=== PATIENT | female | born 1995 ===

== ENCOUNTER 2020-07-10 09:35 | Outpatient (REF) | payer OTHER, SELFPAY ==
[2020-07-10 15:19] LABS: Glucose Urine UA NEG (NEG); Leukocyte Esterase Urine TRACE (NEG); Nitrite Urine NEG (NEG); PH 5.5 (5.0-8.0); Specific Gravity - Urine >= 1.030 (1.005-1.025); UACC Culture Trigger YES; Urine Blood 3+ (NEG); Urine Ketones NEG (NEG); Urine Protein TRACE MG/DL (NEG-TRACE)
[2020-07-10 15:24] LABS: Appearance Urine CLOUDY; Color Urine YELLOW
[2020-07-10 15:52] LABS: Bacteria Urine 2+ /LPF; RBC Urine TNTC /HPF (0); Squamous Epithelial Cell Urine 3+ /LPF
== END 2020-07-10 09:36 | disposition home or self-care (01) ==
LOC: HO.LAB 09:35
PROVIDERS: Visit Provider Advanced Practice Midwife
DX: R32 Unspecified urinary incontinence (principal); N89.8 Other specified noninflammatory disorders of vagina; E66.01 Morbid (severe) obesity due to excess calories; Z68.45 Body mass index [BMI] 70 or greater, adult
CPT/HCPCS: 81001; 81003; 87086; 87147; 99202

== ENCOUNTER 2020-12-13 12:35 | Emergency (ER) | payer OTHER, SELFPAY ==
[2020-12-13 12:44] VITALS: BP 118/59; PULSE 107; O2SAT 99
[2020-12-13 13:47] VITALS: BP 154/79; PULSE 97; RESP 18; TEMP 37.2; O2SAT 99; BMI 80.1
--- NOTE | 2020-12-13 14:36 | ECG_ITS ---
Test Reason : NEAR SYNCOPE Blood Pressure : / mmHG Vent. Rate : 090 BPM Atrial Rate : 090 BPM P-R Int : 168 ms QRS Dur : 076 ms QT Int : 380 ms P-R-T Axes : 046 032 034 degrees QTc Int : 464 ms Normal sinus rhythm Possible Left atrial enlargement Borderline ECG No previous ECGs available Referred By: Billy Medrano Electronically Signed By:JANETH PARKINSON MD
--- NOTE | 2020-12-13 14:38 | ED.GENADULT ---
HPI - General Adult General Chief complaint: General Medical Stated complaint: [facility] 1 DAY SINCE 2ND COVID VACC Time Seen by Provider: 12/13/20 12:45 Source: patient Mode of arrival: EMS Limitations: no limitations History of Present Illness HPI narrative: 25-year-old female who presents emergency department for evaluation of headache, chest pain and a near syncopal episode. Patient states that she got her 2nd COVID 19 Moderna vaccination yesterday. She states that shortly after the vaccination she developed a headache. She states the headache is a constant, throbbing sensation located throughout her entire head which is 9/10 at its worst. Patient states that she gets frequent headaches but this headache different than her usual headache. She took Advil yesterday with no relief. She states she woke up this morning at 11:30 a.m. and still had a headache. She then took a shower. While she was in the shower she felt lightheaded and dizzy as if she is going to pass out. She also developed nausea but no vomiting. She became very weak. She did not feel well and called an ambulance was transported to the emergency department for evaluation. She states that since being in the emergency department she has developed chest pain. She describes the pain is a constant pressure-like pain on the center of her chest. The pain is moderate in intensity. She denied fever, chills, cough, shortness of breath, dyspnea on exertion. Related Data Home Medications Medication Instructions Recorded Confirmed albuterol sulfate 90 mcg/actuation 2 puff INHALATION Q6H PRN 07/10/20 aerosol inhaler lisinopril 10 mg tablet 10 mg PO DAILY 07/10/20 Previous Rx's Medication Instructions Recorded fluconazole 150 mg tablet 150 mg PO ONCE PRN 1 Days #1 tab 07/10/20 (Diflucan) amoxicillin 500 mg capsule 500 mg PO Q8H 5 Days #15 cap 07/11/20 diphenhydramine HCl 25 mg capsule 50 mg PO Q6H PRN #30 cap 12/13/20 (Benadryl) metoclopramide HCl 10 mg tablet 10 mg PO Q6H PRN #14 tab 12/13/20 (Reglan) Allergies Allergy/AdvReac Type Severity Reaction Status Date / Time No Known Allergies Allergy Verified 07/10/20 09:53 [No Known Allergies*] [facility] Past Medical History [facility] Narrative: Social history: Patient denies tobacco, alcohol and drug use. Medical History Asthma HTN (hypertension) Morbid obesity with BMI of 70 and over, adult Family History Family History Maternal Aunt Cancer Maternal Grandmother Cancer Mother HTN (hypertension) Asthma Social History Social History Alcohol intake: former Advance Directives: No Patient : No Gender identity: Female Physical Exam Vital Signs: Vital Signs: Last Vital Signs Temp 98.9 F 12/13/20 13:47 Pulse 97 12/13/20 13:47 Resp 18 12/13/20 13:47 BP 154/79 H 12/13/20 13:47 Pulse Ox 99 12/13/20 13:47 Body Mass Index 80.1 Const: Other: Very pleasant and cooperative female patient, does not appear to be in distress, answers all questions appropriately. HENMT: Head: Yes normal to inspection, Yes normocephalic and Yes atraumatic Ears: external ears normal General nose exam: Normal external nose present Face and sinus: Yes normal facial exam Mouth: Normal oral and palatal mucosa present Throat: Yes posterior oropharynx normal Eyes: General: appearance normal, both eyes and all related structures Pupils: Equal, round and reactive pupils present Neck: Neck: Yes normal visual inspection, Yes no lymphadenopathy, Yes trachea midline and Yes supple Chest: Chest palpation & inspection: normal inspection of the chest and tenderness sternum (Moderate) and costochondral junction (Moderate) Resp: Effort & Inspection: normal respiratory effort and able to speak in complete sentences Auscultation: clear to auscultation bilaterally Cardio: Rate: regular rate Rhythm: regular rhythm Heart sounds: S1 normal heart sound present, S2 normal heart sound present and no murmurs GI: Inspection: Yes normal to inspection Palpation (GI): Soft to palpation, nontender and no guarding Auscultation: normal bowel sounds : General: Yes no CVA tenderness Back/Spine/Pelvis: Back: no CVA tenderness Skin: General skin exam: no rashes or lesions noted Neuro: Cranial nerves: Yes CN's II-XII intact bilaterally and Yes Equal, round and reactive pupils present Cognition (Neuro): normal cognition Motor exam (neuro): 5/5 motor strength present throughout Extrem: General: Yes normal to inspection Psych: Appearance: grossly normal Speech and movement: Normal speech and movement present Affect: normal affect Attitude: cooperative Thought process: Normal thought process present Thought content: Normal thought content present Course Course Course Narrative: 25-year-old female who presents emergency department for evaluation of near syncopal episode that occurred while she was taking a shower. Patient received her 2nd Moderna COVID-19 vaccination yesterday and has been having headache since then. Patient's vital signs revealed an elevated blood pressure of 154/79 otherwise unremarkable. Physical examination did reveal tenderness with palpation of her chest otherwise was unremarkable and her neurologic exam was nonfocal. Given her near syncopal episode, I did order a CBC, CMP and troponin. EKG will also be checked. Patient's headache will be treated with Reglan 10 mg orally, Benadryl 50 mg orally, ibuprofen 600 mg orally and Tylenol 975 mg orally. 1853: The patient's pain improved slightly with the above treatment and she did receive oxycodone 5 mg orally with complete resolution of her symptoms. The patient's CBC revealed mild anemia with an H&H of 10.8 and 35.3. The patient has a low platelet count of 90,000 which is new. Patient's comprehensive metabolic panel was unremarkable. Troponin was below detectable limits. Twelve EKG was unremarkable. The patient's headache is most likely an adverse reaction to her COVID-19 vaccination. The patient's near syncopal episode while she was in the showers most likely caused by vasovagal event. I did discuss this with the patient. The patient is feeling better after the above treatment. The patient will be started on following migraine regimen: Reglan 10 mg, Benadryl 50 mg, Excedrin migraine 2 tablets every 6 hours as needed. The patient will need a repeat CBC in 1 week by her PCP and if she still has thrombocytopenia and then she should be referred to hematology for further evaluation. The patient was discharged home. Medical Decision Making Lab Data Result diagrams: 12/13/20 17:34 12/13/20 17:35 Labs: Lab Results 12/13/20 12/13/20 12/13/20 Range/Units 17:34 17:35 17:35 WBC 5.9 (4.8-10.8) X10*3/uL RBC 4.52 (4.20-5.50) X10*6/uL Hgb 10.8 L (12.0-16.0) g/dl Hct 35.3 L (37-47) % MCV 78.1 L (80-98) fL MCH 23.9 L (27.0-33.0) pg MCHC 30.6 L (31.0-35.0) g/dl RDW 14.1 (11.0-16.0) % Plt Count 90 L (160-400) X10*3/uL MPV 11.7 (9.4-12.3) fL Immature Gran % (Auto) 0.7 H (0.0-0.4) % Neut % (Auto) 79.8 H (45-73) % Lymph % (Auto) 13.4 L (20-40) % [place] % (Auto) 5.1 (2-11) % Eos % (Auto) 0.5 (0-4) % Baso % (Auto) 0.5 (0-2) % Lymph # (Auto) 0.8 L (1.2-4.9) X10*3/uL [place] # (Auto) 0.3 (0.1-1.2) X10*3/uL Eos # (Auto) 0.0 (0.0-0.4) X10*3/uL Baso # (Auto) 0.0 (0.0-0.2) X10*3/uL Abs Immat Gran (auto) 0.04 H (0.00-0.03) X10*3/uL Absolute Neuts (auto) 4.7 (2.0-8.3) X10*3/uL Absolute Nucleated RBC 0.000 (0.0-0.012) X10*3/uL Nucleated RBC % (auto) 0.0 (0.0-0.2) /100WBC Smear Tech's Comments VERIFIED Sodium 139 (135-145) mmol/L Potassium 4.4 (3.3-5.1) mmol/L Chloride 106 (96-108) mmol/L Carbon Dioxide 23 (22-29) mmol/L Anion Gap 14 (12-20) BUN 11 (9-16) mg/dL Creatinine 0.71 (0.5-1.4) mg/dL Estim Creat Clear Calc 228.7 Estimated GFR > 60 Random Glucose 105 (60-115) mg/dL Calcium 8.7 (8.4-10.2) mg/dL Total Bilirubin 1.8 H (0.0-1.0) mg/dL AST 33 H (5-31) U/L ALT 32 H (0-31) U/L Alkaline Phosphatase 84 (39-117) U/L Troponin I High Sens < 3.5 (<3.5-17.0) ng/L Total Protein 7.2 (6.5-8.0) g/dL Albumin 4.1 (3.5-5.0) g/dL ECG Data Interpretation: 1653: Normal sinus rhythm rate of 90, normal IN interval, QRS duration and QTC interval, inverted T-wave in V1, no ST segment elevation, no ST segment depression, no PACs, no PVCs Discharge Plan Discharge Clinical Impression: Near syncope, Thrombocytopenia Headache Qualifiers: Headache type: other headache syndrome Qualified Code(s): G44.89 - Other headache syndrome Chest pain Qualifiers: Chest pain type: unspecified Qualified Code(s): R07.9 - Chest pain, unspecified Patient Disposition: Home, Self-Care Instructions: Chest Pain (ED), Near Syncope (ED), Thrombocytopenia (ED) Additional Instructions: Your laboratory evaluation revealed mild anemia. Your platelet count is low. Your platelet count [place] [address]. A normal platelet count is between 150,000 to 450,000. A low platelet count is called thrombocytopenia. I do not think this is related to the COVID vaccination or to the symptoms that you had today. You will need a repeat CBC (complete blood count) in 1 week by your doctor. If your platelet count is still low then your doctor will need to send you to a hematology (blood doctor.) To further look into the low count. I want you to take the following 3 medications together every 6 hours as needed for headache, nausea or vomiting. Reglan (metoclopramide) in 10 mg, 1 pill Benadryl 25 mg, 2 pills Excedrin migraine, 2 pills. After you take these medications, lie down in a dark quiet room and try to fall asleep. These medications will make you sleepy, do not drive or work after taking these medications. Call your doctor on Tuesday morning to arrange a follow-up within 1 week to have a repeat CBC to check your platelet count as discussed above. Please return to the emergency department if your symptoms get worse or if you develop any symptoms that are concerning to you. Prescriptions: New metoclopramide HCl [Reglan] 10 mg tablet 10 mg PO Q6H PRN (Reason: Headache, nausea, vomiting) Qty: 14 RF: 0 diphenhydramine HCl [Benadryl] 25 mg capsule 50 mg PO Q6H PRN (Reason: Take with Reglan (metoclopramide)) Qty: 30 RF: 0 No Action amoxicillin 500 mg capsule 500 mg PO Q8H 5 Days Qty: 15 RF: 0 lisinopril 10 mg tablet 10 mg PO DAILY RF: 0 albuterol sulfate 90 mcg/actuation HFA aerosol inhaler 2 puff inhalation Q6H PRNRF: 0 fluconazole [Diflucan] 150 mg tablet 150 mg PO ONCE PRN (Reason: personal) 1 Days Qty: 1 RF: 1
[2020-12-13] MEDS: diphenhydrAMINE HCL 25 MG TABLET 50 MG PO (14:46)
[2020-12-13] MEDS: Acetaminophen 325 MG TABLET 975 MG PO (14:46)
[2020-12-13] MEDS: Ibuprofen 600 MG TABLET PO (14:47)
[2020-12-13] MEDS: Metoclopramide HCl 10 MG TABLET PO (14:47)
[2020-12-13 17:52] LABS: Basophils Percent Auto 0.5 % (0-2); Eosinophils Percent Auto 0.5 % (0-4); Hematocrit 35.3 % (37-47); Hemoglobin 10.8 g/dl (12.0-16.0); Imm Gran Abs Auto 0.04 X10*3/uL (0.00-0.03); Imm Gran Pct Auto 0.7 % (0.0-0.4); Lymphocytes Absolute Auto 0.8 X10*3/uL (1.2-4.9); Lymphocytes Percent Auto 13.4 % (20-40); MANUAL DIFF FLAG SCAN; Mean Corpuscular HGB Conc 30.6 g/dl (31.0-35.0); Mean Corpuscular Hemoglobin 23.9 pg (27.0-33.0); Mean Corpuscular Volume 78.1 fL (80-98); Mean Platelet Volume 11.7 fL (9.4-12.3); Monocytes Absolute Auto 0.3 X10*3/uL (0.1-1.2); Monocytes Percent Auto 5.1 % (2-11); Neutrophils Absolute Auto 4.7 X10*3/uL (2.0-8.3); Neutrophils Percent Auto 79.8 % (45-73); PLT CLUMP 1; Red Blood Count 4.52 X10*6/uL (4.20-5.50); Red Cell Distribution Width 14.1 % (11.0-16.0); SCAN SMEAR FLAG 1
[2020-12-13] MEDS: oxyCODONE HCl Immed Release 5 MG TABLET PO (17:55)
[2020-12-13 18:06] LABS: Alanine Aminotransferase 32 U/L (0-31); Albumin Level 4.1 g/dL (3.5-5.0); Alkaline Phosphatase 84 U/L (39-117); Anion Gap 14 (12-20); Aspartate Amino Transferase 33 U/L (5-31); Bilirubin Total 1.8 mg/dL (0.0-1.0); Blood Urea Nitrogen 11 mg/dL (9-16); Calcium 8.7 mg/dL (8.4-10.2); Carbon Dioxide 23 mmol/L (22-29); Chloride 106 mmol/L (96-108); Creatinine Clr Calc Pharmacy 228.7; Estimated Glomerular Filt Rate > 60; Glucose Random 105 mg/dL (60-115); Potassium 4.4 mmol/L (3.3-5.1); Sodium 139 mmol/L (135-145); Total Protein 7.2 g/dL (6.5-8.0)
[2020-12-13 18:08] LABS: Troponin-I High Sensitivity < 3.5 ng/L (<3.5-17.0)
[2020-12-13 18:16] LABS: Platelet Count 90 X10*3/uL (160-400); White Blood Count 5.9 X10*3/uL (4.8-10.8)
[2020-12-13 18:17] LABS: PLT ABN DIST 1
[2020-12-13 18:18] LABS: SLIDE REVIEW VERIFIED
[2020-12-13 19:14] VITALS: BP 142/64; PULSE 86; RESP 16; O2SAT 98
== END 2020-12-13 19:16 | disposition home or self-care (01) ==
PROVIDERS: Emergency Provider Emergency Medicine Emergency Medical Services
DX: R55 Syncope and collapse (principal); D69.49 Other primary thrombocytopenia; G44.89 Other headache syndrome; R07.9 Chest pain, unspecified; Z20.822 Contact with and (suspected) exposure to COVID-19; Z79.899 Other long term (current) drug therapy
CPT/HCPCS: 36415; 80053; 84484; 85025; 93005; 99284; Q0163

== ENCOUNTER 2021-07-27 09:17 | Outpatient (REF) | payer OTHER, SELFPAY ==
[2021-07-27 10:05] LABS: COVID-19 Test Positive (Negative)
== END 2021-07-27 09:18 | disposition home or self-care (01) ==
LOC: HO.LAB 09:17
PROVIDERS: Visit Provider Internal Medicine
DX: Z20.822 Contact with and (suspected) exposure to COVID-19 (principal)
CPT/HCPCS: 87635; C9803

== ENCOUNTER 2021-08-06 10:48 | Outpatient (REF) | payer OTHER, SELFPAY ==
[2021-08-06 11:40] LABS: COVID-19 Test Negative (Negative); IDNOW Serial# 9DB6401D
== END 2021-08-06 10:49 | disposition home or self-care (01) ==
LOC: HO.LAB 10:48
PROVIDERS: Visit Provider Internal Medicine
DX: Z20.822 Contact with and (suspected) exposure to COVID-19 (principal)
CPT/HCPCS: 87635; C9803

== ENCOUNTER 2021-11-24 03:48 | Emergency (ER) | payer OTHER, SELFPAY ==
--- NOTE | 2021-11-24 | ECG_ITS ---
Test Reason : chest pain Blood Pressure : / mmHG Vent. Rate : 086 BPM Atrial Rate : 086 BPM P-R Int : 184 ms QRS Dur : 072 ms QT Int : 386 ms P-R-T Axes : 039 019 033 degrees QTc Int : 461 ms Normal sinus rhythm Normal ECG When compared with ECG of 13-DEC-2020 16:53, No significant change was found Referred By: Generic ED Physician Electronically Signed By:TINA COREY
[2021-11-24 04:06] VITALS: BP 145/79; PULSE 73; RESP 16; TEMP 36.5; O2SAT 98; BMI 79.8
[2021-11-24 04:37] LABS: Basophils Absolute Auto 0.1 X10*3/uL (0.0-0.2); Basophils Percent Auto 0.8 % (0-2); Eosinophils Absolute Auto 0.2 X10*3/uL (0.0-0.4); Hematocrit 40.5 % (37.0-47.0); Hemoglobin 12.6 g/dl (12.0-16.0); Imm Gran Abs Auto 0.09 X10*3/uL (0.00-0.03); Imm Gran Pct Auto 1.2 % (0.0-0.4); Lymphocytes Absolute Auto 2.1 X10*3/uL (1.2-4.9); Lymphocytes Percent Auto 27.9 % (20-40); MANUAL DIFF FLAG NO; Mean Corpuscular HGB Conc 31.1 g/dl (31.0-35.0); Mean Corpuscular Hemoglobin 24.8 pg (27.0-33.0); Mean Corpuscular Volume 79.7 fL (80.0-98.0); Mean Platelet Volume 11.1 fL (9.4-12.3); Monocytes Absolute Auto 0.6 X10*3/uL (0.1-1.2); Monocytes Percent Auto 8.5 % (2-11); Neutrophils Absolute Auto 4.4 x10*3/uL (2.0-8.3); Neutrophils Percent Auto 59.6 % (45-73); Platelet Count 229 X10*3/uL (160-400); Red Blood Count 5.08 X10*6/uL (4.20-5.50); Red Cell Distribution Width 14.6 % (11.0-16.0); White Blood Count 7.4 X10*3/uL (4.8-10.8)
[2021-11-24 04:57] LABS: Alanine Aminotransferase 45 U/L (0-31); Albumin Level 4.3 g/dL (3.5-5.0); Alkaline Phosphatase 84 U/L (39-117); Anion Gap 17 (12-20); Aspartate Amino Transferase 37 U/L (5-31); Bilirubin Total 0.7 mg/dL (0.0-1.0); Blood Urea Nitrogen 27 mg/dL (9-16); Calcium 9.3 mg/dL (8.4-10.2); Carbon Dioxide 23 mmol/L (22-29); Chloride 106 mmol/L (96-108); Creatinine Clr Calc Pharmacy 168.9; Estimated Glomerular Filt Rate > 60; Glucose Random 108 mg/dL (60-115); Potassium 4.9 mmol/L (3.3-5.1); Sodium 141 mmol/L (135-145); Total Protein 7.7 g/dL (6.5-8.0); Troponin-I High Sensitivity < 3.5 ng/L (<3.5-17.0)
--- NOTE | 2021-11-24 05:08 | ED_ITS ---
HPI - Chest Pain General Chief Complaint: Chest Pain Stated Complaint: chest pain Time Seen by Provider: 11/24/21 05:06 Source: patient Limitations: no limitations History of Present Illness HPI narrative: this is a 26-year-old female with a history of morbid obesity, hypertension who complains of feeling of numbness in both of her hands followed by some left- sided chest discomfort and left-sided headache. Patient reports she does have a history of migraines. Her headache is about a 7/10. It is not throbbing. She denies any visual changes. She denies any nausea or sweats. She denies any history of cardiac disease her Related Data Home Medications Medication Instructions Recorded Confirmed albuterol sulfate 90 mcg/actuation 2 puff inhalation Q6H PRN 07/10/20 aerosol inhaler lisinopril 10 mg tablet 10 mg PO DAILY 07/10/20 Previous Rx's Medication Instructions Recorded fluconazole 150 mg tablet 150 mg PO ONCE PRN personal 1 day 07/10/20 (Diflucan) #1 tab amoxicillin 500 mg capsule 500 mg PO Q8H 5 days #15 caps 07/11/20 diphenhydramine HCl 25 mg capsule 50 mg PO Q6H PRN Take with Reglan 12/13/20 (Benadryl) (metoclopramide) #30 caps metoclopramide HCl 10 mg tablet 10 mg PO Q6H PRN Headache, nausea, 12/13/20 (Reglan) vomiting #14 tabs Allergies Allergy/AdvReac Type Severity Reaction Status Date / Time No Known Allergies Allergy Verified 07/10/20 09:53 [No Known Allergies*] Review of Systems Review of Systems: Yes all other systems are reviewed and are negative Constitutional: Constitutional: Reports as per HPI, Denies fever(s) and Reports headache(s) Eyes: Eyes: Reports as per HPI and Reports no additional eye complaints ENT: Reports system reviewed and no additional complaints, except as documented, Reports as per HPI, Reports headache(s), Denies nasal congestion, Denies nasal discharge and Denies sore throat Cardiovascular: Cardiovascular: Reports as per HPI, Reports chest pain and Denies dyspnea Respiratory: Respiratory: Reports as per HPI, Denies cough and Denies dyspnea Gastrointestinal: Gastrointestinal: Reports as per HPI, Denies abdominal pain, Denies diarrhea, Denies nausea and Denies vomiting Genitourinary: Genitourinary: Reports as per HPI, Denies hematuria, Denies urinary frequency and Denies dysuria Musculoskeletal: Musculoskeletal: Reports no additional musculoskeletal complaints and Denies numbness Integumentary/Breasts: Skin/Breast: Reports as per HPI and Denies rash Neurologic: Reports as per HPI, Reports headache(s), Denies focal weakness and Denies numbness Psychiatric: Psychiatric: Reports no additional psychiatric complaints and Reports as per HPI Endocrine: Endocrine: Reports no additional endocrine complaints and Reports as per HPI Hematologic/Lymphatic: Hematologic/Lymphatic: Reports no additional hematologic/lymphatic complaints, Reports as per HPI and Reports other (No peripheral edema) [facility] Past Medical History Medical History Asthma HTN (hypertension) Morbid obesity with BMI of 70 and over, adult Family History Family History Maternal Aunt Cancer Maternal Grandmother Cancer Mother HTN (hypertension) Asthma Social History Social History Alcohol intake: former Advance Directives: No Advance Directives Information Provided: Yes Gender identity: Female Physical Exam Vital Signs: Vital Signs: Last Vital Signs Temp 97.7 F 11/24/21 04:06 Pulse 73 11/24/21 04:06 Resp 16 11/24/21 04:06 BP 145/79 H 11/24/21 04:06 Pulse Ox 98 11/24/21 04:06 O2 Del Method 11/24/21 04:06 BMI result Body Mass Index 79.8 Const: Other: morbidly obese PERRLA Conj [place] Mucous membranes moist Throat clear Neck supple Lungs CTA Heart RRR no murmurs rubs or gallops Abd soft, non tender, non distended Extremities no pitting edema Neuro alert and oriented x 3, non focal MDM - Chest Pain MDM Narrative Medical decision making narrative: Patient was given Compazine 10 mg IV, Ativan 1 mg p.o.. She was able to fall sleep. Upon awakening she states she felt better with her headache relieved. Patient had left-sided chest pain, and while she is only 26, she does have morbid obesity. EKG not show any concerning changes. Troponin was negative. Lab Data Attestation: I reviewed the patient's lab results. Result diagrams: 11/24/21 04:33 11/24/21 04:33 Labs: Lab Results 11/24/21 11/24/21 11/24/21 Range/Units 04:33 04:33 04:33 WBC 7.4 (4.8-10.8) X10*3/uL RBC 5.08 (4.20-5.50) X10*6/uL Hgb 12.6 (12.0-16.0) g/dl Hct 40.5 (37.0-47.0) % MCV 79.7 L (80.0-98.0) fL MCH 24.8 L (27.0-33.0) pg MCHC 31.1 (31.0-35.0) g/dl RDW 14.6 (11.0-16.0) % Plt Count 229 (160-400) X10*3/uL MPV 11.1 (9.4-12.3) fL Immature Gran % (Auto) 1.2 H (0.0-0.4) % Neut % (Auto) 59.6 (45-73) % Lymph % (Auto) 27.9 (20-40) % [place] % (Auto) 8.5 (2-11) % Eos % (Auto) 2.0 (0-4) % Baso % (Auto) 0.8 (0-2) % Lymph # (Auto) 2.1 (1.2-4.9) X10*3/uL [place] # (Auto) 0.6 (0.1-1.2) X10*3/uL Eos # (Auto) 0.2 (0.0-0.4) X10*3/uL Baso # (Auto) 0.1 (0.0-0.2) X10*3/uL Abs Immat Gran (auto) 0.09 H (0.00-0.03) X10*3/uL Absolute Neuts (auto) 4.4 (2.0-8.3) x10*3/uL Absolute Nucleated RBC 0.000 (0.0-0.012) X10*3/uL Nucleated RBC % (auto) 0.0 (0.0-0.2) /100WBC Sodium 141 (135-145) mmol/L Potassium 4.9 (3.3-5.1) mmol/L Chloride 106 (96-108) mmol/L Carbon Dioxide 23 (22-29) mmol/L Anion Gap 17 (12-20) BUN 27 H (9-16) mg/dL Creatinine 0.95 (0.5-1.4) mg/dL Estim Creat Clear Calc 168.9 Estimated GFR > 60 Random Glucose 108 (60-115) mg/dL Calcium 9.3 D (8.4-10.2) mg/dL Total Bilirubin 0.7 (0.0-1.0) mg/dL AST 37 H (5-31) U/L ALT 45 H (0-31) U/L Alkaline Phosphatase 84 (39-117) U/L Troponin I High Sens < 3.5 (<3.5-17.0) ng/L Total Protein 7.7 (6.5-8.0) g/dL Albumin 4.3 (3.5-5.0) g/dL ECG Data ECG #1: Attestation: I personally reviewed and interpreted this ECG as follows: ECG interpretation date: 11/24/21 ECG interpretation time: 05:12 Interpretation: sinus rhythm with a rate of 86. No ST elevation or depression. Normal QRS axis. No ectopy. Discharge Plan Discharge Clinical Impression: Atypical chest pain, Migraine Patient Disposition: Home, Self-Care Instructions: Migraine Headache (ED), Noncardiac Chest Pain (ED) Additional Instructions: Use ibuprofen for any recurrent pain. Follow-up with your primary care physician. Consider pursuing a gastric bypass type procedure for weight loss. Prescriptions: No Action amoxicillin 500 mg capsule 500 mg PO Q8H 5 Days Qty: 15 0RF Rx Instructions: complete all medication metoclopramide HCl [Reglan] 10 mg tablet 10 mg PO Q6H PRN (Reason: Headache, nausea, vomiting) Qty: 14 0RF diphenhydramine HCl [Benadryl] 25 mg capsule 50 mg PO Q6H PRN (Reason: Take with Reglan (metoclopramide)) Qty: 30 0RF lisinopril 10 mg tablet 10 mg PO DAILY albuterol sulfate 90 mcg/actuation HFA aerosol inhaler 2 puff inhalation Q6H PRN fluconazole [Diflucan] 150 mg tablet 150 mg PO ONCE PRN (Reason: personal) 1 Days Qty: 1 1RF Stand Alone Forms: Work/School Release
[2021-11-24] MEDS: LORazepam 1 MG TABLET PO (05:26)
[2021-11-24] MEDS: Prochlorperazine Edisylate 10 MG/2 ML VIAL IVPUSH (05:26)
[2021-11-24 06:08] VITALS: BP 129/65; PULSE 71; RESP 18; O2SAT 97
== END 2021-11-24 06:10 | disposition home or self-care (01) ==
LOC: HO.ED 05:18
PROVIDERS: Emergency Provider Emergency Medicine
DX: G43.909 Migraine, unspecified, not intractable, without status migrainosus (principal); R07.89 Other chest pain; R20.0 Anesthesia of skin; Z79.899 Other long term (current) drug therapy
CPT/HCPCS: 36415; 80053; 84484; 85025; 93005; 96374; 99284

== ENCOUNTER 2022-05-29 19:03 | Emergency (ER) | payer OTHER, SELFPAY ==
--- NOTE | ~2022-05-29 | XR_ITS ---
EXAMINATION: XR CHEST CLINICAL INFORMATION: Chest pain COMPARISON: None available. TECHNIQUE: Frontal view of the chest was obtained. FINDINGS: No significant abnormality is noted involving the heart, lungs, mediastinum, bony thorax or soft tissues. XR/XR chest 1V IMPRESSION: Unremarkable examination.
--- NOTE | ~2022-05-29 | CT_ITS ---
EXAMINATION: CT HEAD WITHOUT CONTRAST CLINICAL INFORMATION: Hypertension, headache COMPARISON: None available. TECHNIQUE: Contiguous axial imaging was performed from the skull base to vertex without intravenous administration of contrast. This CT examination was performed using dose optimization techniques as appropriate, variously including the following: *Automated exposure control *Adjustment of mA and/or kV according to patient size (this includes techniques or standardized protocols for targeted exams where dose is matched to indication/reason for exam; i.e. extremities or head) *Use of iterative reconstruction technique DLP: 729 mGy-cm FINDINGS: No intra-axial or extra-axial hemorrhage. No acute territorial infarct. Ventricles and sulci appear normal. Preservation of moore-white matter differentiation. No mass, mass effect, or midline shift. No fracture. The mastoid air cells and visualized paranasal sinuses are clear. CT/CT head/brain wo IV con IMPRESSION: No acute intracranial pathology.
--- NOTE | 2022-05-29 19:06 | ED_ITS ---
HPI - General Adult General Chief complaint: Dizziness <TARUN Ashford - Last Filed: 05/29/22 19:11> Stated complaint: high blood pressure <TARUN Ashford - Last Filed: 05/29/22 19:11> Time Seen by Provider: 05/29/22 22:33 <TARUN Ashford - Last Filed: 05/29/22 19:11> Source: patient <Nancy Knott MD - Last Filed: 05/29/22 23:16> Mode of arrival: ambulatory <Nancy Knott MD - Last Filed: 05/29/22 23:16> Limitations: no limitations <Nancy Knott MD - Last Filed: 05/29/22 23:16> History of Present Illness HPI narrative: Patient comes to emergency room complaining of high blood pressure, sore throat, chest pressure. Patient states she has been having symptoms for 2 days. Patient is known to have hypertension, takes lisinopril and nifedipine. Patient takes her medications as prescribed. Yesterday patient went to see her primary care physician, blood pressure was elevated. Patient states that she was scheduled for an echocardiogram which will be done sometime in June. Patient states that this time she has no chest pain. No shortness of breath. A complaining of headache and sore throat. Patient denies fever chills, nausea vomiting or diarrhea. <Nancy Knott MD - Last Filed: 05/29/22 23:16> Related Data Home medications: Home Medications Medication Instructions Recorded Confirmed albuterol sulfate 90 mcg/actuation 2 puff inhalation Q6H PRN 07/10/20 aerosol inhaler lisinopril 10 mg tablet 10 mg PO DAILY 07/10/20 Previous Rx's Medication Instructions Recorded fluconazole 150 mg tablet 150 mg PO ONCE PRN personal 1 day 07/10/20 (Diflucan) #1 tab amoxicillin 500 mg capsule 500 mg PO Q8H 5 days #15 caps 07/11/20 diphenhydramine HCl 25 mg capsule 50 mg PO Q6H PRN Take with Reglan 12/13/20 (Benadryl) (metoclopramide) #30 caps metoclopramide HCl 10 mg tablet 10 mg PO Q6H PRN Headache, nausea, 12/13/20 (Reglan) vomiting #14 tabs ketorolac 10 mg tablet 10 mg PO .B.i.d. PRN pain #10 tabs 05/29/22 metoclopramide HCl 10 mg tablet 10 mg PO .B.i.d. PRN nausea and 05/29/22 (Reglan) vomiting #10 tabs <TARUN Ashford - Last Filed: 05/29/22 19:11> Allergies/adverse reactions: Allergies Allergy/AdvReac Type Severity Reaction Status Date / Time No Known Allergies Allergy Verified 07/10/20 09:53 [No Known Allergies*] <TARUN Ashford - Last Filed: 05/29/22 19:11> Review of Systems Review of Systems: Constitutional : No Weight loss, No Fever, No Chills, No Night Sweats, No Fatigue, No Malaise ENT/Mouth : No Hearing loss, No Ear Pain, No Nasal Congestion, No Sinus Pain, No Hoarseness, complaining of sore throat, No Rhinorrhea, No Swallowing Difficulty Eyes: No Eye Pain, No Swelling, No Redness, No Foreign Body, No Discharge, No Vision Changes Cardiovascular : No Chest Pain, complaining of chest pressure, No SOB, No Dyspnea on Exertion, No Orthopnea, No Edema, No Palpitations Respiratory : No Cough, No Sputum, No Wheezing, No Smoke Exposure, No Dyspnea Gastrointestinal : No Nausea, No Vomiting, No Diarrhea, No Constipation, No abdominal Pain, No Hematochezia, No Melena Genitourinary : no irregular bleeding, No Dysuria, No Urinary Frequency, No Hematuria, No Urinary Incontinence, No Urgency, No Flank Pain, No Urinary Flow Changes, No Hesitancy Musculoskeletal : No joint pain, No Myalgias, No Joint Swelling Skin : No Skin Lesions, No rash Neuro : No Weakness, No Numbness, No Paresthesias, No Loss of Consciousness, No Dizziness, complaining of Headache Psych : No Anxiety/Panic, No Depression, No SI/HI/AH/VH, No Social Issues, Heme/Lymph: No Bruising, No Bleeding,No Lymphadenopathy Endocrine : No Polyuria, No Polydipsia, No Temperature Intolerance <Nancy Knott MD - Last Filed: 05/29/22 23:16> [facility] Past Medical History Medical History: Medical History Asthma HTN (hypertension) Morbid obesity with BMI of 70 and over, adult <TARUN Ashford - Last Filed: 05/29/22 19:11> Family History Family History: Family History Maternal Aunt Cancer Maternal Grandmother Cancer Mother HTN (hypertension) Asthma <TARUN Ashford - Last Filed: 05/29/22 19:11> Social History Social History: Social History Alcohol intake: former Advance Directives: No Advance Directives Information Provided: No Gender identity: Female <TARUN Ashford - Last Filed: 05/29/22 19:11> Physical Exam ED Vital Signs: Vital Signs - 24 hr 05/29/22 19:08 05/29/22 22:46 Temperature 98 F Pulse Rate 104 H 85 Respiratory Rate 20 16 Blood Pressure 177/110 H 140/81 H Pulse Oximetry 99 99 Oxygen Delivery Method Room Air Room Air BMI result Body Mass Index 82.3 <TARUN Ashford - Last Filed: 05/29/22 19:11> Vital Signs - 24 hr 05/29/22 19:08 05/29/22 22:46 Temperature 98 F Pulse Rate 104 H 85 Respiratory Rate 20 16 Blood Pressure 177/110 H 140/81 H Pulse Oximetry 99 99 Oxygen Delivery Method Room Air Room Air BMI result Body Mass Index 82.3 <Nancy Knott MD - Last Filed: 05/29/22 23:16> Const Other: -patient's initial blood pressure was 177/110, crit and the patient was seen by me, blood pressure was 140/81, no medications were given to the patient. -patient complaining of sore throat, oropharynx slightly erythematous, no patches, COVID test negative. Patient given p.o. Decadron and dexamethasone for symptomatic relief -patient complaining of headache, head CT negative. Patient was given IM keto rolac, p.o. Reglan <Nancy Knott MD - Last Filed: 05/29/22 23:16> Course Course Course Narrative: RME--26yo F w/PMHx HTN, c/o DOAN x 3 days, with CP that yesterday, lightheadedness/dizziness and elevated BPs at home 157/100. Admits to taking her BP meds today. BP 177/110 in triage EKG, Labs, Head CT ordered <TARUN Ashford - Last Filed: 05/29/22 19:11> Medical Decision Making Differential Diagnosis Differential Diagnoses: The differential diagnosis associated with the presentation includes (Vital syndrome, uncontrolled hypertension, hypertensive emergency) <Nancy Knott MD - Last Filed: 05/29/22 23:16> Lab Data MDM Lab Attestation statement: I reviewed the patient's lab results. <Nancy Knott MD - Last Filed: 05/29/22 23:16> Result Diagrams: 05/29/22 20:01 05/29/22 20:01 <TARUN Ashford - Last Filed: 05/29/22 19:11> Labs: Lab Results 05/29/22 05/29/22 05/29/22 Range/Units 20:01 20:01 20:01 WBC 7.4 (4.8-10.8) X10*3/uL RBC 4.83 (4.20-5.50) X10*6/uL Hgb 12.2 (12.0-16.0) g/dl Hct 39.3 (37.0-47.0) % MCV 81.4 (80.0-98.0) fL MCH 25.3 L (27.0-33.0) pg MCHC 31.0 (31.0-35.0) g/dl RDW 14.1 (11.0-16.0) % Plt Count 230 (160-400) X10*3/uL MPV 10.9 (9.4-12.3) fL Immature Gran % (Auto) 1.2 H (0.0-0.4) % Neut % (Auto) 62.9 (45-73) % Lymph % (Auto) 23.7 (20-40) % [place] % (Auto) 9.1 (2-11) % Eos % (Auto) 2.4 (0-4) % Baso % (Auto) 0.7 (0-2) % Lymph # (Auto) 1.8 (1.2-4.9) X10*3/uL [place] # (Auto) 0.7 (0.1-1.2) X10*3/uL Eos # (Auto) 0.2 (0.0-0.4) X10*3/uL Baso # (Auto) 0.1 (0.0-0.2) X10*3/uL Abs Immat Gran (auto) 0.09 H (0.00-0.03) X10*3/uL Absolute Neuts (auto) 4.7 (2.0-8.3) x10*3/uL Absolute Nucleated RBC 0.000 (0.0-0.012) X10*3/uL Nucleated RBC % (auto) 0.0 (0.0-0.2) /100WBC PT (10.0-13.1) SEC INR (0.9-1.1) Sodium 142 (135-145) mmol/L Potassium 4.3 (3.3-5.1) mmol/L Chloride 105 (96-108) mmol/L Carbon Dioxide 27 (22-29) mmol/L Anion Gap 14 (12-20) BUN 12 (9-16) mg/dL Creatinine 0.68 (0.5-1.4) mg/dL Estim Creat Clear Calc 241.4 Estimated GFR > 60 Random Glucose 87 (60-115) mg/dL Calcium 9.3 (8.4-10.2) mg/dL Total Bilirubin 1.1 H (0.0-1.0) mg/dL Direct Bilirubin 0.3 (0.0-0.5) mg/dL AST 21 (5-31) U/L ALT 32 H (0-31) U/L Alkaline Phosphatase 87 (39-117) U/L Troponin I High Sens < 3.5 (<3.5-17.0) ng/L Total Protein 7.2 (6.5-8.0) g/dL Albumin 4.3 (3.5-5.0) g/dL COVID-19 (REECE) (Negative) COVID-19 Clin Com 05/29/22 05/29/22 Range/Units 20:01 20:01 WBC (4.8-10.8) X10*3/uL RBC (4.20-5.50) X10*6/uL Hgb (12.0-16.0) g/dl Hct (37.0-47.0) % MCV (80.0-98.0) fL MCH (27.0-33.0) pg MCHC (31.0-35.0) g/dl RDW (11.0-16.0) % Plt Count (160-400) X10*3/uL MPV (9.4-12.3) fL Immature Gran % (Auto) (0.0-0.4) % Neut % (Auto) (45-73) % Lymph % (Auto) (20-40) % [place] % (Auto) (2-11) % Eos % (Auto) (0-4) % Baso % (Auto) (0-2) % Lymph # (Auto) (1.2-4.9) X10*3/uL [place] # (Auto) (0.1-1.2) X10*3/uL Eos # (Auto) (0.0-0.4) X10*3/uL Baso # (Auto) (0.0-0.2) X10*3/uL Abs Immat Gran (auto) (0.00-0.03) X10*3/uL Absolute Neuts (auto) (2.0-8.3) x10*3/uL Absolute Nucleated RBC (0.0-0.012) X10*3/uL Nucleated RBC % (auto) (0.0-0.2) /100WBC PT 12.1 (10.0-13.1) SEC INR 1.1 (0.9-1.1) Sodium (135-145) mmol/L Potassium (3.3-5.1) mmol/L Chloride (96-108) mmol/L Carbon Dioxide (22-29) mmol/L Anion Gap (12-20) BUN (9-16) mg/dL Creatinine (0.5-1.4) mg/dL Estim Creat Clear Calc Estimated GFR Random Glucose (60-115) mg/dL Calcium (8.4-10.2) mg/dL Total Bilirubin (0.0-1.0) mg/dL Direct Bilirubin (0.0-0.5) mg/dL AST (5-31) U/L ALT (0-31) U/L Alkaline Phosphatase (39-117) U/L Troponin I High Sens (<3.5-17.0) ng/L Total Protein (6.5-8.0) g/dL Albumin (3.5-5.0) g/dL COVID-19 (REECE) Negative (Negative) COVID-19 Clin Com See Note <TARUN Ashford - Last Filed: 05/29/22 19:11> Lab Results 05/29/22 05/29/22 05/29/22 Range/Units 20:01 20:01 20:01 WBC 7.4 (4.8-10.8) X10*3/uL RBC 4.83 (4.20-5.50) X10*6/uL Hgb 12.2 (12.0-16.0) g/dl Hct 39.3 (37.0-47.0) % MCV 81.4 (80.0-98.0) fL MCH 25.3 L (27.0-33.0) pg MCHC 31.0 (31.0-35.0) g/dl RDW 14.1 (11.0-16.0) % Plt Count 230 (160-400) X10*3/uL MPV 10.9 (9.4-12.3) fL Immature Gran % (Auto) 1.2 H (0.0-0.4) % Neut % (Auto) 62.9 (45-73) % Lymph % (Auto) 23.7 (20-40) % [place] % (Auto) 9.1 (2-11) % Eos % (Auto) 2.4 (0-4) % Baso % (Auto) 0.7 (0-2) % Lymph # (Auto) 1.8 (1.2-4.9) X10*3/uL [place] # (Auto) 0.7 (0.1-1.2) X10*3/uL Eos # (Auto) 0.2 (0.0-0.4) X10*3/uL Baso # (Auto) 0.1 (0.0-0.2) X10*3/uL Abs Immat Gran (auto) 0.09 H (0.00-0.03) X10*3/uL Absolute Neuts (auto) 4.7 (2.0-8.3) x10*3/uL Absolute Nucleated RBC 0.000 (0.0-0.012) X10*3/uL Nucleated RBC % (auto) 0.0 (0.0-0.2) /100WBC PT (10.0-13.1) SEC INR (0.9-1.1) Sodium 142 (135-145) mmol/L Potassium 4.3 (3.3-5.1) mmol/L Chloride 105 (96-108) mmol/L Carbon Dioxide 27 (22-29) mmol/L Anion Gap 14 (12-20) BUN 12 (9-16) mg/dL Creatinine 0.68 (0.5-1.4) mg/dL Estim Creat Clear Calc 241.4 Estimated GFR > 60 Random Glucose 87 (60-115) mg/dL Calcium 9.3 (8.4-10.2) mg/dL Total Bilirubin 1.1 H (0.0-1.0) mg/dL Direct Bilirubin 0.3 (0.0-0.5) mg/dL AST 21 (5-31) U/L ALT 32 H (0-31) U/L Alkaline Phosphatase 87 (39-117) U/L Troponin I High Sens < 3.5 (<3.5-17.0) ng/L Total Protein 7.2 (6.5-8.0) g/dL Albumin 4.3 (3.5-5.0) g/dL COVID-19 (REECE) (Negative) COVID-19 Clin Com 05/29/22 05/29/22 Range/Units 20:01 20:01 WBC (4.8-10.8) X10*3/uL RBC (4.20-5.50) X10*6/uL Hgb (12.0-16.0) g/dl Hct (37.0-47.0) % MCV (80.0-98.0) fL MCH (27.0-33.0) pg MCHC (31.0-35.0) g/dl RDW (11.0-16.0) % Plt Count (160-400) X10*3/uL MPV (9.4-12.3) fL Immature Gran % (Auto) (0.0-0.4) % Neut % (Auto) (45-73) % Lymph % (Auto) (20-40) % [place] % (Auto) (2-11) % Eos % (Auto) (0-4) % Baso % (Auto) (0-2) % Lymph # (Auto) (1.2-4.9) X10*3/uL [place] # (Auto) (0.1-1.2) X10*3/uL Eos # (Auto) (0.0-0.4) X10*3/uL Baso # (Auto) (0.0-0.2) X10*3/uL Abs Immat Gran (auto) (0.00-0.03) X10*3/uL Absolute Neuts (auto) (2.0-8.3) x10*3/uL Absolute Nucleated RBC (0.0-0.012) X10*3/uL Nucleated RBC % (auto) (0.0-0.2) /100WBC PT 12.1 (10.0-13.1) SEC INR 1.1 (0.9-1.1) Sodium (135-145) mmol/L Potassium (3.3-5.1) mmol/L Chloride (96-108) mmol/L Carbon Dioxide (22-29) mmol/L Anion Gap (12-20) BUN (9-16) mg/dL Creatinine (0.5-1.4) mg/dL Estim Creat Clear Calc Estimated GFR Random Glucose (60-115) mg/dL Calcium (8.4-10.2) mg/dL Total Bilirubin (0.0-1.0) mg/dL Direct Bilirubin (0.0-0.5) mg/dL AST (5-31) U/L ALT (0-31) U/L Alkaline Phosphatase (39-117) U/L Troponin I High Sens (<3.5-17.0) ng/L Total Protein (6.5-8.0) g/dL Albumin (3.5-5.0) g/dL COVID-19 (REECE) Negative (Negative) COVID-19 Clin Com See Note <Nancy Knott MD - Last Filed: 05/29/22 23:16> Independent Interpretation I performed an independent interpretation of an: EKG (EKG my interpretation, normal sinus rhythm, heart rate 93, no ST segment depression or elevation, no T-wave inversion, QTC 452) and CT Scan (My interpretation of head CT: No intracranial bleed) <Nancy Knott MD - Last Filed: 05/29/22 23:16> Radiology Impression Discussion of test interpretation with radiology: I have reviewed the radiologist's reading. <Nancy Knott MD - Last Filed: 05/29/22 23:16> Radiologist Impression: FINDINGS: No intra-axial or extra-axial hemorrhage. No acute territorial infarct. Ventricles and sulci appear normal. Preservation of moore-white matter differentiation. No mass, mass effect, or midline shift. No fracture. The mastoid air cells and visualized paranasal sinuses are clear. ? CT/CT head/brain wo IV con IMPRESSION: No acute intracranial pathology. ? <Nancy Knott MD - Last Filed: 05/29/22 23:16> Discharge Plan Discharge Clinical Impression: Hypertension, uncontrolled, Headache, Acute viral pharyngitis <TARUN Ashford - Last Filed: 05/29/22 19:11> Patient Disposition: Home, Self-Care <TARUN Ashford - Last Filed: 05/29/22 19:11> Instructions: Pharyngitis (ED), Hypertension (ED) <TARUN Ashford - Last Filed: 05/29/22 19:11> Additional Instructions: Please follow-up with your primary care physician tomorrow. If you have any worsening or new symptoms, please return to the emergency room or call 911 <TRAUN Ashford - Last Filed: 05/29/22 19:11> Prescriptions: New ketorolac 10 mg tablet 10 mg PO .B.i.d. PRN (Reason: pain) Qty: 10 0RF Rx Instructions: Do not take this medication with NSAIDs, only Tylenol if needed metoclopramide HCl [Reglan] 10 mg tablet 10 mg PO .B.i.d. PRN (Reason: nausea and vomiting) Qty: 10 0RF Rx Instructions: Take together with ketorolac p.r.n. severe headache No Action amoxicillin 500 mg capsule 500 mg PO Q8H 5 Days Qty: 15 0RF Rx Instructions: complete all medication metoclopramide HCl [Reglan] 10 mg tablet 10 mg PO Q6H PRN (Reason: Headache, nausea, vomiting) Qty: 14 0RF diphenhydramine HCl [Benadryl] 25 mg capsule 50 mg PO Q6H PRN (Reason: Take with Reglan (metoclopramide)) Qty: 30 0RF lisinopril 10 mg tablet 10 mg PO DAILY albuterol sulfate 90 mcg/actuation HFA aerosol inhaler 2 puff inhalation Q6H PRN fluconazole [Diflucan] 150 mg tablet 150 mg PO ONCE PRN (Reason: personal) 1 Days Qty: 1 1RF <TARUN Ashford - Last Filed: 05/29/22 19:11>
[2022-05-29 19:08] VITALS: BP 177/110; PULSE 104; RESP 20; TEMP 36.6; O2SAT 99; BMI 82.3
--- NOTE | 2022-05-29 19:09 | ECG_ITS ---
Test Reason : HIGH BLOOD PRESSURE Blood Pressure : / mmHG Vent. Rate : 093 BPM Atrial Rate : 093 BPM P-R Int : 182 ms QRS Dur : 078 ms QT Int : 364 ms P-R-T Axes : 051 039 027 degrees QTc Int : 452 ms Normal sinus rhythm Normal ECG When compared with ECG of 24-NOV-2021 03:57, No significant change was found Referred By: Agustina Loya Electronically Signed By:RADHA KENT MD
[2022-05-29 20:14] LABS: MANUAL DIFF FLAG NO
[2022-05-29 20:17] LABS: Basophils Absolute Auto 0.1 X10*3/uL (0.0-0.2); Basophils Percent Auto 0.7 % (0-2); Eosinophils Absolute Auto 0.2 X10*3/uL (0.0-0.4); Eosinophils Percent Auto 2.4 % (0-4); Hematocrit 39.3 % (37.0-47.0); Hemoglobin 12.2 g/dl (12.0-16.0); Imm Gran Abs Auto 0.09 X10*3/uL (0.00-0.03); Imm Gran Pct Auto 1.2 % (0.0-0.4); Lymphocytes Absolute Auto 1.8 X10*3/uL (1.2-4.9); Lymphocytes Percent Auto 23.7 % (20-40); Mean Corpuscular Hemoglobin 25.3 pg (27.0-33.0); Mean Corpuscular Volume 81.4 fL (80.0-98.0); Mean Platelet Volume 10.9 fL (9.4-12.3); Monocytes Absolute Auto 0.7 X10*3/uL (0.1-1.2); Monocytes Percent Auto 9.1 % (2-11); Neutrophils Absolute Auto 4.7 x10*3/uL (2.0-8.3); Neutrophils Percent Auto 62.9 % (45-73); Platelet Count 230 X10*3/uL (160-400); Red Blood Count 4.83 X10*6/uL (4.20-5.50); Red Cell Distribution Width 14.1 % (11.0-16.0); White Blood Count 7.4 X10*3/uL (4.8-10.8)
--- OUTSIDE RECORDS SUMMARY | 2022-05-29 20:21 | XMS_ITS | Continuity of Care Document ---
Author Name Unknown Organization [facility] Address [address] [place] [id number]- Care Team Providers Care Silverware Assembler Name Role Phone Freddie ABBOTT, Kevin Yusuf Primary Care Physician Encounter [facility] Date(s): 08/01/19 - 08/08/19 [facility] [address] [place] [id number] [facility] Attending Physician: Arturo Marino MD Allergies, Adverse Reactions, Alerts Substance Reaction Severity Status NKA Active Immunizations Given and Recorded Vaccine Date Status Refusal Reason influenza virus vaccine, inactivated 01/01/19 Give n influenza virus vaccine, inactivated 1 12/27/16 Gi felecia influenza virus vaccine, inactivated 2 04/17/15 Gi felecia influenza virus vaccine, inactivated 12/27/11 Give n influenza virus vaccine, inactivated 04/02/11 Give n influenza virus vaccine, inactivated 10/27/09 Give n pneumococcal 23-valent vaccine 06/01/17 Given Meningococcal Conjugate Vaccine 09/22/15 Given Meningococcal Conjugate Vaccine 08/07/08 Given Human Papillomavirus Vaccine 04/02/11 Given Human Papillomavirus Vaccine 10/27/09 Given Human Papillomavirus Vaccine 08/07/08 Given influ virus vac, H1N1, inactive(oldterm) 01/10/09 Given Varicella Virus Vaccine 08/07/08 Given Tet/Diphth/Acel, Pertussis (oldterm) 08/07/08 Give n 1Result Comment: [12/27/2016] [facility] [id number] 2Admin Note: VIS from 10/11/14 given to parent Medications albuterol CFC free 90 mcg/inh inhalation aerosol 2 puffs, Inhalation, Every 4 hours, PRN for wheezing, # 18 Gm, 2 Refills, Maintenance, 07/03/14 8:26:34, Aerosol, 2 puffs Inhalation Every 4 hours,PRN:for wheezing Start Date: 07/03/14 Status: Ordered cetirizine 10 mg oral tablet 1 tablet = 10 mg, By Mouth, Daily, # 30 tablet, 3 Refills, Maintenance, 07/10/19 10:02:00 EDT, Tablet, [facility], 163.4, cm, 05/16/19 10:53:00 EDT, Height, 166.9, kg, 11/21/17 2:28:00 EDT,Dry Weight Start Date: 07/10/19 Status: Ordered diclofenac 1% topical gel 1 application, Topically, 4 times a day, PRN for pain, not to exceed 16 grams/day/single joint of lower extremities. label fijian, # 100 Gm, 4 Refills, Maintenance, 04/18/19 15:51:00 EST, Gel, [facility], 163.4, cm, 04/18/19 15:38:00 EST, H... Start Date: 04/18/19 Status: Ordered famotidine 20 mg oral tablet 20 mg, 1, tablet, By Mouth, 2 times a day, for pain, nausea. avoid eating and drinking for 10 minutes after each dose, # 20 tablet, Refills 0, Tot. Refills 0, Maintenance, 02/19/19 19:12:13 EST, Route to Pharmacy Electronically, [facility],... Start Date: 02/19/19 Stop Date: 03/01/19 Status: Ordered fexofenadine 60 mg oral tablet 1 tablet = 60 mg, By Mouth, 2 times a day, stop cetirizine please, # 60 tablet, 2 Refills, Maintenance, 08/01/19 9:01:00 EDT, [facility], 163.4, cm, 05/16/19 10:53:00 EDT, Height, 166.9, kg, 11/21/17 2:28:00 EDT, Dry Weight Start Date: 08/01/19 Status: Ordered Flonase 50 mcg/inh nasal spray 1 sprays, Nares, Both, 2 times a day, # 16 Gm, 3 Refills, Maintenance, 07/10/19 10:02:00 EDT, [place], [facility], 1 sprays Nares, Both 2 times a day, 163.4, cm, 05/16/19 10:53:00 EDT, Height, 166.9, kg, 11/21/17 2:28:00 EDT, Dry Weight Start Date: 07/10/19 Status: Ordered hydrocortisone 2.5% topical lotion 1 application, Topically, 2 times a day, # 59 mL, 0 Refills, Maintenance, 05/17/19 17:11:00 EDT, [id number], 1 application Topically 2 times a day, 163.4, cm, 05/16/19 10:53:00 EDT, Height, 166.9, kg, 11/21/17 2:28:00 EDT, Dry Weight Start Date: 05/17/19 Status: Ordered lisinopril 20 mg oral tablet 20 mg, 1, tablet, By Mouth, Daily, # 30 tablet, Refills 6, Tot. Refills 6, Maintenance, 01/18/19 10:21:15 EST, Route to Pharmacy Electronically, [id number], [id number] Start Date: 01/18/19 Stop Date: 08/16/19 Status: Ordered Naphcon-A 0.025%-0.3% ophthalmic solution 1 drops, Eyes, Both, 4 times a day, # 15 mL, 1 Refills, Maintenance, 07/10/19 10:02:00 EDT, Solution, [facility], 1 drops Eyes, Both 4 times a day, 163.4, cm, 05/16/19 10:53:00 EDT, Height,166.9, kg, 11/21/17 2:28:00 EDT, Dry Weight Start Date: 07/10/19 Status: Ordered ProAir HFA 90 mcg/inh inhalation aerosol with adapter 2, puffs, Inhalation, Every 4 hours, PRN, # 8.5 Gm, Refills 6, Tot. Refills 6, Maintenance, 02/21/19 16:23:00 EST, Aerosol, Route to Pharmacy Electronically, [id number], [facility], 163.4, cm, 02/19/19 19:02:00 EST, Height, 166.9, kg,... Start Date: 02/21/19 Status: Ordered Right ankle brace Right ankle brace, See Instructions, # 1 each, Refills 0, Tot. Refills 0, Maintenance, Right ankle brace. Please provide the previous brace that patient had. Rt ankle pain (M25.571), 01/04/19 16:16:38 EDT, Compound Start Date: 01/04/19 Status: Ordered topiramate 25 mg oral capsule 1 capsule = 25 mg, By Mouth, 2 times a day, # 60 capsule, 3 Refills, Maintenance, 01/02/18 11:09:11EDT Start Date: 01/02/18 Status: Ordered triamcinolone 0.025% topical cream 1 applicator, Topically, 3 times a day, PRN Rash, # 30 Gm, 0 Refills, Maintenance, 09/21/17 8:22:37EDT, 1 applicator Topically 3 times a day,PRN:Rash Start Date: 09/21/17 Status: Ordered Tylenol 8 Hour 650 mg oral tablet, extended release 1 tablet = 650 mg, By Mouth, Every 8 hours, # 100 tablet, 1 Refills, Maintenance, 02/19/19 19:13:45EST, ER Tablet, [facility], 163.4, cm, 02/19/19 19:02:31 EST, Height, 166.9, kg, 11/21/182:28:34 EDT, Dry Weight Start Date: 02/19/19 Status: Ordered Problem List Condition Effective Dates Status Health Status Inform ant Asthma(Confirmed) Active 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
--- OUTSIDE RECORDS SUMMARY | 2022-05-29 20:21 | XMS_ITS | Continuity of Care Document ---
Author Name Unknown Organization [facility] Address [address] [place] [address] [address] [place] [address]- Care Team Providers Care Assistant To The Director Name Role Phone Freddie ABBOTT, Kevin Yusuf Primary Care Physician [phone] Encounter [facility] Date(s): 04/27/19 - 05/07/19 [facility] [address] [place] [address]- [facility] Attending Physician: Admjaydon, Jonny8 Admitting Physician: AdmtrNasima Referring Physician: Admtr, Ar8 Allergies, Adverse Reactions, Alerts Substance Reaction Severity [...] (oldterm) 08/07/08 Give n 1Result Comment: [12/27/2016] [facility] [id number] 2Admin Note: VIS from 10/11/14 given to parent Medications albuterol CFC free 90 mcg/inh inhalation aerosol 2 puffs, Inhalation, Every 4 hours, PRN for wheezing, # 18 Gm, 2 Refills, Maintenance, 07/03/14 8:26:34, Aerosol, 2 puffs Inhalation Every 4 hours,PRN:for wheezing Start Date: 07/03/14 Status: Ordered diclofenac 1% topical gel 1 application, Topically, 4 times a day, PRN for pain, not to exceed 16 grams/day/single joint of lower extremities. label setswana, # 100 Gm, 4 Refills, Maintenance, 04/18/19 15:51:00 EST, Gel, [facility], 163.4, cm, 04/18/19 15:38:00 EST, H... Start Date: 04/18/19 Status: Ordered famotidine 20 mg oral tablet 20 mg, 1, tablet, By Mouth, 2 times a day, for pain, nausea. avoid eating and drinking for 10 minutes after each dose, # 20 tablet, Refills 0, Tot. Refills 0, Maintenance, 02/19/19 19:12:13 EST, Route to Pharmacy Electronically, [facility],... Start Date: 02/19/19 Stop Date: 03/01/19 Status: Ordered Flonase 50 mcg/inh nasal spray 1 sprays, Nares, Both, 2 times a day, # 16 Gm, 1 Refills, Maintenance, 07/19/18 10:29:32 EDT, [facility], 1 sprays Nares, Both 2 times a day Start Date: 07/19/18 Status: Ordered lisinopril 20 mg oral tablet 20 mg, 1, tablet, By Mouth, Daily, # 30 tablet, Refills 6, Tot. Refills 6, Maintenance, 01/18/19 10:21:15 EST, Route to Pharmacy Electronically, [id number], [facility]/pharmacy #[id number] Start Date: 01/18/19 Stop Date: 08/16/19 Status: Ordered ProAir HFA 90 mcg/inh inhalation aerosol with adapter 2, puffs, Inhalation, Every 4 hours, PRN, # 8.5 Gm, Refills 6, Tot. 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
--- OUTSIDE RECORDS SUMMARY | 2022-05-29 20:21 | XMS_ITS | Continuity of Care Document ---
Author Name Unknown Organization [facility] Address [address] [place] [address]- Care Team Providers Care Casino Slot Supervisor Name Role Phone Freddie ABBOTT, Kevin Yusuf Primary Care Physician [phone] Encounter [facility] Date(s): 01/27/22 - 02/26/[address] [address]- Allergies, Adverse Reactions, Alerts Substance Reaction Severity Status ferrous sulfate Active Immunizations Given and Recorded Vaccine Date Status Refusal Reason tetanus/diphtheria/pertussis, acel(Tdap) 10/14/21 Given SARS-CoV-2 (COVID-19) mRNA-1273 vaccine 12/12/20 R ecorded SARS-CoV-2 (COVID-19) mRNA-1273 vaccine 11/14/20 R ecorded influenza virus vaccine, inactivated 01/01/19 Give n [...] (oldterm) 08/07/08 Give n 1Result Comment: [12/27/2016] [facility] [id number] 2Admin Note: VIS from 10/11/14 given to parent Medications albuterol 0.083% inhalation solution 3 mL = 2.5 mg, Inhalation, Every 6 hours, PRN for wheezing, # 100 each, 1 Refills, Maintenance, 08/05/21 15:44:00 EDT, Solution, [facility], 163.4, cm, 08/05/21 14:34:00 EDT, Height Start Date: 08/05/21 Status: Ordered BuPROPion (Eqv-Wellbutrin SR) 150 mg/12 hours oral tablet, extended release TAKE 1 TABLET BY MOUTH TWICE A DAY Start Date: 12/30/21 Status: Ordered cetirizine 10 mg oral tablet 1 tablet, By Mouth, Daily, # 30 tablet, 5 Refills, [facility], 163.4, cm, 08/05/21 14:34:00 EDT, Height Start Date: 08/25/21 Status: Ordered clindamycin 1% topical gel 1 application, Topically, 2 times a day, # 30 Gm, 0 Refills, Maintenance, 01/27/22 9:20:00 EST, Gel, [facility], Partial fill upon patient request if the prescription is for a schedule II opioid drug. Refills- contact PCP, 1 application Topi... Start Date: 01/27/22 Status: Ordered diclofenac 1% topical gel 1 application, Topically, 4 times a day, PRN Pain , Moderate, apply to wrists as needed, # 100 Gm, 0 Refills, Maintenance, 07/15/21 15:06:00 [facility] if the prescription is for a schedule II opi... Start Date: 07/15/21 Status: Ordered EpiPen 2-Mir 0.3 mg injectable kit = 0.3 mg, Intramuscular, Once, may repeat if necessary, # 1 each, 0 Refills, Soft Stop, 09/25/21 14:43:00 EDT, [facility], Partial fill upon patient request if the prescription is for a schedule II opioid drug., 163.4, cm, 09/24/21 15:28:00... Start Date: 09/25/21 Status: Ordered famotidine 20 mg oral tablet 20 mg, 1, tablet, By Mouth, 2 times a day, for nausea, heartburn., # 60 tablet, Refills 0, Tot. Refills 0, Maintenance, 10/13/20 16:36:00 EDT, Route to Pharmacy Electronically, [facility], Partial fill upon patient request if the prescriptio... Start Date: 10/13/20 Status: Ordered Flovent HFA 110 mcg/inh inhalation aerosol 2 puffs, Inhalation, 2 times a day, AND THROAT OUT AFTER USE., # 12 Gm, 5 Refills, [facility], 163.4, cm, 10/14/21 8:28:00 EDT, Height Start Date: 10/26/21 Status: Ordered fluticasone 50 mcg/inh nasal spray See Instructions, USE 1 SPRAY IN EACH NOSTRIL TWICE A DAY, # 16 Gm, 5 Refills, [facility], 30, USE 1 SPRAY IN EACH NOSTRIL TWICE A DAY, 163.4, cm, 10/14/21 8:28:00 EDT, Height Start Date: 10/26/21 Status: Ordered hydroCHLOROthiazide 12.5 mg oral capsule 1 capsule, By Mouth, Daily, # 30 capsule, 2 Refills, Maintenance, 12/10/21 12:09:00 EDT, [facility], 163.4, cm, 12/02/21 16:27:00 EDT, Height Start Date: 12/10/21 Status: Ordered left hand wrist splint left hand wrist splint, See Instructions, # 1 each, Refills 0, Tot. Refills 0, Maintenance, ICD G56.00 carpal tunnel syndrome duration - lifetime, 01/27/22 11:36:00 EST, Supply Start Date: 01/27/22 Status: Ordered lisinopril 20 mg oral tablet 1, tablet, By Mouth, Daily, # 90 tablet, Refills 1, Route to Pharmacy Electronically, [facility], 163.4, cm, 09/24/21 15:28:00 EDT, Height Start Date: 09/24/21 Status: Ordered medroxyPROGESTERone 10 mg oral tablet 10 mg, 1, tablet, By Mouth, Daily, # 10 tablet, Refills 0, Tot. Refills 0, Maintenance, 04/17/20 11:20:00 EST, Route to Pharmacy Electronically, [facility], Partial fill upon patient request if the prescription is for a schedule II opioid drMariana. Start Date: 04/17/20 Status: Ordered metFORMIN 500 mg oral tablet 1 tablet = 500 mg, By Mouth, Daily, with meals, # 90 tablet, 0 Refills, Maintenance, 01/27/22 9:19:00 EST, Tablet, [facility], Partial fill upon patient request if the prescription is for aschedule II opioid drug. Refills-contact PCP, 163.4... Start Date: 01/27/22 Status: Ordered NIFEdipine 30 mg oral tablet, extended release 30 mg, 1, tablet, By Mouth, Daily, # 30 tablet, Refills 2, Tot. Refills 2, Maintenance, 12/07/21 15:13:00 EDT, Route to Pharmacy Electronically, [facility], Duplicate Rx. Original sent 12/01/21. Re-sending per pharmacy request, 163.4, cm, .. Start Date: 12/07/21 Stop Date: 03/07/22 Status: Ordered ProAir HFA 90 mcg/inh inhalation aerosol with adapter 2, puffs, Inhalation, Every 4 hours, PRN, # 8.5 Gm, Refills 5, Route to Pharmacy Electronically, NCPDP_[id number], [facility], 163.4, cm, 07/15/21 13:31:00 EDT, Height Start Date: 07/16/21 Status: Ordered sertraline 100 mg oral tablet TAKE 1&1/2 TABLET BY MOUTH ONCE A DAY Start Date: 12/30/21 Status: Ordered Slow Fe (as elemental iron) 45 mg oral tablet, extended release 1 tablet = 45 mg, By Mouth, Daily, # 30 tablet, 5 Refills, Maintenance, 12/18/20 10:42:00 EDT, ER Tablet, [facility], Partial fill upon patient request if the prescription is for a scheduleII opioid drug., 163.4, cm, 12/18/20 10:36:00 EDT,... Start Date: 12/18/20 Status: Ordered Spacer for use with Albuterol inhaler Spacer for use with Albuterol inhaler, See Instructions, # 1 each, Refills 1, Tot. Refills 1, Maintenance, use q6 hours as needed with Albuterol inhaler for SOB/wheezing. Dx: Asthma, J45.909, 12/26/19 17:46:00 EDT, Supply, 163.4, cm, 11/06/19 13:10:00... 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 Glaucoma suspected 2017 Confirmed Active Hypertension Confirmed Active Irregular menses Confirmed Active Keratoconus Confirmed Active Morbid Obesity BMI of 67 Confirmed Active Obstructive sleep apnea Confirmed Active Severe obesity Confirmed Active Social History Social History Type Response Smoking Status Never smoker; Tobacc o user in household: No entered on: 04/15/15 Sex Patient Care team information Care Team Personnel Name: Freddie ABBOTT, Kevin Yusuf Position: S Primary Care Physician Member Role: PCP Address: Address: [address] [place] [address]- Care Team Related Persons Name: KARI AGUERO Address: [place] [address]
--- OUTSIDE RECORDS SUMMARY | 2022-05-29 20:21 | XMS_ITS | Continuity of Care Document ---
Author Name Unknown Organization [facility] Address [address] [place] [address]- Care Team Providers Care Software Licensing Specialist Name Role Phone Freddie ABBOTT, Kevin Yusuf Primary Care Physician Encounter [facility] Date(s): 05/16/19 - 09/13/[address] [address]- [facility] Attending Physician: Maximilian ABBOTT, Anjelica Salgado Admitting Physician: Anjelica Yao MD Allergies, Adverse Reactions, Alerts Substance Reaction [...] (oldterm) 08/07/08 Give n 1Result Comment: [12/27/2016] [facility] [id number] 2Admin Note: VIS from 10/11/14 given to [...] 3 Refills, Maintenance, 07/10/19 10:02:00 EDT, Tablet, [facility], 163.4, cm, 05/16/19 10:53:00 EDT, Height, 166.9, kg, 11/21/17 2:28:00 EDT,Dry Weight Start Date: 07/10/19 Status: Ordered diclofenac 1% topical gel 1 application, Topically, 4 times a day, PRN for pain, not to exceed 16 grams/day/single joint of lower extremities. label luxembourgish, # 100 Gm, 4 Refills, Maintenance, 04/18/19 15:51:00 EST, Gel, [facility], 163.4, cm, 04/18/19 15:38:00 EST, H... Start Date: 04/18/19 Status: Ordered famotidine 20 mg oral tablet 20 mg, 1, tablet, By Mouth, 2 times a day, for pain, nausea. avoid eating and drinking for 10 minutes after each dose, # 20 tablet, Refills 0, Tot. Refills 0, Maintenance, 02/19/19 19:12:13 EST, Route to Pharmacy Electronically, [facility],... Start Date: 02/19/19 Stop Date: 03/01/19 Status: Ordered fexofenadine 60 mg oral tablet 1 tablet = 60 mg, By Mouth, 2 times a day, stop cetirizine please, # 60 tablet, 2 Refills, Maintenance, 08/01/19 9:01:00 EDT, [facility], 163.4, cm, 05/16/19 10:53:00 EDT, Height, 166.9, kg, 11/21/17 2:28:00 EDT, Dry Weight Start Date: 08/01/19 Status: Ordered Flonase 50 mcg/inh nasal spray 1 sprays, Nares, Both, 2 times a day, # 16 Gm, 3 Refills, Maintenance, 07/10/19 10:02:00 EDT, [place], [facility], 1 sprays Nares, Both 2 times a day, 163.4, cm, 05/16/19 10:53:00 EDT, Height, 166.9, kg, 11/21/17 2:28:00 EDT, Dry Weight Start Date: 07/10/19 Status: Ordered hydrocortisone 2.5% topical lotion 1 application, Topically, 2 times a day, # 59 mL, 0 Refills, Maintenance, 05/17/19 17:11:00 EDT, Lotion, [facility]/pharmacy #[id number], 1 application Topically 2 times a day, 163.4, cm, 05/16/19 10:53:00 EDT, Height, 166.9, kg, 11/21/17 2:28:00 EDT, Dry Weight Start Date: 05/17/19 Status: Ordered lisinopril 20 mg oral tablet 20 mg, 1, tablet, By Mouth, Daily, # 30 tablet, Refills 1, Tot. Refills 1, Maintenance, 09/06/19 8:09:00 EDT, Route to Pharmacy Electronically, [facility], 163.4, cm, 08/13/19 14:08:00 EDT,Height, 166.9, kg, 11/21/17 2:28:00 EDT, Dry Weight Start Date: 09/06/19 Stop Date: 11/05/19 Status: Ordered Naphcon-A 0.025%-0.3% ophthalmic solution 1 drops, Eyes, Both, 4 times a day, # 15 mL, 1 Refills, Maintenance, 07/10/19 10:02:00 EDT, Solution, [facility], 1 drops Eyes, Both 4 times a day, 163.4, cm, 05/16/19 10:53:00 EDT, Height,166.9, kg, 11/21/17 2:28:00 EDT, Dry Weight Start Date: 07/10/19 Status: Ordered ProAir HFA 90 mcg/inh inhalation aerosol with adapter 2, puffs, Inhalation, Every 4 hours, PRN, # 8.5 Gm, Refills 6, Tot. 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
--- OUTSIDE RECORDS SUMMARY | 2022-05-29 20:21 | XMS_ITS | Continuity of Care Document ---
Author Name Unknown Organization [facility] Address [address] [place] [address]- Care Team Providers Care Vice President Of Advertising Name Role Phone Freddie ABBOTT, Kevin Yusuf Primary Care Physician [phone] Encounter [facility] Date(s): 01/19/21 - 02/22/[address] [address]- Attending Physician: Tyrone IMMS, Missy Campbell Admitting Physician: Tyrone MIMS, Missy Campbell Referring Physician: Tyrone MIMS, Missy Campbell Allergies, Adverse Reactions, Alerts Substance Reaction Severity [...] (oldterm) 08/07/08 Give n 1Result Comment: [12/27/2016] [facility] [id number] 2Admin Note: VIS from 10/11/14 given to parent Medications albuterol 0.083% inhalation solution 3 mL = 2.5 mg, Inhalation, Every 6 hours, PRN for wheezing, # 60 each, 0 Refills, Maintenance, 11/22/19 11:06:00 EDT, Solution, [facility], 163.4, cm, 11/06/19 13:10:00 EDT, Height Start Date: 11/22/19 Status: Ordered capsaicin 0.025% topical cream 1 application, Topically, 3 times a day, avoid contact with face and eyes to affected area, # 45 Gm, 10 Refills, Maintenance, 11/06/19 13:39:00 EDT, Cream, [facility], 1 application Topically 3 times a day,Instr:avoid contact with face and... Start Date: 11/06/19 Status: Ordered cetirizine 10 mg oral tablet 1 tablet = 10 mg, By Mouth, Daily, # 30 tablet, 5 Refills, Maintenance, 07/24/20 11:12:00 EDT, Tablet, [facility], Label in Welsh., 163.4, cm, 11/06/19 13:10:00 EDT, Height Start Date: 07/24/20 Status: Ordered diclofenac 1% topical gel 1 application, Topically, 4 times a day, PRN for pain, not to exceed 16 grams/day/single joint of lower extremities. label italian, # 100 Gm, 4 Refills, Maintenance, 04/18/19 15:51:00 EST, Gel, [facility], 163.4, cm, 04/18/19 15:38:00 EST, H... Start Date: 04/18/19 Status: Ordered diclofenac 1% topical gel 1 application, Topically, 4 times a day, # 100 Gm, 0 Refills, Maintenance, 12/18/20 10:39:00 EDT, Gel, [facility], Partial fill upon patient request if the prescription is for a schedule IIopioid drug., 163.4, cm, 12/18/20 10:36:00 EDT, Height Start Date: 12/18/20 Status: Ordered famotidine 20 mg oral tablet 20 mg, 1, tablet, By Mouth, 2 times a day, for nausea, heartburn., # 60 tablet, Refills 0, Tot. Refills 0, Maintenance, 10/13/20 16:36:00 EDT, Route to Pharmacy Electronically, [facility], Partial fill upon patient request if the prescriptio... Start Date: 10/13/20 Status: Ordered Flovent HFA 110 mcg/inh inhalation aerosol 2 puffs, Inhalation, 2 times a day, use twice a day to prevent asthma symptoms. rinse mouth and throat after use, # 1 each, 5 Refills, Maintenance, 12/12/20 16:28:00 EDT, [facility], Partial fill upon patient request if the prescription is... Start Date: 12/12/20 Status: Ordered fluticasone 50 mcg/inh nasal spray See Instructions, USE 1 SPRAY IN EACH NOSTRIL TWICE A DAY, # 16 Gm, 5 Refills, [facility], 30, USE 1 SPRAY IN EACH NOSTRIL TWICE A DAY, 163.4, cm, 10/13/20 15:44:00 EDT, Height Start Date: 12/12/20 Status: Ordered hydroCHLOROthiazide 12.5 mg oral capsule 1 capsule = 12.5 mg, By Mouth, Daily, # 30 capsule, 5 Refills, Maintenance, 12/18/20 10:41:00 EDT, Capsule, [facility], Partial fill upon patient request if the prescription is for a schedule II opioid drug., 163.4, cm, 12/18/20 10:36:00 EDT... Start Date: 12/18/20 Status: Ordered hydrocortisone 2.5% topical lotion 1 application, Topically, 2 times a day, # 59 mL, 0 Refills, Maintenance, 05/17/19 17:11:00 EDT, Lotion, [facility]/pharmacy #[id number], 1 application Topically 2 times a day, 163.4, cm, 05/16/19 10:53:00 EDT, Height, 166.9, kg, 11/21/17 2:28:00 EDT, Dry Weight Start Date: 05/17/19 Status: Ordered lisinopril 20 mg oral tablet 20 mg, 1, tablet, By Mouth, Daily, # 90 tablet, Refills 1, Tot. Refills 1, Maintenance, 11/16/20 18:01:00 EDT, Route to Pharmacy Electronically, [facility], 163.4, cm, 09/03/20 10:55:00 EDT, Height Start Date: 11/16/20 Stop Date: 05/15/21 Status: Ordered medroxyPROGESTERone 10 mg oral tablet 10 mg, 1, tablet, By Mouth, Daily, # 10 tablet, Refills 0, Tot. Refills 0, Maintenance, 04/17/20 11:20:00 EST, Route to Pharmacy Electronically, [facility], Partial fill upon patient request if the prescription is for a schedule II opioid dr... Start Date: 04/17/20 Status: Ordered Nebulizer/Compressor See Instructions, # 1 each, Maintenance, nebulizer with tubing and mouthpiece DX asthma, ICD J45.901, 11/22/19 11:05:00 EDT, Supply Start Date: 11/22/19 Status: Ordered ProAir HFA 90 mcg/inh inhalation aerosol with adapter 2, puffs, Inhalation, Every 4 hours, PRN, # 8.5 Gm, Refills 5, Tot. Refills 5, Maintenance, 07/24/20 11:13:00 EDT, Aerosol, Route to Pharmacy Electronically, NCPDP_[id number], [facility], 163.4, cm, 11/06/19 13:10:00 EDT, Height Start Date: 07/24/20 Status: Ordered Slow Fe (as elemental iron) 45 mg oral tablet, extended release 1 tablet = 45 mg, By Mouth, Daily, # 30 tablet, 5 Refills, Maintenance, 12/18/20 10:42:00 EDT, ER Tablet, [facility], Partial fill upon patient request if [...] 11/06/19 13:10:00... 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
--- OUTSIDE RECORDS SUMMARY | 2022-05-29 20:21 | XMS_ITS | Continuity of Care Document ---
Author Name Unknown Organization [facility] Address [address] [place] [address]- Care Team Providers Care Carton Maker Name Role Phone Freddie ABBOTT, Kevin Yusuf Primary Care Physician Encounter [facility] Date(s): 08/14/19 - 09/13/19 [facility] [address] [address]- [facility] Attending Physician: Nasima Coffman Admitting Physician: Nasima Coffman Referring Physician: AdmtrNasima Allergies, Adverse Reactions, Alerts Substance Reaction Severity [...] (oldterm) 08/07/08 Give n 1Result Comment: [12/27/2016] [facility] [id number] 2Admin Note: VIS from 10/11/14 given to [...] 3 Refills, Maintenance, 07/10/19 10:02:00 EDT, Tablet, [facility], 163.4, cm, 05/16/19 10:53:00 EDT, Height, 166.9, kg, 11/21/17 2:28:00 EDT,Dry Weight Start Date: 07/10/19 Status: Ordered diclofenac 1% topical gel 1 application, Topically, 4 times a day, PRN for pain, not to exceed 16 grams/day/single joint of lower extremities. label swiss, # 100 Gm, 4 Refills, Maintenance, 04/18/19 15:51:00 EST, Gel, [facility], 163.4, cm, 04/18/19 15:38:00 EST, H... Start Date: 04/18/19 Status: Ordered famotidine 20 mg oral tablet 20 mg, 1, tablet, By Mouth, 2 times a day, for pain, nausea. avoid eating and drinking for 10 minutes after each dose, # 20 tablet, Refills 0, Tot. Refills 0, Maintenance, 02/19/19 19:12:13 EST, Route to Pharmacy Electronically, [facility],... Start Date: 02/19/19 Stop Date: 03/01/19 Status: Ordered fexofenadine 60 mg oral tablet 1 tablet = 60 mg, By Mouth, 2 times a day, stop cetirizine please, # 60 tablet, 2 Refills, Maintenance, 08/01/19 9:01:00 EDT, [facility], 163.4, cm, 05/16/19 10:53:00 EDT, Height, 166.9, kg, 11/21/17 2:28:00 EDT, Dry Weight Start Date: 08/01/19 Status: Ordered Flonase 50 mcg/inh nasal spray 1 sprays, Nares, Both, 2 times a day, # 16 Gm, 3 Refills, Maintenance, 07/10/19 10:02:00 EDT, [place], [facility], 1 sprays Nares, Both 2 times a day, 163.4, cm, 05/16/19 10:53:00 EDT, Height, 166.9, kg, 11/21/17 2:28:00 EDT, Dry Weight Start Date: 07/10/19 Status: Ordered hydrocortisone 2.5% topical lotion 1 application, Topically, 2 times a day, # 59 mL, 0 Refills, Maintenance, 05/17/19 17:11:00 EDT, Lotion, [facility]/pharmacy #[id number], 1 application Topically 2 times a day, 163.4, cm, 05/16/19 10:53:00 EDT, Height, 166.9, kg, 11/21/17 2:28:00 EDT, Dry Weight Start Date: 05/17/19 Status: Ordered lisinopril 20 mg oral tablet 20 mg, 1, tablet, By Mouth, Daily, # 30 tablet, Refills 1, Tot. Refills 1, Maintenance, 09/06/19 8:09:00 EDT, Route to Pharmacy Electronically, [facility], 163.4, cm, 08/13/19 14:08:00 EDT,Height, 166.9, kg, 11/21/17 2:28:00 EDT, Dry Weight Start Date: 09/06/19 Stop Date: 11/05/19 Status: Ordered Naphcon-A 0.025%-0.3% ophthalmic solution 1 drops, Eyes, Both, 4 times a day, # 15 mL, 1 Refills, Maintenance, 07/10/19 10:02:00 EDT, Solution, [facility], 1 drops Eyes, Both 4 times a day, 163.4, cm, 05/16/19 10:53:00 EDT, Height,166.9, kg, 11/21/17 2:28:00 EDT, Dry Weight Start Date: 07/10/19 Status: Ordered ProAir HFA 90 mcg/inh inhalation aerosol with adapter 2, puffs, Inhalation, Every 4 hours, PRN, # 8.5 Gm, Refills 6, Tot. Refills 6, Maintenance, 02/21/19 16:23:00 EST, Aerosol, Route to Pharmacy Electronically, [id number], [facility], 163.4, cm, 02/19/19 19:02:00 EST, Height, [...] 1 Refills, Maintenance, 02/19/19 19:13:45EST, ER Tablet, [facility], 163.4, cm, 02/19/19 19:02:31 EST, Height, [...]
--- OUTSIDE RECORDS SUMMARY | 2022-05-29 20:21 | XMS_ITS | Continuity of Care Document ---
Author Name Unknown Organization [facility] Address [address] [place] [address]- Care Team Providers Care Oil Pipeline Operator Name Role Phone Freddie ABBOTT, Kevin Yusuf Primary Care Physician Encounter [facility] Date(s): 06/18/21 - 07/18/[address] [address]- Allergies, Adverse Reactions, Alerts No Known Allergies Immunizations Given and Recorded Vaccine Date Status [...] 1Result Comment: [12/27/2016] [facility] [id number] 2Admin Note: VIS from 10/11/14 given to parent Medications albuterol 0.083% inhalation solution 3 mL = 2.5 mg, Inhalation, Every 6 hours, PRN for wheezing, # 60 each, 0 Refills, Maintenance, 11/22/19 11:06:00 EDT, Solution, [facility], 163.4, cm, 11/06/19 13:10:00 EDT, Height Start Date: 11/22/19 Status: Ordered capsaicin 0.025% topical cream 1 application, Topically, 3 times a day, avoid contact with face and eyes to affected area, # 45 Gm, 10 Refills, Maintenance, 11/06/19 13:39:00 EDT, Cream, [facility], 1 application Topically 3 times a day,Instr:avoid contact with face and... Start Date: 11/06/19 Status: Ordered cetirizine 10 mg oral tablet 1 tablet, By Mouth, Daily, # 30 tablet, 5 Refills, [facility], 163.4, cm, 02/25/21 13:06:00 EST, Height Start Date: 03/03/21 Status: Ordered diclofenac 1% topical gel 1 application, Topically, 4 times a day, # 100 Gm, 0 Refills, Maintenance, 12/18/20 10:39:00 EDT, Gel, [facility], Partial fill upon patient request if the prescription is for a schedule IIopioid drug., 163.4, cm, 12/18/20 10:36:00 EDT, Height Start Date: 12/18/20 Status: Ordered diclofenac 1% topical gel 1 application, Topically, 4 times a day, PRN Pain , Moderate, apply to wrists as needed, # 100 Gm, 0 Refills, Maintenance, 07/15/21 15:06:00 EDT, Gel, [facility], Partial fill upon patient request if the prescription is for a schedule II opi... Start Date: 07/15/21 Status: Ordered famotidine 20 mg oral tablet 20 mg, 1, tablet, By Mouth, 2 times a day, for nausea, heartburn., # 60 tablet, Refills 0, Tot. Refills 0, Maintenance, 10/13/20 16:36:00 EDT, Route to Pharmacy Electronically, [facility], Partial fill upon patient request if the prescriptio... Start Date: 10/13/20 Status: Ordered Flovent HFA 110 mcg/inh inhalation aerosol 2 puffs, Inhalation, 2 times a day, & THROAT AFTER USE., # 12 Gm, 5 Refills, Maintenance, 05/26/21 13:59:00 EDT, [facility], 163.4, cm, 02/25/21 13:06:00 EST, Height Start Date: 05/26/21 Status: Ordered fluticasone 50 mcg/inh nasal spray See Instructions, USE 1 SPRAY IN EACH NOSTRIL TWICE A DAY, # 16 Gm, 5 Refills, Maintenance, 05/26/21 13:59:00 EDT, [facility], 30, USE 1 SPRAY IN EACH NOSTRIL TWICE A DAY, 163.4, cm, 02/25/21 13:06:00 EST, Height Start Date: 05/26/21 Status: Ordered hydroCHLOROthiazide 12.5 mg oral capsule 1 capsule, By Mouth, Daily, # 30 capsule, 5 Refills, [facility], 163.4, cm, 02/25/21 13:06:00 EST, Height Start Date: 06/09/21 Status: Ordered hydrocortisone 2.5% topical lotion 1 application, Topically, 2 times a day, # 59 mL, 0 Refills, Maintenance, 05/17/19 17:11:00 EDT, Lotion, [facility]/pharmacy #[id number], 1 application Topically 2 times a day, 163.4, cm, 05/16/19 10:53:00 EDT, Height, 166.9, kg, 11/21/17 2:28:00 EDT, Dry Weight Start Date: 05/17/19 Status: Ordered lisinopril 20 mg oral tablet See Instructions, TAKE 1 TABLET BY MOUTH EVERY DAY, # 90 tablet, Refills 1, Instructions Replace Required Details, Route to Pharmacy Electronically, [facility], 163.4, cm, 02/25/21 13:06:00EST, Height Start Date: 03/31/21 Status: Ordered medroxyPROGESTERone 10 mg oral tablet 10 mg, 1, tablet, By Mouth, Daily, # 10 tablet, Refills 0, Tot. Refills 0, Maintenance, 04/17/20 11:20:00 EST, Route to Pharmacy Electronically, [facility], Partial fill upon patient request if the prescription is for a schedule II opioid . Start Date: 04/17/20 Status: Ordered Nebulizer/Compressor See Instructions, # 1 each, Maintenance, nebulizer with tubing and mouthpiece DX asthma, ICD J45.901, 11/22/19 11:05:00 EDT, Supply Start Date: 11/22/19 Status: Ordered ProAir HFA 90 mcg/inh inhalation aerosol with adapter 2, puffs, Inhalation, Every 4 hours, PRN, # 8.5 Gm, Refills 5, Route to Pharmacy Electronically, NCPDP_[id number], [facility], 163.4, cm, 07/15/21 13:31:00 EDT, Height Start Date: 07/16/21 Status: Ordered Slow Fe (as elemental iron) 45 mg oral tablet, extended release 1 tablet = 45 mg, By Mouth, Daily, # 30 tablet, 5 Refills, Maintenance, 12/18/20 10:42:00 EDT, ER Tablet, [facility], Partial fill upon patient request if [...] 1 Refills, Maintenance, 02/19/19 19:13:45EST, ER Tablet, [facility], 163.4, cm, 02/19/19 19:02:31 EST, Height, [...]
--- OUTSIDE RECORDS SUMMARY | 2022-05-29 20:21 | XMS_ITS | Continuity of Care Document ---
Author Name Unknown Organization [facility] Address [address] [place] [address]- Care Team Providers Care Emergency Worker Name Role Phone Freddie ABBOTT, Kevin Yusuf Primary Care Physician Encounter [facility] Date(s): 06/17/21 - 07/17/[address] [address] Allergies, Adverse Reactions, Alerts No Known Allergies [...] (oldterm) 08/07/08 Give n 1Result Comment: [12/27/2016] [facility] [id number] 2Admin Note: VIS from 10/11/14 given to parent Medications albuterol 0.083% inhalation solution 3 mL = 2.5 mg, Inhalation, Every 6 hours, PRN for wheezing, # 60 each, 0 Refills, Maintenance, 11/22/19 11:06:00 EDT, Solution, [facility], 163.4, cm, 11/06/19 13:10:00 EDT, Height Start Date: 11/22/19 Status: Ordered capsaicin 0.025% topical cream 1 application, Topically, 3 times a day, avoid contact with face and eyes to affected area, # 45 Gm, 10 Refills, Maintenance, 11/06/19 13:39:00 EDT, Cream, [facility], 1 application Topically 3 times a day,Instr:avoid contact with face and... Start Date: 11/06/19 Status: Ordered cetirizine 10 mg oral tablet 1 tablet, By Mouth, Daily, # 30 tablet, 5 Refills, [facility], 163.4, cm, 02/25/21 13:06:00 EST, Height Start Date: 03/03/21 Status: Ordered diclofenac 1% topical gel 1 application, Topically, 4 times a day, # 100 Gm, 0 Refills, Maintenance, 12/18/20 10:39:00 EDT, Gel, [facility], Partial fill upon patient request if the prescription is for a schedule IIopioid drug., 163.4, cm, 12/18/20 10:36:00 EDT, Height Start Date: 12/18/20 Status: Ordered diclofenac 1% topical gel 1 application, Topically, 4 times a day, PRN Pain , Moderate, apply to wrists as needed, # 100 Gm, 0 Refills, Maintenance, 07/15/21 15:06:00 EDT, Gel, [facility], Partial fill upon [...] Gm, 5 Refills, Maintenance, 05/26/21 13:59:00 EDT, [facility], 163.4, cm, 02/25/21 13:06:00 EST, Height Start Date: 05/26/21 Status: Ordered fluticasone 50 mcg/inh nasal spray See Instructions, USE 1 SPRAY IN EACH NOSTRIL TWICE A DAY, # 16 Gm, 5 Refills, Maintenance, 05/26/21 13:59:00 EDT, [facility], 30, USE 1 SPRAY IN EACH NOSTRIL TWICE A DAY, 163.4, cm, 02/25/21 13:06:00 EST, Height Start Date: 05/26/21 Status: Ordered hydroCHLOROthiazide 12.5 mg oral capsule 1 capsule, By Mouth, Daily, # 30 capsule, 5 Refills, [facility], 163.4, cm, 02/25/21 13:06:00 EST, Height Start Date: 06/09/21 Status: Ordered hydrocortisone 2.5% topical lotion 1 application, Topically, 2 times a day, # 59 mL, 0 Refills, Maintenance, 05/17/19 17:11:00 EDT, Lotion, [facility]/pharmacy #[id number], 1 application Topically 2 times a day, 163.4, cm, 05/16/19 10:53:00 EDT, Height, 166.9, kg, 11/21/17 2:28:00 EDT, Dry Weight Start Date: 05/17/19 Status: Ordered lisinopril 20 mg oral tablet See Instructions, TAKE 1 TABLET BY MOUTH EVERY DAY, # 90 tablet, Refills 1, Instructions Replace Required Details, Route to Pharmacy Electronically, [facility], 163.4, cm, 02/25/21 13:06:00EST, Height Start [...] Gm, Refills 5, Route to Pharmacy Electronically, NCPDP_[id number], [facility], 163.4, cm, 07/15/21 13:31:00 EDT, Height Start Date: 07/16/21 Status: Ordered Slow Fe (as elemental iron) 45 mg oral tablet, extended release 1 tablet = 45 mg, By Mouth, Daily, # 30 tablet, 5 Refills, Maintenance, 12/18/20 10:42:00 EDT, ER Tablet, [facility], Partial fill upon patient request if [...] 1 Refills, Maintenance, 02/19/19 19:13:45EST, ER Tablet, [facility], 163.4, cm, 02/19/19 19:02:31 EST, Height, [...]
--- OUTSIDE RECORDS SUMMARY | 2022-05-29 20:21 | XMS_ITS | Continuity of Care Document ---
Author Name Unknown Organization [facility] Address [address] [place] [address]- Care Team Providers Care Incubator Machine Operator Name Role Phone Freddie ABBOTT, Kevin Yusuf Primary Care Physician Encounter [facility] [id number] Date(s): 08/07/20 - 09/06/[address] [address]- Attending Physician: Nasima Coffman Admitting Physician: Nasima [...] (oldterm) 08/07/08 Give n 1Result Comment: [12/27/2016] [facility] [id number] 2Admin Note: VIS from 10/11/14 given to parent Medications albuterol 0.083% inhalation solution 3 mL = 2.5 mg, Inhalation, Every 6 hours, PRN for wheezing, # 60 each, 0 Refills, Maintenance, 11/22/19 11:06:00 EDT, Solution, [facility], 163.4, cm, 11/06/19 13:10:00 EDT, Height Start Date: 11/22/19 Status: Ordered Azithromycin 3 Day Dose Pack 500 mg oral tablet 1 tablet = 500 mg, By Mouth, Daily, # 3 tablet, 0 Refills, Maintenance, 11/29/19 14:02:00 EDT, Tablet, [facility], 163.4, cm, 11/06/19 13:10:00 EDT, Height Start Date: 11/29/19 Status: Ordered capsaicin 0.025% topical cream 1 application, Topically, 3 times a day, avoid contact with face and eyes to affected area, # 45 Gm, 10 Refills, Maintenance, 11/06/19 13:39:00 EDT, Cream, [facility], 1 application Topically 3 times a day,Instr:avoid contact with face and... Start Date: 11/06/19 Status: Ordered cetirizine 10 mg oral tablet 1 tablet = 10 mg, By Mouth, Daily, # 30 tablet, 5 Refills, Maintenance, 07/24/20 11:12:00 EDT, Tablet, [facility], Label in Afghan., 163.4, cm, 11/06/19 13:10:00 EDT, Height Start Date: 07/24/20 Status: Ordered diclofenac 1% topical gel 1 application, Topically, 4 times a day, PRN for pain, not to exceed 16 grams/day/single joint of lower extremities. label swedish, # 100 Gm, 4 Refills, Maintenance, 04/18/19 15:51:00 EST, Gel, [facility], 163.4, cm, 04/18/19 15:38:00 EST, H... Start Date: 04/18/19 Status: Ordered Flonase 50 mcg/inh nasal spray 1 sprays, Nares, Both, 2 times a day, # 16 Gm, 3 Refills, Maintenance, 07/24/20 11:12:00 EDT, [place], [facility], 1 sprays Nares, Both 2 times a day, 163.4, cm, 11/06/19 13:10:00 EDT, Height Start Date: 07/24/20 Status: Ordered Flovent HFA 110 mcg/inh inhalation aerosol 2 puffs, Inhalation, 2 times a day, use twice a day to prevent asthma symptoms. rinse mouth and throat after use, # 1 each, 2 Refills, Maintenance, 09/03/20 10:43:00 EDT, [facility], Partial fill upon patient request if the prescription is... Start Date: 09/03/20 Status: Ordered hydrocortisone 2.5% topical lotion 1 application, Topically, 2 times a day, # 59 mL, 0 Refills, Maintenance, 05/17/19 17:11:00 EDT, Lotion, [facility]/pharmacy #[id number], 1 application Topically 2 times a day, 163.4, cm, 05/16/19 10:53:00 EDT, Height, 166.9, kg, 11/21/17 2:28:00 EDT, Dry Weight Start Date: 05/17/19 Status: Ordered lisinopril 20 mg oral tablet 20 mg, 1, tablet, By Mouth, Daily, # 90 tablet, Refills 3, Tot. Refills 3, Maintenance, 11/22/19 18:01:00 EDT, Route to Pharmacy Electronically, [facility], 163.4, cm, 11/06/19 13:10:00 EDT, Height, Dry Weight Start Date: 11/22/19 Stop Date: 11/16/20 Status: Ordered medroxyPROGESTERone 10 mg oral tablet 10 mg, 1, tablet, By Mouth, Daily, # 10 tablet, Refills 0, Tot. Refills 0, Maintenance, 04/17/20 11:20:00 EST, Route to Pharmacy Electronically, [facility], Partial fill upon patient request if the prescription is for a schedule II opioid dr... Start Date: 04/17/20 Status: Ordered meloxicam 7.5 mg oral tablet 1 tablet = 7.5 mg, By Mouth, Daily, take with food please., # 30 tablet, 0 Refills, Maintenance, 12/12/19 9:11:00 EDT, Tablet, [facility], 163.4, cm, 11/06/19 13:10:00 EDT, Height, Dry Weight Start Date: 12/12/19 Status: Ordered Naphcon-A 0.025%-0.3% ophthalmic solution 1 drops, Eyes, Both, 4 times a day, # 15 mL, 1 Refills, Maintenance, 09/03/20 10:42:00 EDT, Solution, [facility], 1 drops Eyes, Both 4 times a day, 163.4, cm, 08/11/20 15:14:00 EDT, Height Start Date: 09/03/20 Status: Ordered Nebulizer/Compressor See Instructions, # 1 each, Maintenance, nebulizer with tubing and mouthpiece DX asthma, ICD J45.901, 11/22/19 11:05:00 EDT, Supply Start Date: 11/22/19 Status: Ordered omeprazole 20 mg oral enteric coated capsule 1 capsule = 20 mg, By Mouth, Daily, # 30 capsule, 0 Refills, Maintenance, 01/10/20 14:06:00 EST, ECCapsule, [facility], 163.4, cm, 11/06/19 13:10:00 EDT, Height Start Date: 01/10/20 Status: Ordered ProAir HFA 90 mcg/inh inhalation aerosol with adapter 2, puffs, Inhalation, Every 4 hours, PRN, # 8.5 Gm, Refills 5, Tot. 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
--- OUTSIDE RECORDS SUMMARY | 2022-05-29 20:21 | XMS_ITS | Continuity of Care Document ---
Author Name Unknown Organization [facility] Address [address] [place] [address]- Care Team Providers Care Loss Prevention Analyst Name Role Phone Freddie ABBOTT, Kevin Yusuf Primary Care Physician [facility] Date[facility]s): 03/20/19 - 03/30/19 [facility] [address] [place] [address]- [facility] Attending Physician: Nasima Coffman Admitting Physician: Nasima [...] (oldterm) 08/07/08 Give n 1Result Comment: [12/27/2016] [facility] [id number] 2Admin Note: VIS from 10/11/14 given to [...] 16 grams/day/single joint of lower extremities. label polish, # 100 Gm, 0 Refills, Maintenance, 01/01/19 16:21:56 EDT, Gel, 1 application Topically 4 times a day,PRN:for pain,Instr:... Start Date: 01/01/19 Status: Ordered famotidine 20 mg oral tablet 20 mg, 1, tablet, By Mouth, 2 times a day, for pain, nausea. avoid eating and drinking for 10 minutes after each dose, # 20 tablet, Refills 0, Tot. Refills 0, Maintenance, 02/19/19 19:12:13 EST, Route to Pharmacy Electronically, [facility],... Start Date: 02/19/19 Stop Date: 03/01/19 Status: Ordered Flonase 50 mcg/inh nasal spray 1 sprays, Nares, Both, 2 times a day, # 16 Gm, 1 Refills, Maintenance, 07/19/18 10:29:32 EDT, [place], 1 sprays Nares, Both 2 times a day Start Date: 07/19/18 Status: Ordered ibuprofen 400 mg oral tablet 400 mg, 1, tablet, By Mouth, Every 8 hours, PRN, # 50 tablet, Refills 1, Tot. Refills 1, Maintenance, as needed for pain, 01/02/18 11:06:21 EDT, Route to Pharmacy Electronically, [id number], [facility]/pharmacy #[id number] Start Date: 01/02/18 Status: Ordered lisinopril 20 mg oral tablet 20 mg, 1, tablet, By Mouth, Daily, # 30 tablet, Refills 6, Tot. Refills 6, Maintenance, 01/18/19 10:21:15 EST, Route to Pharmacy Electronically, [id number], [facility]/pharmacy #[id number] Start Date: 01/18/19 Stop Date: 08/16/19 Status: Ordered ProAir HFA 90 mcg/inh inhalation aerosol with adapter 2, puffs, Inhalation, Every 4 hours, PRN, # 8.5 Gm, Refills 6, Tot. Refills 6, Maintenance, 02/21/19 16:23:00 EST, Aerosol, Route to Pharmacy Electronically, NCPDP_[id number], [facility], 163.4, cm, 02/19/19 19:02:00 EST, Height, [...] 1 Refills, Maintenance, 02/19/19 19:13:45EST, ER Tablet, [facility], 163.4, cm, 02/19/19 19:02:31 EST, Height, 166.9, kg, :28:34 EDT, Dry Weight Start Date: 02/19/19 Status: Ordered Voltaren 1% topical gel = 2 Gm, Topically, 4 times a day, for knee pain, # 240 Gm, 0 Refills, Maintenance, 02/19/19 19:13:19 EST, [facility], 2 Gm Topically 4 times a day,Instr:for knee pain, 163.4, cm, 02/19/19 19:02:31 EST, Height, 166.9, kg, 11/21/17 2:28:34 EDT... Start Date: 02/19/19 Status: Ordered Problem List [...]
--- OUTSIDE RECORDS SUMMARY | 2022-05-29 20:21 | XMS_ITS | Continuity of Care Document ---
Author Name Unknown Organization [facility] Address [address] [place] [address]- Care Team Providers Care Dairy Farm Manager Name Role Phone Freddie ABBOTT, Kevin Yusuf Primary Care Physician [phone] [facility]counter [facility] Date[facility]): 08/[facility]/21 - 09/19/21 [facility] [address] [place] [id number] Attending Physician: Mike Bueno MD Admitting Physician: Mike Bueno MD Allergies, Adverse Reactions, Alerts No Known Allergies [...] (oldterm) 08/07/08 Give n 1Result Comment: [12/27/2016] [facility] [id number] 2Admin Note: VIS from 10/11/14 given to parent Medications albuterol 0.083% inhalation solution 3 mL = 2.5 mg, Inhalation, Every 6 hours, PRN for wheezing, # 100 each, 1 Refills, Maintenance, 06/01/22 15:44:00 EDT, Solution, [facility], 163.4, cm, 08/05/21 14:34:00 EDT, Height Start Date: 08/05/21 Status: Ordered cetirizine 10 mg oral tablet 1 tablet, By Mouth, Daily, # 30 tablet, 5 Refills, [facility], 163.4, cm, 08/05/21 14:34:00 EDT, Height Start Date: 08/25/21 Status: Ordered diclofenac 1% topical gel 1 application, Topically, 4 times a day, # 100 Gm, 0 Refills, Maintenance, 12/18/20 10:39:00 EDT, Gel, [facility], Partial fill upon patient request if the prescription is for a schedule IIopioid drug., 163.4, cm, 12/18/20 10:36:00 EDT, Height Start Date: 12/18/20 Status: Ordered diclofenac 1% topical gel 1 application, Topically, 4 times a day, PRN Pain , Moderate, apply to wrists as needed, # 100 Gm, 0 Refills, Maintenance, 07/15/21 15:06:00 EDT, Gel, [facility], Partial fill upon patient request if the prescription is for a schedule II opi... Start Date: 07/15/21 Status: Ordered famotidine 20 mg oral tablet 20 mg, 1, tablet, By Mouth, 2 times a day, for nausea, heartburn., # 60 tablet, Refills 0, Tot. Refills 0, Maintenance, 10/13/20 16:36:00 EDT, Route to Pharmacy Electronically, [facility], Partial fill upon patient request if the prescriptio... Start Date: 10/13/20 Status: Ordered Flovent HFA 110 mcg/inh inhalation aerosol 2 puffs, Inhalation, 2 times a day, & THROAT AFTER USE., # 12 Gm, 5 Refills, Maintenance, 05/26/21 13:59:00 EDT, [facility], 163.4, cm, 02/25/21 13:06:00 EST, Height Start Date: 05/26/21 Status: Ordered fluticasone 50 mcg/inh nasal spray See Instructions, USE 1 SPRAY IN EACH NOSTRIL TWICE A DAY, # 16 Gm, 5 Refills, Maintenance, 05/26/21 13:59:00 EDT, [facility], 30, USE 1 SPRAY IN EACH NOSTRIL TWICE A DAY, 163.4, cm, 02/25/21 13:06:00 EST, Height Start Date: 05/26/21 Status: Ordered hydroCHLOROthiazide 12.5 mg oral capsule 1 capsule, By Mouth, Daily, # 30 capsule, 5 Refills, [facility], 163.4, cm, 02/25/21 13:06:00 EST, Height Start Date: 06/09/21 Status: Ordered lisinopril 20 mg oral tablet See Instructions, TAKE 1 TABLET BY MOUTH EVERY DAY, # 90 tablet, Refills 1, Instructions Replace Required Details, Route to Pharmacy Electronically, [facility], 163.4, cm, 02/25/21 13:06:00EST, Height Start Date: 03/31/21 Status: Ordered medroxyPROGESTERone 10 mg oral tablet 10 mg, 1, tablet, By Mouth, Daily, # 10 tablet, Refills 0, Tot. Refills 0, Maintenance, 04/17/20 11:20:00 EST, Route to Pharmacy Electronically, [facility], Partial fill upon patient request if the prescription is for a schedule II opioid drTho.. Start Date: 04/17/20 Status: Ordered ProAir HFA 90 mcg/inh inhalation aerosol with adapter 2, puffs, Inhalation, Every 4 hours, PRN, # 8.5 Gm, Refills 5, Route to Pharmacy Electronically, NCPDP_[id number], [facility], 163.4, cm, 07/15/21 13:31:00 EDT, Height Start Date: 07/16/21 Status: Ordered Slow Fe (as elemental iron) 45 mg oral tablet, extended release 1 tablet = 45 mg, By Mouth, Daily, # 30 tablet, 5 Refills, Maintenance, 12/18/20 10:42:00 EDT, ER Tablet, [facility], Partial fill upon patient request [...] Date: 12/26/19 Status: Ordered Problem List Condition Effective Dates Status Health Status Inform ant Asthma(Confirmed) Active Duplication of ureter (Big[employer]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
--- OUTSIDE RECORDS SUMMARY | 2022-05-29 20:21 | XMS_ITS | Continuity of Care Document ---
Author Name Unknown Organization [facility] Address [address] [place] [address]- Care Team Providers Care Vice President Of Finance Name Role Phone Freddie ABBOTT, Kevin Yusuf Primary Care Physician [facility] Date(s): 12/16/21 - 01/15/[address] [address] Attending Physician: AdmNasima interiano Admitting Physician: AdmtrNasima Referring Physician: AdmtrNasima Allergies, Adverse Reactions, Alerts No Known Allergies [...] (oldterm) 08/07/08 Give n 1Result Comment: [12/27/2016] [facility] [id number] 2Admin Note: VIS from 10/11/14 given to parent Medications albuterol 0.083% inhalation solution 3 mL = 2.5 mg, Inhalation, Every 6 hours, PRN for wheezing, # 100 each, 1 Refills, Maintenance, 08/05/21 15:44:00 EDT, Solution, [facility], 163.4, cm, 08/05/21 14:34:00 EDT, Height Start Date: 08/05/21 Status: Ordered BuPROPion (Eqv-Wellbutrin SR) 150 mg/12 hours oral tablet, extended release TAKE 1 TABLET BY MOUTH TWICE A DAY Start Date: 12/30/21 Status: Ordered cetirizine 10 mg oral tablet 1 tablet, By Mouth, Daily, # 30 tablet, 5 Refills, [facility], 163.4, cm, 08/05/21 14:34:00 EDT, Height Start Date: 08/25/21 Status: Ordered diclofenac 1% topical gel 1 application, Topically, 4 times a day, PRN Pain , Moderate, apply to wrists as needed, # 100 Gm, 0 Refills, Maintenance, 07/15/21 15:06:00 EDT, Gel, [facility], Partial fill upon patient request if the prescription is for a schedule II opi... Start Date: 07/15/21 Status: Ordered EpiPen 2-Mir 0.3 mg injectable kit = 0.3 mg, Intramuscular, Once, may repeat if necessary, # 1 each, 0 Refills, Soft Stop, 09/25/21 14:43:00 EDT, [facility], Partial fill upon patient request if the prescription is for a schedule II opioid drug., 163.4, cm, 09/24/21 15:28:00... Start Date: 09/25/21 Status: Ordered famotidine 20 mg oral tablet 20 mg, 1, tablet, By Mouth, 2 times a day, for nausea, heartburn., # 60 tablet, Refills 0, Tot. Refills 0, Maintenance, 10/13/20 16:36:00 EDT, Route to Pharmacy Electronically, [facility], Partial fill upon patient request if the prescriptio... Start Date: 10/13/20 Status: Ordered Flovent HFA 110 mcg/inh inhalation aerosol 2 puffs, Inhalation, 2 times a day, AND THROAT OUT AFTER USE., # 12 Gm, 5 Refills, [facility], 163.4, cm, 10/14/21 8:28:00 EDT, Height Start Date: 10/26/21 Status: Ordered fluticasone 50 mcg/inh nasal spray See Instructions, USE 1 SPRAY IN EACH NOSTRIL TWICE A DAY, # 16 Gm, 5 Refills, [facility], 30, USE 1 SPRAY IN EACH NOSTRIL TWICE A DAY, 163.4, cm, 10/14/21 8:28:00 EDT, Height Start Date: 10/26/21 Status: Ordered hydroCHLOROthiazide 12.5 mg oral capsule 1 capsule, By Mouth, Daily, # 30 capsule, 2 Refills, Maintenance, 12/10/21 12:09:00 EDT, [facility], 163.4, cm, 12/02/21 16:27:00 EDT, Height Start Date: 12/10/21 Status: Ordered lisinopril 20 mg oral tablet 1, tablet, By Mouth, Daily, # 90 tablet, Refills 1, Route to Pharmacy Electronically, [facility], 163.4, cm, 09/24/21 15:28:00 EDT, Height Start Date: 09/24/21 Status: Ordered medroxyPROGESTERone 10 mg oral tablet 10 mg, 1, tablet, By Mouth, Daily, # 10 tablet, Refills 0, Tot. Refills 0, Maintenance, 04/17/20 11:20:00 EST, Route to Pharmacy Electronically, [facility], Partial fill upon patient request if the prescription is for a schedule II opioid drMariana. Start Date: 04/17/20 Status: Ordered NIFEdipine 30 mg oral tablet, extended release 30 mg, 1, tablet, By Mouth, Daily, # 30 tablet, Refills 2, Tot. Refills 2, Maintenance, 12/07/21 15:13:00 EDT, Route to Pharmacy Electronically, [facility], Duplicate Rx. Original sent 12/01/21. Re-sending per pharmacy request, 163.4, cm, 09/... Start Date: 12/07/21 Stop Date: 03/07/22 Status: Ordered ProAir HFA 90 mcg/inh inhalation aerosol with adapter 2, puffs, Inhalation, Every 4 hours, PRN, # 8.5 Gm, Refills 5, Route to Pharmacy Electronically, NCPDP_[id number], [facility], 163.4, cm, 07/15/21 13:31:00 EDT, Height Start Date: 07/16/21 Status: Ordered sertraline 100 mg oral tablet TAKE 1&1/2 TABLET BY MOUTH ONCE A DAY Start Date: 12/30/21 Status: Ordered Slow Fe (as elemental iron) 45 mg oral tablet, extended release 1 tablet = 45 mg, By Mouth, Daily, # 30 tablet, 5 Refills, Maintenance, 12/18/20 10:42:00 EDT, ER Tablet, [facility], Partial fill upon patient request if [...] (collecting system R) Confirmed Active Glaucoma suspected 2018 Confirmed Active Hypertension Confirmed Active Irregular menses Confirmed Active Keratoconus Confirmed Active Morbid Obesity BMI of 67 Confirmed Active Obstructive sleep apnea Confirmed Active Severe obesity Confirmed Active Social History Social History Type Response Smoking Status Never smoker; Tobacc o user in household: No entered on: 04/15/15 Sex Patient Care team information Care Team Personnel Name: Kevin Frazier MD Position: S Primary Care Physician Member Role: PCP Address: Address: [address] [place] [address] Care Team Related Persons Name: KARI AGUERO Address: [address] [place] [address]
[2022-05-29 20:22] LABS: INTERNATIONAL NORM RATIO 1.1 (0.9-1.1); Prothrombin Time 12.1 SEC (10.0-13.1)
--- OUTSIDE RECORDS SUMMARY | 2022-05-29 20:22 | XMS_ITS | Continuity of Care Document ---
Author Name Unknown Organization [facility] Address [address] [place] [address]- Care Team Providers Care Head Cd Reactor Operator Name Role Phone Blessing Qiu MD Primary Care Physician [facility] Date(s): 09/25/21 - 10/25/21 [facility] [address] [place] [id number] Allergies, Adverse Reactions, Alerts No Known Allergies Immunizations Given and Recorded Vaccine Date Status Refusal Reason tetanus/diphtheria/pertussis, acel(Tdap) 10/14/21 Given influenza virus vaccine, inactivated 01/01/19 Give n [...] (oldterm) 08/07/08 Give n 1Result Comment: [12/27/2016] [facility] [id number] 2Admin Note: VIS from 10/11/14 given to parent Medications albuterol 0.083% inhalation solution 3 mL = 2.5 mg, Inhalation, Every 6 hours, PRN for wheezing, # 100 each, 1 Refills, Maintenance, 06/01/22 15:44:00 EDT, Solution, [facility], 163.4, cm, 08/05/21 14:34:00 EDT, Height Start Date: 08/05/21 Status: Ordered cetirizine 10 mg oral tablet 1 tablet, By Mouth, Daily, # 30 tablet, 5 Refills, [facility], 163.4, cm, 08/05/21 14:34:00 EDT, Height Start Date: 08/25/21 Status: Ordered Claritin 10 mg oral tablet 10 mg, 1, tablet, By Mouth, Daily, # 30 tablet, Refills 0, Tot. Refills 0, Maintenance, 09/24/21 16:12:00 EDT, Route to Pharmacy Electronically, [facility], Partial fill upon patient request if the prescription is for a schedule II opioid dr... Start Date: 09/24/21 Status: Ordered diclofenac 1% topical gel 1 application, Topically, 4 times a day, # 100 Gm, 0 Refills, Maintenance, 12/18/20 10:39:00 EDT, Gel, [facility], Partial fill [...] Gm, 5 Refills, Maintenance, 05/26/21 13:59:00 EDT, [facility], 163.4, cm, 02/25/21 13:06:00 EST, Height Start Date: 05/26/21 Status: Ordered fluticasone 50 mcg/inh nasal spray See Instructions, USE 1 SPRAY IN EACH NOSTRIL TWICE A DAY, # 16 Gm, 5 Refills, Maintenance, 05/26/21 13:59:00 EDT, [facility], 30, USE 1 SPRAY IN EACH NOSTRIL TWICE A DAY, 163.4, cm, 02/25/21 13:06:00 EST, Height Start Date: 05/26/21 Status: Ordered hydroCHLOROthiazide 12.5 mg oral capsule 1 capsule, By Mouth, Daily, # 30 capsule, 5 Refills, [facility], 163.4, cm, 02/25/21 13:06:00 EST, Height Start [...] opioid drMariana. Start Date: 04/17/20 Status: Ordered ProAir HFA 90 mcg/inh inhalation aerosol with adapter 2, puffs, Inhalation, Every 4 hours, PRN, # 8.5 Gm, Refills 5, Route to Pharmacy Electronically, NCPDP_[id number], [facility], 163.4, cm, 07/15/21 13:31:00 EDT, Height Start Date: 07/16/21 Status: Ordered right sided cockup wrist splint right sided cockup wrist splint, See Instructions, # 1 each, Refills 0, Tot. Refills 0, Maintenance, wear at night for carpal tunnel code G56.03 duration: lifetime, 10/14/21 9:38:00 EDT, Supply Start Date: 10/14/21 Status: Ordered Slow Fe (as elemental iron) 45 mg oral tablet, extended release 1 tablet = 45 mg, By Mouth, Daily, # 30 tablet, 5 Refills, Maintenance, 12/18/20 10:42:00 EDT, ER Tablet, [facility], Partial fill upon patient request if [...]
--- OUTSIDE RECORDS SUMMARY | 2022-05-29 20:22 | XMS_ITS | Continuity of Care Document ---
Author Name Unknown Organization [facility] Address [address] [place] [address]- Care Team Providers Care Trade Show Coordinator Name Role Phone Freddie ABBOTT, Kevin Yusuf Primary Care Physician Encounter [facility] Date(s): 09/14/21 - 10/14/[address] [address]- Attending Physician: Nasima Coffman Admitting Physician: AdmNasima interiano Referring Physician: AdmtrNasima Allergies, Adverse Reactions, Alerts [...] (oldterm) 08/07/08 Give n 1Result Comment: [12/27/2016] [facility] [id number] 2Admin Note: VIS from 8/7/15 given to parent Medications albuterol 0.083% inhalation solution 3 mL = 2.5 mg, Inhalation, Every 6 hours, PRN for wheezing, # 100 each, 1 Refills, Maintenance, 08/05/21 15:44:00 EDT, Solution, [facility], 163.4, cm, 08/05/21 14:34:00 EDT, Height Start Date: 08/05/21 Status: Ordered cetirizine 10 mg oral tablet 1 tablet, By Mouth, Daily, # 30 tablet, 5 Refills, [facility], 163.4, cm, 08/05/21 14:34:00 EDT, Height Start Date: 08/25/21 Status: Ordered Claritin 10 mg oral tablet 10 mg, 1, tablet, By Mouth, Daily, # 30 tablet, Refills 0, Tot. Refills 0, Maintenance, 09/24/21 16:12:00 EDT, Route to Pharmacy Electronically, [facility], Partial fill upon patient request if the prescription is for a schedule II opioid dr... Start Date: 09/24/21 Status: Ordered diclofenac 1% topical gel 1 application, Topically, 4 times a day, # 100 Gm, 0 Refills, Maintenance, 12/18/20 10:39:00 [facility] request if the prescription is for a schedule IIopioid drug., 163.4, cm, 12/18/20 10:36:00 EDT, Height Start Date: 12/18/20 Status: Ordered diclofenac 1% topical gel 1 application, Topically, 4 times a day, PRN Pain , Moderate, apply to wrists as needed, # 100 Gm, 0 Refills, Maintenance, 07/15/21 15:06:00 EDT, Gel, [facility], Partial fill upon patient request if the prescription is for a schedule II opi... Start Date: 07/15/21 Status: Ordered EpiPen 2-Mir 0.3 mg injectable kit = 0.3 mg, Intramuscular, Once, may repeat if necessary, # 1 each, 0 Refills, Soft Stop, 09/25/21 14:43:00 EDT, [facility], Partial fill upon patient request if the prescription is for a schedule II opioid drug., 163.4, cm, 09/24/21 15:28:00... Start Date: 09/25/21 Status: Ordered famotidine 20 mg oral tablet 20 mg, 1, tablet, By Mouth, 2 times a day, for nausea, heartburn., # 60 tablet, Refills 0, Tot. Refills 0, Maintenance, 10/13/20 16:36:00 EDT, Route to Pharmacy Electronically, [facility], Partial fill upon patient request if the prescriptio... Start Date: 10/13/20 Status: Ordered Flovent HFA 110 mcg/inh inhalation aerosol 2 puffs, Inhalation, 2 times a day, & THROAT AFTER USE., # 12 Gm, 5 Refills, Maintenance, 05/26/21 13:59:00 EDT, [facility], 163.4, cm, 02/25/21 13:06:00 EST, Height Start Date: 05/26/21 Status: Ordered fluticasone 50 mcg/inh nasal spray See Instructions, USE 1 SPRAY IN EACH NOSTRIL TWICE A DAY, # 16 Gm, 5 Refills, Maintenance, 05/26/21 13:59:00 EDT, [facility], 30, USE 1 SPRAY IN EACH NOSTRIL TWICE A DAY, 163.4, cm, 02/25/21 13:06:00 EST, Height Start Date: 05/26/21 Status: Ordered hydroCHLOROthiazide 12.5 mg oral capsule 1 capsule, By Mouth, Daily, # 30 capsule, 5 Refills, [facility], 163.4, cm, 02/25/21 13:06:00 EST, Height Start Date: 06/09/21 Status: Ordered lisinopril 20 mg oral tablet 1, tablet, By Mouth, Daily, # 90 tablet, Refills 1, Route to Pharmacy Electronically, [facility], 163.4, cm, 09/24/21 15:28:00 EDT, Height Start Date: 09/24/21 Status: Ordered medroxyPROGESTERone 10 mg oral tablet 10 mg, 1, tablet, By Mouth, Daily, # 10 tablet, Refills 0, Tot. Refills 0, Maintenance, 04/17/20 11:20:00 EST, Route to Pharmacy Electronically, [facility], Partial fill upon patient request if the prescription is for a schedule II opioid drTho.. Start Date: 04/17/20 Status: Ordered ProAir HFA 90 mcg/inh inhalation aerosol with adapter 2, puffs, Inhalation, Every 4 hours, PRN, # 8.5 Gm, Refills 5, Route to Pharmacy Electronically, NCPDP_[id number], [facility], 163.4, cm, 07/15/21 13:31:00 EDT, Height [...] Refills, Maintenance, 12/18/20 10:42:00 EDT, ER Tablet, [facility], Partial fill upon patient request if [...] (colle cting system R)(Confirmed) Active Glaucoma suspected 2018(Confirmed) Active Hypertension(Confirmed) Active Irregular menses(Confirmed) Active Keratoconus(Confirmed) Active Morbid Obesity BMI of 67(Confirmed) Active Obstructive sleep apnea(Confirmed) Active Severe obesity(Confirmed) Active Social History Social History Type Response Smoking Status Never smoker; Tobacc o user in household: No entered on: 04/15/15 Sex
--- OUTSIDE RECORDS SUMMARY | 2022-05-29 20:22 | XMS_ITS | Continuity of Care Document ---
Author Name Unknown Organization [facility] Address [address] [place] [address]- Care Team Providers Care Sports Centre Manager Name Role Phone Freddie ABBOTT, Kevin Yusuf Primary Care Physician [facility] Date(s): 06/01/21 - 07/15/[address] [address]- Attending Physician: Not on Staff, Attending MD Referring Physician: Blessing Qiu MD Allergies, Adverse Reactions, Alerts No Known [...] (oldterm) 08/07/08 Give n 1Result Comment: [12/27/2016] [facility] [id number] 2Admin Note: VIS from 10/11/14 given to parent Medications albuterol 0.083% inhalation solution 3 mL = 2.5 mg, Inhalation, Every 6 hours, PRN for wheezing, # 60 each, 0 Refills, Maintenance, 11/22/19 11:06:00 EDT, Solution, [facility], 163.4, cm, 11/06/19 13:10:00 EDT, Height Start Date: 11/22/19 Status: Ordered capsaicin 0.025% topical cream 1 application, Topically, 3 times a day, avoid contact with face and eyes to affected area, # 45 Gm, 10 Refills, Maintenance, 11/06/19 13:39:00 EDT, Cream, [facility], 1 application Topically 3 times a day,Instr:avoid contact with face and... Start Date: 11/06/19 Status: Ordered cetirizine 10 mg oral tablet 1 tablet, By Mouth, Daily, # 30 tablet, 5 Refills, [facility], 163.4, cm, 02/25/21 13:06:00 EST, Height Start Date: 03/03/21 Status: Ordered diclofenac 1% topical gel 1 application, Topically, 4 times a day, # 100 Gm, 0 Refills, Maintenance, 12/18/20 10:39:00 EDT, Gel, [facility], Partial fill upon patient request if the prescription is for a schedule IIopioid drug., 163.4, cm, 12/18/20 10:36:00 EDT, Height Start Date: 12/18/20 Status: Ordered diclofenac 1% topical gel 1 application, Topically, 4 times a day, PRN Pain , Moderate, apply to wrists as needed, # 100 Gm, 0 Refills, Maintenance, 07/15/21 15:06:00 EDT, Gel, [facility], Partial fill upon patient request if the prescription is for a schedule II opi... Start Date: 07/15/21 Status: Ordered famotidine 20 mg oral tablet 20 mg, 1, tablet, By Mouth, 2 times a day, for nausea, heartburn., # 60 tablet, Refills 0, Tot. Refills 0, Maintenance, 10/13/20 16:36:00 EDT, Route to Pharmacy Electronically, [facility], Partial fill upon patient request if the prescriptio... Start Date: 10/13/20 Status: Ordered Flovent HFA 110 mcg/inh inhalation aerosol 2 puffs, Inhalation, 2 times a day, & THROAT AFTER USE., # 12 Gm, 5 Refills, Maintenance, 05/26/21 13:59:00 EDT, [facility], 163.4, cm, 02/25/21 13:06:00 EST, Height Start Date: 05/26/21 Status: Ordered fluticasone 50 mcg/inh nasal spray See Instructions, USE 1 SPRAY IN EACH NOSTRIL TWICE A DAY, # 16 Gm, 5 Refills, Maintenance, 05/26/21 13:59:00 EDT, [facility], 30, USE 1 SPRAY IN EACH NOSTRIL TWICE A DAY, 163.4, cm, 02/25/21 13:06:00 EST, Height Start Date: 05/26/21 Status: Ordered hydroCHLOROthiazide 12.5 mg oral capsule 1 capsule, By Mouth, Daily, # 30 capsule, 5 Refills, [facility], 163.4, cm, 02/25/21 13:06:00 EST, Height Start Date: 06/09/21 Status: Ordered hydrocortisone 2.5% topical lotion 1 application, Topically, 2 times a day, # 59 mL, 0 Refills, Maintenance, 05/17/19 17:11:00 EDT, Lotion, [facility]acy #[id number], 1 application Topically 2 times a day, 163.4, cm, 05/16/19 10:53:00 EDT, Height, 166.9, kg, 11/21/17 2:28:00 EDT, Dry Weight Start Date: 05/17/19 Status: Ordered lisinopril 20 mg oral tablet See Instructions, TAKE 1 TABLET BY MOUTH EVERY DAY, # 90 tablet, Refills 1, Instructions Replace Required Details, Route to Pharmacy Electronically, [facility], 163.4, cm, 02/25/21 13:06:00EST, Height Start Date: 03/31/21 Status: Ordered medroxyPROGESTERone 10 mg oral tablet 10 mg, 1, tablet, By Mouth, Daily, # 10 tablet, Refills 0, Tot. Refills 0, Maintenance, 04/17/20 11:20:00 EST, Route to Pharmacy Electronically, [facility], Partial fill upon patient request if [...] Gm, Refills 5, Route to Pharmacy Electronically, NCPDP_[id number], [facility], 163.4, cm, 02/25/21 13:06:00 EST, Height Start Date: 03/03/21 Status: Ordered Slow Fe (as elemental iron) 45 mg oral tablet, extended release 1 tablet = 45 mg, By Mouth, Daily, # 30 tablet, 5 Refills, Maintenance, 12/18/20 10:42:00 EDT, ER Tablet, [facility], Partial fill upon patient request if [...] 1 Refills, Maintenance, 02/19/19 19:13:45EST, ER Tablet, [facility], 163.4, cm, 02/19/19 19:02:31 EST, [...]
--- OUTSIDE RECORDS SUMMARY | 2022-05-29 20:22 | XMS_ITS | Continuity of Care Document ---
Author Name Unknown Organization [facility] Address [address] [place] [address]- Care Team Providers Care Network Design Architect Name Role Phone Freddie ABBOTT, Kevin Yusuf Primary Care Physician [phone] [facility] - 10/01/20 [facility] [address] [place] [address]- Allergies, Adverse Reactions, Alerts Substance Reaction Severity [...] (oldterm) 08/07/08 Give n 1Result Comment: [12/27/2016] [facility] [id number] 2Admin Note: VIS from 10/11/14 given to parent Medications albuterol 0.083% inhalation solution 3 mL = 2.5 mg, Inhalation, Every 6 hours, PRN for wheezing, # 60 each, 0 Refills, Maintenance, 11/22/19 11:06:00 EDT, Solution, [facility], 163.4, cm, 11/06/19 13:10:00 EDT, Height Start Date: 11/22/19 Status: Ordered Azithromycin 3 Day Dose Pack 500 mg oral tablet 1 tablet = 500 mg, By Mouth, Daily, # 3 tablet, 0 Refills, Maintenance, 11/29/19 14:02:00 EDT, Tablet, [facility], 163.4, cm, 11/06/19 13:10:00 EDT, Height [...] 5 Refills, Maintenance, 07/24/20 11:12:00 EDT, Tablet, [facility], Label in [place]., 163.4, cm, 11/06/19 13:10:00 EDT, Height Start Date: 07/24/20 Status: Ordered diclofenac 1% topical gel 1 application, Topically, 4 times a day, PRN for pain, not to exceed 16 grams/day/single joint of lower extremities. label ukrainian, # 100 Gm, 4 Refills, Maintenance, 04/18/19 15:51:00 EST, Gel, [facility], 163.4, cm, 04/18/19 15:38:00 EST, H... Start Date: 04/18/19 Status: Ordered Flonase 50 mcg/inh nasal spray 1 sprays, Nares, Both, 2 times a day, # 16 Gm, 3 Refills, Maintenance, 07/24/20 11:12:00 EDT, [place], [facility], 1 sprays Nares, Both 2 times a day, 163.4, cm, 11/06/19 13:10:00 EDT, Height Start Date: 07/24/20 Status: Ordered Flovent HFA 110 mcg/inh inhalation aerosol 2 puffs, Inhalation, 2 times a day, use twice a day to prevent asthma symptoms. rinse mouth and throat after use, # 1 each, 2 Refills, Maintenance, 09/03/20 10:43:00 EDT, [facility], Partial fill upon patient request if the prescription is... Start Date: 09/03/20 Status: Ordered hydrocortisone 2.5% topical lotion 1 application, Topically, 2 times a day, # 59 mL, 0 Refills, Maintenance, 05/17/19 17:11:00 EDT, Lotion, [facility]/pharmacy #[id number], 1 application Topically 2 times a day, 163.4, cm, 05/16/19 10:53:00 EDT, Height, 166.9, kg, 11/21/17 2:28:00 EDT, Dry Weight Start Date: 05/17/19 Status: Ordered lisinopril 20 mg oral tablet 20 mg, 1, tablet, By Mouth, Daily, # 90 tablet, Refills 3, Tot. Refills 3, Maintenance, 11/22/19 18:01:00 EDT, Route to Pharmacy Electronically, [facility], 163.4, cm, 11/06/19 13:10:00 EDT, Height, [...] opioid drTho.. Start Date: 04/17/20 Status: Ordered meloxicam 7.5 mg oral tablet 1 tablet = 7.5 mg, By Mouth, Daily, take with food please., # 30 tablet, 0 Refills, Maintenance, 12/12/19 9:11:00 EDT, Tablet, [facility], 163.4, cm, 11/06/19 13:10:00 EDT, Height, Dry Weight Start Date: 12/12/19 Status: Ordered Naphcon-A 0.025%-0.3% ophthalmic solution 1 drops, Eyes, Both, 4 times a day, # 15 mL, 1 Refills, Maintenance, 09/03/20 10:42:00 EDT, Solution, [facility], 1 drops Eyes, Both 4 times [...] 0 Refills, Maintenance, 01/10/20 14:06:00 EST, ECCapsule, [facility], 163.4, cm, 11/06/19 13:10:00 EDT, Height Start Date: 01/10/20 Status: Ordered ProAir HFA 90 mcg/inh inhalation aerosol with adapter 2, puffs, Inhalation, Every 4 hours, PRN, # 8.5 Gm, Refills 5, Tot. Refills 5, Maintenance, 07/24/20 11:13:00 EDT, Aerosol, Route to Pharmacy Electronically, [id number]_[id number], [facility], 163.4, cm, 11/06/19 13:10:00 EDT, Height [...] 1 Refills, Maintenance, 02/19/19 19:13:45EST, ER Tablet, [facility], 163.4, cm, 02/19/19 19:02:31 EST, Height, 166.9, kg, 09/17/182:28:34 EDT, Dry Weight Start Date: 02/19/19 Status: [...]
--- OUTSIDE RECORDS SUMMARY | 2022-05-29 20:22 | XMS_ITS | Continuity of Care Document ---
Author Name Unknown Organization [facility] Address [address] [place] [address]- Care Team Providers Care Breeder Hen Service Technician Name Role Phone Freddie ABBOTT, Kevin Yusuf Primary Care Physician [facility] - 03/27/21 [facility] [address] [place], [place] [address] Allergies, Adverse Reactions, Alerts No [...] (oldterm) 08/07/08 Give n 1Result Comment: [12/27/2016] [facility] [id number] 2Admin Note: VIS from 10/11/14 given to parent Medications albuterol 0.083% inhalation solution 3 mL = 2.5 mg, Inhalation, Every 6 hours, PRN for wheezing, # 60 each, 0 Refills, Maintenance, 11/22/19 11:06:00 EDT, Solution, [facility], 163.4, cm, 11/06/19 13:10:00 EDT, Height Start Date: 11/22/19 Status: Ordered capsaicin 0.025% topical cream 1 application, Topically, 3 times a day, avoid contact with face and eyes to affected area, # 45 Gm, 10 Refills, Maintenance, 11/06/19 13:39:00 EDT, Cream, [facility], 1 application Topically 3 times a day,Instr:avoid contact with face and... Start Date: 11/06/19 Status: Ordered cetirizine 10 mg oral tablet 1 tablet, By Mouth, Daily, # 30 tablet, 5 Refills, [facility], 163.4, cm, 02/25/21 13:06:00 EST, Height Start Date: 03/03/21 Status: Ordered diclofenac 1% topical gel 1 application, Topically, 4 times a day, PRN for pain, not to exceed 16 grams/day/single joint of lower extremities. label cymraes, # 100 Gm, 4 Refills, Maintenance, 04/18/19 15:51:00 EST, Gel, [facility], 163.4, cm, 04/18/19 15:38:00 EST, H... Start Date: 04/18/19 Status: Ordered diclofenac 1% topical gel 1 application, Topically, 4 times a day, # 100 Gm, 0 Refills, Maintenance, 12/18/20 10:39:00 EDT, Gel, [facility], Partial fill upon patient request if the prescription is for a schedule IIopioid drug., 163.4, cm, 12/18/20 10:36:00 EDT, Height Start Date: 12/18/20 Status: Ordered famotidine 20 mg oral tablet 20 mg, 1, tablet, By Mouth, 2 times a day, for nausea, heartburn., # 60 tablet, Refills 0, Tot. Refills 0, Maintenance, 10/13/20 16:36:00 EDT, Route to Pharmacy Electronically, [facility], Partial fill upon patient request if the prescriptio... Start Date: 10/13/20 Status: Ordered Flovent HFA 110 mcg/inh inhalation aerosol 2 puffs, Inhalation, 2 times a day, use twice a day to prevent asthma symptoms. rinse mouth and throat after use, # 1 each, 5 Refills, Maintenance, 12/12/20 16:28:00 EDT, [facility], Partial fill upon patient request if the prescription is... Start Date: 12/12/20 Status: Ordered fluticasone 50 mcg/inh nasal spray See Instructions, USE 1 SPRAY IN EACH NOSTRIL TWICE A DAY, # 16 Gm, 5 Refills, [facility], 30, USE 1 SPRAY IN EACH NOSTRIL TWICE A DAY, 163.4, cm, 10/13/20 15:44:00 EDT, Height Start Date: 12/12/20 Status: Ordered hydroCHLOROthiazide 12.5 mg oral capsule 1 capsule = 12.5 mg, By Mouth, Daily, # 30 capsule, 5 Refills, Maintenance, 12/18/20 10:41:00 EDT, Capsule, [facility], Partial fill upon patient request if the prescription is for a schedule II opioid drug., 163.4, cm, 12/18/20 10:36:00 EDT... Start Date: 12/18/20 Status: Ordered hydrocortisone 2.5% topical lotion 1 application, Topically, 2 times a day, # 59 mL, 0 Refills, Maintenance, 05/17/19 17:11:00 EDT, Lotion, [facility]/pharmacy #[id number], 1 application Topically 2 times a day, 163.4, cm, 05/16/19 10:53:00 EDT, Height, 166.9, kg, 11/21/17 2:28:00 EDT, Dry Weight Start Date: 05/17/19 Status: Ordered lisinopril 20 mg oral tablet 20 mg, 1, tablet, By Mouth, Daily, # 90 tablet, Refills 1, Tot. Refills 1, Maintenance, 11/16/20 18:01:00 EDT, Route to Pharmacy Electronically, [facility], 163.4, cm, 09/03/20 10:55:00 EDT, Height Start Date: 11/16/20 Stop Date: 05/15/21 Status: Ordered medroxyPROGESTERone 10 mg oral tablet 10 mg, 1, tablet, By Mouth, Daily, # 10 tablet, Refills 0, Tot. Refills 0, Maintenance, 04/17/20 11:20:00 EST, Route to Pharmacy Electronically, [facility], Partial fill upon patient request if the prescription is for a schedule II opioid draMriana. Start Date: 04/17/20 Status: Ordered Nebulizer/Compressor See Instructions, # 1 each, Maintenance, nebulizer with tubing and mouthpiece DX asthma, ICD J45.901, 11/22/19 11:05:00 EDT, Supply Start Date: 11/22/19 Status: Ordered ProAir HFA 90 mcg/inh inhalation aerosol with adapter 2, puffs, Inhalation, Every 4 hours, PRN, # 8.5 Gm, Refills 5, Route to Pharmacy Electronically, NCPDP_[id number], [facility], 163.4, cm, 02/25/21 13:06:00 EST, Height Start Date: 03/03/21 Status: Ordered Slow Fe (as elemental iron) 45 mg oral tablet, extended release 1 tablet = 45 mg, By Mouth, Daily, # 30 tablet, 5 Refills, Maintenance, 12/18/20 10:42:00 EDT, ER Tablet, [facility], Partial fill upon patient request if [...] 1 Refills, Maintenance, 02/19/19 19:13:45EST, ER Tablet, [facility], 163.4, cm, 02/19/19 19:02:31 EST, Height, [...]
--- OUTSIDE RECORDS SUMMARY | 2022-05-29 20:22 | XMS_ITS | Continuity of Care Document ---
Author Name Unknown Organization [facility] Address [address] [place] [address]- Care Team Providers Care Headlight Assembler Name Role Phone Blessing Qiu MD Primary Care Physician [facility] - 10/31/21 [facility] [address] [place] [id number] Allergies, Adverse Reactions, Alerts No Known [...] n 1Result Comment: [12/27/2016] [facility] [id number] 2Admin Note: VIS from 10/11/14 given to parent Medications albuterol 0.083% inhalation solution 3 mL = 2.5 mg, Inhalation, Every 6 hours, PRN for wheezing, # 100 each, 1 Refills, Maintenance, 06/01/22 15:44:00 EDT, Solution, [facility], 163.4, cm, 08/05/21 14:34:00 EDT, Height [...] 09/24/21 16:12:00 EDT, [facility] [place] Pharm[facility], [facility] [...] A DAY, # 16 Gm, 5 Refills, [facility], 30, USE 1 SPRAY IN EACH NOSTRIL TWICE A DAY, 163.4, cm, 10/14/21 8:28:00 EDT, Height Start Date: 10/26/21 Status: Ordered hydroCHLOROthiazide 12.5 mg oral capsule 1 capsule, By Mouth, Daily, # 30 capsule, 5 Refills, [facility], 163.4, cm, 02/25/21 13:06:00 EST, Height Start Date: 06/09/21 Status: Ordered lisinopril 20 mg oral tablet 1, tablet, By Mouth, Daily, # 90 tablet, Refills 1, Route to Pharmacy Electronically, [facility], 163.4, cm, 09/24/21 15:28:00 EDT, Height [...] opioid . Start Date: 04/17/20 Status: Ordered ProAir HFA 90 mcg/inh inhalation aerosol with adapter 2, puffs, Inhalation, Every 4 hours, PRN, # 8.5 Gm, Refills 5, Route to Pharmacy Electronically, NCPDP_[id number], [facility], 163.4, cm, 07/15/21 13:31:00 EDT, Height [...] Refills, Maintenance, 12/18/20 10:42:00 EDT, ER Tablet, [facility], Partial fill upon patient request if [...] in household: No entered on: 04/15/15 Sex Care Team Personnel Name: Blessing Qiu MD Address: [address] [place] [address]
--- OUTSIDE RECORDS SUMMARY | 2022-05-29 20:22 | XMS_ITS | Continuity of Care Document ---
Author Name Unknown Organization [facility] Address [address] [place] [address]- Care Team Providers Care Mastic Man Name Role Phone Freddie ABBOTT, Kevin Yusuf Primary Care Physician [phone] [facility] 08[facility]20 - 09/10/20 [facility] [address] [place] [address]- Attending Physician: Mike Bueno MD Admitting Physician: Mike Bueno MD Allergies, Adverse Reactions, Alerts Substance Reaction [...] (oldterm) 08/07/08 Give n 1Result Comment: [12/27/2016] [facility]NOTE 2] [id number] 2Admin Note: VIS from 10/11/14 given to parent Medications albuterol 0.083% inhalation solution 3 mL = 2.5 mg, Inhalation, Every 6 hours, PRN for wheezing, # 60 each, 0 Refills, Maintenance, 11/22/19 11:06:00 EDT, Solution, [facility], 163.4, cm, 11/06/19 13:10:00 EDT, Height Start Date: 11/22/19 Status: Ordered Azithromycin 3 Day Dose Pack 500 mg oral tablet 1 tablet = 500 mg, By Mouth, Daily, # 3 tablet, 0 Refills, Maintenance, 11/29/19 14:02:00 EDT, Tablet, [facility], 163.4, cm, 11/06/19 13:10:00 EDT, Height Start Date: 11/29/19 Status: Ordered capsaicin 0.025% topical cream 1 application, Topically, 3 times a day, avoid contact with face and eyes to affected area, # 45 Gm, 10 Refills, Maintenance, 11/06/19 13:39:00 EDT, Cream, [facility], 1 application Topically 3 times a day,Instr:avoid contact with face and... Start Date: 11/06/19 Status: Ordered cetirizine 10 mg oral tablet 1 tablet = 10 mg, By Mouth, Daily, # 30 tablet, 5 Refills, Maintenance, 07/24/20 11:12:00 EDT, Tablet, [facility], Label in Paraguayan., 163.4, cm, 11/06/19 13:10:00 EDT, Height Start Date: 07/24/20 Status: Ordered diclofenac 1% topical gel 1 application, Topically, 4 times a day, PRN for pain, not to exceed 16 grams/day/single joint of lower extremities. label pashto, # 100 Gm, 4 Refills, Maintenance, 04/18/19 15:51:00 EST, Gel, [facility], 163.4, cm, 04/18/19 15:38:00 EST, H... Start Date: 04/18/19 Status: Ordered Flonase 50 mcg/inh nasal spray 1 sprays, Nares, Both, 2 times a day, # 16 Gm, 3 Refills, Maintenance, 07/24/20 11:12:00 EDT, [place], [facility], 1 sprays Nares, Both 2 times a day, 163.4, cm, 11/06/19 13:10:00 EDT, Height Start Date: 07/24/20 Status: Ordered Flovent HFA 110 mcg/inh inhalation aerosol 2 puffs, Inhalation, 2 times a day, use twice a day to prevent asthma symptoms. rinse mouth and throat after use, # 1 each, 2 Refills, Maintenance, 09/03/20 10:43:00 EDT, [facility], Partial fill upon patient request if the prescription is... Start Date: 09/03/20 Status: Ordered hydrocortisone 2.5% topical lotion 1 application, Topically, 2 times a day, # 59 mL, 0 Refills, Maintenance, 05/17/19 17:11:00 EDT, Lotion, [facility]/pharmacy #[id number], 1 application Topically 2 times a day, 163.4, cm, 05/16/19 10:53:00 EDT, Height, 166.9, kg, 11/21/17 2:28:00 EDT, Dry Weight Start Date: 05/17/19 Status: Ordered lisinopril 20 mg oral tablet 20 mg, 1, tablet, By Mouth, Daily, # 90 tablet, Refills 3, Tot. Refills 3, Maintenance, 11/22/19 18:01:00 EDT, Route to Pharmacy Electronically, [facility], 163.4, cm, 11/06/19 13:10:00 EDT, Height, Dry Weight Start Date: 11/22/19 Stop Date: 11/16/20 Status: Ordered medroxyPROGESTERone 10 mg oral tablet 10 mg, 1, tablet, By Mouth, Daily, # 10 tablet, Refills 0, Tot. Refills 0, Maintenance, 04/17/20 11:20:00 EST, Route to Pharmacy Electronically, [facility], Partial fill upon patient request if the prescription is for a schedule II opioid drMariana. Start Date: 04/17/20 Status: Ordered meloxicam 7.5 mg oral tablet 1 tablet = 7.5 mg, By Mouth, Daily, take with food please., # 30 tablet, 0 Refills, Maintenance, 12/12/19 9:11:00 EDT, Tablet, [facility], 163.4, cm, 11/06/19 13:10:00 EDT, Height, Dry Weight Start Date: 12/12/19 Status: Ordered Naphcon-A 0.025%-0.3% ophthalmic solution 1 drops, Eyes, Both, 4 times a day, # 15 mL, 1 Refills, Maintenance, 09/03/20 10:42:00 EDT, Solution, [facility], 1 drops Eyes, Both 4 times [...] 0 Refills, Maintenance, 01/10/20 14:06:00 EST, ECCapsule, [facility], 163.4, cm, 11/06/19 13:10:00 EDT, Height Start Date: 01/10/20 Status: Ordered ProAir HFA 90 mcg/inh inhalation aerosol with adapter 2, puffs, Inhalation, Every 4 hours, PRN, # 8.5 Gm, Refills 5, Tot. Refills 5, Maintenance, 07/24/20 11:13:00 EDT, Aerosol, Route to Pharmacy Electronically, NCPDP_[id number], [facility], 163.4, cm, 11/06/19 13:10:00 EDT, Height [...] 1 Refills, Maintenance, 02/19/19 19:13:45EST, ER Tablet, [facility], 163.4, cm, 02/19/19 19:02:31 EST, Height, [...]
--- OUTSIDE RECORDS SUMMARY | 2022-05-29 20:22 | XMS_ITS | Continuity of Care Document ---
Author Name Unknown Organization [facility] Address [address] [place] [address]- Care Team Providers Care Sonar Technician Name Role Phone Freddie ABBOTT, Kevin Yusuf Primary Care Physician [phone] [facility] 08[facility]19 - 10/11/[address] [address]- [facility] Attending Physician: Gerardo Lugo OD Admitting Physician: Gerardo Lugo OD Allergies, Adverse Reactions, Alerts Substance Reaction Severity [...] n 1Result Comment: [12/27/2016] [facility] [id number] 2Admin Note: VIS from 10/11/14 given to [...] 3 Refills, Maintenance, 07/10/19 10:02:00 EDT, Tablet, [facility], 163.4, cm, 05/16/19 10:53:00 EDT, Height, 166.9, kg, 11/21/17 2:28:00 EDT,Dry Weight Start Date: 07/10/19 Status: Ordered diclofenac 1% topical gel 1 application, Topically, 4 times a day, PRN for pain, not to exceed 16 grams/day/single joint of lower extremities. label swedish, # 100 Gm, 4 Refills, Maintenance, 04/18/19 15:51:00 EST, Gel, [facility], 163.4, cm, 04/18/19 15:38:00 EST, H... Start Date: 04/18/19 Status: Ordered famotidine 20 mg oral tablet 20 mg, 1, tablet, By Mouth, 2 times a day, for pain, nausea. avoid eating and drinking for 10 minutes after each dose, # 20 tablet, Refills 0, Tot. Refills 0, Maintenance, 02/19/19 19:12:13 EST, Route to Pharmacy Electronically, [facility],... Start Date: 02/19/19 Stop Date: 03/01/19 Status: Ordered fexofenadine 60 mg oral tablet 1 tablet = 60 mg, By Mouth, 2 times a day, stop cetirizine please, # 60 tablet, 2 Refills, Maintenance, 08/01/19 9:01:00 EDT, [facility], 163.4, cm, 05/16/19 10:53:00 EDT, Height, 166.9, kg, 11/21/17 2:28:00 EDT, Dry Weight Start Date: 08/01/19 Status: Ordered Flonase 50 mcg/inh nasal spray 1 sprays, Nares, Both, 2 times a day, # 16 Gm, 3 Refills, Maintenance, 07/10/19 10:02:00 EDT, [place], [facility], 1 sprays Nares, Both 2 times a day, 163.4, cm, 05/16/19 10:53:00 EDT, Height, 166.9, kg, 11/21/17 2:28:00 EDT, Dry Weight Start Date: 07/10/19 Status: Ordered hydrocortisone 2.5% topical lotion 1 application, Topically, 2 times a day, # 59 mL, 0 Refills, Maintenance, 05/17/19 17:11:00 EDT, Lotion, [facility]/pharmacy #[id number], 1 application Topically 2 times a day, 163.4, cm, 05/16/19 10:53:00 EDT, Height, 166.9, kg, 11/21/17 2:28:00 EDT, Dry Weight Start Date: 05/17/19 Status: Ordered lisinopril 20 mg oral tablet 20 mg, 1, tablet, By Mouth, Daily, # 30 tablet, Refills 11, Tot. Refills 11, Maintenance, 09/25/19 14:32:00 EDT, Route to Pharmacy Electronically, [facility], 163.4, cm, 08/13/19 14:08:00 EDT, Height, 166.9, kg, 11/21/17 2:28:00 EDT, Dry Weight Start Date: 09/25/19 Stop Date: 09/19/20 Status: Ordered Naphcon-A 0.025%-0.3% ophthalmic solution 1 drops, Eyes, Both, 4 times a day, # 15 mL, 1 Refills, Maintenance, 07/10/19 10:02:00 EDT, Solution, [facility], 1 drops Eyes, Both 4 times a day, 163.4, cm, 05/16/19 10:53:00 EDT, Height,166.9, kg, 11/21/17 2:28:00 EDT, Dry Weight Start Date: 07/10/19 Status: Ordered ProAir HFA 90 mcg/inh inhalation aerosol with adapter 2, puffs, Inhalation, Every 4 hours, PRN, # 8.5 Gm, Refills 6, Tot. Refills 6, Maintenance, 02/21/19 16:23:00 EST, Aerosol, Route to Pharmacy Electronically, NCPDP_[id number], [facility], 163.4, cm, 02/19/19 19:02:00 EST, Height, [...] 1 Refills, Maintenance, 02/19/19 19:13:45EST, ER Tablet, [facility], 163.4, cm, 02/19/19 19:02:31 EST, Height, [...]
--- OUTSIDE RECORDS SUMMARY | 2022-05-29 20:22 | XMS_ITS | Continuity of Care Document ---
Author Name Unknown Organization [facility] Address [address] [place] [id number]- Care Team Providers Care Proposal Lead Writer Name Role Phone Kevin Frazier MD Primary Care Physician [phone] [facility]): [facility]20 - 08/09/20 [facility] [address] [place] [address]- Attending Physician: Kevin Frazier MD Admitting Physician: Kevin Frazier MD Allergies, Adverse Reactions, Alerts Substance Reaction [...] (oldterm) 08/07/08 Give n 1Result Comment: [12/27/2016] [facility] [id number] 2Admin Note: VIS from 10/11/14 given to parent Medications albuterol 0.083% inhalation solution 3 mL = 2.5 mg, Inhalation, Every 6 hours, PRN for wheezing, # 60 each, 0 Refills, Maintenance, 11/22/19 11:06:00 EDT, Solution, [facility], 163.4, cm, 11/06/19 13:10:00 EDT, Height Start Date: 11/22/19 Status: Ordered Azithromycin 3 Day Dose Pack 500 mg oral tablet 1 tablet = 500 mg, By Mouth, Daily, # 3 tablet, 0 Refills, Maintenance, 11/29/19 14:02:00 EDT, Tablet, [facility], 163.4, cm, 11/06/19 13:10:00 EDT, Height Start Date: 11/29/19 Status: Ordered capsaicin 0.025% topical cream 1 application, Topically, 3 times a day, avoid contact with face and eyes to affected area, # 45 Gm, 10 Refills, Maintenance, 11/06/19 13:39:00 EDT, Cream, [facility], 1 application Topically 3 times a day,Instr:avoid contact with face and... Start Date: 11/06/19 Status: Ordered cetirizine 10 mg oral tablet 1 tablet = 10 mg, By Mouth, Daily, # 30 tablet, 5 Refills, Maintenance, 07/24/20 11:12:00 EDT, Tablet, [facility], Label in [place]., 163.4, cm, 11/06/19 13:10:00 EDT, Height Start Date: 07/24/20 Status: Ordered diclofenac 1% topical gel 1 application, Topically, 4 times a day, PRN for pain, not to exceed 16 grams/day/single joint of lower extremities. label tongan, # 100 Gm, 4 Refills, Maintenance, 04/18/19 15:51:00 EST, Gel, [facility], 163.4, cm, 04/18/19 15:38:00 EST, H... Start Date: 04/18/19 Status: Ordered Flonase 50 mcg/inh nasal spray 1 sprays, Nares, Both, 2 times a day, # 16 Gm, 3 Refills, Maintenance, 07/24/20 11:12:00 EDT, [place], [facility], 1 sprays Nares, Both 2 times a day, 163.4, cm, 11/06/19 13:10:00 EDT, Height Start Date: 07/24/20 Status: Ordered hydrocortisone 2.5% topical lotion 1 application, Topically, 2 times a day, # 59 mL, 0 Refills, Maintenance, 05/17/19 17:11:00 EDT, Lotion, [facility]/pharmacy #[id number], 1 application Topically 2 times a day, 163.4, cm, 05/16/19 10:53:00 EDT, Height, 166.9, kg, 11/21/17 2:28:00 EDT, Dry Weight Start Date: 05/17/19 Status: Ordered lisinopril 20 mg oral tablet 20 mg, 1, tablet, By Mouth, Daily, # 90 tablet, Refills 3, Tot. Refills 3, Maintenance, 11/22/19 18:01:00 EDT, Route to Pharmacy Electronically, [facility], 163.4, cm, 11/06/19 13:10:00 EDT, Height, Dry Weight Start Date: 11/22/19 Stop Date: 11/16/20 Status: Ordered medroxyPROGESTERone 10 mg oral tablet 10 mg, 1, tablet, By Mouth, Daily, # 10 tablet, Refills 0, Tot. Refills 0, Maintenance, 04/17/20 11:20:00 EST, Route to Pharmacy Electronically, [facility], Partial fill upon patient request if the prescription is for a schedule II opioid . Start Date: 04/17/20 Status: Ordered meloxicam 7.5 mg oral tablet 1 tablet = 7.5 mg, By Mouth, Daily, take with food please., # 30 tablet, 0 Refills, Maintenance, 12/12/19 9:11:00 EDT, Tablet, [facility], 163.4, cm, 11/06/19 13:10:00 EDT, Height, Dry Weight Start Date: 12/12/19 Status: Ordered Naphcon-A 0.025%-0.3% ophthalmic solution 1 drops, Eyes, Both, 4 times a day, # 15 mL, 1 Refills, Maintenance, 07/10/19 10:02:00 EDT, Solution, [facility], 1 drops Eyes, Both 4 times a day, 163.4, cm, 05/16/19 10:53:00 EDT, Height,166.9, kg, 09/17/18 2:28:00 EDT, Dry Weight Start Date: 07/10/19 Status: Ordered Nebulizer/Compressor See Instructions, # 1 each, Maintenance, nebulizer with tubing and mouthpiece DX asthma, ICD J45.901, 11/22/19 11:05:00 EDT, Supply Start Date: 11/22/19 Status: Ordered omeprazole 20 mg oral enteric coated capsule 1 capsule = 20 mg, By Mouth, Daily, # 30 capsule, 0 Refills, Maintenance, 01/10/20 14:06:00 EST, ECCapsule, [facility], 163.4, cm, 11/06/19 13:10:00 EDT, Height Start Date: 01/10/20 Status: Ordered ProAir HFA 90 mcg/inh inhalation aerosol with adapter 2, puffs, Inhalation, Every 4 hours, PRN, # 8.5 Gm, Refills 5, Tot. Refills 5, Maintenance, 07/24/20 11:13:00 EDT, Aerosol, Route to Pharmacy Electronically, [id number]_[id number], [facility], 163.4, cm, 11/06/19 13:10:00 EDT, Height [...] 1 Refills, Maintenance, 02/19/19 19:13:45EST, ER Tablet, [facility], 163.4, cm, 02/19/19 19:02:31 EST, Height, [...]
--- OUTSIDE RECORDS SUMMARY | 2022-05-29 20:22 | XMS_ITS | Continuity of Care Document ---
Author Name Unknown Organization [facility] ter Address [address] [place] [id number]- Care Team Providers Care Computer Aided Design Technician Name Role Phone Freddie ABBOTT, Kevin Yusuf Primary Care Physician [facility] 12[facility]21 - 01/24/[address] [address] Attending Physician: Carlito Cardenas MD Admitting Physician: Carlito Cardenas MD Referring Physician: Blessing Qiu MD Allergies, [...] 08/07/08 Give n 1Result Comment: [12/27/2016] [facility] [id number] 2Admin Note: VIS from 10/11/14 given to parent Medications albuterol 0.083% inhalation solution 3 mL = 2.5 mg, Inhalation, Every 6 hours, PRN for wheezing, # 100 each, 1 Refills, Maintenance, 08/05/21 15:44:00 EDT, Solution, [facility], 163.4, cm, 08/05/21 14:34:00 EDT, Height Start Date: 08/05/21 Status: Ordered BuPROPion (Eqv-Wellbutrin SR) 150 mg/12 hours oral tablet, extended release TAKE 1 TABLET BY MOUTH TWICE A DAY Start Date: 12/30/21 Status: Ordered cetirizine 10 mg oral tablet 1 tablet, By Mouth, Daily, # 30 tablet, 5 Refills, [facility], 163.4, cm, 08/05/21 14:34:00 EDT, Height Start Date: 08/25/21 Status: Ordered diclofenac 1% topical gel 1 application, Topically, 4 times a day, PRN Pain , Moderate, apply to wrists as needed, # 100 Gm, 0 Refills, Maintenance, 07/15/21 15:06:00 EDT, Gel, [facility], Partial fill upon patient request if the prescription is for a schedule II opi... Start Date: 07/15/21 Status: Ordered EpiPen 2-Mir 0.3 mg injectable kit = 0.3 mg, Intramuscular, Once, may repeat if necessary, # 1 each, 0 Refills, Soft Stop, 09/25/21 14:43:00 EDT, [facility], Partial fill upon patient request if the prescription is for a schedule II opioid drug., 163.4, cm, 09/24/21 15:28:00... Start Date: 09/25/21 Status: Ordered famotidine 20 mg oral tablet 20 mg, 1, tablet, By Mouth, 2 times a day, for nausea, heartburn., # 60 tablet, Refills 0, Tot. Refills 0, Maintenance, 10/13/20 16:36:00 EDT, Route to Pharmacy Electronically, [facility], Partial fill upon patient request if the prescriptio... Start Date: 10/13/20 Status: Ordered Flovent HFA 110 mcg/inh inhalation aerosol 2 puffs, Inhalation, 2 times a day, AND THROAT OUT AFTER USE., # 12 Gm, 5 Refills, [facility], 163.4, cm, 10/14/21 8:28:00 EDT, Height Start Date: 10/26/21 Status: Ordered fluticasone 50 mcg/inh nasal spray See Instructions, USE 1 SPRAY IN EACH NOSTRIL TWICE A DAY, # 16 Gm, 5 Refills, [facility], 30, USE 1 SPRAY IN EACH NOSTRIL TWICE A DAY, 163.4, cm, 10/14/21 8:28:00 EDT, Height Start Date: 10/26/21 Status: Ordered hydroCHLOROthiazide 12.5 mg oral capsule 1 capsule, By Mouth, Daily, # 30 capsule, 2 Refills, Maintenance, 12/10/21 12:09:00 EDT, [facility], 163.4, cm, 12/02/21 16:27:00 EDT, Height Start Date: 12/10/21 Status: Ordered lisinopril 20 mg oral tablet 1, tablet, By Mouth, Daily, # 90 tablet, Refills 1, Route to Pharmacy Electronically, [facility], 163.4, cm, 09/24/21 15:28:00 EDT, Height Start Date: 09/24/21 Status: Ordered medroxyPROGESTERone 10 mg oral tablet 10 mg, 1, tablet, By Mouth, Daily, # 10 tablet, Refills 0, Tot. Refills 0, Maintenance, 04/17/20 11:20:00 EST, Route to Pharmacy Electronically, [facility], Partial fill upon patient request if the prescription is for a schedule II opioid drTho.. Start Date: 04/17/20 Status: Ordered NIFEdipine 30 mg oral tablet, extended release 30 mg, 1, tablet, By Mouth, Daily, # 30 tablet, Refills 2, Tot. Refills 2, Maintenance, 12/07/21 15:13:00 EDT, Route to Pharmacy Electronically, [facility], Duplicate Rx. Original sent 12/01/21. Re-sending per pharmacy request, 163.4, cm, ... Start Date: 12/07/21 Stop Date: 03/07/22 Status: Ordered ProAir HFA 90 mcg/inh inhalation aerosol with adapter 2, puffs, Inhalation, Every 4 hours, PRN, # 8.5 Gm, Refills 5, Route to Pharmacy Electronically, NCPDP_[id number], [facility], 163.4, cm, 07/15/21 13:31:00 EDT, Height Start Date: 07/16/21 Status: Ordered sertraline 100 mg oral tablet TAKE 1&1/2 TABLET BY MOUTH ONCE A DAY Start Date: 12/30/21 Status: Ordered Slow Fe (as elemental iron) 45 mg oral tablet, extended release 1 tablet = 45 mg, By Mouth, Daily, # 30 tablet, 5 Refills, Maintenance, 12/18/20 10:42:00 EDT, ER Tablet, [facility], Partial fill upon patient request if [...] Care Physician Member Role: PCP Address: Address: [address] [place] [address]- Care Team Related Persons Name: KARI AGUERO Address: home [address] [place] [address]
--- OUTSIDE RECORDS SUMMARY | 2022-05-29 20:22 | XMS_ITS | Continuity of Care Document ---
Author Name Unknown Organization [facility] Address Adult Weight Managem ent [address] [place] [address]- Care Team Providers Care Manager Activities Name Role Phone Freddie ABBOTT, Kevin Yusuf Primary Care Physician [phone] [facility]): 03[facility]27[facility]19 - 04/06/19 [facility] Adult Weight Management [address] [place] [address]- [facility] Attending Physician: Nasima Coffman Admitting Physician: AdmNasima interiano Referring Physician: Admtr, Nasima Allergies, Adverse Reactions, Alerts Substance Reaction Severity [...] Give n 1Result Comment: [12/27/2016] [facility] [id number] 2Admin Note: VIS from 10/11/14 given to [...] 16 grams/day/single joint of lower extremities. label hebrew, # 100 Gm, 0 Refills, Maintenance, 01/01/19 [...] 02/19/19 19:12:13 EST, Route to Pharmacy Electronically, [facility],... Start Date: 02/19/19 Stop Date: 03/01/19 Status: Ordered Flonase 50 mcg/inh nasal spray 1 sprays, Nares, Both, 2 times a day, # 16 Gm, 1 Refills, Maintenance, 07/19/18 10:29:32 EDT, [place], 1 sprays Nares, Both 2 times a day Start Date: 07/19/18 Status: Ordered ibuprofen 400 mg oral tablet 400 mg, 1, tablet, By Mouth, Every 8 hours, PRN, # 50 tablet, Refills 1, Tot. Refills 1, Maintenance, as needed for pain, 01/02/18 11:06:21 EDT, Route to Pharmacy Electronically, [id number], [facility]/pharmacy #[id number] Start Date: 01/02/18 Status: Ordered lisinopril 20 mg oral tablet 20 mg, 1, tablet, By Mouth, Daily, # 30 tablet, Refills 6, Tot. Refills 6, Maintenance, 01/18/19 10:21:15 EST, Route to Pharmacy Electronically, [id number], [facility]/pharmacy #[id number] Start Date: 01/18/19 Stop Date: 08/16/19 Status: Ordered ProAir HFA 90 mcg/inh inhalation aerosol with adapter 2, puffs, Inhalation, Every 4 hours, PRN, # 8.5 Gm, Refills 6, Tot. Refills 6, Maintenance, 02/21/19 16:23:00 EST, Aerosol, Route to Pharmacy Electronically, NCPDP_[id number], [facility], 163.4, cm, 02/19/19 19:02:00 EST, Height, [...] 1 Refills, Maintenance, 02/19/19 19:13:45EST, ER Tablet, [facility], 163.4, cm, 02/19/19 19:02:31 EST, Height, 166.9, kg, 11/21/:28:34 EDT, Dry Weight Start Date: 02/19/19 Status: Ordered Voltaren 1% topical gel = 2 Gm, Topically, 4 times a day, for knee pain, # 240 Gm, 0 Refills, Maintenance, 02/19/19 19:13:19 EST, [facility], 2 Gm Topically 4 times a [...]
--- OUTSIDE RECORDS SUMMARY | 2022-05-29 20:22 | XMS_ITS | Continuity of Care Document ---
Author Name Unknown Organization [facility] Address [address] [place] [address]- Care Team Providers Care Citrus Fruit Colorer Name Role Phone Freddie ABBOTT, Kevin Yusuf Primary Care Physician [facility] 11/23/19 - 12/23/19 [facility] [address] [place] [address]- [facility] Allergies, Adverse Reactions, Alerts Substance Reaction Severity [...] (oldterm) 08/07/08 Give n 1Result Comment: [12/27/2016] [facility] [id number] 2Admin Note: VIS from 10/11/14 given to [...] 0 Refills, Maintenance, 11/29/19 14:02:00 EDT, Tablet, [facility], 163.4, cm, [...] face and... Start Date: 11/06/19 Status: Ordered diclofenac 1% topical gel 1 application, Topically, 4 times a day, PRN for pain, not to exceed 16 grams/day/single joint of lower extremities. label armenian, # 100 Gm, 4 Refills, Maintenance, 04/18/19 15:51:00 EST, Gel, [facility], 163.4, cm, 04/18/19 15:38:00 EST, H... Start Date: 04/18/19 Status: Ordered fexofenadine 60 mg oral tablet 1 tablet = 60 mg, By Mouth, 2 times a day, stop cetirizine please, # 60 tablet, 2 Refills, Maintenance, 08/01/19 9:01:00 EDT, [facility], 163.4, cm, 05/16/19 10:53:00 EDT, Height, 166.9, kg, 11/21/17 2:28:00 EDT, Dry Weight Start Date: 08/01/19 Status: Ordered Flonase 50 mcg/inh nasal spray 1 sprays, Nares, Both, 2 times a day, # 16 Gm, 3 Refills, Maintenance, 07/10/19 10:02:00 EDT, [place], [facility], 1 sprays Nares, Both 2 times a day, 163.4, cm, 05/16/19 10:53:00 EDT, Height, 166.9, kg, 11/21/17 2:28:00 EDT, Dry Weight Start Date: 07/10/19 Status: Ordered hydrocortisone 1% topical cream 1 application, Topically, 2 times a day, # 30 Gm, 0 Refills, Acute 01/12/20 9:24:00 EST, 12/12/19 9:24:00 EDT, Cream, [facility], 1 application Topically 2 times a day, 163.4, cm, 11/06/19 13:10:00 EDT, Height Start Date: 12/12/19 Stop Date: 01/12/20 Status: Ordered hydrocortisone 2.5% topical lotion 1 application, Topically, 2 times a day, # 59 mL, 0 Refills, Maintenance, 05/17/19 17:11:00 EDT, Lotion, [facility]/pharmacy #[id number], 1 application Topically 2 times a day, 163.4, cm, 05/16/19 10:53:00 EDT, Height, 166.9, kg, 11/21/17 2:28:00 EDT, Dry Weight Start Date: 05/17/19 Status: Ordered lisinopril 20 mg oral tablet 20 mg, 1, tablet, By Mouth, Daily, # 90 tablet, Refills 3, Tot. Refills 3, Maintenance, 11/22/19 18:01:00 EDT, Route to Pharmacy Electronically, [facility], 163.4, cm, 11/06/19 13:10:00 EDT, Height, Dry Weight Start Date: 11/22/19 Stop Date: 11/16/20 Status: Ordered meloxicam 7.5 mg oral tablet [...] 1 Refills, Maintenance, 07/10/19 10:02:00 EDT, Solution, [facility], 1 drops Eyes, Both 4 times [...] Gm, Refills 6, Tot. Refills 6, Maintenance, 11/21/19 18:22:00 EDT, Aerosol, Route to Pharmacy Electronically, NCPDP_[id number], [facility], 163.4, cm, 11/06/19 13:10:00 EDT, Height, Dry Weight Start Date: 11/21/19 Status: Ordered Tylenol 8 Hour 650 mg oral tablet, extended release 1 tablet = 650 mg, By Mouth, Every 8 hours, # 100 tablet, 1 Refills, Maintenance, 02/19/19 19:13:45EST, ER Tablet, [facility], 163.4, cm, 02/19/19 19:02:31 EST, Height, [...]
--- OUTSIDE RECORDS SUMMARY | 2022-05-29 20:22 | XMS_ITS | Continuity of Care Document ---
Author Name Unknown Organization [facility] Address [address] [place] [address]- Care Team Providers Care Access Lead Name Role Phone Kevin Frazier MD Primary Care Physician [facility]): 11[facility]14/20 - 12/14/20 [facility] [address] [place] [address]- Allergies, Adverse Reactions, Alerts Substance Reaction Severity [...] (oldterm) 08/07/08 Give n 1Result Comment: [12/27/2016] [facility] [id number] 2Admin Note: VIS from 10/11/14 given to parent Medications albuterol 0.083% inhalation solution 3 mL = 2.5 mg, Inhalation, Every 6 hours, PRN for wheezing, # 60 each, 0 Refills, Maintenance, 11/22/19 11:06:00 EDT, Solution, [facility], 163.4, cm, 11/06/19 13:10:00 EDT, Height Start Date: 11/22/19 Status: Ordered capsaicin 0.025% topical cream 1 application, Topically, 3 times a day, avoid contact with face and eyes to affected area, # 45 Gm, 10 Refills, Maintenance, 11/06/19 13:39:00 EDT, Cream, [facility], 1 application Topically 3 times a day,Instr:avoid contact with face and... Start Date: 11/06/19 Status: Ordered cetirizine 10 mg oral tablet 1 tablet = 10 mg, By Mouth, Daily, # 30 tablet, 5 Refills, Maintenance, 07/24/20 11:12:00 EDT, Tablet, [facility], Label in [place]., 163.4, cm, 11/06/19 13:10:00 EDT, Height Start Date: 07/24/20 Status: Ordered diclofenac 1% topical gel 1 application, Topically, 4 times a day, PRN for pain, not to exceed 16 grams/day/single joint of lower extremities. label citizen of [place], # 100 Gm, 4 Refills, Maintenance, 04/18/19 15:51:00 EST, Gel, [facility], 163.4, cm, 04/18/19 15:38:00 EST, H... Start Date: 04/18/19 Status: Ordered famotidine 20 mg oral tablet 20 mg, 1, tablet, By Mouth, 2 times a day, for nausea, heartburn., # 60 tablet, Refills 0, Tot. Refills 0, Maintenance, 10/13/20 16:36:00 EDT, Route to Pharmacy Electronically, [facility], Partial fill upon patient request if the prescriptio... Start Date: 10/13/20 Status: Ordered Flovent HFA 110 mcg/inh inhalation aerosol 2 puffs, Inhalation, 2 times a day, use twice a day to prevent asthma symptoms. rinse mouth and throat after use, # 1 each, 5 Refills, Maintenance, 12/12/20 16:28:00 EDT, [facility], Partial fill upon patient request if the prescription is... Start Date: 12/12/20 Status: Ordered fluticasone 50 mcg/inh nasal spray See Instructions, USE 1 SPRAY IN EACH NOSTRIL TWICE A DAY, # 16 Gm, 5 Refills, [facility], 30, USE 1 SPRAY IN EACH NOSTRIL TWICE A DAY, 163.4, cm, 10/13/20 15:44:00 EDT, Height Start Date: 12/12/20 Status: Ordered hydrocortisone 2.5% topical lotion 1 application, Topically, 2 times a day, # 59 mL, 0 Refills, Maintenance, 05/17/19 17:11:00 EDT, Lotion, [facility]/pharmacy #[id number], 1 application Topically 2 times a day, 163.4, cm, 05/16/19 10:53:00 EDT, Height, 166.9, kg, 11/21/17 2:28:00 EDT, Dry Weight Start Date: 05/17/19 Status: Ordered iron polysaccharide 150 mg oral capsule 1 capsule = 150 mg, By Mouth, Daily, # 30 capsule, 2 Refills, Maintenance, 11/17/20 9:16:00 EDT, [facility], Partial fill upon patient request if the prescription is for a schedule II opioid drug., 163.4, cm, 10/13/20 15:44:00 EDT, Height Start Date: 11/17/20 Status: Ordered lisinopril 20 mg oral tablet 20 mg, 1, tablet, By Mouth, Daily, # 90 tablet, Refills 1, Tot. Refills 1, Maintenance, 11/16/20 18:01:00 EDT, Route to Pharmacy Electronically, [facility], 163.4, cm, 09/03/20 10:55:00 EDT, Height Start Date: 11/16/20 Stop Date: 05/15/21 Status: Ordered medroxyPROGESTERone 10 mg oral tablet 10 mg, 1, tablet, By Mouth, Daily, # 10 tablet, Refills 0, Tot. Refills 0, Maintenance, 04/17/20 11:20:00 EST, Route to Pharmacy Electronically, [facility], Partial fill upon patient request if the prescription is for a schedule II opioid drMariana. Start Date: 04/17/20 Status: Ordered meloxicam 7.5 mg oral tablet 1 tablet = 7.5 mg, By Mouth, Daily, take with food please., # 30 tablet, 0 Refills, Maintenance, 12/12/19 9:11:00 EDT, Tablet, [facility], 163.4, cm, 11/06/19 13:10:00 EDT, Height, Dry Weight Start Date: 12/12/19 Status: Ordered Naphcon-A 0.025%-0.3% ophthalmic solution 1 drops, Eyes, Both, 4 times a day, # 15 mL, 1 Refills, Maintenance, 09/03/20 10:42:00 EDT, Solution, [facility], 1 drops Eyes, Both 4 times [...] 0 Refills, Maintenance, 01/10/20 14:06:00 EST, ECCapsule, [facility], 163.4, cm, 11/06/19 13:10:00 EDT, Height Start Date: 01/10/20 Status: Ordered ProAir HFA 90 mcg/inh inhalation aerosol with adapter 2, puffs, Inhalation, Every 4 hours, PRN, # 8.5 Gm, Refills 5, Tot. Refills 5, Maintenance, 07/24/20 11:13:00 EDT, Aerosol, Route to Pharmacy Electronically, NCPDP_[id number], [facility], 163.4, cm, 11/06/19 13:10:00 EDT, Height [...] 1 Refills, Maintenance, 02/19/19 19:13:45EST, ER Tablet, [facility], 163.4, cm, 02/19/19 19:02:31 EST, Height, [...]
--- OUTSIDE RECORDS SUMMARY | 2022-05-29 20:22 | XMS_ITS | Continuity of Care Document ---
Author Name Unknown Organization [facility] Address [address] [place] [address]- Care Team Providers Care Fur Coat Sewer Name Role Phone Freddie ABBOTT, Kevin Yusuf Primary Care Physician [facility] Date[facility]s): 12/22/20 - 01/21/21 [facility] [address] [place] [address]- Allergies, Adverse Reactions, Alerts Substance Reaction Severity [...] [facility] [id number] 2Admin Note: VIS from 10/11/14 given to parent Medications albuterol 0.083% inhalation solution 3 mL = 2.5 mg, Inhalation, Every 6 hours, PRN for wheezing, # 60 each, 0 Refills, Maintenance, 11/22/19 11:06:00 EDT, Solution, [facility], 163.4, cm, 11/06/19 13:10:00 EDT, Height Start Date: 11/22/19 Status: Ordered capsaicin 0.025% topical cream 1 application, Topically, 3 times a day, avoid contact with face and eyes to affected area, # 45 Gm, 10 Refills, Maintenance, 11/06/19 13:39:00 EDT, Cream, [facility], 1 application Topically 3 times a day,Instr:avoid contact with face and... Start Date: 11/06/19 Status: Ordered cetirizine 10 mg oral tablet 1 tablet = 10 mg, By Mouth, Daily, # 30 tablet, 5 Refills, Maintenance, 07/24/20 11:12:00 EDT, Tablet, [facility], Label in Bruneian., 163.4, cm, 11/06/19 13:10:00 EDT, Height Start Date: 07/24/20 Status: Ordered diclofenac 1% topical gel 1 application, Topically, 4 times a day, PRN for pain, not to exceed 16 grams/day/single joint of lower extremities. label mongolian, # 100 Gm, 4 Refills, Maintenance, 04/18/19 15:51:00 EST, Gel, [facility], 163.4, cm, 04/18/19 15:38:00 EST, H... [...] each, 5 Refills, Maintenance, 12/12/20 16:28:00 EDT, [facility], Partial fill upon patient request if the prescription is... Start Date: 12/12/20 Status: Ordered fluticasone 50 mcg/inh nasal spray See Instructions, USE 1 SPRAY IN EACH NOSTRIL TWICE A DAY, # 16 Gm, 5 Refills, [facility], 30, USE 1 SPRAY IN EACH NOSTRIL TWICE A DAY, 163.4, cm, 10/13/20 15:44:00 EDT, Height Start Date: 12/12/20 Status: Ordered hydroCHLOROthiazide 12.5 mg oral capsule 1 capsule = 12.5 mg, By Mouth, Daily, # 30 capsule, 5 Refills, Maintenance, 12/18/20 10:41:00 EDT, Capsule, [facility], Partial fill upon patient request if the prescription is for a schedule II opioid drug., 163.4, cm, 12/18/20 10:36:00 EDT... Start Date: 12/18/20 Status: Ordered hydrocortisone 2.5% topical lotion 1 application, Topically, 2 times a day, # 59 mL, 0 Refills, Maintenance, 05/17/19 17:11:00 EDT, Lotion, [facility]/pharmacy #[id number], 1 application Topically 2 times a day, 163.4, cm, 05/16/19 10:53:00 EDT, Height, 166.9, kg, 11/21/17 2:28:00 EDT, Dry Weight Start Date: 05/17/19 Status: Ordered lisinopril 20 mg oral tablet 20 mg, 1, tablet, By Mouth, Daily, # 90 tablet, Refills 1, Tot. Refills 1, Maintenance, 11/16/20 18:01:00 EDT, Route to Pharmacy Electronically, [facility], 163.4, cm, 09/03/20 10:55:00 EDT, Height Start Date: 11/16/20 Stop Date: 05/15/21 Status: Ordered medroxyPROGESTERone 10 mg oral tablet 10 mg, 1, tablet, By Mouth, Daily, # 10 tablet, Refills 0, Tot. Refills 0, Maintenance, 04/17/20 11:20:00 EST, Route to Pharmacy Electronically, [facility], Partial fill upon patient request if the prescription is for a schedule II opioid drMariana. Start Date: 04/17/20 Status: Ordered Nebulizer/Compressor See Instructions, # 1 each, Maintenance, nebulizer with tubing and mouthpiece DX asthma, ICD J45.901, 11/22/19 11:05:00 EDT, Supply Start Date: 11/22/19 Status: Ordered ProAir HFA 90 mcg/inh inhalation aerosol with adapter 2, puffs, Inhalation, Every 4 hours, PRN, # 8.5 Gm, Refills 5, Tot. Refills 5, Maintenance, 07/24/20 11:13:00 EDT, Aerosol, Route to Pharmacy Electronically, [id number]_[id number], [facility], 163.4, cm, 11/06/19 13:10:00 EDT, Height Start Date: 07/24/20 Status: Ordered Slow Fe (as elemental iron) 45 mg oral tablet, extended release 1 tablet = 45 mg, By Mouth, Daily, # 30 tablet, 5 Refills, Maintenance, 12/18/20 10:42:00 EDT, ER Tablet, [facility], Partial fill upon patient [...] 1 Refills, Maintenance, 02/19/19 19:13:45EST, ER Tablet, [facility], 163.4, cm, 02/19/19 19:02:31 EST, Height, [...]
--- OUTSIDE RECORDS SUMMARY | 2022-05-29 20:22 | XMS_ITS | Continuity of Care Document ---
Author Name Unknown Organization [facility] Address [address] [place] [address]- Care Team Providers Care Director Supply Name Role Phone Freddie ABBOTT, Kevin Yusuf Primary Care Physician [phone] [place] [facility] [place] 12/07/19 - 01/06/[address] [address]- [facility] Allergies, Adverse Reactions, Alerts Substance Reaction Severity [...] 08/07/08 Give n 1Result Comment: [12/27/2016] [facility] [id number] 2Admin Note: VIS from 10/11/14 given to parent Medications albuterol 0.083% inhalation solution 3 mL = 2.5 mg, Inhalation, Every 6 hours, PRN for wheezing, # 60 each, 0 Refills, Maintenance, 11/22/19 11:06:00 EDT, Solution, [facility], 163.4, cm, 11/06/19 13:10:00 EDT, Height Start Date: 11/22/19 Status: Ordered Azithromycin 3 Day Dose Pack 500 mg oral tablet 1 tablet = 500 mg, By Mouth, Daily, # 3 tablet, 0 Refills, Maintenance, 11/29/19 14:02:00 EDT, Tablet, [facility], 163.4, cm, 11/06/19 13:10:00 EDT, Height Start Date: 11/29/19 Status: Ordered capsaicin 0.025% topical cream 1 application, Topically, 3 times a day, avoid contact with face and eyes to affected area, # 45 Gm, 10 Refills, Maintenance, 11/06/19 13:39:00 EDT, Cream, [facility], 1 application Topically 3 times a day,Instr:avoid contact with face and... Start Date: 11/06/19 Status: Ordered diclofenac 1% topical gel 1 application, Topically, 4 times a day, PRN for pain, not to exceed 16 grams/day/single joint of lower extremities. label st helenian, # 100 Gm, 4 Refills, Maintenance, 04/18/19 15:51:00 EST, Gel, [facility], 163.4, cm, 04/18/19 15:38:00 EST, H... Start Date: 04/18/19 Status: Ordered fexofenadine 60 mg oral tablet 1 tablet = 60 mg, By Mouth, 2 times a day, stop cetirizine please, # 60 tablet, 2 Refills, Maintenance, 08/01/19 9:01:00 EDT, [facility], 163.4, cm, 05/16/19 10:53:00 EDT, Height, 166.9, kg, 11/21/17 2:28:00 EDT, Dry Weight Start Date: 08/01/19 Status: Ordered Flonase 50 mcg/inh nasal spray 1 sprays, Nares, Both, 2 times a day, # 16 Gm, 3 Refills, Maintenance, 07/10/19 10:02:00 EDT, [place], [facility], 1 sprays Nares, Both 2 times a day, 163.4, cm, 05/16/19 10:53:00 EDT, Height, 166.9, kg, 11/21/17 2:28:00 EDT, Dry Weight Start Date: 07/10/19 Status: Ordered hydrocortisone 1% topical cream 1 application, Topically, 2 times a day, # 30 Gm, 0 Refills, Acute 01/12/20 9:24:00 EST, 12/12/19 9:24:00 EDT, Cream, [facility], 1 application Topically 2 times a day, 163.4, cm, 11/06/19 13:10:00 EDT, Height Start Date: 12/12/19 Stop Date: 01/12/20 Status: Ordered hydrocortisone 2.5% topical lotion 1 application, Topically, 2 times a day, # 59 mL, 0 Refills, Maintenance, 05/17/19 17:11:00 EDT, Lotion, [facility]/pharmacy #[id number], 1 application Topically 2 times a day, 163.4, cm, 05/16/19 10:53:00 EDT, Height, 166.9, kg, 11/21/17 2:28:00 EDT, Dry Weight Start Date: 05/17/19 Status: Ordered lisinopril 20 mg oral tablet 20 mg, 1, tablet, By Mouth, Daily, # 90 tablet, Refills 3, Tot. Refills 3, Maintenance, 11/22/19 18:01:00 EDT, Route to Pharmacy Electronically, [facility], 163.4, cm, 11/06/19 13:10:00 EDT, Height, Dry Weight Start Date: 11/22/19 Stop Date: 11/16/20 Status: Ordered meloxicam 7.5 mg oral tablet 1 tablet = 7.5 mg, By Mouth, Daily, take with food please., # 30 tablet, 0 Refills, Maintenance, 12/12/19 9:11:00 EDT, Tablet, [facility], 163.4, cm, 11/06/19 13:10:00 EDT, Height, Dry Weight Start Date: 12/12/19 Status: Ordered Naphcon-A 0.025%-0.3% ophthalmic solution 1 drops, Eyes, Both, 4 times a day, # 15 mL, 1 Refills, Maintenance, 07/10/19 10:02:00 EDT, Solution, [facility], 1 drops Eyes, Both 4 times [...] 18:22:00 EDT, Aerosol, Route to Pharmacy Electronically, NCPDP_[id number], [facility], 163.4, cm, 11/06/19 13:10:00 EDT, Height, Dry Weight Start Date: 11/21/19 Status: Ordered Spacer for use with Albuterol [...] 1 Refills, Maintenance, 02/19/19 19:13:45EST, ER Tablet, [facility], 163.4, cm, 02/19/19 19:02:31 EST, Height, [...]
--- OUTSIDE RECORDS SUMMARY | 2022-05-29 20:22 | XMS_ITS | Continuity of Care Document ---
Author Name Unknown Organization [facility] Address [address] [place] [address]- Care Team Providers Care Press Room Supervisor Name Role Phone Kevin Frazier MD Primary Care Physician [phone] [facility]counter [facility] Date(s): 11/24/20 - 12/24/20 [facility] [address] [place] [address]- Allergies, Adverse Reactions, Alerts Substance Reaction Severity [...] 1Result Comment: [12/27/2016] [facility] [id number] 2Admin Note: VIS from 10/11/14 given to parent Medications albuterol 0.083% inhalation solution 3 mL = 2.5 mg, Inhalation, Every 6 hours, PRN for wheezing, # 60 each, 0 Refills, Maintenance, 11/22/19 11:06:00 EDT, Solution, [facility], 163.4, cm, 11/06/19 13:10:00 EDT, Height Start Date: 11/22/19 Status: Ordered capsaicin 0.025% topical cream 1 application, Topically, 3 times a day, avoid contact with face and eyes to affected area, # 45 Gm, 10 Refills, Maintenance, 11/06/19 13:39:00 EDT, Cream, [facility], 1 application Topically 3 times a day,Instr:avoid contact with face and... Start Date: 11/06/19 Status: Ordered cetirizine 10 mg oral tablet 1 tablet = 10 mg, By Mouth, Daily, # 30 tablet, 5 Refills, Maintenance, 07/24/20 11:12:00 EDT, Tablet, [facility], Label in Bermudian., 163.4, cm, 11/06/19 13:10:00 EDT, Height Start Date: 07/24/20 Status: Ordered diclofenac 1% topical gel 1 application, Topically, 4 times a day, PRN for pain, not to exceed 16 grams/day/single joint of lower extremities. label maltese, # 100 Gm, 4 Refills, Maintenance, 04/18/19 15:51:00 EST, Gel, [facility], 163.4, cm, 04/18/19 15:38:00 EST, H... Start Date: 04/18/19 Status: Ordered diclofenac 1% topical gel 1 application, Topically, 4 times a day, # 100 Gm, 0 Refills, Maintenance, 12/18/20 10:39:00 EDT, Gel, [facility], Partial fill upon patient request if the prescription is for a schedule IIopioid drug., 163.4, cm, 12/18/20 10:36:00 EDT, Height Start Date: 12/18/20 Status: Ordered famotidine 20 mg oral tablet 20 mg, 1, tablet, By Mouth, 2 times a day, for nausea, heartburn., # 60 tablet, Refills 0, Tot. Refills 0, Maintenance, 10/13/20 16:36:00 EDT, Route to Pharmacy Electronically, [facility], Partial fill upon patient request if the prescriptio... Start Date: 10/13/20 Status: Ordered Flovent HFA 110 mcg/inh inhalation aerosol 2 puffs, Inhalation, 2 times a day, use twice a day to prevent asthma symptoms. rinse mouth and throat after use, # 1 each, 5 Refills, Maintenance, 12/12/20 16:28:00 EDT, [facility], Partial fill upon patient request if the prescription is... Start Date: 12/12/20 Status: Ordered fluticasone 50 mcg/inh nasal spray See Instructions, USE 1 SPRAY IN EACH NOSTRIL TWICE A DAY, # 16 Gm, 5 Refills, [facility], 30, USE 1 SPRAY IN EACH NOSTRIL TWICE A DAY, 163.4, cm, 10/13/20 15:44:00 EDT, Height Start Date: 12/12/20 Status: Ordered hydroCHLOROthiazide 12.5 mg oral capsule 1 capsule = 12.5 mg, By Mouth, Daily, # 30 capsule, 5 Refills, Maintenance, 12/18/20 10:41:00 EDT, Capsule, [facility], Partial fill upon patient request if the prescription is for a schedule II opioid drug., 163.4, cm, 12/18/20 10:36:00 EDT... Start Date: 12/18/20 Status: Ordered hydrocortisone 2.5% topical lotion 1 application, Topically, 2 times a day, # 59 mL, 0 Refills, Maintenance, 05/17/19 17:11:00 EDT, Lotion, [facility]/pharmacy #[id number], 1 application Topically 2 times a day, 163.4, cm, 05/16/19 10:53:00 EDT, Height, 166.9, kg, 11/21/17 2:28:00 EDT, Dry Weight Start Date: 05/17/19 Status: Ordered lisinopril 20 mg oral tablet 20 mg, 1, tablet, By Mouth, Daily, # 90 tablet, Refills 1, Tot. Refills 1, Maintenance, 11/16/20 18:01:00 EDT, Route to Pharmacy Electronically, [facility], 163.4, cm, 09/03/20 10:55:00 EDT, Height Start Date: 11/16/20 Stop Date: 05/15/21 Status: Ordered medroxyPROGESTERone 10 mg oral tablet 10 mg, 1, tablet, By Mouth, Daily, # 10 tablet, Refills 0, Tot. Refills 0, Maintenance, 04/17/20 11:20:00 EST, Route to Pharmacy Electronically, [facility], Partial fill upon patient request [...] 11:13:00 EDT, Aerosol, Route to Pharmacy Electronically, NCPDP_[id number], [facility], 163.4, cm, 11/06/19 13:10:00 EDT, Height Start Date: 07/24/20 Status: Ordered Slow Fe (as elemental iron) 45 mg oral tablet, extended release 1 tablet = 45 mg, By Mouth, Daily, # 30 tablet, 5 Refills, Maintenance, 12/18/20 10:42:00 EDT, ER Tablet, [facility], Partial fill upon patient request [...] 1 Refills, Maintenance, 02/19/19 19:13:45EST, ER Tablet, [facility], 163.4, cm, 02/19/19 19:02:31 EST, Height, 166.9, kg, 182:28:34 EDT, Dry Weight Start Date: 02/19/19 Status: Ordered Problem List Condition Effective Dates Status Health Status Inform ant Asthma(Confirmed) Active 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
--- OUTSIDE RECORDS SUMMARY | 2022-05-29 20:22 | XMS_ITS | Continuity of Care Document ---
Author Name Unknown Organization [facility] Address [address] [place] [address]- Care Team Providers Care Activity Aid Name Role Phone Kevin Frazier MD Primary Care Physician [phone] [facility]counter [facility] Date[facility]s): 12/23/20 - 01/29/21 [facility] [address] [place] [address]- Attending Physician: Kevin Frazier MD Admitting Physician: eKvin Frazier MD Allergies, Adverse Reactions, Alerts Substance [...] (oldterm) 08/07/08 Give n 1Result Comment: [12/27/2016] [facility] [id number] 2Admin Note: VIS from 10/11/14 given to parent Medications albuterol 0.083% inhalation solution 3 mL = 2.5 mg, Inhalation, Every 6 hours, PRN for wheezing, # 60 each, 0 Refills, Maintenance, 11/22/19 11:06:00 EDT, Solution, [facility], 163.4, cm, 11/06/19 13:10:00 EDT, Height Start Date: 11/22/19 Status: Ordered capsaicin 0.025% topical cream 1 application, Topically, 3 times a day, avoid contact with face and eyes to affected area, # 45 Gm, 10 Refills, Maintenance, 11/06/19 13:39:00 EDT, Cream, [facility], 1 application Topically 3 times a day,Instr:avoid contact with face and... Start Date: 11/06/19 Status: Ordered cetirizine 10 mg oral tablet 1 tablet = 10 mg, By Mouth, Daily, # 30 tablet, 5 Refills, Maintenance, 07/24/20 11:12:00 EDT, Tablet, [facility], Label in Greek., 163.4, cm, 11/06/19 13:10:00 EDT, Height Start Date: 07/24/20 Status: Ordered diclofenac 1% topical gel 1 application, Topically, 4 times a day, PRN for pain, not to exceed 16 grams/day/single joint of lower extremities. label danish, # 100 Gm, 4 Refills, Maintenance, 04/18/19 15:51:00 EST, Gel, [facility], 163.4, cm, 04/18/19 15:38:00 EST, H... Start Date: 04/18/19 Status: Ordered diclofenac 1% topical gel 1 application, Topically, 4 times a day, # 100 Gm, 0 Refills, Maintenance, 12/18/20 10:39:00 EDT, Gel, [facility], Partial fill upon patient request if the prescription is for a schedule IIopioid drug., 163.4, cm, 12/18/20 10:36:00 EDT, Height Start Date: 12/18/20 Status: Ordered famotidine 20 mg oral tablet 20 mg, 1, tablet, By Mouth, 2 times a day, for nausea, heartburn., # 60 tablet, Refills 0, Tot. Refills 0, Maintenance, 10/13/20 16:36:00 EDT, Route to Pharmacy Electronically, [facility], Partial fill upon patient request if the prescriptio... Start Date: 10/13/20 Status: Ordered Flovent HFA 110 mcg/inh inhalation aerosol 2 puffs, Inhalation, 2 times a day, use twice a day to prevent asthma symptoms. rinse mouth and throat after use, # 1 each, 5 Refills, Maintenance, 12/12/20 16:28:00 EDT, [facility], Partial fill upon patient request if the prescription is... Start Date: 12/12/20 Status: Ordered fluticasone 50 mcg/inh nasal spray See Instructions, USE 1 SPRAY IN EACH NOSTRIL TWICE A DAY, # 16 Gm, 5 Refills, [facility], 30, USE 1 SPRAY IN EACH NOSTRIL TWICE A DAY, 163.4, cm, 10/13/20 15:44:00 EDT, Height Start Date: 12/12/20 Status: Ordered hydroCHLOROthiazide 12.5 mg oral capsule 1 capsule = 12.5 mg, By Mouth, Daily, # 30 capsule, 5 Refills, Maintenance, 12/18/20 10:41:00 EDT, Capsule, [facility], Partial fill upon patient request if the prescription is for a schedule II opioid drug., 163.4, cm, 12/18/20 10:36:00 EDT... Start Date: 12/18/20 Status: Ordered hydrocortisone 2.5% topical lotion 1 application, Topically, 2 times a day, # 59 mL, 0 Refills, Maintenance, 05/17/19 17:11:00 EDT, Lotion, [facility]/pharmacy #[id number], 1 application Topically 2 times a day, 163.4, cm, 05/16/19 10:53:00 EDT, Height, 166.9, kg, 11/21/17 2:28:00 EDT, Dry Weight Start Date: 05/17/19 Status: Ordered lisinopril 20 mg oral tablet 20 mg, 1, tablet, By Mouth, Daily, # 90 tablet, Refills 1, Tot. Refills 1, Maintenance, 11/16/20 18:01:00 EDT, Route to Pharmacy Electronically, [facility], 163.4, cm, 09/03/20 10:55:00 EDT, Height Start Date: 11/16/20 Stop Date: 05/15/21 Status: Ordered medroxyPROGESTERone 10 mg oral tablet 10 mg, 1, tablet, By Mouth, Daily, # 10 tablet, Refills 0, Tot. Refills 0, Maintenance, 04/17/20 11:20:00 EST, Route to Pharmacy Electronically, [facility], Partial fill upon patient request if the prescription is for a schedule II opioid drTho.. Start Date: 04/17/20 Status: Ordered Nebulizer/Compressor See Instructions, # 1 each, Maintenance, nebulizer with tubing and mouthpiece DX asthma, ICD J45.901, 11/22/19 11:05:00 EDT, Supply Start Date: 11/22/19 Status: Ordered ProAir HFA 90 mcg/inh inhalation aerosol with adapter 2, puffs, Inhalation, Every 4 hours, PRN, # 8.5 Gm, Refills 5, Tot. Refills 5, Maintenance, 07/24/20 11:13:00 EDT, Aerosol, Route to Pharmacy Electronically, NCPDP_[id number], [facility], 163.4, cm, 11/06/19 13:10:00 EDT, Height Start Date: 07/24/20 Status: Ordered Slow Fe (as elemental iron) 45 mg oral tablet, extended release 1 tablet = 45 mg, By Mouth, Daily, # 30 tablet, 5 Refills, Maintenance, 12/18/20 10:42:00 EDT, ER Tablet, [facility], Partial fill upon patient request if [...] 1 Refills, Maintenance, 02/19/19 19:13:45EST, ER Tablet, [facility], 163.4, cm, 02/19/19 19:02:31 EST, Height, 166.9, kg, 182:28:34 EDT, Dry Weight Start Date: 02/19/19 Status: Ordered Problem List Condition Effective Dates Status Health Status Inform ant Asthma(Confirmed) Active 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
--- OUTSIDE RECORDS SUMMARY | 2022-05-29 20:22 | XMS_ITS | Continuity of Care Document ---
Author Name Unknown Organization [facility] Address [address] [place] [id number]- Care Team Providers Care Pnp Name Role Phone Freddie ABBOTT, Kevin Yusuf Primary Care Physician Encounter [facility] Date(s): 03/25/20 - 04/24/20 [facility] [address] [id number] Attending Physician: Nasima Coffman Admitting Physician: AdmNasima [...] 08/07/08 Give n 1Result Comment: [12/27/2016] [facility] [id number] 2Admin Note: VIS from 10/11/14 given to [...] 16 grams/day/single joint of lower extremities. label guamanian, # 100 Gm, 4 Refills, Maintenance, 04/18/19 15:51:00 EST, Gel, [facility], 163.4, cm, 04/18/19 15:38:00 EST, H... Start Date: 04/18/19 Status: Ordered fexofenadine 60 mg oral tablet 1 tablet = 60 mg, By Mouth, 2 times a day, stop cetirizine please, # 60 tablet, 2 Refills, Maintenance, 08/01/19 9:01:00 EDT, [facility], 163.4, cm, 05/16/19 10:53:00 EDT, Height, 166.9, kg, 11/21/17 2:28:00 EDT, Dry Weight Start Date: 08/01/19 Status: Ordered Flonase 50 mcg/inh nasal spray 1 sprays, Nares, Both, 2 times a day, # 16 Gm, 3 Refills, Maintenance, 07/10/19 10:02:00 EDT, [place], [facility], 1 sprays Nares, Both 2 times a day, 163.4, cm, 05/16/19 10:53:00 EDT, Height, 166.9, kg, 11/21/17 2:28:00 EDT, Dry Weight Start Date: 07/10/19 Status: Ordered hydrocortisone 2.5% topical lotion 1 application, Topically, 2 times a day, # 59 mL, 0 Refills, Maintenance, 05/17/19 17:11:00 EDT, Lotion, [facility]/pharmacy #[id number], 1 application Topically 2 times a day, 163.4, cm, 05/16/19 10:53:00 EDT, Height, 166.9, kg, 11/21/17 2:28:00 EDT, Dry Weight Start Date: 05/17/19 Status: Ordered lisinopril 20 mg oral tablet 20 mg, 1, tablet, By Mouth, Daily, # 90 tablet, Refills 3, Tot. Refills 3, Maintenance, 11/22/19 18:01:00 EDT, Route to Pharmacy Electronically, [facility], 163.4, cm, 11/06/19 13:10:00 EDT, Height, [...] 0 Refills, Maintenance, 12/12/19 9:11:00 EDT, Tablet, [facility], 163.4, cm, 11/06/19 13:10:00 EDT, Height, Dry Weight Start Date: 12/12/19 Status: Ordered Naphcon-A 0.025%-0.3% ophthalmic solution 1 drops, Eyes, Both, 4 times a day, # 15 mL, 1 Refills, Maintenance, 07/10/19 10:02:00 EDT, Solution, [facility], 1 drops Eyes, Both 4 times [...] 0 Refills, Maintenance, 01/10/20 14:06:00 EST, ECCapsule, [facility], 163.4, cm, 11/06/19 13:10:00 EDT, Height Start Date: 01/10/20 Status: Ordered ProAir HFA 90 mcg/inh inhalation aerosol with adapter 2, puffs, Inhalation, Every 4 hours, PRN, # 8.5 Gm, Refills 6, Tot. Refills 6, Maintenance, 11/21/19 18:22:00 EDT, Aerosol, Route to Pharmacy Electronically, NCPDP_[id number], [facility], 163.4, cm, 11/06/19 13:10:00 EDT, Height, [...] 1 Refills, Maintenance, 02/19/19 19:13:45EST, ER Tablet, [facility], 163.4, cm, 02/19/19 19:02:31 EST, Height, [...]
--- OUTSIDE RECORDS SUMMARY | 2022-05-29 20:22 | XMS_ITS | Continuity of Care Document ---
Author Name Unknown Organization [facility] Address [address] [place] [phone]- Care Team Providers Care School Manager Name Role Phone Kevin Frazier MD Primary [facility] Phys[facility]): [facility] - 05/17/20 [facility] [address] [place] [phone]- Attending Physician: Nasima Coffman Admitting Physician: Nasima [...] [facility] [id number] 2Admin Note: VIS from 10/11/14 given to parent Medications albuterol 0.083% inhalation solution 3 mL = 2.5 mg, Inhalation, Every 6 hours, PRN for wheezing, # 60 each, 0 Refills, Maintenance, 11/22/19 11:06:00 EDT, Solution, [facility], 163.4, cm, 11/06/19 13:10:00 EDT, Height Start Date: 11/22/19 Status: Ordered Azithromycin 3 Day Dose Pack 500 mg oral tablet 1 tablet = 500 mg, By Mouth, Daily, # 3 tablet, 0 Refills, Maintenance, 11/29/19 14:02:00 EDT, Tablet, [facility], 163.4, cm, 11/06/19 13:10:00 EDT, Height Start Date: 11/29/19 Status: Ordered capsaicin 0.025% topical cream 1 application, Topically, 3 times a day, avoid contact with face and eyes to affected area, # 45 Gm, 10 Refills, Maintenance, 11/06/19 13:39:00 EDT, Cream, [facility], 1 application Topically 3 times a day,Instr:avoid contact with face and... Start Date: 11/06/19 Status: Ordered diclofenac 1% topical gel 1 application, Topically, 4 times a day, PRN for pain, not to exceed 16 grams/day/single joint of lower extremities. label bengali, # 100 Gm, 4 Refills, Maintenance, 04/18/19 15:51:00 EST, Gel, [facility], 163.4, cm, 04/18/19 15:38:00 EST, H... Start Date: 04/18/19 Status: Ordered fexofenadine 60 mg oral tablet 1 tablet = 60 mg, By Mouth, 2 times a day, stop cetirizine please, # 60 tablet, 2 Refills, Maintenance, 08/01/19 9:01:00 EDT, [facility], 163.4, cm, 05/16/19 10:53:00 EDT, Height, 166.9, kg, 11/21/17 2:28:00 EDT, Dry Weight Start Date: 08/01/19 Status: Ordered Flonase 50 mcg/inh nasal spray 1 sprays, Nares, Both, 2 times a day, # 16 Gm, 3 Refills, Maintenance, 07/10/19 10:02:00 EDT, [place], [facility], 1 sprays Nares, Both 2 times a day, 163.4, cm, 05/16/19 10:53:00 EDT, Height, 166.9, kg, 11/21/17 2:28:00 EDT, Dry Weight Start Date: 07/10/19 Status: Ordered hydrocortisone 2.5% topical lotion 1 application, Topically, 2 times a day, # 59 mL, 0 Refills, Maintenance, 05/17/19 17:11:00 EDT, Lotion, [facility]/pharmacy #[id number], 1 application Topically 2 times a day, 163.4, cm, 05/16/19 10:53:00 EDT, Height, 166.9, kg, 11/21/17 2:28:00 EDT, Dry Weight Start Date: 05/17/19 Status: Ordered lisinopril 20 mg oral tablet 20 mg, 1, tablet, By Mouth, Daily, # 90 tablet, Refills 3, Tot. Refills 3, Maintenance, 11/22/19 18:01:00 EDT, Route to Pharmacy Electronically, [facility], 163.4, cm, 11/06/19 13:10:00 EDT, Height, Dry Weight Start Date: 11/22/19 Stop Date: 11/16/20 Status: Ordered medroxyPROGESTERone 10 mg oral tablet 10 mg, 1, tablet, By Mouth, Daily, # 10 tablet, Refills 0, Tot. Refills 0, Maintenance, 04/17/20 11:20:00 EST, Route to Pharmacy Electronically, [facility], Partial fill upon patient request if the prescription is for a schedule II opioid . Start Date: 04/17/20 Status: Ordered meloxicam 7.5 mg oral tablet 1 tablet = 7.5 mg, By Mouth, Daily, take with food please., # 30 tablet, 0 Refills, Maintenance, 12/12/19 9:11:00 EDT, Tablet, [facility], 163.4, cm, 11/06/19 13:10:00 EDT, Height, Dry Weight Start Date: 12/12/19 Status: Ordered Naphcon-A 0.025%-0.3% ophthalmic solution 1 drops, Eyes, Both, 4 times a day, # 15 mL, 1 Refills, Maintenance, 07/10/19 10:02:00 EDT, Solution, [facility], 1 drops Eyes, Both 4 times [...] 0 Refills, Maintenance, 01/10/20 14:06:00 EST, ECCapsule, [facility], 163.4, cm, 11/06/19 13:10:00 EDT, Height Start Date: 01/10/20 Status: Ordered ProAir HFA 90 mcg/inh inhalation aerosol with adapter 2, puffs, Inhalation, Every 4 hours, PRN, # 8.5 Gm, Refills 6, Tot. Refills 6, Maintenance, 11/21/19 18:22:00 EDT, Aerosol, Route to Pharmacy Electronically, [id number]_[id number], [facility], 163.4, cm, 11/06/19 13:10:00 EDT, Height, [...] 1 Refills, Maintenance, 02/19/19 19:13:45EST, ER Tablet, [facility], 163.4, cm, 02/19/19 19:02:31 EST, Height, [...]
--- OUTSIDE RECORDS SUMMARY | 2022-05-29 20:22 | XMS_ITS | Continuity of Care Document ---
Author Name Unknown Organization [facility] Address [address] [place] [phone]- Care Team Providers Care Structures Mechanic Name Role Phone Freddie ABBOTT, Kevin Yusuf Primary Care Physician [facility]): 04[facility]/22 - 05/08/[address] [phone]- Attending Physician: Buck Hancock Admitting Physician: Buck Hancock Referring Physician: Buck Hancock Allergies, Adverse Reactions, Alerts Substance Reaction Severity [...] (oldterm) 08/07/08 Give n 1Result Comment: [12/27/2016] [facility] [id number] 2Admin Note: VIS from 10/11/14 given to parent Medications albuterol 0.083% inhalation solution 3 mL = 2.5 mg, Inhalation, Every 6 hours, PRN for wheezing, # 100 each, 1 Refills, Maintenance, 08/05/21 15:44:00 EDT, Solution, [facility], 163.4, cm, 08/05/21 14:34:00 EDT, Height Start Date: 08/05/21 Status: Ordered BuPROPion (Eqv-Wellbutrin SR) 150 mg/12 hours oral tablet, extended release TAKE 1 TABLET BY MOUTH TWICE A DAY Start Date: 12/30/21 Status: Ordered cetirizine 10 mg oral tablet 1 tablet, By Mouth, Daily, # 30 tablet, 4 Refills, Maintenance, 03/19/22 10:24:00 EST, [facility], 163.4, cm, 01/27/22 8:47:00 EST, Height Start Date: 03/19/22 Status: Ordered clindamycin 1% topical gel 1 application, Topically, 2 times a day, # 30 Gm, 0 Refills, Maintenance, 01/27/22 9:20:00 EST, Gel, [facility], Partial fill upon [...] AFTER USE., # 12 Gm, 5 Refills, [facility], 163.4, cm, 10/14/21 8:28:00 EDT, Height Start Date: 10/26/21 Status: Ordered fluticasone 50 mcg/inh nasal spray See Instructions, USE 1 SPRAY IN EACH NOSTRIL TWICE A DAY, # 16 Gm, 5 Refills, [facility], 30, USE 1 SPRAY IN EACH NOSTRIL TWICE A DAY, 163.4, cm, 10/14/21 8:28:00 EDT, Height Start Date: 10/26/21 Status: Ordered hydroCHLOROthiazide 12.5 mg oral capsule 1 capsule, By Mouth, Daily, # 30 capsule, 5 Refills, Maintenance, 04/12/22 16:38:00 EST, [facility], 163.4, cm, 03/24/22 14:05:00 EST, Height Start Date: 04/12/22 Status: Ordered left hand wrist splint left hand wrist splint, See Instructions, # 1 each, Refills 0, Tot. Refills 0, Maintenance, ICD G56.00 carpal tunnel syndrome duration - lifetime, 01/27/22 11:36:00 EST, Supply Start Date: 01/27/22 Status: Ordered lisinopril 20 mg oral tablet 1, tablet, By Mouth, Daily, # 90 tablet, Refills 0, Maintenance, 03/30/22 11:59:00 EST, Route to Pharmacy Electronically, [facility], 163.4, cm, 03/24/22 14:05:00 EST, Height Start Date: 03/30/22 Status: Ordered medroxyPROGESTERone 10 mg oral tablet 10 mg, 1, tablet, By Mouth, Daily, # 10 tablet, Refills 0, Tot. Refills 0, Maintenance, 04/17/20 11:20:00 EST, Route to Pharmacy Electronically, [facility], Partial fill upon patient request if the prescription is for a schedule II opioid drMariana. Start Date: 04/17/20 Status: Ordered metFORMIN 500 mg oral tablet See Instructions, TAKE 1 TABLET BY MOUTH EVERY DAY WITH A MEAL, # 30 tablet, 12 Refills, Maintenance, 04/30/22 13:26:00 EST, [facility], 163.4, cm, 03/24/22 14:05:00 EST, Height Start Date: 04/30/22 Status: Ordered NIFEdipine 30 mg oral tablet, extended release 30 mg, 1, tablet, By Mouth, Daily, # 30 tablet, Refills 2, Tot. Refills 2, Maintenance, 12/07/21 15:13:00 EDT, Route to Pharmacy Electronically, [facility], Duplicate Rx. Original sent 12/01/21. Re-sending per pharmacy request, 163.4, cm, ... Start Date: 12/07/21 Stop Date: 03/07/22 Status: Ordered omeprazole 40 mg oral enteric coated capsule 1 capsule = 40 mg, By Mouth, Daily, before meal, # 30 capsule, 1 Refills, Maintenance, 03/24/22 17:31:00 EST, EC Capsule, [facility], Partial fill upon patient request if the prescription is for a schedule II opioid drug., 163.4, cm, ... Start Date: 03/24/22 Status: Ordered ProAir HFA 90 mcg/inh inhalation aerosol with adapter 2, puffs, Inhalation, Every 4 hours, PRN, # 8.5 Gm, Refills 5, Route to Pharmacy Electronically, NCPDP_[id number], [facility], 163.4, cm, 07/15/21 13:31:00 EDT, Height Start Date: 07/16/21 Status: Ordered sertraline 100 mg oral tablet TAKE 1&1/2 TABLET BY MOUTH ONCE A DAY Start Date: 12/30/21 Status: Ordered Slow Fe (as elemental iron) 45 mg oral tablet, extended release 1 tablet = 45 mg, By Mouth, Daily, # 30 tablet, 5 Refills, Maintenance, 12/18/20 10:42:00 EDT, ER Tablet, [facility], Partial fill upon patient request if [...] Care Physician Member Role: PCP Address: Address: [address] [place] [address]- Care Team Related Persons Name: KARI AGUERO Address: home [address] [place] [address]
--- OUTSIDE RECORDS SUMMARY | 2022-05-29 20:22 | XMS_ITS | Continuity of Care Document ---
Author Name Unknown Organization [facility] ter Address [address] [place] [phone]- Care Team Providers Care Cvt Tech Name Role Phone Freddie ABBOTT, Kevin Yusuf Primary [facility] Physician [facility]20 - 01/07/[address] [address]- Attending Physician: Buck Hancock Admitting Physician: Buck [...] (oldterm) 08/07/08 Give n 1Result Comment: [12/27/2016] [facility] [id number] 2Admin Note: VIS from 10/11/14 given to parent Medications albuterol 0.083% inhalation solution 3 mL = 2.5 mg, Inhalation, Every 6 hours, PRN for wheezing, # 60 each, 0 Refills, Maintenance, 11/22/19 11:06:00 EDT, Solution, [facility], 163.4, cm, 11/06/19 13:10:00 EDT, Height Start Date: 11/22/19 Status: Ordered capsaicin 0.025% topical cream 1 application, Topically, 3 times a day, avoid contact with face and eyes to affected area, # 45 Gm, 10 Refills, Maintenance, 11/06/19 13:39:00 EDT, Cream, [facility], 1 application Topically 3 times a day,Instr:avoid contact with face and... Start Date: 11/06/19 Status: Ordered cetirizine 10 mg oral tablet 1 tablet = 10 mg, By Mouth, Daily, # 30 tablet, 5 Refills, Maintenance, 07/24/20 11:12:00 EDT, Tablet, [facility], Label in Indonesian., 163.4, cm, 11/06/19 13:10:00 EDT, Height Start Date: 07/24/20 Status: Ordered diclofenac 1% topical gel 1 application, Topically, 4 times a day, PRN for pain, not to exceed 16 grams/day/single joint of lower extremities. label tajik, # 100 Gm, 4 Refills, Maintenance, 04/18/19 15:51:00 EST, Gel, [facility], 163.4, cm, 04/18/19 15:38:00 EST, H... Start Date: 04/18/19 Status: Ordered diclofenac 1% topical gel 1 application, Topically, 4 times a day, # 100 Gm, 0 Refills, Maintenance, 12/18/20 10:39:00 EDT, Gel, [facility], Partial [...] 10/13/20 16:36:00 EDT, Route to Pharmacy Electronically, [facility], Partial fill upon patient request if the prescriptio... Start Date: 10/13/20 Status: Ordered Flovent HFA 110 mcg/inh inhalation aerosol 2 puffs, Inhalation, 2 times a day, use twice a day to prevent asthma symptoms. rinse mouth and throat after use, # 1 each, 5 Refills, Maintenance, 12/12/20 16:28:00 EDT, [facility], Partial fill upon patient request if the prescription is... Start Date: 12/12/20 Status: Ordered fluticasone 50 mcg/inh nasal spray See Instructions, USE 1 SPRAY IN EACH NOSTRIL TWICE A DAY, # 16 Gm, 5 Refills, [facility], 30, USE 1 SPRAY IN EACH NOSTRIL TWICE A DAY, 163.4, cm, 10/13/20 15:44:00 EDT, Height Start Date: 12/12/20 Status: Ordered hydroCHLOROthiazide 12.5 mg oral capsule 1 capsule = 12.5 mg, By Mouth, Daily, # 30 capsule, 5 Refills, Maintenance, 12/18/20 10:41:00 EDT, Capsule, [facility], Partial fill upon patient request if [...] 11/16/20 18:01:00 EDT, Route to Pharmacy Electronically, [facility], 163.4, cm, 09/03/20 10:55:00 EDT, Height Start Date: 11/16/20 Stop Date: 05/15/21 Status: Ordered medroxyPROGESTERone 10 mg oral tablet 10 mg, 1, tablet, By Mouth, Daily, # 10 tablet, Refills 0, Tot. Refills 0, Maintenance, 04/17/20 11:20:00 EST, Route to Pharmacy Electronically, [facility], Partial fill upon patient request if [...] 11:13:00 EDT, Aerosol, Route to Pharmacy Electronically, NCPDP_[id number], [facility], 163.4, cm, 11/06/19 13:10:00 EDT, Height Start Date: 07/24/20 Status: Ordered Slow Fe (as elemental iron) 45 mg oral tablet, extended release 1 tablet = 45 mg, By Mouth, Daily, # 30 tablet, 5 Refills, Maintenance, 12/18/20 10:42:00 EDT, ER Tablet, [facility], Partial fill upon patient request if [...] 1 Refills, Maintenance, 02/19/19 19:13:45EST, ER Tablet, [facility], 163.4, cm, 02/19/19 19:02:31 EST, Height, [...]
--- OUTSIDE RECORDS SUMMARY | 2022-05-29 20:22 | XMS_ITS | Continuity of Care Document ---
Author Name Unknown Organization [facility] Address [address] [place] [address]- Care Team Providers Care Outside Parts Salesman Name Role Phone Kevin Frazier MD Primary Care Physician [facility] 11[facility]19 - 12/15/19 [facility] [address] [place] [phone]- [facility] Attending Physician: Mike Bueno MD Admitting Physician: [...] [12/27/2016] [facility] [id number] 2Admin Note: VIS from 10/11/14 given to parent Medications albuterol 0.083% inhalation solution 3 mL = 2.5 mg, Inhalation, Every 6 hours, PRN for wheezing, # 60 each, 0 Refills, Maintenance, 11/22/19 11:06:00 EDT, Solution, [facility], 163.4, cm, 11/06/19 13:10:00 EDT, Height Start Date: 11/22/19 Status: Ordered Azithromycin 3 Day Dose Pack 500 mg oral tablet 1 tablet = 500 mg, By Mouth, Daily, # 3 tablet, 0 Refills, Maintenance, 11/29/19 14:02:00 EDT, Tablet, [facility], 163.4, cm, 11/06/19 13:10:00 EDT, Height Start Date: 11/29/19 Status: Ordered capsaicin 0.025% topical cream 1 application, Topically, 3 times a day, avoid contact with face and eyes to affected area, # 45 Gm, 10 Refills, Maintenance, 11/06/19 13:39:00 EDT, Cream, [facility], 1 application Topically 3 times a day,Instr:avoid contact with face and... Start Date: 11/06/19 Status: Ordered diclofenac 1% topical gel 1 application, Topically, 4 times a day, PRN for pain, not to exceed 16 grams/day/single joint of lower extremities. label maori, # 100 Gm, 4 Refills, Maintenance, 04/18/19 15:51:00 EST, Gel, [facility], 163.4, cm, 04/18/19 15:38:00 EST, H... Start Date: 04/18/19 Status: Ordered fexofenadine 60 mg oral tablet 1 tablet = 60 mg, By Mouth, 2 times a day, stop cetirizine please, # 60 tablet, 2 Refills, Maintenance, 08/01/19 9:01:00 EDT, [facility], 163.4, cm, 05/16/19 10:53:00 EDT, Height, 166.9, kg, 11/21/17 2:28:00 EDT, Dry Weight Start Date: 08/01/19 Status: Ordered Flonase 50 mcg/inh nasal spray 1 sprays, Nares, Both, 2 times a day, # 16 Gm, 3 Refills, Maintenance, 07/10/19 10:02:00 EDT, [place], [facility], 1 sprays Nares, Both 2 times a day, 163.4, cm, 05/16/19 10:53:00 EDT, Height, 166.9, kg, 11/21/17 2:28:00 EDT, Dry Weight Start Date: 07/10/19 Status: Ordered hydrocortisone 1% topical cream 1 application, Topically, 2 times a day, # 30 Gm, 0 Refills, Acute 01/12/20 9:24:00 EST, 12/12/19 9:24:00 EDT, Cream, [facility], 1 application Topically 2 times a day, 163.4, cm, 11/06/19 13:10:00 EDT, Height Start Date: 12/12/19 Stop Date: 01/12/20 Status: Ordered hydrocortisone 2.5% topical lotion 1 application, Topically, 2 times a day, # 59 mL, 0 Refills, Maintenance, 05/17/19 17:11:00 EDT, Lotion, [facility]/pharmacy #[id number], 1 application Topically 2 times a day, 163.4, cm, 05/16/19 10:53:00 EDT, Height, 166.9, kg, 11/21/17 2:28:00 EDT, Dry Weight Start Date: 05/17/19 Status: Ordered lisinopril 20 mg oral tablet 20 mg, 1, tablet, By Mouth, Daily, # 90 tablet, Refills 3, Tot. Refills 3, Maintenance, 11/22/19 18:01:00 EDT, Route to Pharmacy Electronically, [facility], 163.4, cm, 11/06/19 13:10:00 EDT, Height, Dry Weight Start Date: 11/22/19 Stop Date: 11/16/20 Status: Ordered meloxicam 7.5 mg oral tablet 1 tablet = 7.5 mg, By Mouth, Daily, take with food please., # 30 tablet, 0 Refills, Maintenance, 12/12/19 9:11:00 EDT, Tablet, [facility], 163.4, cm, 11/06/19 13:10:00 EDT, Height, Dry Weight Start Date: 12/12/19 Status: Ordered Naphcon-A 0.025%-0.3% ophthalmic solution 1 drops, Eyes, Both, 4 times a day, # 15 mL, 1 Refills, Maintenance, 07/10/19 10:02:00 EDT, Solution, [facility], 1 drops Eyes, Both 4 times [...] 18:22:00 EDT, Aerosol, Route to Pharmacy Electronically, NCPDP_[id number], [facility], 163.4, cm, 11/06/19 13:10:00 EDT, Height, Dry Weight Start Date: 11/21/19 Status: Ordered Tylenol 8 Hour 650 mg oral tablet, extended release 1 tablet = 650 mg, By Mouth, Every 8 hours, # 100 tablet, 1 Refills, Maintenance, 02/19/19 19:13:45EST, ER Tablet, [facility], 163.4, cm, 02/19/19 19:02:31 EST, Height, [...]
--- OUTSIDE RECORDS SUMMARY | 2022-05-29 20:22 | XMS_ITS | Continuity of Care Document ---
Author Name Unknown Organization [facility] Address [address] [place] [address]- Care Team Providers Care Freight Forwarder Name Role Phone Freddie ABBOTT, Kevin Yusuf Primary Care Physician [facility]): [facility] - 01/31/22 [facility] [address] [place] [address]- Attending Physician: Not on Staff, Attending MD Allergies, Adverse Reactions, Alerts Substance Reaction [...] 1Result Comment: [12/27/2016] [facility] [id number] 2Admin Note: VIS from 10/11/14 given to parent Medications albuterol 0.083% inhalation solution 3 mL = 2.5 mg, Inhalation, Every 6 hours, PRN for wheezing, # 100 each, 1 Refills, Maintenance, 08/05/21 15:44:00 EDT, Solution, [facility], 163.4, cm, 08/05/21 14:34:00 EDT, Height Start Date: 08/05/21 Status: Ordered BuPROPion (Eqv-Wellbutrin SR) 150 mg/12 hours oral tablet, extended release TAKE 1 TABLET BY MOUTH TWICE A DAY Start Date: 12/30/21 Status: Ordered cetirizine 10 mg oral tablet 1 tablet, By Mouth, Daily, # 30 tablet, 5 Refills, [facility], 163.4, cm, 08/05/21 14:34:00 EDT, Height Start Date: 08/25/21 Status: Ordered clindamycin 1% topical gel 1 application, Topically, 2 times a day, # 30 Gm, 0 Refills, Maintenance, 01/27/22 9:20:00 EST, Gel, [facility], Partial fill upon patient request if the prescription is for a schedule II opioid drug. Refills- contact PCP, 1 application Topi... Start Date: 01/27/22 Status: Ordered diclofenac 1% topical gel 1 application, Topically, 4 times a day, PRN Pain , Moderate, apply to wrists as needed, # 100 Gm, 0 Refills, Maintenance, 07/15/21 15:06:00 [facility] if the prescription is for a schedule II opi... Start Date: 07/15/21 Status: Ordered EpiPen 2-Mir 0.3 mg injectable kit = 0.3 mg, Intramuscular, Once, may repeat if necessary, # 1 each, 0 Refills, Soft Stop, 09/25/21 14:43:00 EDT, [facility], Partial fill upon patient request if the prescription is for a schedule II opioid drug., 163.4, cm, 09/24/21 15:28:00... Start Date: 09/25/21 Status: Ordered famotidine 20 mg oral tablet 20 mg, 1, tablet, By Mouth, 2 times a day, for nausea, heartburn., # 60 tablet, Refills 0, Tot. Refills 0, Maintenance, 10/13/20 16:36:00 EDT, Route to Pharmacy Electronically, [facility], Partial fill upon patient request if the prescriptio... Start Date: 10/13/20 Status: Ordered Flovent HFA 110 mcg/inh inhalation aerosol 2 puffs, Inhalation, 2 times a day, AND THROAT OUT AFTER USE., # 12 Gm, 5 Refills, [facility], 163.4, cm, 10/14/21 8:28:00 EDT, Height Start Date: 10/26/21 Status: Ordered fluticasone 50 mcg/inh nasal spray See Instructions, USE 1 SPRAY IN EACH NOSTRIL TWICE A DAY, # 16 Gm, 5 Refills, [facility], 30, USE 1 SPRAY IN EACH NOSTRIL TWICE A DAY, 163.4, cm, 10/14/21 8:28:00 EDT, Height Start Date: 10/26/21 Status: Ordered hydroCHLOROthiazide 12.5 mg oral capsule 1 capsule, By Mouth, Daily, # 30 capsule, 2 Refills, Maintenance, 12/10/21 12:09:00 EDT, [facility], 163.4, cm, 12/02/21 16:27:00 EDT, Height [...] tablet, Refills 1, Route to Pharmacy Electronically, [facility], 163.4, cm, 09/24/21 15:28:00 EDT, Height Start Date: 09/24/21 Status: Ordered medroxyPROGESTERone 10 mg oral tablet 10 mg, 1, tablet, By Mouth, Daily, # 10 tablet, Refills 0, Tot. Refills 0, Maintenance, 04/17/20 11:20:00 EST, Route to Pharmacy Electronically, [facility], Partial fill upon patient request if the prescription is for a schedule II opioid dr... Start Date: 04/17/20 Status: Ordered metFORMIN 500 mg oral tablet 1 tablet = 500 mg, By Mouth, Daily, with meals, # 90 tablet, 0 Refills, Maintenance, 01/27/22 9:19:00 EST, Tablet, [facility], Partial fill upon patient request if the prescription is for aschedule II opioid drug. Refills-contact PCP, 163.4... Start Date: 01/27/22 Status: Ordered NIFEdipine 30 mg oral tablet, extended release 30 mg, 1, tablet, By Mouth, Daily, # 30 tablet, Refills 2, Tot. Refills 2, Maintenance, 12/07/21 15:13:00 EDT, Route to Pharmacy Electronically, [facility], Duplicate Rx. Original sent 12/01/21. Re-sending per pharmacy request, 163.4, cm, ... Start Date: 12/07/21 Stop Date: 03/07/22 Status: Ordered ProAir HFA 90 mcg/inh inhalation aerosol with adapter 2, puffs, Inhalation, Every 4 hours, PRN, # 8.5 Gm, Refills 5, Route to Pharmacy Electronically, NCPDP_[id number], [facility], 163.4, cm, 07/15/21 13:31:00 EDT, Height Start Date: 07/16/21 Status: Ordered sertraline 100 mg oral tablet TAKE 1&1/2 TABLET BY MOUTH ONCE A DAY Start Date: 12/30/21 Status: Ordered Slow Fe (as elemental iron) 45 mg oral tablet, extended release 1 tablet = 45 mg, By Mouth, Daily, # 30 tablet, 5 Refills, Maintenance, 12/18/20 10:42:00 EDT, ER Tablet, [facility], Partial fill upon patient request [...] Care Physician Member Role: PCP Address: Address: [address] [place] [address]- Care Team Related Persons Name: KARI AGUERO Address: home [address] [place] [address]
--- OUTSIDE RECORDS SUMMARY | 2022-05-29 20:22 | XMS_ITS | Continuity of Care Document ---
Author Name Unknown Organization [facility] Address [address] [place] [address]- Care Team Providers Care Medical Officer Name Role Phone Kevin Frazier MD Primary Care Physician [phone] [facility] - 09/09/21 [facility] [address] [place] [phone]- Attending Physician: Sylvie Abraham MD Admitting Physician: Sylvie Abraham MD Allergies, Adverse Reactions, Alerts No Known [...] 08/07/08 Give n 1Result Comment: [12/27/2016] [facility] [id number] 2Admin Note: VIS from 10/11/14 given to parent Medications albuterol 0.083% inhalation solution 3 mL = 2.5 mg, Inhalation, Every 6 hours, PRN for wheezing, # 100 each, 1 Refills, Maintenance, 08/05/21 15:44:00 EDT, Solution, [facility], 163.4, cm, 08/05/21 14:34:00 EDT, Height Start Date: 08/05/21 Status: Ordered cetirizine 10 mg oral tablet 1 tablet, By Mouth, Daily, # 30 tablet, 5 Refills, [facility], 163.4, cm, 08/05/21 14:34:00 EDT, Height Start Date: 08/25/21 Status: Ordered diclofenac 1% topical gel 1 application, Topically, 4 times a day, # 100 Gm, 0 Refills, Maintenance, 12/18/20 10:39:00 EDT, Gel, [facility], Partial fill upon patient request if the prescription is for a schedule IIopioid drug., 163.4, cm, 12/18/20 10:36:00 EDT, Height Start Date: 12/18/20 Status: Ordered diclofenac 1% topical gel 1 application, Topically, 4 times a day, PRN Pain , Moderate, apply to wrists as needed, # 100 Gm, 0 Refills, Maintenance, 07/15/21 15:06:00 [facility] if the prescription is for a schedule II opi... Start Date: 07/15/21 Status: Ordered famotidine 20 mg oral tablet 20 mg, 1, tablet, By Mouth, 2 times a day, for nausea, heartburn., # 60 tablet, Refills 0, Tot. Refills 0, Maintenance, 10/13/20 16:36:00 EDT, Route to Pharmacy Electronically, [facility], Partial fill upon patient request if the prescriptio... Start Date: 10/13/20 Status: Ordered Flovent HFA 110 mcg/inh inhalation aerosol 2 puffs, Inhalation, 2 times a day, & THROAT AFTER USE., # 12 Gm, 5 Refills, Maintenance, 05/26/21 13:59:00 EDT, [facility], 163.4, cm, 02/25/21 13:06:00 EST, Height Start Date: 05/26/21 Status: Ordered fluticasone 50 mcg/inh nasal spray See Instructions, USE 1 SPRAY IN EACH NOSTRIL TWICE A DAY, # 16 Gm, 5 Refills, Maintenance, 05/26/21 13:59:00 EDT, [facility], 30, USE 1 SPRAY IN EACH NOSTRIL TWICE A DAY, 163.4, cm, 02/25/21 13:06:00 EST, Height Start Date: 05/26/21 Status: Ordered hydroCHLOROthiazide 12.5 mg oral capsule 1 capsule, By Mouth, Daily, # 30 capsule, 5 Refills, [facility], 163.4, cm, 02/25/21 13:06:00 EST, Height Start Date: 06/09/21 Status: Ordered lisinopril 20 mg oral tablet See Instructions, TAKE 1 TABLET BY MOUTH EVERY DAY, # 90 tablet, Refills 1, Instructions Replace Required Details, Route to Pharmacy Electronically, [facility], 163.4, cm, 02/25/21 13:06:00EST, Height Start Date: 03/31/21 Status: Ordered medroxyPROGESTERone 10 mg oral tablet 10 mg, 1, tablet, By Mouth, Daily, # 10 tablet, Refills 0, Tot. Refills 0, Maintenance, 04/17/20 11:20:00 EST, Route to Pharmacy Electronically, [facility], Partial fill upon patient request if the prescription is for a schedule II opioid dr... 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
--- OUTSIDE RECORDS SUMMARY | 2022-05-29 20:22 | XMS_ITS | Continuity of Care Document ---
Author Name Unknown Organization [facility] Address [address] [place] [address]- Care Team Providers Care Slate Roofer Name Role Phone Kevin Frazier MD Primary Care Physician [facility] 07[facility] - 09/03/21 [facility] [address] [place] [address]- Attending Physician: Not on Staff, Attending MD Allergies, Adverse Reactions, Alerts No Known [...] (oldterm) 08/07/08 Give n 1Result Comment: [12/27/2016] [facility] [id number] 2Admin Note: VIS from 10/11/14 given to parent Medications albuterol 0.083% inhalation solution 3 mL = 2.5 mg, Inhalation, Every 6 hours, PRN for wheezing, # 100 each, 1 Refills, Maintenance, 08/05/21 15:44:00 EDT, Solution, [facility], 163.4, cm, 08/05/21 14:34:00 EDT, Height Start Date: 08/05/21 Status: Ordered cetirizine 10 mg oral tablet 1 tablet, By Mouth, Daily, # 30 tablet, 5 Refills, [facility], 163.4, cm, 08/05/21 14:34:00 EDT, Height [...] 0 Refills, Maintenance, 07/15/21 15:06:00 EDT, Gel, [facility], Partial fill upon patient request if [...] Gm, 5 Refills, Maintenance, 05/26/21 13:59:00 EDT, [facility], 163.4, cm, 02/25/21 13:06:00 EST, Height Start Date: 05/26/21 Status: Ordered fluticasone 50 mcg/inh nasal spray See Instructions, USE 1 SPRAY IN EACH NOSTRIL TWICE A DAY, # 16 Gm, 5 Refills, Maintenance, 05/26/21 13:59:00 EDT, [facility], 30, USE 1 SPRAY IN EACH NOSTRIL TWICE A DAY, 163.4, cm, 02/25/21 13:06:00 EST, Height Start Date: 05/26/21 Status: Ordered hydroCHLOROthiazide 12.5 mg oral capsule 1 capsule, By Mouth, Daily, # 30 capsule, 5 Refills, [facility], 163.4, cm, 02/25/21 13:06:00 EST, Height Start Date: 06/09/21 Status: Ordered lisinopril 20 mg oral tablet See Instructions, TAKE 1 TABLET BY MOUTH EVERY DAY, # 90 tablet, Refills 1, Instructions Replace Required Details, Route to Pharmacy Electronically, [facility], 163.4, cm, 02/25/21 13:06:00EST, Height Start [...] Gm, Refills 5, Route to Pharmacy Electronically, NCPDP_[id number], [facility], 163.4, cm, 07/15/21 13:31:00 EDT, Height Start Date: 07/16/21 Status: Ordered Slow Fe (as elemental iron) 45 mg oral tablet, extended release 1 tablet = 45 mg, By Mouth, Daily, # 30 tablet, 5 Refills, Maintenance, 12/18/20 10:42:00 EDT, ER Tablet, [facility], Partial fill upon [...]
--- OUTSIDE RECORDS SUMMARY | 2022-05-29 20:22 | XMS_ITS | Continuity of Care Document ---
Author Name Unknown Organization [facility] Address [address] [place] [address]- Care Team Providers Care Life Management Teacher Name Role Phone Freddie ABBOTT, Kevin Yusuf Primary Care Physician [phone] [facility] 06[facility] - 07/29/21 [facility] [address], [place] [address] Allergies, Adverse Reactions, Alerts No [...] Comment: [12/27/2016] [facility] [id number] 2Admin Note: VIS from 10/11/14 given to parent Medications albuterol 0.083% inhalation solution 3 mL = 2.5 mg, Inhalation, Every 6 hours, PRN for wheezing, # 60 each, 0 Refills, Maintenance, 11/22/19 11:06:00 EDT, Solution, [facility], 163.4, cm, 11/06/19 13:10:00 EDT, Height Start Date: 11/22/19 Status: Ordered capsaicin 0.025% topical cream 1 application, Topically, 3 times a day, avoid contact with face and eyes to affected area, # 45 Gm, 10 Refills, Maintenance, 11/06/19 13:39:00 EDT, Cream, [facility], 1 application Topically 3 times a day,Instr:avoid contact with face and... Start Date: 11/06/19 Status: Ordered cetirizine 10 mg oral tablet 1 tablet, By Mouth, Daily, # 30 tablet, 5 Refills, [facility], 163.4, cm, 02/25/21 13:06:00 EST, Height [...] 0 Refills, Maintenance, 07/15/21 15:06:00 EDT, Gel, [facility], Partial fill [...] Gm, 5 Refills, Maintenance, 05/26/21 13:59:00 EDT, [facility], 163.4, cm, 02/25/21 13:06:00 EST, Height Start Date: 05/26/21 Status: Ordered fluticasone 50 mcg/inh nasal spray See Instructions, USE 1 SPRAY IN EACH NOSTRIL TWICE A DAY, # 16 Gm, 5 Refills, Maintenance, 05/26/21 13:59:00 EDT, [facility], 30, USE 1 SPRAY IN EACH NOSTRIL TWICE A DAY, 163.4, cm, 02/25/21 13:06:00 EST, Height Start Date: 05/26/21 Status: Ordered hydroCHLOROthiazide 12.5 mg oral capsule 1 capsule, By Mouth, Daily, # 30 capsule, 5 Refills, [facility], 163.4, cm, 02/25/21 13:06:00 EST, Height Start Date: 06/09/21 Status: Ordered hydrocortisone 2.5% topical lotion 1 application, Topically, 2 times a day, # 59 mL, 0 Refills, Maintenance, 05/17/19 17:11:00 EDT, Lotion, [facility]/pharmacy #[id number], 1 application Topically 2 times a day, 163.4, cm, 05/16/19 10:53:00 EDT, Height, 166.9, kg, 11/21/17 2:28:00 EDT, Dry Weight Start Date: 05/17/19 Status: Ordered lisinopril 20 mg oral tablet See Instructions, TAKE 1 TABLET BY MOUTH EVERY DAY, # 90 tablet, Refills 1, Instructions Replace Required Details, Route to Pharmacy Electronically, [facility], 163.4, cm, 02/25/21 13:06:00EST, Height Start Date: 03/31/21 Status: Ordered medroxyPROGESTERone 10 mg oral tablet 10 mg, 1, tablet, By Mouth, Daily, # 10 tablet, Refills 0, Tot. Refills 0, Maintenance, 04/17/20 11:20:00 EST, Route to Pharmacy Electronically, [facility], Partial fill upon patient request if [...] Gm, Refills 5, Route to Pharmacy Electronically, NCPDP_[id number], [facility], 163.4, cm, 07/15/21 13:31:00 EDT, Height Start Date: 07/16/21 Status: Ordered Slow Fe (as elemental iron) 45 mg oral tablet, extended release 1 tablet = 45 mg, By Mouth, Daily, # 30 tablet, 5 Refills, Maintenance, 12/18/20 10:42:00 EDT, ER Tablet, [facility], Partial fill upon patient request if [...] 1 Refills, Maintenance, 02/19/19 19:13:45EST, ER Tablet, [facility], 163.4, cm, 02/19/19 19:02:31 EST, Height, [...]
--- OUTSIDE RECORDS SUMMARY | 2022-05-29 20:22 | XMS_ITS | Continuity of Care Document ---
Author Name Unknown Organization [facility] Address [address] [place] [address]- Care Team Providers Care In Home Caregiver Name Role Phone Lazarus ABBOTT, Blessing Primary Care Physician [facility] - 04/30/21 [facility] [address] [place] [id number] Allergies, Adverse Reactions, Alerts No Known Allergies [...] (oldterm) 08/07/08 Give n 1Result Comment: [12/27/2016] [facility] [id number] 2Admin Note: VIS from 10/11/14 given to parent Medications albuterol 0.083% inhalation solution 3 mL = 2.5 mg, Inhalation, Every 6 hours, PRN for wheezing, # 60 each, 0 Refills, Maintenance, 11/22/19 11:06:00 EDT, Solution, [facility], 163.4, cm, 11/06/19 13:10:00 EDT, Height [...] Mouth, Daily, # 30 tablet, 5 Refills, [facility], 163.4, cm, 02/25/21 13:06:00 EST, Height Start Date: 03/03/21 Status: Ordered diclofenac 1% topical gel 1 application, Topically, 4 times a day, PRN for pain, not to exceed 16 grams/day/single joint of lower extremities. label [place] citizen, # 100 Gm, 4 Refills, Maintenance, 04/18/19 15:51:00 EST, Gel, [facility], 163.4, cm, 04/18/19 15:38:00 EST, H... Start Date: 04/18/19 Status: Ordered diclofenac 1% topical gel 1 application, Topically, 4 times a day, # 100 Gm, 0 Refills, Maintenance, 12/18/20 10:39:00 EDT, Gel, [facility], Partial fill upon patient request if the prescription is for a schedule IIopioid drug., 163.4, cm, 12/18/20 10:36:00 EDT, Height Start Date: 12/18/20 Status: Ordered famotidine 20 mg oral tablet 20 mg, 1, tablet, By Mouth, 2 times a day, for nausea, heartburn., # 60 tablet, Refills 0, Tot. Refills 0, Maintenance, 10/13/20 16:36:00 EDT, Route to Pharmacy Electronically, [facility], Partial fill upon patient request if the prescriptio... Start Date: 10/13/20 Status: Ordered Flovent HFA 110 mcg/inh inhalation aerosol 2 puffs, Inhalation, 2 times a day, use twice a day to prevent asthma symptoms. rinse mouth and throat after use, # 1 each, 5 Refills, Maintenance, 12/12/20 16:28:00 EDT, [facility], Partial fill upon patient request if the prescription is... Start Date: 12/12/20 Status: Ordered fluticasone 50 mcg/inh nasal spray See Instructions, USE 1 SPRAY IN EACH NOSTRIL TWICE A DAY, # 16 Gm, 5 Refills, [facility], 30, USE 1 SPRAY IN EACH NOSTRIL TWICE A DAY, 163.4, cm, 10/13/20 15:44:00 EDT, Height Start Date: 12/12/20 Status: Ordered hydroCHLOROthiazide 12.5 mg oral capsule 1 capsule = 12.5 mg, By Mouth, Daily, # 30 capsule, 5 Refills, Maintenance, 12/18/20 10:41:00 EDT, Capsule, [facility], Partial fill upon patient request if the prescription is for a schedule II opioid drug., 163.4, cm, 12/18/20 10:36:00 EDT... Start Date: 12/18/20 Status: Ordered hydrocortisone 2.5% topical lotion 1 application, Topically, 2 times a day, # 59 mL, 0 Refills, Maintenance, 05/17/19 17:11:00 EDT, Lotion, [facility]/pharmacy #[id number], 1 application Topically 2 times a day, 163.4, cm, 05/16/19 10:53:00 EDT, Height, 166.9, kg, 11/21/17 2:28:00 EDT, Dry Weight Start Date: 05/17/19 Status: Ordered lisinopril 20 mg oral tablet See Instructions, TAKE 1 TABLET BY MOUTH EVERY DAY, # 90 tablet, Refills 1, Instructions Replace Required Details, Route to Pharmacy Electronically, [facility], 163.4, cm, 02/25/21 13:06:00EST, Height Start [...] Gm, Refills 5, Route to Pharmacy Electronically, NCPDP_[id number], [facility], 163.4, cm, 02/25/21 13:06:00 EST, Height Start Date: 03/03/21 Status: Ordered Slow Fe (as elemental iron) 45 mg oral tablet, extended release 1 tablet = 45 mg, By Mouth, Daily, # 30 tablet, 5 Refills, Maintenance, 12/18/20 10:42:00 EDT, ER Tablet, [facility], Partial fill upon patient [...] 1 Refills, Maintenance, 02/19/19 19:13:45EST, ER Tablet, [facility], 163.4, cm, 02/19/19 19:02:31 EST, Height, [...]
--- OUTSIDE RECORDS SUMMARY | 2022-05-29 20:22 | XMS_ITS | Continuity of Care Document ---
Author Name Unknown Organization [facility] Address [address] [place] [phone]- Care Team Providers Care Marketing Outreach Coordinator Name Role Phone Kevin Frazier MD Primary Care Physician [facility] 11[facility]20 - 12/17/20 [facility] [address] [place] [id number]- Attending Physician: Rudy Maxwell MD Admitting Physician: Rudy Maxwell MD Referring Physician: Kevin Frazier MD Allergies, Adverse Reactions, [...] (oldterm) 08/07/08 Give n 1Result Comment: [12/27/2016] [facility] [id number] 2Admin Note: VIS from 10/11/14 given to parent Medications albuterol 0.083% inhalation solution 3 mL = 2.5 mg, Inhalation, Every 6 hours, PRN for wheezing, # 60 each, 0 Refills, Maintenance, 11/22/19 11:06:00 EDT, Solution, [facility], 163.4, cm, 11/06/19 13:10:00 [...] Tablet, [facility], Label in Welsh., 163.4, cm, 11/06/19 13:10:00 EDT, Height Start Date: 07/24/20 Status: Ordered diclofenac 1% topical gel 1 application, Topically, 4 times a day, PRN for pain, not to exceed 16 grams/day/single joint of lower extremities. label chinese, # 100 Gm, 4 Refills, Maintenance, 04/18/19 15:51:00 EST, Gel, [facility], 163.4, cm, 04/18/19 15:38:00 [...] A DAY, # 16 Gm, 5 Refills, [facility], 30, USE 1 SPRAY IN EACH NOSTRIL TWICE A DAY, 163.4, cm, 10/13/20 15:44:00 EDT, Height Start Date: 12/12/20 Status: Ordered hydrocortisone 2.5% topical lotion 1 application, Topically, 2 times a day, # 59 mL, 0 Refills, Maintenance, 05/17/19 17:11:00 EDT, Lotion, [facility]/pharmacy #[id number], 1 application Topically 2 times a day, 163.4, cm, 05/16/19 10:53:00 EDT, Height, 166.9, kg, 11/21/17 2:28:00 EDT, Dry Weight Start Date: 05/17/19 Status: Ordered iron polysaccharide 150 mg oral capsule 1 capsule = 150 mg, By Mouth, Daily, # 30 capsule, 2 Refills, Maintenance, 11/17/20 9:16:00 EDT, [facility], Partial fill upon patient request if the prescription is for a schedule II opioid drug., 163.4, cm, 10/13/20 15:44:00 EDT, Height Start Date: 11/17/20 Status: Ordered lisinopril 20 mg oral tablet 20 mg, 1, tablet, By Mouth, Daily, # 90 tablet, Refills 1, Tot. Refills 1, Maintenance, 11/16/20 18:01:00 EDT, Route to Pharmacy Electronically, [facility], 163.4, cm, 09/03/20 10:55:00 EDT, Height Start Date: 11/16/20 Stop Date: 05/15/21 Status: Ordered medroxyPROGESTERone 10 mg oral tablet 10 mg, 1, tablet, By Mouth, Daily, # 10 tablet, Refills 0, Tot. Refills 0, Maintenance, 04/17/20 11:20:00 EST, Route to Pharmacy Electronically, [facility], Partial fill upon patient request if the prescription is for a schedule II opioid drCharmaine Start Date: 04/17/20 Status: Ordered meloxicam 7.5 mg oral tablet 1 tablet = 7.5 mg, By Mouth, Daily, take with food please., # 30 tablet, 0 Refills, Maintenance, 12/12/19 9:11:00 EDT, Tablet, [facility], 163.4, cm, 11/06/19 13:10:00 EDT, Height, Dry Weight Start Date: 12/12/19 Status: Ordered Naphcon-A 0.025%-0.3% ophthalmic solution 1 drops, Eyes, Both, 4 times a day, # 15 mL, 1 Refills, Maintenance, 09/03/20 10:42:00 EDT, Solution, [facility], 1 drops Eyes, Both 4 times a [...] 0 Refills, Maintenance, 01/10/20 14:06:00 EST, ECCapsule, [facility], 163.4, cm, 11/06/19 13:10:00 EDT, Height Start Date: 01/10/20 Status: Ordered ProAir HFA 90 mcg/inh inhalation aerosol with adapter 2, puffs, Inhalation, Every 4 hours, PRN, # 8.5 Gm, Refills 5, Tot. Refills 5, Maintenance, 07/24/20 11:13:00 EDT, Aerosol, Route to Pharmacy Electronically, NCPDP_[id number], [facility], 163.4, cm, 11/06/19 13:10:00 EDT, Height [...] 1 Refills, Maintenance, 02/19/19 19:13:45EST, ER Tablet, [facility], 163.4, cm, 02/19/19 19:02:31 EST, Height, [...]
--- OUTSIDE RECORDS SUMMARY | 2022-05-29 20:23 | XMS_ITS | Continuity of Care Document ---
Author Name Unknown Organization [facility] Address [address] [place] [address]- Care Team Providers Care Macaroni Press Operator Name Role Phone Freddie ABBOTT, Kevin Yusuf Primary Care Physician [facility] - 03/27/21 [facility] [address] [place], [place] [address] Allergies, Adverse Reactions, Alerts No Known [...] (oldterm) 08/07/08 Give n 1Result Comment: [12/27/2016] [facility] [id number] 2Admin Note: VIS from 10/11/14 given to parent Medications albuterol 0.083% inhalation solution 3 mL = 2.5 mg, Inhalation, Every 6 hours, PRN for wheezing, # 60 each, 0 Refills, Maintenance, 11/22/19 11:06:00 EDT, Solution, [facility], 163.4, cm, 11/06/19 13:10:00 EDT, Height Start Date: 11/22/19 Status: Ordered capsaicin 0.025% topical cream 1 application, Topically, 3 times a day, avoid contact with face and eyes to affected area, # 45 Gm, 10 Refills, Maintenance, 11/06/19 13:39:00 EDT, Cream, [facility], 1 application Topically 3 times a day,Instr:avoid contact with face and... Start Date: 11/06/19 Status: Ordered cetirizine 10 mg oral tablet 1 tablet, By Mouth, Daily, # 30 tablet, 5 Refills, [facility], 163.4, cm, 02/25/21 13:06:00 EST, Height Start Date: 03/03/21 Status: Ordered diclofenac 1% topical gel 1 application, Topically, 4 times a day, PRN for pain, not to exceed 16 grams/day/single joint of lower extremities. label tunisian, # 100 Gm, 4 Refills, Maintenance, 04/18/19 15:51:00 EST, Gel, [facility], 163.4, cm, 04/18/19 15:38:00 EST, H... [...] A DAY, # 16 Gm, 5 Refills, [facility], 30, USE 1 SPRAY IN EACH [...] 0 Refills, Maintenance, 05/17/19 17:11:00 EDT, Lotion, [facility]/pharmacy #[id number], 1 application Topically 2 times a day, 163.4, cm, 05/16/19 10:53:00 EDT, Height, 166.9, kg, 11/21/17 2:28:00 EDT, Dry Weight Start Date: 05/17/19 Status: Ordered lisinopril 20 mg oral tablet 20 mg, 1, tablet, By Mouth, Daily, # 90 tablet, Refills 1, Tot. Refills 1, Maintenance, 11/16/20 18:01:00 EDT, Route to Pharmacy Electronically, [facility], 163.4, cm, 09/03/20 10:55:00 EDT, Height Start Date: 11/16/20 Stop Date: 05/15/21 Status: Ordered medroxyPROGESTERone 10 mg oral tablet 10 mg, 1, tablet, By Mouth, Daily, # 10 tablet, Refills 0, Tot. Refills 0, Maintenance, 04/17/20 11:20:00 EST, Route to Pharmacy Electronically, [facility], Partial fill upon patient request if [...] Gm, Refills 5, Route to Pharmacy Electronically, NCPDP_[id number], [facility], 163.4, cm, 02/25/21 13:06:00 EST, Height [...] 1 Refills, Maintenance, 02/19/19 19:13:45EST, ER Tablet, [facility], 163.4, cm, 02/19/19 19:02:31 EST, Height, [...]
--- OUTSIDE RECORDS SUMMARY | 2022-05-29 20:23 | XMS_ITS | Continuity of Care Document ---
Author Name Unknown Organization [facility] Address [address] [place] [address]- Care Team Providers Care Supervisor Rework Name Role Phone Freddie ABBOTT, Kevin Yusuf Primary Care Physician [phone] [facility]counter [facility] Date[facility]): 11/05/19 - 12/05/19 [facility] [address] [place] [address]- [facility] Allergies, Adverse Reactions, Alerts Substance [...] 08/07/08 Give n 1Result Comment: [12/27/2016] [facility] [id number] 2Admin Note: VIS from 10/11/14 given to parent Medications albuterol 0.083% inhalation solution 3 mL = 2.5 mg, Inhalation, Every 6 hours, PRN for wheezing, # 60 each, 0 Refills, Maintenance, 11/22/19 11:06:00 EDT, Solution, [facility], 163.4, cm, 11/06/19 13:10:00 EDT, Height Start Date: 11/22/19 Status: Ordered Azithromycin 3 Day Dose Pack 500 mg oral tablet 1 tablet = 500 mg, By Mouth, Daily, # 3 tablet, 0 Refills, Maintenance, 11/29/19 14:02:00 EDT, Tablet, [facility], 163.4, cm, 11/06/19 13:10:00 EDT, Height Start Date: 11/29/19 Status: Ordered capsaicin 0.025% topical cream 1 application, Topically, 3 times a day, avoid contact with face and eyes to affected area, # 45 Gm, 10 Refills, Maintenance, 11/06/19 13:39:00 EDT, Cream, [facility], 1 application Topically 3 times a day,Instr:avoid contact with face and... Start Date: 11/06/19 Status: Ordered cetirizine 10 mg oral tablet 1 tablet = 10 mg, By Mouth, Daily, # 30 tablet, 3 Refills, Maintenance, 07/10/19 10:02:00 EDT, Tablet, [facility], 163.4, cm, 05/16/19 10:53:00 EDT, Height, 166.9, kg, 11/21/17 2:28:00 EDT,Dry Weight Start Date: 07/10/19 Status: Ordered diclofenac 1% topical gel 1 application, Topically, 4 times a day, PRN for pain, not to exceed 16 grams/day/single joint of lower extremities. label japanese, # 100 Gm, 4 Refills, Maintenance, 04/18/19 15:51:00 EST, Gel, [facility], 163.4, cm, 04/18/19 15:38:00 EST, H... Start Date: 04/18/19 Status: Ordered fexofenadine 60 mg oral tablet 1 tablet = 60 mg, By Mouth, 2 times a day, stop cetirizine please, # 60 tablet, 2 Refills, Maintenance, 08/01/19 9:01:00 EDT, [facility], 163.4, cm, 05/16/19 10:53:00 EDT, Height, 166.9, kg, 11/21/17 2:28:00 EDT, Dry Weight Start Date: 08/01/19 Status: Ordered Flonase 50 mcg/inh nasal spray 1 sprays, Nares, Both, 2 times a day, # 16 Gm, 3 Refills, Maintenance, 07/10/19 10:02:00 EDT, [place], [facility], 1 sprays Nares, Both 2 times a day, 163.4, cm, 05/16/19 10:53:00 EDT, Height, 166.9, kg, 11/21/17 2:28:00 EDT, Dry Weight Start Date: 07/10/19 Status: Ordered hydrocortisone 2.5% topical lotion 1 application, Topically, 2 times a day, # 59 mL, 0 Refills, Maintenance, 05/17/19 17:11:00 EDT, Lotion, [facility]/pharmacy #[id number], 1 application Topically 2 times a day, 163.4, cm, 05/16/19 10:53:00 EDT, Height, 166.9, kg, 11/21/17 2:28:00 EDT, Dry Weight Start Date: 05/17/19 Status: Ordered lisinopril 20 mg oral tablet 20 mg, 1, tablet, By Mouth, Daily, # 90 tablet, Refills 3, Tot. Refills 3, Maintenance, 11/22/19 18:01:00 EDT, Route to Pharmacy Electronically, [facility], 163.4, cm, 11/06/19 13:10:00 EDT, Height, Dry Weight Start Date: 11/22/19 Stop Date: 11/16/20 Status: Ordered meloxicam 7.5 mg oral tablet 1 tablet = 7.5 mg, By Mouth, Daily, take with food please., # 30 tablet, 0 Refills, Maintenance, 11/21/19 15:01:00 EDT, Tablet, [facility], 163.4, cm, 11/06/19 13:10:00 EDT, Height, Dry Weight Start Date: 11/21/19 Status: Ordered Naphcon-A 0.025%-0.3% ophthalmic solution 1 drops, Eyes, Both, 4 times a day, # 15 mL, 1 Refills, Maintenance, 07/10/19 10:02:00 EDT, Solution, [facility], 1 drops Eyes, Both 4 times [...] 18:22:00 EDT, Aerosol, Route to Pharmacy Electronically, [id number], [facility], 163.4, cm, 11/06/19 13:10:00 EDT, Height, Dry Weight Start Date: 11/21/19 Status: Ordered Tessalon Perles 100 mg oral capsule 1 capsule = 100 mg, By Mouth, 3 times a day, PRN Cough, for 7 days, do not crush or chew, # 21 capsule, 0 Refills, Acute 12/06/19 14:03:00 EDT, 11/29/19 14:03:00 EDT, Capsule, [facility], 163.4, cm, 11/06/19 13:10:00 EDT, Height Start Date: 11/29/19 Stop Date: 12/06/19 Status: Ordered Tylenol 8 Hour 650 mg oral tablet, extended release 1 tablet = 650 mg, By Mouth, Every 8 hours, # 100 tablet, 1 Refills, Maintenance, 02/19/19 19:13:45EST, ER Tablet, [facility], 163.4, cm, 02/19/19 19:02:31 EST, Height, [...]
--- OUTSIDE RECORDS SUMMARY | 2022-05-29 20:23 | XMS_ITS | Continuity of Care Document ---
Author Name Unknown Organization [facility] Address [address] [place] [address]- Care Team Providers Care Acid Tender Name Role Phone Freddie ABBOTT, Kevin Yusuf Primary Care Physician [facility] Date[facility]s): 09/30/20 - 10/30/[address] [id number]- Allergies, Adverse Reactions, Alerts Substance Reaction Severity [...] (oldterm) 08/07/08 Give n 1Result Comment: [12/27/2016] [facility] [id number] 2Admin Note: VIS from 10/11/14 given to parent Medications albuterol 0.083% inhalation solution 3 mL = 2.5 mg, Inhalation, Every 6 hours, PRN for wheezing, # 60 each, 0 Refills, Maintenance, 11/22/19 11:06:00 EDT, Solution, [facility], 163.4, cm, 11/06/19 13:10:00 EDT, Height Start Date: 11/22/19 Status: Ordered capsaicin 0.025% topical cream 1 application, Topically, 3 times a day, avoid contact with face and eyes to affected area, # 45 Gm, 10 Refills, Maintenance, 11/06/19 13:39:00 EDT, Cream, [facility], 1 application Topically 3 times a day,Instr:avoid contact with face and... Start Date: 11/06/19 Status: Ordered cetirizine 10 mg oral tablet 1 tablet = 10 mg, By Mouth, Daily, # 30 tablet, 5 Refills, Maintenance, 07/24/20 11:12:00 EDT, Tablet, [facility], Label in Nepali., 163.4, cm, 11/06/19 13:10:00 EDT, Height Start Date: 07/24/20 Status: Ordered diclofenac 1% topical gel 1 application, Topically, 4 times a day, PRN for pain, not to exceed 16 grams/day/single joint of lower extremities. label namibian, # 100 Gm, 4 Refills, Maintenance, 04/18/19 15:51:00 EST, Gel, [facility], 163.4, cm, 04/18/19 15:38:00 EST, H... Start Date: 04/18/19 Status: Ordered famotidine 20 mg oral tablet 20 mg, 1, tablet, By Mouth, 2 times a day, for nausea, heartburn., # 60 tablet, Refills 0, Tot. Refills 0, Maintenance, 10/13/20 16:36:00 EDT, Route to Pharmacy Electronically, [facility], Partial fill upon patient request if the prescriptio... Start Date: 10/13/20 Status: Ordered Flonase 50 mcg/inh nasal spray 1 sprays, Nares, Both, 2 times a day, # 16 Gm, 3 Refills, Maintenance, 07/24/20 11:12:00 EDT, [place], [facility], 1 sprays Nares, Both 2 times a day, 163.4, cm, 11/06/19 13:10:00 EDT, Height Start Date: 07/24/20 Status: Ordered Flovent HFA 110 mcg/inh inhalation aerosol 2 puffs, Inhalation, 2 times a day, use twice a day to prevent asthma symptoms. rinse mouth and throat after use, # 1 each, 2 Refills, Maintenance, 09/03/20 10:43:00 EDT, [facility], Partial fill upon patient request if [...] 20 mg, 1, tablet, By Mouth, Daily, for 90 days, # 90 tablet, Refills 3, Tot. Refills 3, Hard Stop 11/16/20 18:01:00 EDT, 11/22/19 18:01:00 EDT, Route to Pharmacy Electronically, [facility],163.4, cm, 11/06/19 13:10:00 EDT, Height, Dry Weight Start Date: 11/22/19 Stop Date: 11/16/20 Status: Ordered lisinopril 20 mg oral tablet 20 mg, 1, tablet, By Mouth, Daily, # 90 tablet, Refills 1, Tot. Refills 1, Maintenance, 11/16/20 18:01:00 EDT, Route to Pharmacy Electronically, [facility], 163.4, cm, 09/03/20 10:55:00 EDT, Height Start Date: 11/16/20 Stop Date: 05/15/21 Status: Ordered medroxyPROGESTERone 10 mg oral tablet 10 mg, 1, tablet, By Mouth, Daily, # 10 tablet, Refills 0, Tot. Refills 0, Maintenance, 04/17/20 11:20:00 EST, Route to Pharmacy Electronically, [facility], Partial fill upon patient request if the prescription is for a schedule II opioid drTho.. Start Date: 04/17/20 Status: Ordered meloxicam 7.5 mg oral tablet 1 tablet = 7.5 mg, By Mouth, Daily, take with food please., # 30 tablet, 0 Refills, Maintenance, 12/12/19 9:11:00 EDT, Tablet, [facility], 163.4, cm, 11/06/19 13:10:00 EDT, Height, Dry Weight Start Date: 12/12/19 Status: Ordered Naphcon-A 0.025%-0.3% ophthalmic solution 1 drops, Eyes, Both, 4 times a day, # 15 mL, 1 Refills, Maintenance, 09/03/20 10:42:00 EDT, Solution, [facility], 1 drops Eyes, Both 4 times [...] 0 Refills, Maintenance, 01/10/20 14:06:00 EST, ECCapsule, [facility], 163.4, cm, 11/06/19 13:10:00 EDT, Height Start Date: 01/10/20 Status: Ordered ProAir HFA 90 mcg/inh inhalation aerosol with adapter 2, puffs, Inhalation, Every 4 hours, PRN, # 8.5 Gm, Refills 5, Tot. Refills 5, Maintenance, 07/24/20 11:13:00 EDT, Aerosol, Route to Pharmacy Electronically, NCPDP_[id number], [facility], 163.4, cm, 11/06/19 13:10:00 EDT, Height [...] 1 Refills, Maintenance, 02/19/19 19:13:45EST, ER Tablet, [facility], 163.4, cm, 02/19/19 19:02:31 EST, Height, [...]
--- OUTSIDE RECORDS SUMMARY | 2022-05-29 20:23 | XMS_ITS | Continuity of Care Document ---
Author Name Unknown Organization [facility] Address [address] [place] [address]- Care Team Providers Care Dean Of Admissions Name Role Phone Kevin Frazier MD Primary Care Physician [phone] [facility] 12/16/20 - 03/18/21 [facility] [address] [place], [place] [address] Attending Physician: Kevin Frazier MD Admitting Physician: Kevin Frazier MD Referring Physician: Kevin Frazier MD Allergies, [...] (oldterm) 08/07/08 Give n 1Result Comment: [12/27/2016] [facility] [id number] 2Admin Note: VIS from 10/11/14 given to parent Medications albuterol 0.083% inhalation solution 3 mL = 2.5 mg, Inhalation, Every 6 hours, PRN for wheezing, # 60 each, 0 Refills, Maintenance, 11/22/19 11:06:00 EDT, Solution, [facility], 163.4, cm, 11/06/19 13:10:00 EDT, Height Start Date: 11/22/19 Status: Ordered capsaicin 0.025% topical cream 1 application, Topically, 3 times a day, avoid contact with face and eyes to affected area, # 45 Gm, 10 Refills, Maintenance, 11/06/19 13:39:00 EDT, Cream, [facility], 1 application Topically 3 times a day,Instr:avoid contact with face and... Start Date: 11/06/19 Status: Ordered cetirizine 10 mg oral tablet 1 tablet, By Mouth, Daily, # 30 tablet, 5 Refills, [facility], 163.4, cm, 02/25/21 13:06:00 EST, Height Start Date: 03/03/21 Status: Ordered diclofenac 1% topical gel 1 application, Topically, 4 times a day, PRN for pain, not to exceed 16 grams/day/single joint of lower extremities. label syriac, # 100 Gm, 4 Refills, Maintenance, 04/18/19 15:51:00 EST, Gel, [facility], 163.4, cm, 04/18/19 15:38:00 EST, H... Start Date: 04/18/19 Status: Ordered diclofenac 1% topical gel 1 application, Topically, 4 times a day, # 100 Gm, 0 Refills, Maintenance, 12/18/20 10:39:00 EDT, Gel, [facility], Partial fill upon patient request if the prescription is for a schedule IIopioid drug., 163.4, cm, 12/18/20 10:36:00 EDT, Height Start Date: 12/18/20 Status: Ordered famotidine 20 mg oral tablet 20 mg, 1, tablet, By Mouth, 2 times a day, for nausea, heartburn., # 60 tablet, Refills 0, Tot. Refills 0, Maintenance, 10/13/20 16:36:00 EDT, Route to Pharmacy Electronically, [facility], Partial fill upon patient request if the prescriptio... Start Date: 10/13/20 Status: Ordered Flovent HFA 110 mcg/inh inhalation aerosol 2 puffs, Inhalation, 2 times a day, use twice a day to prevent asthma symptoms. rinse mouth and throat after use, # 1 each, 5 Refills, Maintenance, 12/12/20 16:28:00 EDT, [facility], Partial fill upon patient request if the prescription is... Start Date: 12/12/20 Status: Ordered fluticasone 50 mcg/inh nasal spray See Instructions, USE 1 SPRAY IN EACH NOSTRIL TWICE A DAY, # 16 Gm, 5 Refills, [facility], 30, USE 1 SPRAY IN EACH NOSTRIL TWICE A DAY, 163.4, cm, 10/13/20 15:44:00 EDT, Height Start Date: 12/12/20 Status: Ordered hydroCHLOROthiazide 12.5 mg oral capsule 1 capsule = 12.5 mg, By Mouth, Daily, # 30 capsule, 5 Refills, Maintenance, 12/18/20 10:41:00 EDT, Capsule, [facility], Partial fill upon patient request if the prescription is for a schedule II opioid drug., 163.4, cm, 12/18/20 10:36:00 EDT... Start Date: 12/18/20 Status: Ordered hydrocortisone 2.5% topical lotion 1 application, Topically, 2 times a day, # 59 mL, 0 Refills, Maintenance, 05/17/19 17:11:00 EDT, Lotion, [facility]/pharmacy #[id number], 1 application Topically 2 times a day, 163.4, cm, 05/16/19 10:53:00 EDT, Height, 166.9, kg, 11/21/17 2:28:00 EDT, Dry Weight Start Date: 05/17/19 Status: Ordered lisinopril 20 mg oral tablet 20 mg, 1, tablet, By Mouth, Daily, # 90 tablet, Refills 1, Tot. Refills 1, Maintenance, 11/16/20 18:01:00 EDT, Route to Pharmacy Electronically, [facility], 163.4, cm, 09/03/20 10:55:00 EDT, Height Start Date: 11/16/20 Stop Date: 05/15/21 Status: Ordered medroxyPROGESTERone 10 mg oral tablet 10 mg, 1, tablet, By Mouth, Daily, # 10 tablet, Refills 0, Tot. Refills 0, Maintenance, 04/17/20 11:20:00 EST, Route to Pharmacy Electronically, [facility], Partial fill upon patient request [...] Gm, Refills 5, Route to Pharmacy Electronically, NCPDP_[id number], [facility], 163.4, cm, 02/25/21 13:06:00 EST, Height Start Date: 03/03/21 Status: Ordered Slow Fe (as elemental iron) 45 mg oral tablet, extended release 1 tablet = 45 mg, By Mouth, Daily, # 30 tablet, 5 Refills, Maintenance, 12/18/20 10:42:00 EDT, ER Tablet, [facility], Partial fill upon patient request [...] 1 Refills, Maintenance, 02/19/19 19:13:45EST, ER Tablet, [facility], 163.4, cm, 02/19/19 19:02:31 EST, Height, [...]
--- OUTSIDE RECORDS SUMMARY | 2022-05-29 20:23 | XMS_ITS | Continuity of Care Document ---
Author Name Unknown Organization [facility] Address [address] [place] [address]- Care Team Providers Care Exceptional Student Education Aide Name Role Phone Freddie ABBOTT, Kevin Yusuf Primary Care Physician [phone] [facility] 06/08/21 - 07/08/21 [facility] [address] [place], [place] [address] Allergies, Adverse Reactions, Alerts [...] (oldterm) 08/07/08 Give n 1Result Comment: [12/27/2016] [facility] [id number] 2Admin Note: VIS from 10/11/14 given to parent Medications albuterol 0.083% inhalation solution 3 mL = 2.5 mg, Inhalation, Every 6 hours, PRN for wheezing, # 60 each, 0 Refills, Maintenance, 11/22/19 11:06:00 EDT, Solution, [facility], 163.4, cm, 11/06/19 13:10:00 EDT, Height Start Date: 11/22/19 Status: Ordered capsaicin 0.025% topical cream 1 application, Topically, 3 times a day, avoid contact with face and eyes to affected area, # 45 Gm, 10 Refills, Maintenance, 11/06/19 13:39:00 EDT, Cream, [facility], 1 application Topically 3 times a day,Instr:avoid contact with face and... Start Date: 11/06/19 Status: Ordered cetirizine 10 mg oral tablet 1 tablet, By Mouth, Daily, # 30 tablet, 5 Refills, [facility], 163.4, cm, 02/25/21 13:06:00 EST, Height Start Date: 03/03/21 Status: Ordered diclofenac 1% topical gel 1 application, Topically, 4 times a day, PRN for pain, not to exceed 16 grams/day/single joint of lower extremities. label lebanese, # 100 Gm, 4 Refills, Maintenance, 04/18/19 [...] Gm, 5 Refills, Maintenance, 05/26/21 13:59:00 EDT, [facility], 163.4, cm, 02/25/21 13:06:00 EST, Height Start Date: 05/26/21 Status: Ordered fluticasone 50 mcg/inh nasal spray See Instructions, USE 1 SPRAY IN EACH NOSTRIL TWICE A DAY, # 16 Gm, 5 Refills, Maintenance, 05/26/21 13:59:00 EDT, [facility], 30, USE 1 SPRAY IN EACH NOSTRIL TWICE A DAY, 163.4, cm, 02/25/21 13:06:00 EST, Height Start Date: 05/26/21 Status: Ordered hydroCHLOROthiazide 12.5 mg oral capsule 1 capsule, By Mouth, Daily, # 30 capsule, 5 Refills, [facility], 163.4, cm, 02/25/21 13:06:00 EST, Height [...] Replace Required Details, Route to Pharmacy Electronically, [facility], 163.4, cm, 02/25/21 13:06:00EST, Height Start Date: 03/31/21 Status: Ordered medroxyPROGESTERone 10 mg oral tablet 10 mg, 1, tablet, By Mouth, Daily, # 10 tablet, Refills 0, Tot. Refills 0, Maintenance, 04/17/20 11:20:00 EST, Route to Pharmacy Electronically, [facility], Partial fill upon patient request if [...] Gm, Refills 5, Route to Pharmacy Electronically, NCPDP_[id number], [facility], 163.4, cm, 02/25/21 13:06:00 EST, Height Start Date: 03/03/21 Status: Ordered Slow Fe (as elemental iron) 45 mg oral tablet, extended release 1 tablet = 45 mg, By Mouth, Daily, # 30 tablet, 5 Refills, Maintenance, 12/18/20 10:42:00 EDT, ER Tablet, [facility], Partial fill upon patient request if [...] 1 Refills, Maintenance, 02/19/19 19:13:45EST, ER Tablet, [facility], 163.4, cm, 02/19/19 19:02:31 EST, Height, [...]
--- OUTSIDE RECORDS SUMMARY | 2022-05-29 20:23 | XMS_ITS | Continuity of Care Document ---
Author Name Unknown Organization [facility] Address [address] [place] [address]- Care Team Providers Care Hand Wrapper Operator Name Role Phone Freddie ABBOTT, Kevin Yusuf Primary Care Physician [facility]): 08/29/20 - 09/28/20 [facility] [address] [place] [id number]- Allergies, Adverse Reactions, Alerts Substance Reaction Severity [...] Comment: [12/27/2016] [facility] [id number] 2Admin Note: VIS from 10/11/14 given to parent Medications albuterol 0.083% inhalation solution 3 mL = 2.5 mg, Inhalation, Every 6 hours, PRN for wheezing, # 60 each, 0 Refills, Maintenance, 11/22/19 11:06:00 EDT, Solution, [facility], 163.4, cm, 11/06/19 13:10:00 EDT, Height Start Date: 11/22/19 Status: Ordered Azithromycin 3 Day Dose Pack 500 mg oral tablet 1 tablet = 500 mg, By Mouth, Daily, # 3 tablet, 0 Refills, Maintenance, 11/29/19 14:02:00 EDT, Tablet, [facility], 163.4, cm, 11/06/19 13:10:00 EDT, Height Start Date: 11/29/19 Status: Ordered capsaicin 0.025% topical cream 1 application, Topically, 3 times a day, avoid contact with face and eyes to affected area, # 45 Gm, 10 Refills, Maintenance, 11/06/19 13:39:00 EDT, Cream, [facility], 1 application Topically 3 times a day,Instr:avoid contact with face and... Start Date: 11/06/19 Status: Ordered cetirizine 10 mg oral tablet 1 tablet = 10 mg, By Mouth, Daily, # 30 tablet, 5 Refills, Maintenance, 07/24/20 11:12:00 EDT, Tablet, [facility], Label in Greek., 163.4, cm, 11/06/19 13:10:00 EDT, Height Start Date: 07/24/20 Status: Ordered diclofenac 1% topical gel 1 application, Topically, 4 times a day, PRN for pain, not to exceed 16 grams/day/single joint of lower extremities. label czech, # 100 Gm, 4 Refills, Maintenance, 04/18/19 15:51:00 EST, Gel, [facility], 163.4, cm, 04/18/19 15:38:00 EST, H... Start Date: 04/18/19 Status: Ordered Flonase 50 mcg/inh nasal spray 1 sprays, Nares, Both, 2 times a day, # 16 Gm, 3 Refills, Maintenance, 07/24/20 11:12:00 EDT, [place], [facility], 1 sprays Nares, Both 2 times a day, 163.4, cm, 11/06/19 13:10:00 EDT, Height Start Date: 07/24/20 Status: Ordered Flovent HFA 110 mcg/inh inhalation aerosol 2 puffs, Inhalation, 2 times a day, use twice a day to prevent asthma symptoms. rinse mouth and throat after use, # 1 each, 2 Refills, Maintenance, 09/03/20 10:43:00 EDT, [facility], Partial fill upon patient request if the prescription is... Start Date: 09/03/20 Status: Ordered hydrocortisone 2.5% topical lotion 1 application, Topically, 2 times a day, # 59 mL, 0 Refills, Maintenance, 05/17/19 17:11:00 EDT, Lotion, [facility]/pharmacy #[id number], 1 application Topically 2 times a day, 163.4, cm, 05/16/19 10:53:00 EDT, Height, 166.9, kg, 11/21/17 2:28:00 EDT, Dry Weight Start Date: 05/17/19 Status: Ordered lisinopril 20 mg oral tablet 20 mg, 1, tablet, By Mouth, Daily, # 90 tablet, Refills 3, Tot. Refills 3, Maintenance, 11/22/19 18:01:00 EDT, Route to Pharmacy Electronically, [facility], 163.4, cm, 11/06/19 13:10:00 EDT, Height, [...] 0 Refills, Maintenance, 12/12/19 9:11:00 EDT, Tablet, [facility], 163.4, cm, 11/06/19 13:10:00 EDT, Height, Dry Weight Start Date: 12/12/19 Status: Ordered Naphcon-A 0.025%-0.3% ophthalmic solution 1 drops, Eyes, Both, 4 times a day, # 15 mL, 1 Refills, Maintenance, 09/03/20 10:42:00 EDT, Solution, [facility], 1 drops Eyes, Both 4 times [...] 0 Refills, Maintenance, 01/10/20 14:06:00 EST, ECCapsule, [facility], 163.4, cm, 11/06/19 13:10:00 EDT, Height Start Date: 01/10/20 Status: Ordered ProAir HFA 90 mcg/inh inhalation aerosol with adapter 2, puffs, Inhalation, Every 4 hours, PRN, # 8.5 Gm, Refills 5, Tot. Refills 5, Maintenance, 07/24/20 11:13:00 EDT, Aerosol, Route to Pharmacy Electronically, NCPDP_[id number], [facility], 163.4, cm, 11/06/19 13:10:00 EDT, [...] 1 Refills, Maintenance, 02/19/19 19:13:45EST, ER Tablet, [facility], 163.4, cm, 02/19/19 19:02:31 EST, [...]
--- OUTSIDE RECORDS SUMMARY | 2022-05-29 20:23 | XMS_ITS | Continuity of Care Document ---
Author Name Unknown Organization [facility] Address [address] [place] [address]- Care Team Providers Care Weed Eradicator Name Role Phone Kevin Frazier MD Primary Care Physician [facility]): 02/21/19 - 04/19/19 [facility] [address] [place] [address]- [facility] Attending Physician: Kevin Frazier MD Admitting Physician: [...] (oldterm) 08/07/08 Give n 1Result Comment: [12/27/2016] [facility] [id number] 2Admin Note: VIS from 10/11/14 given to [...] 16 grams/day/single joint of lower extremities. label venezuelan, # 100 Gm, 4 Refills, Maintenance, 04/18/19 15:51:00 EST, Gel, [facility], 163.4, cm, 04/18/19 15:38:00 EST, H... Start Date: 04/18/19 Status: Ordered famotidine 20 mg oral tablet 20 mg, 1, tablet, By Mouth, 2 times a day, for pain, nausea. avoid eating and drinking for 10 minutes after each dose, # 20 tablet, Refills 0, Tot. Refills 0, Maintenance, 02/19/19 19:12:13 EST, Route to Pharmacy Electronically, [facility],... Start Date: 02/19/19 Stop Date: 03/01/19 Status: Ordered Flonase 50 mcg/inh nasal spray 1 sprays, Nares, Both, 2 times a day, # 16 Gm, 1 Refills, Maintenance, 07/19/18 10:29:32 EDT, [place], 1 sprays Nares, Both 2 times a day Start Date: 07/19/18 Status: Ordered lisinopril 20 mg oral tablet 20 mg, 1, tablet, By Mouth, Daily, # 30 tablet, Refills 6, Tot. Refills 6, Maintenance, 01/18/19 10:21:15 EST, Route to Pharmacy Electronically, [id number], [facility]/pharmacy #[id number] Start Date: 01/18/19 Stop Date: 08/16/19 Status: Ordered ProAir HFA 90 mcg/inh inhalation aerosol with adapter 2, puffs, Inhalation, Every 4 hours, PRN, # 8.5 Gm, Refills 6, Tot. Refills 6, Maintenance, 02/21/19 16:23:00 EST, Aerosol, Route to Pharmacy Electronically, NCPDP_[id number], [facility], 163.4, cm, 02/19/19 19:02:00 EST, Height, [...] 1 Refills, Maintenance, 02/19/19 19:13:45EST, ER Tablet, [facility], 163.4, cm, 02/19/19 19:02:31 EST, Height, [...]
--- OUTSIDE RECORDS SUMMARY | 2022-05-29 20:23 | XMS_ITS | Continuity of Care Document ---
Author Name Unknown Organization [facility] Address [address] [place] [address]- Care Team Providers Care Agency Owner Name Role Phone Freddie ABBOTT, Kevin Yusuf Primary Care Physician [facility] 08[facility]/21 - 09/04/21 [facility] [address], [place] [address] Allergies, Adverse Reactions, Alerts No Known Allergies [...] (oldterm) 08/07/08 Give n 1Result Comment: [12/27/2016] [facility] [id number] 2Admin Note: VIS from 10/11/14 given to parent Medications albuterol 0.083% inhalation solution 3 mL = 2.5 mg, Inhalation, Every 6 hours, PRN for wheezing, # 100 each, 1 Refills, Maintenance, 08/05/21 15:44:00 EDT, Solution, [facility], 163.4, cm, 08/05/21 14:34:00 EDT, Height Start Date: 08/05/21 Status: Ordered cetirizine 10 mg oral tablet 1 tablet, By Mouth, Daily, # 30 tablet, 5 Refills, [facility], 163.4, cm, 08/05/21 14:34:00 EDT, Height [...] 0 Refills, Maintenance, 07/15/21 15:06:00 EDT, Gel, [facility], Partial [...] Gm, 5 Refills, Maintenance, 05/26/21 13:59:00 EDT, [facility], 163.4, cm, 02/25/21 13:06:00 EST, Height Start Date: 05/26/21 Status: Ordered fluticasone 50 mcg/inh nasal spray See Instructions, USE 1 SPRAY IN EACH NOSTRIL TWICE A DAY, # 16 Gm, 5 Refills, Maintenance, 05/26/21 13:59:00 EDT, [facility], 30, USE 1 SPRAY IN EACH NOSTRIL TWICE A DAY, 163.4, cm, 02/25/21 13:06:00 EST, Height Start Date: 05/26/21 Status: Ordered hydroCHLOROthiazide 12.5 mg oral capsule 1 capsule, By Mouth, Daily, # 30 capsule, 5 Refills, [facility], 163.4, cm, 02/25/21 13:06:00 EST, Height Start Date: 06/09/21 Status: Ordered lisinopril 20 mg oral tablet See Instructions, TAKE 1 TABLET BY MOUTH EVERY DAY, # 90 tablet, Refills 1, Instructions Replace Required Details, Route to Pharmacy Electronically, [facility], 163.4, cm, 02/25/21 13:06:00EST, Height Start Date: 03/31/21 Status: Ordered medroxyPROGESTERone 10 mg oral tablet 10 mg, 1, tablet, By Mouth, Daily, # 10 tablet, Refills 0, Tot. Refills 0, Maintenance, 04/17/20 11:20:00 EST, Route to Pharmacy Electronically, [facility], Partial fill upon patient request if the prescription is for a schedule II opioid dr... 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
--- OUTSIDE RECORDS SUMMARY | 2022-05-29 20:23 | XMS_ITS | Continuity of Care Document ---
Author Name Unknown Organization [facility] Address [address] [place] [phone]- Care Team Providers Care Navy Airspace Officer Name Role Phone Kevin Frazier MD Primary Care Physician [facility]): 12/[facility]/21 - 01/28/22 [facility] [address] [place] [phone]- Attending Physician: Kevin Frazier MD Admitting Physician: [...] 1Result Comment: [12/27/2016] [facility] [id number] 2Admin Note: VIS from 10/11/14 given to parent Medications albuterol 0.083% inhalation solution 3 mL = 2.5 mg, Inhalation, Every 6 hours, PRN for wheezing, # 100 each, 1 Refills, Maintenance, 08/05/21 15:44:00 EDT, Solution, [facility], 163.4, cm, 08/05/21 14:34:00 EDT, Height Start Date: 08/05/21 Status: Ordered BuPROPion (Eqv-Wellbutrin SR) 150 mg/12 hours oral tablet, extended release TAKE 1 TABLET BY MOUTH TWICE A DAY Start Date: 12/30/21 Status: Ordered cetirizine 10 mg oral tablet 1 tablet, By Mouth, Daily, # 30 tablet, 5 Refills, [facility], 163.4, cm, 08/05/21 14:34:00 EDT, Height Start Date: 08/25/21 Status: Ordered clindamycin 1% topical gel 1 application, Topically, 2 times a day, # 30 Gm, 0 Refills, Maintenance, 01/27/22 9:20:00 EST, Gel, [facility], Partial fill upon patient request if the prescription is for a schedule II opioid drug. Refills- contact PCP, 1 application Topi... Start Date: 01/27/22 Status: Ordered diclofenac 1% topical gel 1 application, Topically, 4 times a day, PRN Pain , Moderate, apply to wrists as needed, # 100 Gm, 0 Refills, Maintenance, 07/15/21 15:06:00 EDT, Gel, [facility], Partial fill upon patient request if the prescription is for a schedule II opi... Start Date: 07/15/21 Status: Ordered EpiPen 2-Mir 0.3 mg injectable kit = 0.3 mg, Intramuscular, Once, may repeat if necessary, # 1 each, 0 Refills, Soft Stop, 09/25/21 14:43:00 EDT, [facility], Partial fill upon patient request if [...] AFTER USE., # 12 Gm, 5 Refills, [facility], 163.4, cm, 10/14/21 8:28:00 EDT, Height Start Date: 10/26/21 Status: Ordered fluticasone 50 mcg/inh nasal spray See Instructions, USE 1 SPRAY IN EACH NOSTRIL TWICE A DAY, # 16 Gm, 5 Refills, [facility], 30, USE 1 SPRAY IN EACH NOSTRIL TWICE A DAY, 163.4, cm, 10/14/21 8:28:00 EDT, Height Start Date: 10/26/21 Status: Ordered hydroCHLOROthiazide 12.5 mg oral capsule 1 capsule, By Mouth, Daily, # 30 capsule, 2 Refills, Maintenance, 12/10/21 12:09:00 EDT, [facility], 163.4, cm, 12/02/21 16:27:00 EDT, Height [...] tablet, Refills 1, Route to Pharmacy Electronically, [facility], 163.4, cm, 09/24/21 15:28:00 EDT, Height [...] 0 Refills, Maintenance, 01/27/22 9:19:00 EST, Tablet, [facility], Partial fill upon patient request if the prescription is for aschedule II opioid drug. Refills-contact PCP, 163.4... Start Date: 01/27/22 Status: Ordered NIFEdipine 30 mg oral tablet, extended release 30 mg, 1, tablet, By Mouth, Daily, # 30 tablet, Refills 2, Tot. Refills 2, Maintenance, 12/07/21 15:13:00 EDT, Route to Pharmacy Electronically, [facility], Duplicate Rx. Original sent 12/01/21. Re-sending per pharmacy request, 163.4, cm, ... Start Date: 12/07/21 Stop Date: 03/07/22 Status: Ordered ProAir HFA 90 mcg/inh inhalation aerosol with adapter 2, puffs, Inhalation, Every 4 hours, PRN, # 8.5 Gm, Refills 5, Route to Pharmacy Electronically, NCPDP_[id number], [facility], 163.4, cm, 07/15/21 13:31:00 EDT, Height [...] Care Physician Member Role: PCP Address: Address: [address] [place] [address]- Care Team Related Persons Name: KARI AGUERO Address: home [address] [place] [address]
--- OUTSIDE RECORDS SUMMARY | 2022-05-29 20:23 | XMS_ITS | Continuity of Care Document ---
Author Name Unknown Organization [facility] Address [address] [place] [address]- Care Team Providers Care Roll Tension Tester Name Role Phone Kevin Frazier MD Primary Care Physician [facility] Date[facility]s): 02/05/20 - 03/06/20 [facility] [address] [place] [phone]- Allergies, Adverse Reactions, Alerts Substance Reaction Severity [...] [facility] [id number] 2Admin Note: VIS from 10/11/14 given to parent Medications albuterol 0.083% inhalation solution 3 mL = 2.5 mg, Inhalation, Every 6 hours, PRN for wheezing, # 60 each, 0 Refills, Maintenance, 11/22/19 11:06:00 EDT, Solution, [facility], 163.4, cm, 11/06/19 13:10:00 EDT, Height Start Date: 11/22/19 Status: Ordered Azithromycin 3 Day Dose Pack 500 mg oral tablet 1 tablet = 500 mg, By Mouth, Daily, # 3 tablet, 0 Refills, Maintenance, 11/29/19 14:02:00 EDT, Tablet, [facility], 163.4, cm, 11/06/19 13:10:00 EDT, Height [...] 16 grams/day/single joint of lower extremities. label vietnamese, # 100 Gm, 4 Refills, Maintenance, 04/18/19 15:51:00 EST, Gel, [facility], 163.4, cm, 04/18/19 15:38:00 EST, H... Start Date: 04/18/19 Status: Ordered fexofenadine 60 mg oral tablet 1 tablet = 60 mg, By Mouth, 2 times a day, stop cetirizine please, # 60 tablet, 2 Refills, Maintenance, 08/01/19 9:01:00 EDT, [facility], 163.4, cm, 05/16/19 10:53:00 EDT, Height, 166.9, kg, 11/21/17 2:28:00 EDT, Dry Weight Start Date: 08/01/19 Status: Ordered Flonase 50 mcg/inh nasal spray 1 sprays, Nares, Both, 2 times a day, # 16 Gm, 3 Refills, Maintenance, 07/10/19 10:02:00 EDT, [place], [facility], 1 sprays Nares, Both 2 times a day, 163.4, cm, 05/16/19 10:53:00 EDT, Height, 166.9, kg, 11/21/17 2:28:00 EDT, Dry Weight Start Date: 07/10/19 Status: Ordered hydrocortisone 2.5% topical lotion 1 application, Topically, 2 times a day, # 59 mL, 0 Refills, Maintenance, 05/17/19 17:11:00 EDT, Lotion, [facility]/pharmacy #[id number], 1 application Topically 2 times a day, 163.4, cm, 05/16/19 10:53:00 EDT, Height, 166.9, kg, 11/21/17 2:28:00 EDT, Dry Weight Start Date: 05/17/19 Status: Ordered lisinopril 20 mg oral tablet 20 mg, 1, tablet, By Mouth, Daily, # 90 tablet, Refills 3, Tot. Refills 3, Maintenance, 11/22/19 18:01:00 EDT, Route to Pharmacy Electronically, [facility], 163.4, cm, 11/06/19 13:10:00 EDT, Height, Dry Weight Start Date: 11/22/19 Stop Date: 11/16/20 Status: Ordered meloxicam 7.5 mg oral tablet 1 tablet = 7.5 mg, By Mouth, Daily, take with food please., # 30 tablet, 0 Refills, Maintenance, 12/12/19 9:11:00 EDT, Tablet, [facility], 163.4, cm, 11/06/19 13:10:00 EDT, Height, Dry Weight Start Date: 12/12/19 Status: Ordered Naphcon-A 0.025%-0.3% ophthalmic solution 1 drops, Eyes, Both, 4 times a day, # 15 mL, 1 Refills, Maintenance, 07/10/19 10:02:00 EDT, Solution, [facility], 1 drops Eyes, Both 4 times [...] 0 Refills, Maintenance, 01/10/20 14:06:00 EST, ECCapsule, [facility], 163.4, cm, 11/06/19 13:10:00 EDT, Height Start Date: 01/10/20 Status: Ordered ProAir HFA 90 mcg/inh inhalation aerosol with adapter 2, puffs, Inhalation, Every 4 hours, PRN, # 8.5 Gm, Refills 6, Tot. Refills 6, Maintenance, 11/21/19 18:22:00 EDT, Aerosol, Route to Pharmacy Electronically, NCPDP_[id number], [facility], 163.4, cm, 11/06/19 13:10:00 EDT, Height, [...] 1 Refills, Maintenance, 02/19/19 19:13:45EST, ER Tablet, [facility], 163.4, cm, 02/19/19 19:02:31 EST, Height, [...]
--- OUTSIDE RECORDS SUMMARY | 2022-05-29 20:23 | XMS_ITS | Continuity of Care Document ---
Author Name Unknown Organization [facility] Address [address] [place] [address]- Care Team Providers Care Hospital Orderly Name Role Phone Kevin Frazier MD Primary Care Physician [phone] [facility]counter [facility] Date[facility]s): 10/14/21 - 12/16/21 [facility] [address] [place] [phone]- Attending Physician: Kevin Frazier MD Admitting Physician: Kevin Frazier MD Allergies, Adverse Reactions, Alerts No Known [...] 1Result Comment: [12/27/2016] [facility] [id number] 2Admin Note: VIS from 10/11/14 given to parent Medications albuterol 0.083% inhalation solution 3 mL = 2.5 mg, Inhalation, Every 6 hours, PRN for wheezing, # 100 each, 1 Refills, Maintenance, 08/05/21 15:44:00 EDT, Solution, [facility], 163.4, cm, 08/05/21 14:34:00 EDT, Height Start Date: 08/05/21 Status: Ordered cetirizine 10 mg oral tablet 1 tablet, By Mouth, Daily, # 30 tablet, 5 Refills, [facility], 163.4, cm, 08/05/21 14:34:00 EDT, Height Start Date: 08/25/21 Status: Ordered diclofenac 1% topical gel 1 application, Topically, 4 times a day, PRN Pain , Moderate, apply to wrists as needed, # 100 Gm, 0 Refills, Maintenance, 07/15/21 15:06:00 EDT, Gel, [facility], Partial fill upon patient request if the prescription is for a schedule II opi... Start Date: 07/15/21 Status: Ordered EpiPen 2-Mir 0.3 mg injectable kit = 0.3 mg, Intramuscular, Once, may repeat if necessary, # 1 each, 0 Refills, Soft Stop, 09/25/21 14:43:00 EDT, [facility], Partial fill upon patient request if the prescription is for a schedule II opioid drug., 163.4, cm, 09/24/21 15:28:00... Start Date: 09/25/21 Status: Ordered famotidine 20 mg oral tablet 20 mg, 1, tablet, By Mouth, 2 times a day, for nausea, heartburn., # 60 tablet, Refills 0, Tot. Refills 0, Maintenance, 10/13/20 16:36:00 EDT, Route to Pharmacy Electronically, [facility], Partial fill upon patient request if the prescriptio... Start Date: 10/13/20 Status: Ordered Flovent HFA 110 mcg/inh inhalation aerosol 2 puffs, Inhalation, 2 times a day, AND THROAT OUT AFTER USE., # 12 Gm, 5 Refills, [facility], 163.4, cm, 10/14/21 8:28:00 EDT, Height Start Date: 10/26/21 Status: Ordered fluticasone 50 mcg/inh nasal spray See Instructions, USE 1 SPRAY IN EACH NOSTRIL TWICE A DAY, # 16 Gm, 5 Refills, [facility], 30, USE 1 SPRAY IN EACH NOSTRIL TWICE A DAY, 163.4, cm, 10/14/21 8:28:00 EDT, Height Start Date: 10/26/21 Status: Ordered hydroCHLOROthiazide 12.5 mg oral capsule 1 capsule, By Mouth, Daily, # 30 capsule, 2 Refills, Maintenance, 12/10/21 12:09:00 EDT, [facility], 163.4, cm, 12/02/21 16:27:00 EDT, Height Start Date: 12/10/21 Status: Ordered lisinopril 20 mg oral tablet 1, tablet, By Mouth, Daily, # 90 tablet, Refills 1, Route to Pharmacy Electronically, [facility], 163.4, cm, 09/24/21 15:28:00 EDT, Height Start Date: 09/24/21 Status: Ordered medroxyPROGESTERone 10 mg oral tablet 10 mg, 1, tablet, By Mouth, Daily, # 10 tablet, Refills 0, Tot. Refills 0, Maintenance, 04/17/20 11:20:00 EST, Route to Pharmacy Electronically, [facility], Partial fill upon patient request if the prescription is for a schedule II opioid drMariana. Start Date: 04/17/20 Status: Ordered NIFEdipine 30 mg oral tablet, extended release 30 mg, 1, tablet, By Mouth, Daily, # 30 tablet, Refills 2, Tot. Refills 2, Maintenance, 12/07/21 15:13:00 EDT, Route to Pharmacy Electronically, [facility], Duplicate Rx. Original sent 12/01/21. Re-sending per pharmacy request, 163.4, cm, .. Start Date: 12/07/21 Stop Date: 03/07/22 Status: Ordered ProAir HFA 90 mcg/inh inhalation aerosol with adapter 2, puffs, Inhalation, Every 4 hours, PRN, # 8.5 Gm, Refills 5, Route to Pharmacy Electronically, NCPDP_[id number], [facility], 163.4, cm, 07/15/21 13:31:00 EDT, Height Start Date: 07/16/21 Status: Ordered Slow Fe (as elemental iron) 45 mg oral tablet, extended release 1 tablet = 45 mg, By Mouth, Daily, # 30 tablet, 5 Refills, Maintenance, 12/18/20 10:42:00 EDT, ER Tablet, [facility], Partial fill upon patient request if [...] on: 04/15/15 Sex Patient Care team information Personnel Name: Kevin Frazier MD Address: Address: [address] [place] [address]
--- OUTSIDE RECORDS SUMMARY | 2022-05-29 20:23 | XMS_ITS | Continuity of Care Document ---
Author Name Unknown Organization [facility] Address [address] [place] [address]- Care Team Providers Care Account Manager B2B Name Role Phone Freddie ABBOTT, Kevin Yusuf Primary Care Physician [facility]s): 12/11/19 - 01/10/20 [facility] [address] [place] [phone]- Allergies, Adverse Reactions, Alerts Substance Reaction Severity [...] (oldterm) 08/07/08 Give n 1Result Comment: [12/27/2016] [facility] [id number] 2Admin Note: VIS from 10/11/14 given to parent Medications albuterol 0.083% inhalation solution 3 mL = 2.5 mg, Inhalation, Every 6 hours, PRN for wheezing, # 60 each, 0 Refills, Maintenance, 11/22/19 11:06:00 EDT, Solution, [facility], 163.4, cm, 11/06/19 13:10:00 EDT, Height Start Date: 11/22/19 Status: Ordered Azithromycin 3 Day Dose Pack 500 mg oral tablet 1 tablet = 500 mg, By Mouth, Daily, # 3 tablet, 0 Refills, Maintenance, 11/29/19 14:02:00 EDT, Tablet, [facility], 163.4, cm, 11/06/19 13:10:00 EDT, Height Start Date: 11/29/19 Status: Ordered capsaicin 0.025% topical cream 1 application, Topically, 3 times a day, avoid contact with face and eyes to affected area, # 45 Gm, 10 Refills, Maintenance, 11/06/19 13:39:00 EDT, Cream, [facility], 1 application Topically 3 times a day,Instr:avoid contact with face and... Start Date: 11/06/19 Status: Ordered diclofenac 1% topical gel 1 application, Topically, 4 times a day, PRN for pain, not to exceed 16 grams/day/single joint of lower extremities. label sao tomean, # 100 Gm, 4 Refills, Maintenance, 04/18/19 15:51:00 EST, Gel, [facility], 163.4, cm, 04/18/19 15:38:00 EST, H... Start Date: 04/18/19 Status: Ordered fexofenadine 60 mg oral tablet 1 tablet = 60 mg, By Mouth, 2 times a day, stop cetirizine please, # 60 tablet, 2 Refills, Maintenance, 08/01/19 9:01:00 EDT, [facility], 163.4, cm, 05/16/19 10:53:00 EDT, Height, 166.9, kg, 11/21/17 2:28:00 EDT, Dry Weight Start Date: 08/01/19 Status: Ordered Flonase 50 mcg/inh nasal spray 1 sprays, Nares, Both, 2 times a day, # 16 Gm, 3 Refills, Maintenance, 07/10/19 10:02:00 EDT, [place], [facility], 1 sprays Nares, Both 2 times a day, 163.4, cm, 05/16/19 10:53:00 EDT, Height, 166.9, kg, 11/21/17 2:28:00 EDT, Dry Weight Start Date: 07/10/19 Status: Ordered hydrocortisone 1% topical cream 1 application, Topically, 2 times a day, # 30 Gm, 0 Refills, Acute 01/12/20 9:24:00 EST, 12/12/19 9:24:00 EDT, Cream, [facility], 1 application Topically 2 times a [...] 11/22/19 18:01:00 EDT, Route to Pharmacy Electronically, [facility], 163.4, cm, 11/06/19 13:10:00 EDT, Height, Dry Weight Start Date: 11/22/19 Stop Date: 11/16/20 Status: Ordered meloxicam 7.5 mg oral tablet 1 tablet = 7.5 mg, By Mouth, Daily, take with food please., # 30 tablet, 0 Refills, Maintenance, 12/12/19 9:11:00 EDT, Tablet, [facility], 163.4, cm, 11/06/19 13:10:00 EDT, Height, Dry Weight Start Date: 12/12/19 Status: Ordered Naphcon-A 0.025%-0.3% ophthalmic solution 1 drops, Eyes, Both, 4 times a day, # 15 mL, 1 Refills, Maintenance, 07/10/19 10:02:00 EDT, Solution, [facility], 1 drops Eyes, Both 4 times [...] 0 Refills, Maintenance, 01/10/20 14:06:00 EST, ECCapsule, [facility], 163.4, cm, 11/06/19 13:10:00 EDT, Height Start Date: 01/10/20 Status: Ordered ProAir HFA 90 mcg/inh inhalation aerosol with adapter 2, puffs, Inhalation, Every 4 hours, PRN, # 8.5 Gm, Refills 6, Tot. Refills 6, Maintenance, 11/21/19 18:22:00 EDT, Aerosol, Route to Pharmacy Electronically, NCPDP_[id number], [facility], 163.4, cm, 11/06/19 13:10:00 EDT, Height, [...] 1 Refills, Maintenance, 02/19/19 19:13:45EST, ER Tablet, [facility], 163.4, cm, 02/19/19 19:02:31 EST, Height, [...]
--- OUTSIDE RECORDS SUMMARY | 2022-05-29 20:23 | XMS_ITS | Continuity of Care Document ---
Author Name Unknown Organization [facility] Address [address] [place] [address]- Care Team Providers Care Mechanical Systems Designer Name Role Phone Freddie ABBOTT, Kevin Yusuf Primary Care Physician Encounter [facility] Date(s): 04/23/19 - 05/03/19 [facility] [address] [address]- [facility] Attending Physician: Nasima Coffman Admitting Physician: Nasima Coffman Referring Physician: AdmNasima interiano Allergies, Adverse Reactions, Alerts Substance Reaction Severity [...] [12/27/2016] [facility] [id number] 2Admin Note: VIS from 10/11/14 given to [...] 16 grams/day/single joint of lower extremities. label eritrean, # 100 Gm, 4 Refills, Maintenance, 04/18/19 15:51:00 EST, Gel, [facility], 163.4, cm, 04/18/19 15:38:00 EST, H... Start Date: 04/18/19 Status: Ordered doxycycline hyclate 100 mg oral capsule 1 capsule = 100 mg, By Mouth, 2 times a day, for 7 days, # 14 capsule, 0 Refills, Acute 05/07/19 19:07:00 EST, 04/30/19 19:07:00 EST, Capsule, [facility]/pharmacy #[id number], 163.4, cm, 04/30/19 19:04:00 EST, Height, 166.9, kg, 11/21/17 2:28:00 EDT, Dry Weight Start Date: 04/30/19 Stop Date: 05/07/19 Status: Ordered famotidine 20 mg oral tablet 20 mg, 1, tablet, By Mouth, 2 times a day, for pain, nausea. avoid eating and drinking for 10 minutes after each dose, # 20 tablet, Refills 0, Tot. Refills 0, Maintenance, 02/19/19 19:12:13 EST, Route to Pharmacy Electronically, [facility],... Start Date: 02/19/19 Stop Date: 03/01/19 Status: Ordered Flonase 50 mcg/inh nasal spray 1 sprays, Nares, Both, 2 times a day, # 16 Gm, 1 Refills, Maintenance, 07/19/18 10:29:32 EDT, [place], 1 sprays Nares, Both 2 times a day Start Date: 07/19/18 Status: Ordered hydrocortisone 2% topical lotion 1 application, Topically, 2 times a day, # 30 mL, 0 Refills, Acute 05/07/19 19:08:00 EST, 04/30/19 19:07:00 EST, Lotion, [facility]/pharmacy #[id number], 1 application Topically 2 times a day, 163.4, cm, 04/30/2018:04:00 EST, Height, 166.9, kg, 11/21/17 2:28:00 E... Start Date: 04/30/19 Stop Date: 05/07/19 Status: Ordered lisinopril 20 mg oral tablet 20 mg, 1, tablet, By Mouth, Daily, # 30 tablet, Refills 6, Tot. Refills 6, Maintenance, 01/18/19 10:21:15 EST, Route to Pharmacy Electronically, [id number], [facility]/pharmacy #[id number] Start Date: 01/18/19 Stop Date: 08/16/19 Status: Ordered ProAir HFA 90 mcg/inh inhalation aerosol with adapter 2, puffs, Inhalation, Every 4 hours, PRN, # 8.5 Gm, Refills 6, Tot. 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
--- OUTSIDE RECORDS SUMMARY | 2022-05-29 20:23 | XMS_ITS | Continuity of Care Document ---
Author Name Unknown Organization [facility] ter Address [address] [place] [address]- Care Team Providers Care Podiatry Doctor Name Role Phone Freddie ABBOTT, Kevin Yusuf Primary Care Physician [facility] Date[facility] 06[facility] - 07/11/[address] [address]- Attending Physician: Alfred Castaneda MD Admitting Physician: Alfred Castaneda MD Referring Physician: Alfred Castaneda MD Allergies, Adverse Reactions, Alerts No Known [...] (oldterm) 08/07/08 Give n 1Result Comment: [12/27/2016] [facility] [id number] 2Admin Note: VIS from 10/11/14 given to parent Medications albuterol 0.083% inhalation solution 3 mL = 2.5 mg, Inhalation, Every 6 hours, PRN for wheezing, # 60 each, 0 Refills, Maintenance, 11/22/19 11:06:00 EDT, Solution, [facility], 163.4, cm, 11/06/19 13:10:00 EDT, Height Start Date: 11/22/19 Status: Ordered capsaicin 0.025% topical cream 1 application, Topically, 3 times a day, avoid contact with face and eyes to affected area, # 45 Gm, 10 Refills, Maintenance, 11/06/19 13:39:00 EDT, Cream, [facility], 1 application Topically 3 times a day,Instr:avoid contact with face and... Start Date: 11/06/19 Status: Ordered cetirizine 10 mg oral tablet 1 tablet, By Mouth, Daily, # 30 tablet, 5 Refills, [facility], 163.4, cm, 02/25/21 13:06:00 EST, Height Start Date: 03/03/21 Status: Ordered diclofenac 1% topical gel 1 application, Topically, 4 times a day, PRN for pain, not to exceed 16 grams/day/single joint of lower extremities. label turkish, # 100 Gm, 4 Refills, Maintenance, 04/18/19 15:51:00 EST, Gel, [facility], 163.4, cm, 04/18/19 15:38:00 EST, H... [...] Gm, 5 Refills, Maintenance, 05/26/21 13:59:00 EDT, [facility], 163.4, cm, 02/25/21 13:06:00 EST, Height Start Date: 05/26/21 Status: Ordered fluticasone 50 mcg/inh nasal spray See Instructions, USE 1 SPRAY IN EACH NOSTRIL TWICE A DAY, # 16 Gm, 5 Refills, Maintenance, 05/26/21 13:59:00 EDT, [facility], 30, USE 1 SPRAY IN EACH [...] 0 Refills, Maintenance, 05/17/19 17:11:00 EDT, Lotion, [facility]/pharmacy #[id number], 1 application Topically 2 times a day, 163.4, cm, 05/16/19 10:53:00 EDT, Height, 166.9, kg, 11/21/17 2:28:00 EDT, Dry Weight Start Date: 05/17/19 Status: Ordered lisinopril 20 mg oral tablet See Instructions, TAKE 1 TABLET BY MOUTH EVERY DAY, # 90 tablet, Refills 1, Instructions Replace Required Details, Route to Pharmacy Electronically, [facility], 163.4, cm, 02/25/21 13:06:00EST, Height Start Date: 03/31/21 Status: Ordered medroxyPROGESTERone 10 mg oral tablet 10 mg, 1, tablet, By Mouth, Daily, # 10 tablet, Refills 0, Tot. Refills 0, Maintenance, 04/17/20 11:20:00 EST, Route to Pharmacy Electronically, [facility], Partial fill upon patient request if [...] Gm, Refills 5, Route to Pharmacy Electronically, [id number]_[id number], [facility], 163.4, cm, 02/25/21 13:06:00 EST, Height Start Date: 03/03/21 Status: Ordered Slow Fe (as elemental iron) 45 mg oral tablet, extended release 1 tablet = 45 mg, By Mouth, Daily, # 30 tablet, 5 Refills, Maintenance, 12/18/20 10:42:00 EDT, ER Tablet, [facility], Partial fill upon patient request if [...] 1 Refills, Maintenance, 02/19/19 19:13:45EST, ER Tablet, [facility], 163.4, cm, 02/19/19 19:02:31 EST, Height, [...]
--- OUTSIDE RECORDS SUMMARY | 2022-05-29 20:23 | XMS_ITS | Continuity of Care Document ---
Author Name Unknown Organization [facility] Address [address] [place] [address]- Care Team Providers Care Flat Drier Name Role Phone Blessing Qiu MD Primary Care Physician [facility] Date[facility]): 09[facility] - 10/24/21 [facility] [address] [place] [id number] Allergies, Adverse Reactions, Alerts No Known [...] 08/07/08 Give n 1Result Comment: [12/27/2016] [facility] [id number] 2Admin Note: VIS from 10/11/14 given to parent Medications albuterol 0.083% inhalation solution 3 mL = 2.5 mg, Inhalation, Every 6 hours, PRN for wheezing, # 100 each, 1 Refills, Maintenance, 06/01/22 15:44:00 EDT, Solution, [facility], 163.4, cm, 08/05/21 14:34:00 EDT, Height Start Date: 08/05/21 Status: Ordered cetirizine 10 mg oral tablet 1 tablet, By Mouth, Daily, # 30 tablet, 5 Refills, [facility], 163.4, cm, 08/05/21 14:34:00 EDT, Height Start Date: 08/25/21 Status: Ordered Claritin 10 mg oral tablet 10 mg, 1, tablet, By Mouth, Daily, # 30 tablet, Refills 0, Tot. Refills 0, Maintenance, 09/24/21 16:12:00 EDT, [facility] Pharmacy Electronically, [facility] [...] 0 Refills, Soft Stop, 09/25/21 14:43:00 EDT, [facility], Partial fill [...] Gm, 5 Refills, Maintenance, 05/26/21 13:59:00 EDT, [facility], 163.4, cm, 02/25/21 13:06:00 EST, Height Start Date: 05/26/21 Status: Ordered fluticasone 50 mcg/inh nasal spray See Instructions, USE 1 SPRAY IN EACH NOSTRIL TWICE A DAY, # 16 Gm, 5 Refills, Maintenance, 05/26/21 13:59:00 EDT, [facility], 30, USE 1 SPRAY IN EACH [...] tablet, Refills 1, Route to Pharmacy Electronically, [facility], 163.4, cm, 09/24/21 15:28:00 [...] Gm, Refills 5, Route to Pharmacy Electronically, NCPDP_[id number], [facility], 163.4, cm, 07/15/21 13:31:00 EDT, Height [...] Refills, Maintenance, 12/18/20 10:42:00 EDT, ER Tablet, [facility], Partial fill upon patient request if [...]
--- OUTSIDE RECORDS SUMMARY | 2022-05-29 20:23 | XMS_ITS | Continuity of Care Document ---
Author Name Unknown Organization [facility] Address Adult Weight Managem ent [address] [place] [address]- Care Team Providers Care Geriatric Social Work Professor Name Role Phone Freddie ABBOTT, Kevin Yusuf Primary Care Physician [phone] [facility] Date[facility]s): 03/27/19 - 04/03/19 [facility] Adult Weight Management [address] [place] [address]- [facility] Attending Physician: Glynn Gonzalez MD Referring Physician: Buck Hancock Allergies, Adverse Reactions, [...] (oldterm) 08/07/08 Give n 1Result Comment: [12/27/2016] [facility] [id number] 2Admin Note: VIS from 10/11/14 given to [...] 16 grams/day/single joint of lower extremities. label thai, # 100 Gm, 0 Refills, Maintenance, 01/01/19 [...] 02/19/19 19:12:13 EST, Route to Pharmacy Electronically, [facility],... Start Date: 02/19/19 Stop Date: 03/01/19 Status: Ordered Flonase 50 mcg/inh nasal spray 1 sprays, Nares, Both, 2 times a day, # 16 Gm, 1 Refills, Maintenance, 07/19/18 10:29:32 EDT, [place], 1 sprays Nares, Both 2 times a day Start Date: 07/19/18 Status: Ordered ibuprofen 400 mg oral tablet 400 mg, 1, tablet, By Mouth, Every 8 hours, PRN, # 50 tablet, Refills 1, Tot. Refills 1, Maintenance, as needed for pain, 01/02/18 11:06:21 EDT, Route to Pharmacy Electronically, [id number], [facility]/pharmacy #[id number] Start Date: 01/02/18 Status: Ordered lisinopril 20 mg oral tablet 20 mg, 1, tablet, By Mouth, Daily, # 30 tablet, Refills 6, Tot. Refills 6, Maintenance, 01/18/19 10:21:15 EST, Route to Pharmacy Electronically, [id number], [facility]/pharmacy #[id number] Start Date: 01/18/19 Stop Date: 08/16/19 Status: Ordered ProAir HFA 90 mcg/inh inhalation aerosol with adapter 2, puffs, Inhalation, Every 4 hours, PRN, # 8.5 Gm, Refills 6, Tot. Refills 6, Maintenance, 02/21/19 16:23:00 EST, Aerosol, Route to Pharmacy Electronically, NCPDP_[id number], [facility], 163.4, cm, 02/19/19 19:02:00 EST, Height, [...] 1 Refills, Maintenance, 02/19/19 19:13:45EST, ER Tablet, [facility], 163.4, cm, 02/19/19 19:02:31 EST, Height, 166.9, kg, 11/21/:28:34 EDT, Dry Weight Start Date: 02/19/19 Status: Ordered Voltaren 1% topical gel = 2 Gm, Topically, 4 times a day, for knee pain, # 240 Gm, 0 Refills, Maintenance, 02/19/19 19:13:19 EST, [facility], 2 Gm Topically 4 times a [...]
--- OUTSIDE RECORDS SUMMARY | 2022-05-29 20:23 | XMS_ITS | Continuity of Care Document ---
Author Name Unknown Organization [facility] Address [address] [place] [address]- Care Team Providers Care Engineer System Administrator Name Role Phone Freddie ABBOTT, Kevin Yusuf Primary Care Physician [phone] [facility] Date(s): 03/16/22 - 04/15/[address] [facility] [address] [address]- Attending Physician: Nasima Coffman Admitting Physician: AdmNasima [...] 08/07/08 Give n 1Result Comment: [12/27/2016] [facility] [id number] 2Admin Note: VIS from 10/11/14 given to parent Medications albuterol 0.083% inhalation solution 3 mL = 2.5 mg, Inhalation, Every 6 hours, PRN for wheezing, # 100 each, 1 Refills, Maintenance, 08/05/21 15:44:00 EDT, Solution, [facility], 163.4, cm, 08/05/21 14:34:00 EDT, Height Start Date: 08/05/21 Status: Ordered BuPROPion (Eqv-Wellbutrin SR) 150 mg/12 hours oral tablet, extended release TAKE 1 TABLET BY MOUTH TWICE A DAY Start Date: 12/30/21 Status: Ordered cetirizine 10 mg oral tablet 1 tablet, By Mouth, Daily, # 30 tablet, 4 Refills, Maintenance, 03/19/22 10:24:00 EST, [facility], 163.4, cm, 01/27/22 8:47:00 EST, Height Start Date: 03/19/22 Status: Ordered clindamycin 1% topical gel 1 application, Topically, 2 times a day, # 30 Gm, 0 Refills, Maintenance, 01/27/22 9:20:00 EST, Gel, [facility], Partial fill upon patient request if the prescription is for a schedule II opioid drug. Refills- contact PCP, 1 application Topi... Start Date: 01/27/22 Status: Ordered diclofenac 1% topical gel 1 application, Topically, 4 times a day, PRN Pain , Moderate, apply to wrists as needed, # 100 Gm, 0 Refills, Maintenance, 07/15/21 15:06:00 EDT, Gel, [facility], Partial fill upon patient request if the prescription is for a schedule II opi... Start Date: 07/15/21 Status: Ordered EpiPen 2-Mir 0.3 mg injectable kit = 0.3 mg, Intramuscular, Once, may repeat if necessary, # 1 each, 0 Refills, Soft Stop, 09/25/21 14:43:00 EDT, [facility], Partial fill upon patient request if the prescription is for a schedule II opioid drug., 163.4, cm, 09/24/21 15:28:00... Start Date: 09/25/21 Status: Ordered famotidine 20 mg oral tablet 20 mg, 1, tablet, By Mouth, 2 times a day, for nausea, heartburn., # 60 tablet, Refills 0, Tot. Refills 0, Maintenance, 10/13/20 16:36:00 EDT, Route to Pharmacy Electronically, [facility], Partial fill upon patient request if the prescriptio... Start Date: 10/13/20 Status: Ordered Flovent HFA 110 mcg/inh inhalation aerosol 2 puffs, Inhalation, 2 times a day, AND THROAT OUT AFTER USE., # 12 Gm, 5 Refills, [facility], 163.4, cm, 10/14/21 8:28:00 EDT, Height Start Date: 10/26/21 Status: Ordered fluticasone 50 mcg/inh nasal spray See Instructions, USE 1 SPRAY IN EACH NOSTRIL TWICE A DAY, # 16 Gm, 5 Refills, [facility], 30, USE 1 SPRAY IN EACH NOSTRIL TWICE A DAY, 163.4, cm, 10/14/21 8:28:00 EDT, Height Start Date: 10/26/21 Status: Ordered hydroCHLOROthiazide 12.5 mg oral capsule 1 capsule, By Mouth, Daily, # 30 capsule, 5 Refills, Maintenance, 04/12/22 16:38:00 EST, [facility], 163.4, cm, 03/24/22 14:05:00 EST, Height [...] 03/30/22 11:59:00 EST, Route to Pharmacy Electronically, [facility], 163.4, cm, 03/24/22 14:05:00 EST, Height Start Date: 03/30/22 Status: Ordered medroxyPROGESTERone 10 mg oral tablet 10 mg, 1, tablet, By Mouth, Daily, # 10 tablet, Refills 0, Tot. Refills 0, Maintenance, 04/17/20 11:20:00 EST, Route to Pharmacy Electronically, [facility], Partial fill upon patient request if the prescription is for a schedule II opioid dr... Start Date: 04/17/20 Status: Ordered metFORMIN 500 mg oral tablet 1 tablet = 500 mg, By Mouth, Daily, with meals, # 90 tablet, 0 Refills, Maintenance, 01/27/22 9:19:00 EST, Tablet, [facility], Partial fill upon patient request if the prescription is for aschedule II opioid drug. Refills-contact PCP, 163.4... Start Date: 01/27/22 Status: Ordered NIFEdipine 30 mg oral tablet, extended release 30 mg, 1, tablet, By Mouth, Daily, # 30 tablet, Refills 2, Tot. Refills 2, Maintenance, 12/07/21 15:13:00 EDT, Route to Pharmacy Electronically, [facility], Duplicate Rx. Original sent 12/01/21. Re-sending per pharmacy request, 163.4, cm, ... Start Date: 12/07/21 Stop Date: 03/07/22 Status: Ordered omeprazole 40 mg oral enteric coated capsule 1 capsule = 40 mg, By Mouth, Daily, before meal, # 30 capsule, 1 Refills, Maintenance, 03/24/22 17:31:00 EST, EC Capsule, [facility], Partial fill upon patient request if the prescription is for a schedule II opioid drug., 163.4, cm, 2... Start Date: 03/24/22 Status: Ordered ProAir HFA 90 mcg/inh inhalation aerosol with adapter 2, puffs, Inhalation, Every 4 hours, PRN, # 8.5 Gm, Refills 5, Route to Pharmacy Electronically, NCPDP_[id number], [facility], 163.4, cm, 07/15/21 13:31:00 EDT, Height Start Date: 07/16/21 Status: Ordered sertraline 100 mg oral tablet TAKE 1&1/2 TABLET BY MOUTH ONCE A DAY Start Date: 12/30/21 Status: Ordered Slow Fe (as elemental iron) 45 mg oral tablet, extended release 1 tablet = 45 mg, By Mouth, Daily, # 30 tablet, 5 Refills, Maintenance, 12/18/20 10:42:00 EDT, ER Tablet, [facility], Partial fill upon patient request if [...] Care Physician Member Role: PCP Address: Address: [address] [place] [address]- Care Team Related Persons Name: KARI AGUERO Address: home [address] [place] [address]
--- OUTSIDE RECORDS SUMMARY | 2022-05-29 20:23 | XMS_ITS | Continuity of Care Document ---
Author Name Unknown Organization [facility] Address [address] [place] [address]- Care Team Providers Care Human Performance Technologist Name Role Phone Freddie ABBOTT, Kevin Yusuf Primary Care Physician [facility] Date[facility]s): 10/23/21 - 01/15/[address] [address]- Attending Physician: Not on Staff, Attending MD [...] 08/07/08 Give n 1Result Comment: [12/27/2016] [facility] [id number] 2Admin Note: VIS from 10/11/14 given to parent Medications albuterol 0.083% inhalation solution 3 mL = 2.5 mg, Inhalation, Every 6 hours, PRN for wheezing, # 100 each, 1 Refills, Maintenance, 08/05/21 15:44:00 EDT, Solution, [facility], 163.4, cm, 08/05/21 14:34:00 EDT, Height Start Date: 08/05/21 Status: Ordered BuPROPion (Eqv-Wellbutrin SR) 150 mg/12 hours oral tablet, extended release TAKE 1 TABLET BY MOUTH TWICE A DAY Start Date: 12/30/21 Status: Ordered cetirizine 10 mg oral tablet 1 tablet, By Mouth, Daily, # 30 tablet, 5 Refills, [facility], 163.4, cm, 08/05/21 14:34:00 EDT, Height Start Date: 08/25/21 Status: Ordered diclofenac 1% topical gel 1 application, Topically, 4 times a day, PRN Pain , Moderate, apply to wrists as needed, # 100 Gm, 0 Refills, Maintenance, 07/15/21 15:06:00 EDT, Gel, [facility], Partial fill upon patient request if the prescription is for a schedule II opi... Start Date: 07/15/21 Status: Ordered EpiPen 2-Mir 0.3 mg injectable kit = 0.3 mg, Intramuscular, Once, may repeat if necessary, # 1 each, 0 Refills, Soft Stop, 09/25/21 14:43:00 EDT, [facility], Partial fill upon patient request if the prescription is for a schedule II opioid drug., 163.4, cm, 09/24/21 15:28:00... Start Date: 09/25/21 Status: Ordered famotidine 20 mg oral tablet 20 mg, 1, tablet, By Mouth, 2 times a day, for nausea, heartburn., # 60 tablet, Refills 0, Tot. Refills 0, Maintenance, 10/13/20 16:36:00 EDT, Route to Pharmacy Electronically, [facility], Partial fill upon patient request if the prescriptio... Start Date: 10/13/20 Status: Ordered Flovent HFA 110 mcg/inh inhalation aerosol 2 puffs, Inhalation, 2 times a day, AND THROAT OUT AFTER USE., # 12 Gm, 5 Refills, [facility], 163.4, cm, 10/14/21 8:28:00 EDT, Height Start Date: 10/26/21 Status: Ordered fluticasone 50 mcg/inh nasal spray See Instructions, USE 1 SPRAY IN EACH NOSTRIL TWICE A DAY, # 16 Gm, 5 Refills, [facility], 30, USE 1 SPRAY IN EACH NOSTRIL TWICE A DAY, 163.4, cm, 10/14/21 8:28:00 EDT, Height Start Date: 10/26/21 Status: Ordered hydroCHLOROthiazide 12.5 mg oral capsule 1 capsule, By Mouth, Daily, # 30 capsule, 2 Refills, Maintenance, 12/10/21 12:09:00 EDT, [facility], 163.4, cm, 12/02/21 16:27:00 EDT, Height Start Date: 12/10/21 Status: Ordered lisinopril 20 mg oral tablet 1, tablet, By Mouth, Daily, # 90 tablet, Refills 1, Route to Pharmacy Electronically, [facility], 163.4, cm, 09/24/21 15:28:00 EDT, Height Start Date: 09/24/21 Status: Ordered medroxyPROGESTERone 10 mg oral tablet 10 mg, 1, tablet, By Mouth, Daily, # 10 tablet, Refills 0, Tot. Refills 0, Maintenance, 04/17/20 11:20:00 EST, Route to Pharmacy Electronically, [facility], Partial fill upon patient request if the prescription is for a schedule II opioid dr... Start Date: 04/17/20 Status: Ordered NIFEdipine 30 mg oral tablet, extended release 30 mg, 1, tablet, By Mouth, Daily, # 30 tablet, Refills 2, Tot. Refills 2, Maintenance, 12/07/21 15:13:00 EDT, Route to Pharmacy Electronically, [facility], Duplicate Rx. Original sent 12/01/21. Re-sending per pharmacy request, 163.4, cm, .. Start Date: 12/07/21 Stop Date: 03/07/22 Status: Ordered ProAir HFA 90 mcg/inh inhalation aerosol with adapter 2, puffs, Inhalation, Every 4 hours, PRN, # 8.5 Gm, Refills 5, Route to Pharmacy Electronically, NCPDP_[id number], [facility], 163.4, cm, 07/15/21 13:31:00 EDT, Height Start Date: 07/16/21 Status: Ordered sertraline 100 mg oral tablet TAKE 1&1/2 TABLET BY MOUTH ONCE A DAY Start Date: 12/30/21 Status: Ordered Slow Fe (as elemental iron) 45 mg oral tablet, extended release 1 tablet = 45 mg, By Mouth, Daily, # 30 tablet, 5 Refills, Maintenance, 12/18/20 10:42:00 EDT, ER Tablet, [facility], Partial fill upon patient request if [...] Care Physician Member Role: PCP Address: Address: [address] [place] [address]- Care Team Related Persons Name: KARI AGUERO Address: home [address] [place] [address]
--- OUTSIDE RECORDS SUMMARY | 2022-05-29 20:23 | XMS_ITS | Continuity of Care Document ---
Author Name Unknown Organization [facility] Address [address] [place] [address]- Care Team Providers Care Turnaround Engineer Name Role Phone Kevin Frazier MD Primary Care Physician Encounter [facility] Date(s): 05/28/19 - 06/04/19 [facility] [address] [place] [address]- [facility] Attending Physician: Kevin Frazier MD Admitting [...] (oldterm) 08/07/08 Give n 1Result Comment: [12/27/2016] [facility] [id number] 2Admin Note: VIS from 10/11/14 given to [...] 16 grams/day/single joint of lower extremities. label upper sorbian, # 100 Gm, 4 Refills, Maintenance, 04/18/19 15:51:00 EST, Gel, [facility], 163.4, cm, 04/18/19 15:38:00 EST, H... Start Date: 04/18/19 Status: Ordered famotidine 20 mg oral tablet 20 mg, 1, tablet, By Mouth, 2 times a day, for pain, nausea. avoid eating and drinking for 10 minutes after each dose, # 20 tablet, Refills 0, Tot. Refills 0, Maintenance, 02/19/19 19:12:13 EST, Route to Pharmacy Electronically, [facility],... Start Date: 02/19/19 Stop Date: 03/01/19 Status: Ordered Flonase 50 mcg/inh nasal spray 1 sprays, Nares, Both, 2 times a day, # 16 Gm, 1 Refills, Maintenance, 05/28/19 14:04:00 EDT, [id number] 1 sprays Nares, Both 2 times a day, 163.4, cm, 05/16/19 10:53:00 EDT, Height, 166.9, kg, 11/21/17 2:28:00 EDT, Dry Weight Start Date: 05/28/19 Status: Ordered hydrocortisone 2.5% topical lotion 1 [...] 01/18/19 10:21:15 EST, Route to Pharmacy Electronically, [id number], [facility]/pharmacy #[id number] Start Date: 01/18/19 Stop Date: 08/16/19 Status: Ordered ProAir HFA 90 mcg/inh inhalation aerosol with adapter 2, puffs, Inhalation, Every 4 hours, PRN, # 8.5 Gm, Refills 6, Tot. Refills 6, Maintenance, 02/21/19 16:23:00 EST, Aerosol, Route to Pharmacy Electronically, NCPDP_[id number], [facility], 163.4, cm, 02/19/19 19:02:00 EST, Height, [...] 1 Refills, Maintenance, 02/19/19 19:13:45EST, ER Tablet, [facility], 163.4, cm, 02/19/19 19:02:31 EST, Height, [...]
--- OUTSIDE RECORDS SUMMARY | 2022-05-29 20:23 | XMS_ITS | Continuity of Care Document ---
Author Name Unknown Organization [facility] Address [address] [place] [id number]- Care Team Providers Care Vp Purchasing Name Role Phone Freddie ABBOTT, Kevin Yusuf Primary Care Physician [facility] Date[facility]): 01[facility] - 02/11/[address] [id number]- Attending Physician: Nasima Coffman Admitting Physician: Nasima [...] 1Result Comment: [12/27/2016] [facility] [id number] 2Admin Note: VIS from 10/11/14 given to parent Medications albuterol 0.083% inhalation solution 3 mL = 2.5 mg, Inhalation, Every 6 hours, PRN for wheezing, # 100 each, 1 Refills, Maintenance, 08/05/21 15:44:00 EDT, Solution, [facility], 163.4, cm, 08/05/21 14:34:00 EDT, Height Start Date: 08/05/21 Status: Ordered BuPROPion (Eqv-Wellbutrin SR) 150 mg/12 hours oral tablet, extended release TAKE 1 TABLET BY MOUTH TWICE A DAY Start Date: 12/30/21 Status: Ordered cetirizine 10 mg oral tablet 1 tablet, By Mouth, Daily, # 30 tablet, 5 Refills, [facility], 163.4, cm, 08/05/21 14:34:00 EDT, Height Start Date: 08/25/21 Status: Ordered clindamycin 1% topical gel 1 application, Topically, 2 times a day, # 30 Gm, 0 Refills, Maintenance, 01/27/22 9:20:00 EST, Gel, [facility], Partial fill upon patient request if the prescription is for a schedule II opioid drug. Refills- contact PCP, 1 application Topi... Start Date: 01/27/22 Status: Ordered diclofenac 1% topical gel 1 application, Topically, 4 times a day, PRN Pain , Moderate, apply to wrists as needed, # 100 Gm, 0 Refills, Maintenance, 07/15/21 15:06:00 EDT, Gel, [facility], Partial fill upon patient request if the prescription is for a schedule II opi... Start Date: 07/15/21 Status: Ordered EpiPen 2-Mir 0.3 mg injectable kit = 0.3 mg, Intramuscular, Once, may repeat if necessary, # 1 each, 0 Refills, Soft Stop, 09/25/21 14:43:00 EDT, [facility], Partial fill upon patient request if the prescription is for a schedule II opioid drug., 163.4, cm, 09/24/21 15:28:00... Start Date: 09/25/21 Status: Ordered famotidine 20 mg oral tablet 20 mg, 1, tablet, By Mouth, 2 times a day, for nausea, heartburn., # 60 tablet, Refills 0, Tot. Refills 0, Maintenance, 10/13/20 16:36:00 EDT, Route to Pharmacy Electronically, [facility], Partial fill upon patient request if the prescriptio... Start Date: 10/13/20 Status: Ordered Flovent HFA 110 mcg/inh inhalation aerosol 2 puffs, Inhalation, 2 times a day, AND THROAT OUT AFTER USE., # 12 Gm, 5 Refills, [facility], 163.4, cm, 10/14/21 8:28:00 EDT, Height Start Date: 10/26/21 Status: Ordered fluticasone 50 mcg/inh nasal spray See Instructions, USE 1 SPRAY IN EACH NOSTRIL TWICE A DAY, # 16 Gm, 5 Refills, [facility], 30, USE 1 SPRAY IN EACH NOSTRIL TWICE A DAY, 163.4, cm, 10/14/21 8:28:00 EDT, Height Start Date: 10/26/21 Status: Ordered hydroCHLOROthiazide 12.5 mg oral capsule 1 capsule, By Mouth, Daily, # 30 capsule, 2 Refills, Maintenance, 12/10/21 12:09:00 EDT, [facility], 163.4, cm, 12/02/21 16:27:00 EDT, Height [...] tablet, Refills 1, Route to Pharmacy Electronically, [facility], 163.4, cm, 09/24/21 15:28:00 EDT, Height Start Date: 09/24/21 Status: Ordered medroxyPROGESTERone 10 mg oral tablet 10 mg, 1, tablet, By Mouth, Daily, # 10 tablet, Refills 0, Tot. Refills 0, Maintenance, 04/17/20 11:20:00 EST, Route to Pharmacy Electronically, [facility], Partial fill upon patient request if the prescription is for a schedule II opioid drMariana. Start Date: 04/17/20 Status: Ordered metFORMIN 500 mg oral tablet 1 tablet = 500 mg, By Mouth, Daily, with meals, # 90 tablet, 0 Refills, Maintenance, 01/27/22 9:19:00 EST, Tablet, [facility], Partial fill upon patient request if the prescription is for aschedule II opioid drug. Refills-contact PCP, 163.4... Start Date: 01/27/22 Status: Ordered NIFEdipine 30 mg oral tablet, extended release 30 mg, 1, tablet, By Mouth, Daily, # 30 tablet, Refills 2, Tot. Refills 2, Maintenance, 12/07/21 15:13:00 EDT, Route to Pharmacy Electronically, [facility], Duplicate Rx. Original sent 12/01/21. Re-sending per pharmacy request, 163.4, cm, ... Start Date: 12/07/21 Stop Date: 03/07/22 Status: Ordered ProAir HFA 90 mcg/inh inhalation aerosol with adapter 2, puffs, Inhalation, Every 4 hours, PRN, # 8.5 Gm, Refills 5, Route to Pharmacy Electronically, [id number]_[id number], [facility], 163.4, cm, 07/15/21 13:31:00 EDT, Height Start Date: 07/16/21 Status: Ordered sertraline 100 mg oral tablet TAKE 1&1/2 TABLET BY MOUTH ONCE A DAY Start Date: 12/30/21 Status: Ordered Slow Fe (as elemental iron) 45 mg oral tablet, extended release 1 tablet = 45 mg, By Mouth, Daily, # 30 tablet, 5 Refills, Maintenance, 12/18/20 10:42:00 EDT, ER Tablet, [facility], Partial fill upon patient request if [...] Personnel Name: Freddie ABBOTT, Kevin Yusuf Position: [facility] Primary Care Physician Member Role: PCP Address: Address: [address] [place] [address]- Care Team Related Persons Name: KARI AGUERO Address: [address] [place] [address]
--- OUTSIDE RECORDS SUMMARY | 2022-05-29 20:23 | XMS_ITS | Continuity of Care Document ---
Author Name Unknown Organization [facility] Address [address] [place] [phone]- Care Team Providers Care Drawer In Dobby Loom Name Role Phone Kevin Frazier MD Primary Care Physician [facility] 12[facility] - 01/15/21 [facility] [address] [place] [phone]- Attending Physician: Kevin Frazier MD Admitting Physician: [...] Comment: [12/27/2016] [facility] [id number] 2Admin Note: VIS from 10/11/14 given to parent Medications albuterol 0.083% inhalation solution 3 mL = 2.5 mg, Inhalation, Every 6 hours, PRN for wheezing, # 60 each, 0 Refills, Maintenance, 11/22/19 11:06:00 EDT, Solution, [facility], 163.4, cm, 11/06/19 13:10:00 EDT, Height Start Date: 11/22/19 Status: Ordered capsaicin 0.025% topical cream 1 application, Topically, 3 times a day, avoid contact with face and eyes to affected area, # 45 Gm, 10 Refills, Maintenance, 11/06/19 13:39:00 EDT, Cream, [facility], 1 application Topically 3 times a day,Instr:avoid contact with face and... Start Date: 11/06/19 Status: Ordered cetirizine 10 mg oral tablet 1 tablet = 10 mg, By Mouth, Daily, # 30 tablet, 5 Refills, Maintenance, 07/24/20 11:12:00 EDT, Tablet, [facility], Label in Sudanese., 163.4, cm, 11/06/19 13:10:00 EDT, Height Start Date: 07/24/20 Status: Ordered diclofenac 1% topical gel 1 application, Topically, 4 times a day, PRN for pain, not to exceed 16 grams/day/single joint of lower extremities. label armenian, # 100 Gm, 4 Refills, Maintenance, 04/18/19 15:51:00 EST, Gel, [facility], 163.4, cm, 04/18/19 15:38:00 EST, H... Start Date: 04/18/19 Status: Ordered diclofenac 1% topical gel 1 application, Topically, 4 times a day, # 100 Gm, 0 Refills, Maintenance, 12/18/20 10:39:00 EDT, Gel, [facility], Partial fill upon patient request if the prescription is for a schedule IIopioid drug., 163.4, cm, 12/18/20 10:36:00 EDT, Height Start Date: 12/18/20 Status: Ordered famotidine 20 mg oral tablet 20 mg, 1, tablet, By Mouth, 2 times a day, for nausea, heartburn., # 60 tablet, Refills 0, Tot. Refills 0, Maintenance, 10/13/20 16:36:00 EDT, Route to Pharmacy Electronically, [facility], Partial fill upon patient request if the prescriptio... Start Date: 10/13/20 Status: Ordered Flovent HFA 110 mcg/inh inhalation aerosol 2 puffs, Inhalation, 2 times a day, use twice a day to prevent asthma symptoms. rinse mouth and throat after use, # 1 each, 5 Refills, Maintenance, 12/12/20 16:28:00 EDT, [facility], Partial fill upon patient request if the prescription is... Start Date: 12/12/20 Status: Ordered fluticasone 50 mcg/inh nasal spray See Instructions, USE 1 SPRAY IN EACH NOSTRIL TWICE A DAY, # 16 Gm, 5 Refills, [facility], 30, USE 1 SPRAY IN EACH NOSTRIL TWICE A DAY, 163.4, cm, 10/13/20 15:44:00 EDT, Height Start Date: 12/12/20 Status: Ordered hydroCHLOROthiazide 12.5 mg oral capsule 1 capsule = 12.5 mg, By Mouth, Daily, # 30 capsule, 5 Refills, Maintenance, 12/18/20 10:41:00 EDT, Capsule, [facility], Partial fill upon [...] 11/16/20 18:01:00 EDT, Route to Pharmacy Electronically, [facility], 163.4, cm, 09/03/20 10:55:00 EDT, Height Start Date: 11/16/20 Stop Date: 05/15/21 Status: Ordered medroxyPROGESTERone 10 mg oral tablet 10 mg, 1, tablet, By Mouth, Daily, # 10 tablet, Refills 0, Tot. Refills 0, Maintenance, 04/17/20 11:20:00 EST, Route to Pharmacy Electronically, [facility], Partial fill upon patient request if [...] 11:13:00 EDT, Aerosol, Route to Pharmacy Electronically, NCPDP_[id number], [facility], 163.4, cm, 11/06/19 13:10:00 EDT, Height Start Date: 07/24/20 Status: Ordered Slow Fe (as elemental iron) 45 mg oral tablet, extended release 1 tablet = 45 mg, By Mouth, Daily, # 30 tablet, 5 Refills, Maintenance, 12/18/20 10:42:00 EDT, ER Tablet, [facility], Partial fill upon patient request if [...] 1 Refills, Maintenance, 02/19/19 19:13:45EST, ER Tablet, [facility], 163.4, cm, 02/19/19 19:02:31 EST, Height, [...]
--- OUTSIDE RECORDS SUMMARY | 2022-05-29 20:23 | XMS_ITS | Continuity of Care Document ---
Author Name Unknown Organization [facility] Address [address] [place] [phone]- Care Team Providers Care Flavorings Compounder Name Role Phone Kevin Frazier MD Primary Care Physician [facility]): [facility]12[facility]20 - 01/01/21 [facility] [address] [place] [phone]- Attending Physician: Not on Staff, Attending MD Referring Physician: Kevin Frazier MD Allergies, [...] 08/07/08 Give n 1Result Comment: [12/27/2016] [facility] [id number] 2Admin Note: VIS from 10/11/14 given to parent Medications albuterol 0.083% inhalation solution 3 mL = 2.5 mg, Inhalation, Every 6 hours, PRN for wheezing, # 60 each, 0 Refills, Maintenance, 11/22/19 11:06:00 EDT, Solution, [facility], 163.4, cm, 11/06/19 13:10:00 EDT, Height Start Date: 11/22/19 Status: Ordered capsaicin 0.025% topical cream 1 application, Topically, 3 times a day, avoid contact with face and eyes to affected area, # 45 Gm, 10 Refills, Maintenance, 11/06/19 13:39:00 EDT, Cream, [facility], 1 application Topically 3 times a day,Instr:avoid contact with face and... Start Date: 11/06/19 Status: Ordered cetirizine 10 mg oral tablet 1 tablet = 10 mg, By Mouth, Daily, # 30 tablet, 5 Refills, Maintenance, 07/24/20 11:12:00 EDT, Tablet, [facility], Label in [place] Of [place]., 163.4, cm, 11/06/19 13:10:00 EDT, Height Start Date: 07/24/20 Status: Ordered diclofenac 1% topical gel 1 application, Topically, 4 times a day, PRN for pain, not to exceed 16 grams/day/single joint of lower extremities. label armenian, # 100 Gm, 4 Refills, Maintenance, 04/18/19 15:51:00 EST, Gel, [facility], 163.4, cm, 04/18/19 15:38:00 EST, H... Start Date: 04/18/19 Status: Ordered diclofenac 1% topical gel 1 application, Topically, 4 times a day, # 100 Gm, 0 Refills, Maintenance, 12/18/20 10:39:00 EDT, Gel, [facility], Partial fill upon patient request if the prescription is for a schedule IIopioid drug., 163.4, cm, 12/18/20 10:36:00 EDT, Height Start Date: 12/18/20 Status: Ordered famotidine 20 mg oral tablet 20 mg, 1, tablet, By Mouth, 2 times a day, for nausea, heartburn., # 60 tablet, Refills 0, Tot. Refills 0, Maintenance, 10/13/20 16:36:00 EDT, Route to Pharmacy Electronically, [facility], Partial fill upon patient request if [...] A DAY, # 16 Gm, 5 Refills, [facility], 30, USE 1 SPRAY IN EACH NOSTRIL TWICE A DAY, 163.4, cm, 10/13/20 15:44:00 EDT, Height Start Date: 12/12/20 Status: Ordered hydroCHLOROthiazide 12.5 mg oral capsule 1 capsule = 12.5 mg, By Mouth, Daily, # 30 capsule, 5 Refills, Maintenance, 12/18/20 10:41:00 EDT, Capsule, [facility], Partial fill upon patient request if the prescription is for a schedule II opioid drug., 163.4, cm, 12/18/20 10:36:00 EDT... Start Date: 12/18/20 Status: Ordered hydrocortisone 2.5% topical lotion 1 application, Topically, 2 times a day, # 59 mL, 0 Refills, Maintenance, 05/17/19 17:11:00 EDT, Lotion, [facility]/pharmacy #[id number], 1 application Topically 2 times a day, 163.4, cm, 05/16/19 10:53:00 EDT, Height, 166.9, kg, 11/21/17 2:28:00 EDT, Dry Weight Start Date: 05/17/19 Status: Ordered lisinopril 20 mg oral tablet 20 mg, 1, tablet, By Mouth, Daily, # 90 tablet, Refills 1, Tot. Refills 1, Maintenance, 11/16/20 18:01:00 EDT, Route to Pharmacy Electronically, [facility], 163.4, cm, 09/03/20 10:55:00 EDT, Height [...] 11:13:00 EDT, Aerosol, Route to Pharmacy Electronically, NCPDP_[id number], [facility], 163.4, cm, 11/06/19 13:10:00 EDT, Height Start Date: 07/24/20 Status: Ordered Slow Fe (as elemental iron) 45 mg oral tablet, extended release 1 tablet = 45 mg, By Mouth, Daily, # 30 tablet, 5 Refills, Maintenance, 12/18/20 10:42:00 EDT, ER Tablet, [facility], Partial fill upon patient request if [...] 1 Refills, Maintenance, 02/19/19 19:13:45EST, ER Tablet, [facility], 163.4, cm, 02/19/19 19:02:31 EST, Height, [...]
--- OUTSIDE RECORDS SUMMARY | 2022-05-29 20:23 | XMS_ITS | Continuity of Care Document ---
Author Name Unknown Organization [facility] Address Adult Weight Managem ent [address] [place] [address]- Care Team Providers Care C Java Developer Name Role Phone Freddie ABBOTT, Kevin Yusuf Primary Care Physician [phone] [facility]): 01[facility]19 - 02/22/19 [facility] Adult Weight Management [address] [place] [address]- [facility] Attending Physician: Glynn Gonzalez MD Referring Physician: Tiffanie ABBOTT, Trent Allergies, Adverse Reactions, Alerts Substance Reaction Severity [...] Give n 1Result Comment: [12/27/2016] [facility] [id number] 2Admin Note: VIS from 10/11/14 given to [...] lower extremities. label ukrainian, # 100 Gm, 0 Refills, Maintenance, 01/01/19 [...] 02/19/19 19:12:13 EST, Route to Pharmacy Electronically, [facility],... Start Date: 02/19/19 Stop Date: 03/01/19 Status: Ordered Flonase 50 mcg/inh nasal spray 1 sprays, Nares, Both, 2 times a day, # 16 Gm, 1 Refills, Maintenance, 07/19/18 10:29:32 EDT, [place], 1 sprays Nares, Both 2 times a day Start Date: 07/19/18 Status: Ordered ibuprofen 400 mg oral tablet 400 mg, 1, tablet, By Mouth, Every 8 hours, PRN, # 50 tablet, Refills 1, Tot. Refills 1, Maintenance, as needed for pain, 01/02/18 11:06:21 EDT, Route to Pharmacy Electronically, [id number], [facility]/pharmacy #[id number] Start Date: 01/02/18 Status: Ordered lisinopril 20 mg oral tablet 20 mg, 1, tablet, By Mouth, Daily, # 30 tablet, Refills 6, Tot. Refills 6, Maintenance, 01/18/19 10:21:15 EST, Route to Pharmacy Electronically, [id number], [facility]/pharmacy #[id number] Start Date: 01/18/19 Stop Date: 08/16/19 Status: Ordered ProAir HFA 90 mcg/inh inhalation aerosol with adapter 2, puffs, Inhalation, Every 4 hours, PRN, # 8.5 Gm, Refills 6, Tot. Refills 6, Maintenance, 02/21/19 16:23:00 EST, Aerosol, Route to Pharmacy Electronically, NCPDP_[id number], [facility], 163.4, cm, 02/19/19 19:02:00 EST, Height, 166.9, kg,... Start Date: 02/21/19 Status: Ordered Right ankle brace Right ankle brace, See Instructions, # 1 each, Refills 0, Tot. Refills 0, Maintenance, Right ankle brace. Please provide the previous brace that patient had. Rt ankle pain (M25.571), 01/04/19 16:16:38 EDT, Compound Start Date: 01/04/19 Status: Ordered sertraline 50 mg oral tablet 1 tablet = 50 mg, By Mouth, Daily, # 30 tablet, 2 Refills, Maintenance, 07/19/18 10:49:13 EDT, Tablet Start Date: 07/19/18 Status: Ordered topiramate 25 mg oral capsule [...] 1 Refills, Maintenance, 02/19/19 19:13:45EST, ER Tablet, [facility], 163.4, cm, 02/19/19 19:02:31 EST, Height, 166.9, kg, :28:34 EDT, Dry Weight Start Date: 02/19/19 Status: Ordered Voltaren 1% topical gel = 2 Gm, Topically, 4 times a day, for knee pain, # 240 Gm, 0 Refills, Maintenance, 02/19/19 19:13:19 EST, [facility], 2 Gm Topically 4 times a day,Instr:for knee pain, 163.4, cm, 02/19/19 19:02:31 EST, Height, 166.9, kg, 11/21/17 2:28:34 EDT... 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
--- OUTSIDE RECORDS SUMMARY | 2022-05-29 20:23 | XMS_ITS | Continuity of Care Document ---
Author Name Unknown Organization [facility] Address [address] [place] [address]- Care Team Providers Care Trial Judge Name Role Phone Freddie ABBOTT, Kevin Yusuf Primary Care Physician [facility]): 09[facility]11[facility]19 - 10/18/[address] [address]- [facility] Attending Physician: Gerardo Lugo OD Admitting Physician: Gerardo Lugo OD Allergies, Adverse Reactions, Alerts Substance Reaction Severity Status NKA Active Immunizations Given and Recorded Vaccine Date Status Refusal Reason influenza virus vaccine, inactivated 01/01/19 Give n influenza virus vaccine, inactivated 1 12/27/16 Gi felecia influenza virus vaccine, inactivated 2 04/17/15 Gi felceia influenza virus vaccine, inactivated 12/27/11 Give n [...] [facility] [id number] 2Admin Note: VIS from 10/11/14 given to [...] 3 Refills, Maintenance, 07/10/19 10:02:00 EDT, Tablet, [facility], 163.4, cm, 05/16/19 10:53:00 EDT, Height, 166.9, kg, 11/21/17 2:28:00 EDT,Dry Weight Start Date: 07/10/19 Status: Ordered diclofenac 1% topical gel 1 application, Topically, 4 times a day, PRN for pain, not to exceed 16 grams/day/single joint of lower extremities. label cook islander, # 100 Gm, 4 Refills, Maintenance, 04/18/19 15:51:00 EST, Gel, [facility], 163.4, cm, 04/18/19 15:38:00 EST, H... Start Date: 04/18/19 Status: Ordered famotidine 20 mg oral tablet 20 mg, 1, tablet, By Mouth, 2 times a day, for pain, nausea. avoid eating and drinking for 10 minutes after each dose, # 20 tablet, Refills 0, Tot. Refills 0, Maintenance, 02/19/19 19:12:13 EST, Route to Pharmacy Electronically, [facility],... Start Date: 02/19/19 Stop Date: 03/01/19 Status: Ordered fexofenadine 60 mg oral tablet 1 tablet = 60 mg, By Mouth, 2 times a day, stop cetirizine please, # 60 tablet, 2 Refills, Maintenance, 08/01/19 9:01:00 EDT, [facility], 163.4, cm, 05/16/19 10:53:00 EDT, Height, 166.9, kg, 11/21/17 2:28:00 EDT, Dry Weight Start Date: 08/01/19 Status: Ordered Flonase 50 mcg/inh nasal spray 1 sprays, Nares, Both, 2 times a day, # 16 Gm, 3 Refills, Maintenance, 07/10/19 10:02:00 EDT, [place], [facility], 1 sprays Nares, Both 2 times a day, 163.4, cm, 05/16/19 10:53:00 EDT, Height, 166.9, kg, 11/21/17 2:28:00 EDT, Dry Weight Start Date: 07/10/19 Status: Ordered hydrocortisone 2.5% topical lotion 1 application, Topically, 2 times a day, # 59 mL, 0 Refills, Maintenance, 05/17/19 17:11:00 EDT, Lotion, [facility]/pharmacy #[id number], 1 application Topically 2 times a day, 163.4, cm, 05/16/19 10:53:00 EDT, Height, 166.9, kg, 11/21/17 2:28:00 EDT, Dry Weight Start Date: 05/17/19 Status: Ordered lisinopril 20 mg oral tablet 20 mg, 1, tablet, By Mouth, Daily, # 30 tablet, Refills 11, Tot. Refills 11, Maintenance, 09/25/19 14:32:00 EDT, Route to Pharmacy Electronically, [facility], 163.4, cm, 08/13/19 14:08:00 EDT, Height, 166.9, kg, 11/21/17 2:28:00 EDT, Dry Weight Start Date: 09/25/19 Stop Date: 09/19/20 Status: Ordered Naphcon-A 0.025%-0.3% ophthalmic solution 1 drops, Eyes, Both, 4 times a day, # 15 mL, 1 Refills, Maintenance, 07/10/19 10:02:00 EDT, Solution, [facility], 1 drops Eyes, Both 4 times a day, 163.4, cm, 05/16/19 10:53:00 EDT, Height,166.9, kg, 11/21/17 2:28:00 EDT, Dry Weight Start Date: 07/10/19 Status: Ordered ProAir HFA 90 mcg/inh inhalation aerosol with adapter 2, puffs, Inhalation, Every 4 hours, PRN, # 8.5 Gm, Refills 6, Tot. Refills 6, Maintenance, 02/21/19 16:23:00 EST, Aerosol, Route to Pharmacy Electronically, NCPDP_[id number], [facility], 163.4, cm, 02/19/19 19:02:00 EST, Height, [...] 1 Refills, Maintenance, 02/19/19 19:13:45EST, ER Tablet, [facility], 163.4, cm, 02/19/19 19:02:31 EST, Height, [...]
--- OUTSIDE RECORDS SUMMARY | 2022-05-29 20:23 | XMS_ITS | Continuity of Care Document ---
Author Name Unknown Organization [facility] Address [address] [place] [id number]- Care Team Providers Care Agricultural Education Instructor Name Role Phone Kevin Frazier MD Primary Care Physician Encounter [facility] Date(s): 11/25/20 - 01/07/21 [facility] [address] [place] [id number]- Attending Physician: Kevin Frazier MD Admitting Physician: [...] (oldterm) 08/07/08 Give n 1Result Comment: [12/27/2016] [facility] [id number] 2Admin Note: VIS from 10/11/14 given to parent Medications albuterol 0.083% inhalation solution 3 mL = 2.5 mg, Inhalation, Every 6 hours, PRN for wheezing, # 60 each, 0 Refills, Maintenance, 11/22/19 11:06:00 EDT, Solution, [facility], 163.4, cm, 11/06/19 13:10:00 EDT, Height Start Date: 11/22/19 Status: Ordered capsaicin 0.025% topical cream 1 application, Topically, 3 times a day, avoid contact with face and eyes to affected area, # 45 Gm, 10 Refills, Maintenance, 11/06/19 13:39:00 EDT, Cream, [facility], 1 application Topically 3 times a day,Instr:avoid contact with face and... Start Date: 11/06/19 Status: Ordered cetirizine 10 mg oral tablet 1 tablet = 10 mg, By Mouth, Daily, # 30 tablet, 5 Refills, Maintenance, 07/24/20 11:12:00 EDT, Tablet, [facility], Label in Bulgarian., 163.4, cm, 11/06/19 13:10:00 EDT, Height Start Date: 07/24/20 Status: Ordered diclofenac 1% topical gel 1 application, Topically, 4 times a day, PRN for pain, not to exceed 16 grams/day/single joint of lower extremities. label persian, # 100 Gm, 4 Refills, Maintenance, 04/18/19 15:51:00 EST, Gel, [facility], 163.4, cm, 04/18/19 15:38:00 EST, H... Start Date: 04/18/19 Status: Ordered diclofenac 1% topical gel 1 application, Topically, 4 times a day, # 100 Gm, 0 Refills, Maintenance, 12/18/20 10:39:00 EDT, Gel, [facility], Partial fill upon patient request if the prescription is for a schedule IIopioid drug., 163.4, cm, 12/18/20 10:36:00 EDT, Height Start Date: 12/18/20 Status: Ordered famotidine 20 mg oral tablet 20 mg, 1, tablet, By Mouth, 2 times a day, for nausea, heartburn., # 60 tablet, Refills 0, Tot. Refills 0, Maintenance, 10/13/20 16:36:00 EDT, Route to Pharmacy Electronically, [facility], Partial fill upon patient request if the prescriptio... Start Date: 10/13/20 Status: Ordered Flovent HFA 110 mcg/inh inhalation aerosol 2 puffs, Inhalation, 2 times a day, use twice a day to prevent asthma symptoms. rinse mouth and throat after use, # 1 each, 5 Refills, Maintenance, 12/12/20 16:28:00 EDT, [facility], Partial fill upon patient request if the prescription is... Start Date: 12/12/20 Status: Ordered fluticasone 50 mcg/inh nasal spray See Instructions, USE 1 SPRAY IN EACH NOSTRIL TWICE A DAY, # 16 Gm, 5 Refills, [facility], 30, USE 1 SPRAY IN EACH NOSTRIL TWICE A DAY, 163.4, cm, 10/13/20 15:44:00 EDT, Height Start Date: 12/12/20 Status: Ordered hydroCHLOROthiazide 12.5 mg oral capsule 1 capsule = 12.5 mg, By Mouth, Daily, # 30 capsule, 5 Refills, Maintenance, 12/18/20 10:41:00 EDT, Capsule, [facility], Partial fill upon patient request if the prescription is for a schedule II opioid drug., 163.4, cm, 12/18/20 10:36:00 EDT... Start Date: 12/18/20 Status: Ordered hydrocortisone 2.5% topical lotion 1 application, Topically, 2 times a day, # 59 mL, 0 Refills, Maintenance, 05/17/19 17:11:00 EDT, Lotion, [facility]/pharmacy #[id number], 1 application Topically 2 times a day, 163.4, cm, 05/16/19 10:53:00 EDT, Height, 166.9, kg, 11/21/17 2:28:00 EDT, Dry Weight Start Date: 05/17/19 Status: Ordered lisinopril 20 mg oral tablet 20 mg, 1, tablet, By Mouth, Daily, # 90 tablet, Refills 1, Tot. Refills 1, Maintenance, 11/16/20 18:01:00 EDT, Route to Pharmacy Electronically, [facility], 163.4, cm, 09/03/20 10:55:00 EDT, Height Start Date: 11/16/20 Stop Date: 05/15/21 Status: Ordered medroxyPROGESTERone 10 mg oral tablet 10 mg, 1, tablet, By Mouth, Daily, # 10 tablet, Refills 0, Tot. Refills 0, Maintenance, 04/17/20 11:20:00 EST, Route to Pharmacy Electronically, [facility], Partial fill upon patient request [...] 11:13:00 EDT, Aerosol, Route to Pharmacy Electronically, [id number]_[id number], [facility], 163.4, cm, 11/06/19 13:10:00 EDT, Height Start Date: 07/24/20 Status: Ordered Slow Fe (as elemental iron) 45 mg oral tablet, extended release 1 tablet = 45 mg, By Mouth, Daily, # 30 tablet, 5 Refills, Maintenance, 12/18/20 10:42:00 EDT, ER Tablet, [facility], Partial fill upon patient request if [...] 1 Refills, Maintenance, 02/19/19 19:13:45EST, ER Tablet, [facility], 163.4, cm, 02/19/19 19:02:31 EST, Height, [...]
--- OUTSIDE RECORDS SUMMARY | 2022-05-29 20:23 | XMS_ITS | Continuity of Care Document ---
Author Name Unknown Organization [facility] Address [address] [place] [address]- Care Team Providers Care Display Manager Name Role Phone Lazarus ABBOTT, Blessing Primary Care Physician [facility] Date(s): 03/02/21 - 05/06/21 [facility] [address] [place] [id number] Attending Physician: Not on Staff, Attending MD [...] n 1Result Comment: [12/27/2016] [facility] [id number] 2Admin Note: VIS from 10/11/14 given to parent Medications albuterol 0.083% inhalation solution 3 mL = 2.5 mg, Inhalation, Every 6 hours, PRN for wheezing, # 60 each, 0 Refills, Maintenance, 11/22/19 11:06:00 EDT, Solution, [facility], 163.4, cm, 11/06/19 13:10:00 EDT, Height Start Date: 11/22/19 Status: Ordered capsaicin 0.025% topical cream 1 application, Topically, 3 times a day, avoid contact with face and eyes to affected area, # 45 Gm, 10 Refills, Maintenance, 11/06/19 13:39:00 EDT, Cream, [facility], 1 application Topically 3 times a day,Instr:avoid contact with face and... Start Date: 11/06/19 Status: Ordered cetirizine 10 mg oral tablet 1 tablet, By Mouth, Daily, # 30 tablet, 5 Refills, [facility], 163.4, cm, 02/25/21 13:06:00 EST, Height Start Date: 03/03/21 Status: Ordered diclofenac 1% topical gel 1 application, Topically, 4 times a day, PRN for pain, not to exceed 16 grams/day/single joint of lower extremities. label macedonian, # 100 Gm, 4 Refills, Maintenance, 04/18/19 [...] A DAY, # 16 Gm, 5 Refills, [facility], 30, USE 1 SPRAY IN EACH [...] Replace Required Details, Route to Pharmacy Electronically, [facility], 163.4, cm, 02/25/21 13:06:00EST, Height Start Date: 03/31/21 Status: Ordered medroxyPROGESTERone 10 mg oral tablet 10 mg, 1, tablet, By Mouth, Daily, # 10 tablet, Refills 0, Tot. Refills 0, Maintenance, 04/17/20 11:20:00 EST, Route to Pharmacy Electronically, [facility], Partial fill upon patient request if the prescription is for a schedule II opioid dr... Start Date: 2/11/21 Status: Ordered Nebulizer/Compressor See Instructions, # 1 each, Maintenance, nebulizer with tubing and mouthpiece DX asthma, ICD J45.901, 11/22/19 11:05:00 EDT, Supply Start Date: 11/22/19 Status: Ordered ProAir HFA 90 mcg/inh inhalation aerosol with adapter 2, puffs, Inhalation, Every 4 hours, PRN, # 8.5 Gm, Refills 5, Route to Pharmacy Electronically, NCPDP_[id number], [facility], 163.4, cm, 02/25/21 13:06:00 EST, Height [...] 1 Refills, Maintenance, 02/19/19 19:13:45EST, ER Tablet, [facility], 163.4, cm, 02/19/19 19:02:31 EST, Height, [...]
--- OUTSIDE RECORDS SUMMARY | 2022-05-29 20:23 | XMS_ITS | Continuity of Care Document ---
Author Name Unknown Organization [facility] Address [address] [place] [address]- Care Team Providers Care Interior Design Assistant Name Role Phone Freddie ABBOTT, Kevin Yusuf Primary Care Physician Encounter [facility] Date(s): 11/29/19 - 12/29/19 [facility] [address] [place] [id number]- [facility] Allergies, Adverse Reactions, Alerts Substance [...] 1Result Comment: [12/27/2016] [facility] [id number] 2Admin Note: VIS from 10/11/14 given to parent Medications albuterol 0.083% inhalation solution 3 mL = 2.5 mg, Inhalation, Every 6 hours, PRN for wheezing, # 60 each, 0 Refills, Maintenance, 11/22/19 11:06:00 EDT, Solution, [facility], 163.4, cm, 11/06/19 13:10:00 EDT, Height Start Date: 11/22/19 Status: Ordered Azithromycin 3 Day Dose Pack 500 mg oral tablet 1 tablet = 500 mg, By Mouth, Daily, # 3 tablet, 0 Refills, Maintenance, 11/29/19 14:02:00 EDT, Tablet, [facility], 163.4, cm, 11/06/19 13:10:00 EDT, Height [...] 16 grams/day/single joint of lower extremities. label georgian, # 100 Gm, 4 Refills, Maintenance, 04/18/19 15:51:00 EST, Gel, [facility], 163.4, cm, 04/18/19 15:38:00 EST, H... Start Date: 04/18/19 Status: Ordered fexofenadine 60 mg oral tablet 1 tablet = 60 mg, By Mouth, 2 times a day, stop cetirizine please, # 60 tablet, 2 Refills, Maintenance, 08/01/19 9:01:00 EDT, [facility], 163.4, cm, 05/16/19 10:53:00 EDT, Height, 166.9, kg, 11/21/17 2:28:00 EDT, Dry Weight Start Date: 08/01/19 Status: Ordered Flonase 50 mcg/inh nasal spray 1 sprays, Nares, Both, 2 times a day, # 16 Gm, 3 Refills, Maintenance, 07/10/19 10:02:00 EDT, [place], [facility], 1 sprays Nares, Both 2 times a day, 163.4, cm, 05/16/19 10:53:00 EDT, Height, 166.9, kg, 11/21/17 2:28:00 EDT, Dry Weight Start Date: 07/10/19 Status: Ordered hydrocortisone 1% topical cream 1 application, Topically, 2 times a day, # 30 Gm, 0 Refills, Acute 01/12/20 9:24:00 EST, 12/12/19 9:24:00 EDT, Cream, [facility], 1 application Topically 2 times a day, 163.4, cm, 11/06/19 13:10:00 EDT, Height Start Date: 12/12/19 Stop Date: 01/12/20 Status: Ordered hydrocortisone 2.5% topical lotion 1 application, Topically, 2 times a day, # 59 mL, 0 Refills, Maintenance, 05/17/19 17:11:00 EDT, Lotion, [facility]/pharmacy #[id number], 1 application Topically [...] 0 Refills, Maintenance, 12/12/19 9:11:00 EDT, Tablet, [facility], 163.4, cm, 11/06/19 13:10:00 EDT, Height, Dry Weight Start Date: 12/12/19 Status: Ordered Naphcon-A 0.025%-0.3% ophthalmic solution 1 drops, Eyes, Both, 4 times a day, # 15 mL, 1 Refills, Maintenance, 07/10/19 10:02:00 EDT, Solution, [facility], 1 drops Eyes, Both 4 times [...] 18:22:00 EDT, Aerosol, Route to Pharmacy Electronically, NCPDP_[id number], [facility], 163.4, cm, 11/06/19 13:10:00 EDT, Height, [...] 1 Refills, Maintenance, 02/19/19 19:13:45EST, ER Tablet, [facility], 163.4, cm, 02/19/19 19:02:31 EST, Height, [...]
--- OUTSIDE RECORDS SUMMARY | 2022-05-29 20:23 | XMS_ITS | Continuity of Care Document ---
Author Name Unknown Organization [facility] Address [address] [place] [id number]- Care Team Providers Care Photovoltaic Power Systems Engineer Name Role Phone Blessing Qiu MD Primary Care Physician Encounter [facility] Date(s): 04/13/21 - 05/13/[address] [id number] Attending Physician: Nasima Coffman Admitting Physician: AdmtrNasima Referring Physician: Admtr, Ar8 Allergies, Adverse Reactions, Alerts No Known Allergies [...] [12/27/2016] [facility] [id number] 2Admin Note: VIS from 10/11/14 given to parent Medications albuterol 0.083% inhalation solution 3 mL = 2.5 mg, Inhalation, Every 6 hours, PRN for wheezing, # 60 each, 0 Refills, Maintenance, 11/22/19 11:06:00 EDT, Solution, [facility], 163.4, cm, 11/06/19 13:10:00 EDT, Height Start Date: 11/22/19 Status: Ordered capsaicin 0.025% topical cream 1 application, Topically, 3 times a day, avoid contact with face and eyes to affected area, # 45 Gm, 10 Refills, Maintenance, 11/06/19 13:39:00 EDT, Cream, [facility], 1 application Topically 3 times a day,Instr:avoid contact with face and... Start Date: 11/06/19 Status: Ordered cetirizine 10 mg oral tablet 1 tablet, By Mouth, Daily, # 30 tablet, 5 Refills, [facility], 163.4, cm, 02/25/21 13:06:00 EST, Height Start Date: 03/03/21 Status: Ordered diclofenac 1% topical gel 1 application, Topically, 4 times a day, PRN for pain, not to exceed 16 grams/day/single joint of lower extremities. label setswana, # 100 Gm, 4 Refills, Maintenance, 04/18/19 15:51:00 EST, Gel, [facility], 163.4, cm, 04/18/19 15:38:00 EST, H... Start Date: 04/18/19 Status: Ordered diclofenac 1% topical gel 1 application, Topically, 4 times a day, # 100 Gm, 0 Refills, Maintenance, 12/18/20 10:39:00 EDT, Gel, [facility], Partial fill upon patient request if the prescription is for a schedule IIopioid drug., 163.4, cm, 12/18/20 10:36:00 EDT, Height Start Date: 12/18/20 Status: Ordered famotidine 20 mg oral tablet 20 mg, 1, tablet, By Mouth, 2 times a day, for nausea, heartburn., # 60 tablet, Refills 0, Tot. Refills 0, Maintenance, 10/13/20 16:36:00 EDT, Route to Pharmacy Electronically, [facility], Partial fill upon patient request if the prescriptio... Start Date: 10/13/20 Status: Ordered Flovent HFA 110 mcg/inh inhalation aerosol 2 puffs, Inhalation, 2 times a day, use twice a day to prevent asthma symptoms. rinse mouth and throat after use, # 1 each, 5 Refills, Maintenance, 12/12/20 16:28:00 EDT, [facility], Partial fill upon patient request if the prescription is... Start Date: 12/12/20 Status: Ordered fluticasone 50 mcg/inh nasal spray See Instructions, USE 1 SPRAY IN EACH NOSTRIL TWICE A DAY, # 16 Gm, 5 Refills, [facility], 30, USE 1 SPRAY IN EACH NOSTRIL TWICE A DAY, 163.4, cm, 10/13/20 15:44:00 EDT, Height Start Date: 12/12/20 Status: Ordered hydroCHLOROthiazide 12.5 mg oral capsule 1 capsule = 12.5 mg, By Mouth, Daily, # 30 capsule, 5 Refills, Maintenance, 12/18/20 10:41:00 EDT, Capsule, [facility], Partial fill upon patient request if the prescription is for a schedule II opioid drug., 163.4, cm, 12/18/20 10:36:00 EDT... Start Date: 12/18/20 Status: Ordered hydrocortisone 2.5% topical lotion 1 application, Topically, 2 times a day, # 59 mL, 0 Refills, Maintenance, 05/17/19 17:11:00 EDT, Lotion, [facility]/pharmacy #[id number], 1 application Topically 2 times a day, 163.4, cm, 05/16/19 10:53:00 EDT, Height, 166.9, kg, 11/21/17 2:28:00 EDT, Dry Weight Start Date: 05/17/19 Status: Ordered lisinopril 20 mg oral tablet See Instructions, TAKE 1 TABLET BY MOUTH EVERY DAY, # 90 tablet, Refills 1, Instructions Replace Required Details, Route to Pharmacy Electronically, [facility], 163.4, cm, 02/25/21 13:06:00EST, Height Start Date: 03/31/21 Status: Ordered medroxyPROGESTERone 10 mg oral tablet 10 mg, 1, tablet, By Mouth, Daily, # 10 tablet, Refills 0, Tot. Refills 0, Maintenance, 04/17/20 11:20:00 EST, Route to Pharmacy Electronically, [facility], Partial fill upon patient request if [...] Gm, Refills 5, Route to Pharmacy Electronically, NCPDP_[id number], [facility], 163.4, cm, 02/25/21 13:06:00 EST, Height Start Date: 03/03/21 Status: Ordered Slow Fe (as elemental iron) 45 mg oral tablet, extended release 1 tablet = 45 mg, By Mouth, Daily, # 30 tablet, 5 Refills, Maintenance, 12/18/20 10:42:00 EDT, ER Tablet, [facility], Partial fill upon patient request if [...] 1 Refills, Maintenance, 02/19/19 19:13:45EST, ER Tablet, [facility], 163.4, cm, 02/19/19 19:02:31 EST, Height, [...]
--- OUTSIDE RECORDS SUMMARY | 2022-05-29 20:24 | XMS_ITS | Continuity of Care Document ---
Author Name Unknown Organization [facility] Address [address] [place] [address]- Care Team Providers Care Hotbed Operator Name Role Phone Blessing Qiu MD Primary Care Physician [facility] Date[facility]s): 09/25/21 - 10/25/21 [facility] [address] [place] [id number] Allergies, Adverse Reactions, Alerts No Known Allergies [...] 08/07/08 Give n 1Result Comment: [12/27/2016] [facility] [id number] 2Admin Note: VIS from 10/11/14 given to parent Medications albuterol 0.083% inhalation solution 3 mL = 2.5 mg, Inhalation, Every 6 hours, PRN for wheezing, # 100 each, 1 Refills, Maintenance, 06/01/22 15:44:00 EDT, Solution, [facility], 163.4, cm, 08/05/21 14:34:00 EDT, Height [...] 09/24/21 16:12:00 EDT, Route to Pharmacy Electronically, [facility], Partial fill upon patient request if the prescription is for a schedule II opioid dr... Start Date: 09/24/21 Status: Ordered diclofenac 1% topical gel 1 application, Topically, 4 times a day, # 100 Gm, 0 Refills, Maintenance, 12/18/20 10:39:00 EDT, Gel, [facility], Partial fill upon patient request if the prescription is for a schedule IIopioid drug., 163.4, cm, 12/18/20 10:36:00 EDT, Height Start Date: 12/18/20 Status: Ordered diclofenac 1% topical gel 1 application, Topically, 4 times a day, PRN Pain , Moderate, apply to wrists as needed, # 100 Gm, 0 Refills, Maintenance, 07/15/21 15:06:00 EDT, Gel, [facility], Partial fill upon [...] Gm, 5 Refills, Maintenance, 05/26/21 13:59:00 EDT, [facility], 163.4, cm, 02/25/21 13:06:00 EST, Height Start Date: 05/26/21 Status: Ordered fluticasone 50 mcg/inh nasal spray See Instructions, USE 1 SPRAY IN EACH NOSTRIL TWICE A DAY, # 16 Gm, 5 Refills, Maintenance, 05/26/21 13:59:00 EDT, [facility], 30, USE 1 SPRAY IN EACH NOSTRIL TWICE A DAY, 163.4, cm, 02/25/21 13:06:00 EST, Height Start Date: 05/26/21 Status: Ordered hydroCHLOROthiazide 12.5 mg oral capsule 1 capsule, By Mouth, Daily, # 30 capsule, 5 Refills, [facility], 163.4, cm, 02/25/21 13:06:00 EST, Height Start Date: 06/09/21 Status: Ordered lisinopril 20 mg oral tablet 1, tablet, By Mouth, Daily, # 90 tablet, Refills 1, Route to Pharmacy Electronically, [facility], 163.4, cm, 09/24/21 15:28:00 EDT, Height Start Date: 09/24/21 Status: Ordered medroxyPROGESTERone 10 mg oral tablet 10 mg, 1, tablet, By Mouth, Daily, # 10 tablet, Refills 0, Tot. Refills 0, Maintenance, 04/17/20 11:20:00 EST, Route to Pharmacy Electronically, [facility], Partial fill upon patient request if the prescription is for a schedule II opioid drMariana. Start Date: 04/17/20 Status: Ordered ProAir HFA 90 mcg/inh inhalation aerosol with adapter 2, puffs, Inhalation, Every 4 hours, PRN, # 8.5 Gm, Refills 5, Route to Pharmacy Electronically, NCPDP_[id number], [facility], 163.4, cm, 07/15/21 13:31:00 EDT, Height [...] Refills, Maintenance, 12/18/20 10:42:00 EDT, ER Tablet, [facility], Partial fill upon patient request if [...]
--- OUTSIDE RECORDS SUMMARY | 2022-05-29 20:24 | XMS_ITS | Continuity of Care Document ---
Author Name Unknown Organization [facility] Address [address] [place] [address]- Care Team Providers Care Professor Of Practice Name Role Phone Freddie ABBOTT, Kevin Yusuf Primary Care Physician [facility] Date[facility]): 11/[facility]/20 - 12/20/20 [facility] [address] [place] [id number] Allergies, Adverse Reactions, Alerts Substance Reaction Severity [...] [12/27/2016] [facility] [id number] 2Admin Note: VIS from 10/11/14 given to parent Medications albuterol 0.083% inhalation solution 3 mL = 2.5 mg, Inhalation, Every 6 hours, PRN for wheezing, # 60 each, 0 Refills, Maintenance, 11/22/19 11:06:00 EDT, Solution, [facility], 163.4, cm, 11/06/19 13:10:00 EDT, Height Start Date: 11/22/19 Status: Ordered capsaicin 0.025% topical cream 1 application, Topically, 3 times a day, avoid contact with face and eyes to affected area, # 45 Gm, 10 Refills, Maintenance, 11/06/19 13:39:00 EDT, Cream, [facility], 1 application Topically 3 times a day,Instr:avoid contact with face and... Start Date: 11/06/19 Status: Ordered cetirizine 10 mg oral tablet 1 tablet = 10 mg, By Mouth, Daily, # 30 tablet, 5 Refills, Maintenance, 07/24/20 11:12:00 EDT, Tablet, [facility], Label in [place] [facility]., 163.4, cm, 11/06/19 13:10:00 EDT, Height Start Date: 07/24/20 Status: Ordered diclofenac 1% topical gel 1 application, Topically, 4 times a day, PRN for pain, not to exceed 16 grams/day/single joint of lower extremities. label montserratian, # 100 Gm, 4 Refills, Maintenance, 04/18/19 15:51:00 EST, Gel, [facility], 163.4, cm, 04/18/19 15:38:00 EST, H... Start Date: 04/18/19 Status: Ordered diclofenac 1% topical gel 1 application, Topically, 4 times a day, # 100 Gm, 0 Refills, Maintenance, 12/18/20 10:39:00 EDT, Gel, [facility], Partial fill upon patient request if the prescription is for a schedule IIopioid drug., 163.4, cm, 12/18/20 10:36:00 EDT, Height Start Date: 12/18/20 Status: Ordered famotidine 20 mg oral tablet 20 mg, 1, tablet, By Mouth, 2 times a day, for nausea, heartburn., # 60 tablet, Refills 0, Tot. Refills 0, Maintenance, 10/13/20 16:36:00 EDT, Route to Pharmacy Electronically, [facility], Partial fill upon patient request if the prescriptio... Start Date: 10/13/20 Status: Ordered Flovent HFA 110 mcg/inh inhalation aerosol 2 puffs, Inhalation, 2 times a day, use twice a day to prevent asthma symptoms. rinse mouth and throat after use, # 1 each, 5 Refills, Maintenance, 12/12/20 16:28:00 EDT, [facility], Partial fill upon patient request if the prescription is... Start Date: 12/12/20 Status: Ordered fluticasone 50 mcg/inh nasal spray See Instructions, USE 1 SPRAY IN EACH NOSTRIL TWICE A DAY, # 16 Gm, 5 Refills, [facility], 30, USE 1 SPRAY IN EACH NOSTRIL TWICE A DAY, 163.4, cm, 10/13/20 15:44:00 EDT, Height Start Date: 12/12/20 Status: Ordered hydroCHLOROthiazide 12.5 mg oral capsule 1 capsule = 12.5 mg, By Mouth, Daily, # 30 capsule, 5 Refills, Maintenance, 12/18/20 10:41:00 EDT, Capsule, [facility], Partial fill upon patient request [...] 11/16/20 18:01:00 EDT, Route to Pharmacy Electronically, [facility], 163.4, cm, 09/03/20 10:55:00 EDT, Height Start Date: 11/16/20 Stop Date: 05/15/21 Status: Ordered medroxyPROGESTERone 10 mg oral tablet 10 mg, 1, tablet, By Mouth, Daily, # 10 tablet, Refills 0, Tot. Refills 0, Maintenance, 04/17/20 11:20:00 EST, Route to Pharmacy Electronically, [facility], Partial fill upon patient request [...] 11:13:00 EDT, Aerosol, Route to Pharmacy Electronically, NCPDP_[id number], [facility], 163.4, cm, 11/06/19 13:10:00 EDT, Height Start Date: 07/24/20 Status: Ordered Slow Fe (as elemental iron) 45 mg oral tablet, extended release 1 tablet = 45 mg, By Mouth, Daily, # 30 tablet, 5 Refills, Maintenance, 12/18/20 10:42:00 EDT, ER Tablet, [facility], Partial fill upon patient request [...] 1 Refills, Maintenance, 02/19/19 19:13:45EST, ER Tablet, [facility], 163.4, cm, 02/19/19 19:02:31 EST, Height, [...]
--- OUTSIDE RECORDS SUMMARY | 2022-05-29 20:24 | XMS_ITS | Continuity of Care Document ---
Author Name Unknown Organization [facility] Address [address] [place] [address]- Care Team Providers Care Housing Case Manager Name Role Phone Freddie ABBOTT, Kevin Yusuf Primary Care Physician [facility] - 10/05/19 [facility] [address] [place] [address]- [facility] Allergies, Adverse Reactions, Alerts Substance [...] 08/07/08 Give n 1Result Comment: [12/27/2016] [facility] [id number] 2Admin Note: VIS from 10/11/14 given to [...] 3 Refills, Maintenance, 07/10/19 10:02:00 EDT, Tablet, [facility], 163.4, cm, 05/16/19 10:53:00 EDT, Height, 166.9, kg, 11/21/17 2:28:00 EDT,Dry Weight Start Date: 07/10/19 Status: Ordered diclofenac 1% topical gel 1 application, Topically, 4 times a day, PRN for pain, not to exceed 16 grams/day/single joint of lower extremities. label citizen of [place], # 100 Gm, 4 Refills, Maintenance, 04/18/19 15:51:00 EST, Gel, [facility], 163.4, cm, 04/18/19 15:38:00 EST, H... Start Date: 04/18/19 Status: Ordered famotidine 20 mg oral tablet 20 mg, 1, tablet, By Mouth, 2 times a day, for pain, nausea. avoid eating and drinking for 10 minutes after each dose, # 20 tablet, Refills 0, Tot. Refills 0, Maintenance, 02/19/19 19:12:13 EST, Route to Pharmacy Electronically, [facility],... Start Date: 02/19/19 Stop Date: 03/01/19 Status: Ordered fexofenadine 60 mg oral tablet 1 tablet = 60 mg, By Mouth, 2 times a day, stop cetirizine please, # 60 tablet, 2 Refills, Maintenance, 08/01/19 9:01:00 EDT, [facility], 163.4, cm, 05/16/19 10:53:00 EDT, Height, 166.9, kg, 11/21/17 2:28:00 EDT, Dry Weight Start Date: 08/01/19 Status: Ordered Flonase 50 mcg/inh nasal spray 1 sprays, Nares, Both, 2 times a day, # 16 Gm, 3 Refills, Maintenance, 07/10/19 10:02:00 EDT, [place], [facility], 1 sprays Nares, Both 2 times a day, 163.4, cm, 05/16/19 10:53:00 EDT, Height, 166.9, kg, 11/21/17 2:28:00 EDT, Dry Weight Start Date: 07/10/19 Status: Ordered hydrocortisone 2.5% topical lotion 1 application, Topically, 2 times a day, # 59 mL, 0 Refills, Maintenance, 05/17/19 17:11:00 EDT, Lotion, [facility]/pharmacy #[id number], 1 application Topically 2 times a day, 163.4, cm, 05/16/19 10:53:00 EDT, Height, 166.9, kg, 11/21/17 2:28:00 EDT, Dry Weight Start Date: 05/17/19 Status: Ordered lisinopril 20 mg oral tablet 20 mg, 1, tablet, By Mouth, Daily, # 30 tablet, Refills 11, Tot. Refills 11, Maintenance, 09/25/19 14:32:00 EDT, Route to Pharmacy Electronically, [facility], 163.4, cm, 08/13/19 14:08:00 EDT, Height, 166.9, kg, 11/21/17 2:28:00 EDT, Dry Weight Start Date: 09/25/19 Stop Date: 09/19/20 Status: Ordered Naphcon-A 0.025%-0.3% ophthalmic solution 1 drops, Eyes, Both, 4 times a day, # 15 mL, 1 Refills, Maintenance, 07/10/19 10:02:00 EDT, Solution, [facility], 1 drops Eyes, Both 4 times a day, 163.4, cm, 05/16/19 10:53:00 EDT, Height,166.9, kg, 11/21/17 2:28:00 EDT, Dry Weight Start Date: 07/10/19 Status: Ordered ProAir HFA 90 mcg/inh inhalation aerosol with adapter 2, puffs, Inhalation, Every 4 hours, PRN, # 8.5 Gm, Refills 6, Tot. Refills 6, Maintenance, 02/21/19 16:23:00 EST, Aerosol, Route to Pharmacy Electronically, [id number]_[id number], [facility], 163.4, cm, 02/19/19 19:02:00 EST, Height, [...] Refills, Maintenance, 02/19/19 19:13:45EST, ER Tablet, [facility], 163.4, cm, 02/19/19 19:02:31 EST, Height, [...]
--- OUTSIDE RECORDS SUMMARY | 2022-05-29 20:24 | XMS_ITS | Continuity of Care Document ---
Author Name Unknown Organization [facility] Address [address] [place] [address]- Care Team Providers Care Spinner Hand Name Role Phone Kevin Frazier MD Primary Care Physician [phone] [facility] - 04/09/21 [facility] [address] [place] [id number] Allergies, Adverse Reactions, Alerts [...] 08/07/08 Give n 1Result Comment: [12/27/2016] [facility] [id number] 2Admin Note: VIS from 10/11/14 given to parent Medications albuterol 0.083% inhalation solution 3 mL = 2.5 mg, Inhalation, Every 6 hours, PRN for wheezing, # 60 each, 0 Refills, Maintenance, 11/22/19 11:06:00 EDT, Solution, [facility], 163.4, cm, 11/06/19 13:10:00 EDT, Height [...] Mouth, Daily, # 30 tablet, 5 Refills, [facility], 163.4, cm, 02/25/21 13:06:00 EST, Height Start Date: 03/03/21 Status: Ordered diclofenac 1% topical gel 1 application, Topically, 4 times a day, PRN for pain, not to exceed 16 grams/day/single joint of lower extremities. label syrian, # 100 Gm, 4 Refills, Maintenance, 04/18/19 [...] A DAY, # 16 Gm, 5 Refills, [facility], 30, USE 1 SPRAY IN EACH NOSTRIL TWICE A DAY, 163.4, cm, 10/13/20 15:44:00 EDT, Height Start Date: 12/12/20 Status: Ordered hydroCHLOROthiazide 12.5 mg oral capsule 1 capsule = 12.5 mg, By Mouth, Daily, # 30 capsule, 5 Refills, Maintenance, 12/18/20 10:41:00 EDT, Capsule, [facility], Partial fill upon [...] Replace Required Details, Route to Pharmacy Electronically, [facility], 163.4, cm, 02/25/21 13:06:00EST, Height Start [...] Gm, Refills 5, Route to Pharmacy Electronically, NCPDP_[id number], [facility], 163.4, cm, 02/25/21 13:06:00 EST, Height Start Date: 03/03/21 Status: Ordered Slow Fe (as elemental iron) 45 mg oral tablet, extended release 1 tablet = 45 mg, By Mouth, Daily, # 30 tablet, 5 Refills, Maintenance, 12/18/20 10:42:00 EDT, ER Tablet, [facility], Partial fill upon [...] 1 Refills, Maintenance, 02/19/19 19:13:45EST, ER Tablet, [facility], 163.4, cm, 02/19/19 19:02:31 EST, Height, [...]
--- OUTSIDE RECORDS SUMMARY | 2022-05-29 20:24 | XMS_ITS | Continuity of Care Document ---
Author Name Unknown Organization [facility] Address [address] [place] [address]- Care Team Providers Care Behavioral Medical Director Name Role Phone Freddie ABBOTT, Kevin Yusuf Primary Care Physician [facility] 07[facility]20 - 08/23/20 [facility] [address], [place] [address] Allergies, Adverse Reactions, Alerts Substance Reaction Severity [...] (oldterm) 08/07/08 Give n 1Result Comment: [12/27/2016] [facility] [id number] 2Admin Note: VIS from 10/11/14 given to parent Medications albuterol 0.083% inhalation solution 3 mL = 2.5 mg, Inhalation, Every 6 hours, PRN for wheezing, # 60 each, 0 Refills, Maintenance, 11/22/19 11:06:00 EDT, Solution, [facility], 163.4, cm, 11/06/19 13:10:00 EDT, Height Start Date: 11/22/19 Status: Ordered Azithromycin 3 Day Dose Pack 500 mg oral tablet 1 tablet = 500 mg, By Mouth, Daily, # 3 tablet, 0 Refills, Maintenance, 11/29/19 14:02:00 EDT, Tablet, [facility], 163.4, cm, 11/06/19 13:10:00 EDT, Height [...] 5 Refills, Maintenance, 07/24/20 11:12:00 EDT, Tablet, [facility], Label in [place]ian., 163.4, cm, 11/06/19 13:10:00 EDT, Height Start [...] Gm, 3 Refills, Maintenance, 07/24/20 11:12:00 EDT, [place], [facility], 1 sprays Nares, Both 2 times a day, 163.4, cm, 11/06/19 13:10:00 EDT, Height Start Date: 07/24/20 Status: Ordered hydrocortisone 2.5% topical lotion 1 application, Topically, 2 times a day, # 59 mL, 0 Refills, Maintenance, 05/17/19 17:11:00 EDT, Lotion, [facility]/pharmacy #[id number], 1 application Topically 2 times a day, 163.4, cm, 05/16/19 10:53:00 EDT, Height, 166.9, kg, 11/21/17 2:28:00 EDT, Dry Weight Start Date: 05/17/19 Status: Ordered lisinopril 20 mg oral tablet 20 mg, 1, tablet, By Mouth, Daily, # 90 tablet, Refills 3, Tot. Refills 3, Maintenance, 11/22/19 18:01:00 EDT, Route to Pharmacy Electronically, [facility], 163.4, cm, 11/06/19 13:10:00 EDT, Height, [...] 0 Refills, Maintenance, 12/12/19 9:11:00 EDT, Tablet, [facility], 163.4, cm, 11/06/19 13:10:00 EDT, Height, Dry Weight Start Date: 12/12/19 Status: Ordered Naphcon-A 0.025%-0.3% ophthalmic solution 1 drops, Eyes, Both, 4 times a day, # 15 mL, 1 Refills, Maintenance, 07/10/19 10:02:00 EDT, Solution, [facility], 1 drops Eyes, Both 4 times [...] 0 Refills, Maintenance, 01/10/20 14:06:00 EST, ECCapsule, [facility], 163.4, cm, 11/06/19 13:10:00 EDT, Height Start Date: 01/10/20 Status: Ordered ProAir HFA 90 mcg/inh inhalation aerosol with adapter 2, puffs, Inhalation, Every 4 hours, PRN, # 8.5 Gm, Refills 5, Tot. Refills 5, Maintenance, 07/24/20 11:13:00 EDT, Aerosol, Route to Pharmacy Electronically, NCPDP_[id number], [facility], 163.4, cm, 11/06/19 13:10:00 EDT, Height [...] 1 Refills, Maintenance, 02/19/19 19:13:45EST, ER Tablet, [facility], 163.4, cm, 02/19/19 19:02:31 EST, Height, [...]
--- OUTSIDE RECORDS SUMMARY | 2022-05-29 20:24 | XMS_ITS | Continuity of Care Document ---
Author Name Unknown Organization [facility] Address [address] [place] [address]- Care Team Providers Care S Iron Worker Name Role Phone Freddie ABBOTT, Kevin Yusuf Primary Care Physician [facility] 11[facility]20 - 12/17/20 [facility] [address] [place], [place] [address] Allergies, Adverse Reactions, Alerts Substance [...] (oldterm) 08/07/08 Give n 1Result Comment: [12/27/2016] [facility] [id number] 2Admin Note: VIS from 10/11/14 given to parent Medications albuterol 0.083% inhalation solution 3 mL = 2.5 mg, Inhalation, Every 6 hours, PRN for wheezing, # 60 each, 0 Refills, Maintenance, 11/22/19 11:06:00 EDT, Solution, [facility], 163.4, cm, 11/06/19 13:10:00 EDT, Height [...] EDT, Tablet, [facility], Label in [place]ian., 163.4, cm, 11/06/19 13:10:00 EDT, Height Start Date: 07/24/20 Status: Ordered diclofenac 1% topical gel 1 application, Topically, 4 times a day, PRN for pain, not to exceed 16 grams/day/single joint of lower extremities. label haitian, # 100 Gm, 4 Refills, Maintenance, 04/18/19 15:51:00 EST, Gel, [facility], 163.4, cm, 04/18/19 15:38:00 EST, [...] each, 5 Refills, Maintenance, 12/12/20 16:28:00 EDT, [facility], Partial fill upon patient request if the prescription is... Start Date: 12/12/20 Status: Ordered fluticasone 50 mcg/inh nasal spray See Instructions, USE 1 SPRAY IN EACH NOSTRIL TWICE A DAY, # 16 Gm, 5 Refills, [facility], 30, USE 1 SPRAY IN EACH NOSTRIL TWICE A DAY, 163.4, cm, 10/13/20 15:44:00 EDT, Height Start Date: 12/12/20 Status: Ordered hydrocortisone 2.5% topical lotion 1 application, Topically, 2 times a day, # 59 mL, 0 Refills, Maintenance, 05/17/19 17:11:00 EDT, Lotion, [facility]/pharmacy #[id number], 1 application Topically 2 times a day, 163.4, cm, 05/16/19 10:53:00 EDT, Height, 166.9, kg, 11/21/17 2:28:00 EDT, Dry Weight Start Date: 05/17/19 Status: Ordered iron polysaccharide 150 mg oral capsule 1 capsule = 150 mg, By Mouth, Daily, # 30 capsule, 2 Refills, Maintenance, 11/17/20 9:16:00 EDT, [facility], Partial fill upon patient request if the prescription is for a schedule II opioid drug., 163.4, cm, 10/13/20 15:44:00 EDT, Height Start Date: 11/17/20 Status: Ordered lisinopril 20 mg oral tablet 20 mg, 1, tablet, By Mouth, Daily, # 90 tablet, Refills 1, Tot. Refills 1, Maintenance, 11/16/20 18:01:00 EDT, Route to Pharmacy Electronically, [facility], 163.4, cm, 09/03/20 10:55:00 EDT, Height [...] 0 Refills, Maintenance, 12/12/19 9:11:00 EDT, Tablet, [facility], 163.4, cm, 11/06/19 13:10:00 EDT, Height, Dry Weight Start Date: 12/12/19 Status: Ordered Naphcon-A 0.025%-0.3% ophthalmic solution 1 drops, Eyes, Both, 4 times a day, # 15 mL, 1 Refills, Maintenance, 09/03/20 10:42:00 EDT, Solution, [facility], 1 drops Eyes, Both 4 times [...] 0 Refills, Maintenance, 01/10/20 14:06:00 EST, ECCapsule, [facility], 163.4, cm, 11/06/19 13:10:00 EDT, Height Start Date: 01/10/20 Status: Ordered ProAir HFA 90 mcg/inh inhalation aerosol with adapter 2, puffs, Inhalation, Every 4 hours, PRN, # 8.5 Gm, Refills 5, Tot. 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
--- OUTSIDE RECORDS SUMMARY | 2022-05-29 20:24 | XMS_ITS | Continuity of Care Document ---
Author Name Unknown Organization [facility] Address [address] [place] [address]- Care Team Providers Care Regional Facilities Manager Name Role Phone Freddie ABBOTT, Kevin Yusuf Primary Care Physician [facility] 05[facility]19 - 06/07/19 [facility] [address] [place] [address]- [facility] Attending Physician: Nasima Coffman Admitting Physician: Nasima [...] 1Result Comment: [12/27/2016] [facility] [id number] 2Admin Note: VIS from 10/11/14 given to [...] 16 grams/day/single joint of lower extremities. label wallisian, # 100 Gm, 4 Refills, Maintenance, 04/18/19 15:51:00 EST, Gel, [facility], 163.4, cm, 04/18/19 15:38:00 EST, H... Start Date: 04/18/19 Status: Ordered famotidine 20 mg oral tablet 20 mg, 1, tablet, By Mouth, 2 times a day, for pain, nausea. avoid eating and drinking for 10 minutes after each dose, # 20 tablet, Refills 0, Tot. Refills 0, Maintenance, 02/19/19 19:12:13 EST, Route to Pharmacy Electronically, [facility],... Start Date: 02/19/19 Stop Date: 03/01/19 Status: Ordered Flonase 50 mcg/inh nasal spray 1 sprays, Nares, Both, 2 times a day, # 16 Gm, 1 Refills, Maintenance, 05/28/19 14:04:00 EDT, [id number] 1 sprays Nares, Both 2 times [...] 01/18/19 10:21:15 EST, Route to Pharmacy Electronically, [id number], [facility]/pharmacy #[id number] Start Date: 01/18/19 Stop Date: 08/16/19 Status: Ordered ProAir HFA 90 mcg/inh inhalation aerosol with adapter 2, puffs, Inhalation, Every 4 hours, PRN, # 8.5 Gm, Refills 6, Tot. Refills 6, Maintenance, 02/21/19 16:23:00 EST, Aerosol, Route to Pharmacy Electronically, NCPDP_[id number], [facility], 163.4, cm, 02/19/19 19:02:00 EST, Height, [...] 1 Refills, Maintenance, 02/19/19 19:13:45EST, ER Tablet, [facility], 163.4, cm, 02/19/19 19:02:31 EST, Height, [...]
--- OUTSIDE RECORDS SUMMARY | 2022-05-29 20:24 | XMS_ITS | Continuity of Care Document ---
Author Name Unknown Organization [facility] Address [address] [place] [address]- Care Team Providers Care Board Design Engineer Name Role Phone Kevin Frazier MD Primary Care Physician [phone] [facility] 12[facility]20 - 03/04/21 [facility] [address] [place] [id number] Attending Physician: eKvin Frazier MD Admitting Physician: Kevin Frazier MD [...] 08/07/08 Give n 1Result Comment: [12/27/2016] [facility] [id number] 2Admin Note: VIS from 10/11/14 given to parent Medications albuterol 0.083% inhalation solution 3 mL = 2.5 mg, Inhalation, Every 6 hours, PRN for wheezing, # 60 each, 0 Refills, Maintenance, 11/22/19 11:06:00 EDT, Solution, [facility], 163.4, cm, 11/06/19 13:10:00 EDT, Height Start Date: 11/22/19 Status: Ordered capsaicin 0.025% topical cream 1 application, Topically, 3 times a day, avoid contact with face and eyes to affected area, # 45 Gm, 10 Refills, Maintenance, 11/06/19 13:39:00 EDT, Cream, [facility], 1 application Topically 3 times a day,Instr:avoid contact with face and... Start Date: 11/06/19 Status: Ordered cetirizine 10 mg oral tablet 1 tablet, By Mouth, Daily, # 30 tablet, 5 Refills, [facility], 163.4, cm, 02/25/21 13:06:00 EST, Height Start Date: 03/03/21 Status: Ordered diclofenac 1% topical gel 1 application, Topically, 4 times a day, PRN for pain, not to exceed 16 grams/day/single joint of lower extremities. label nigerien, # 100 Gm, 4 Refills, Maintenance, 04/18/19 15:51:00 EST, Gel, [facility], 163.4, cm, 04/18/19 15:38:00 EST, H... Start Date: 04/18/19 Status: Ordered diclofenac 1% topical gel 1 application, Topically, 4 times a day, # 100 Gm, 0 Refills, Maintenance, 12/18/20 10:39:00 EDT, Gel, [facility], Partial fill upon [...] each, 5 Refills, Maintenance, 12/12/20 16:28:00 EDT, [facility], Partial fill upon patient request if the prescription is... Start Date: 12/12/20 Status: Ordered fluticasone 50 mcg/inh nasal spray See Instructions, USE 1 SPRAY IN EACH NOSTRIL TWICE A DAY, # 16 Gm, 5 Refills, [facility], 30, USE 1 SPRAY IN EACH NOSTRIL TWICE A DAY, 163.4, cm, 10/13/20 15:44:00 EDT, Height Start Date: 12/12/20 Status: Ordered hydroCHLOROthiazide 12.5 mg oral capsule 1 capsule = 12.5 mg, By Mouth, Daily, # 30 capsule, 5 Refills, Maintenance, 12/18/20 10:41:00 EDT, Capsule, [facility], Partial fill upon patient request if [...] 11/16/20 18:01:00 EDT, Route to Pharmacy Electronically, [facility], 163.4, cm, 09/03/20 10:55:00 EDT, Height [...] Gm, Refills 5, Route to Pharmacy Electronically, NCPDP_[id number], [facility], 163.4, cm, 02/25/21 13:06:00 EST, Height Start Date: 03/03/21 Status: Ordered Slow Fe (as elemental iron) 45 mg oral tablet, extended release 1 tablet = 45 mg, By Mouth, Daily, # 30 tablet, 5 Refills, Maintenance, 12/18/20 10:42:00 EDT, ER Tablet, [facility], Partial fill upon patient request [...] 1 Refills, Maintenance, 02/19/19 19:13:45EST, ER Tablet, [facility], 163.4, cm, 02/19/19 19:02:31 EST, Height, [...]
--- OUTSIDE RECORDS SUMMARY | 2022-05-29 20:24 | XMS_ITS | Continuity of Care Document ---
Author Name Unknown Organization [facility] Address [address] [place] [phone]- Care Team Providers Care Funeral Home General Manager Name Role Phone Freddie ABBOTT, Kevin Yusuf Primary Care Physician Encounter [facility] Date(s): 06/15/21 - 07/15/[address] [address] Attending Physician: Nasima Coffman Admitting Physician: AdmNasima [...] 08/07/08 Give n 1Result Comment: [12/27/2016] [facility] [id number] 2Admin Note: VIS from 10/11/14 given to parent Medications albuterol 0.083% inhalation solution 3 mL = 2.5 mg, Inhalation, Every 6 hours, PRN for wheezing, # 60 each, 0 Refills, Maintenance, 11/22/19 11:06:00 EDT, Solution, [facility], 163.4, cm, 11/06/19 13:10:00 EDT, Height Start Date: 11/22/19 Status: Ordered capsaicin 0.025% topical cream 1 application, Topically, 3 times a day, avoid contact with face and eyes to affected area, # 45 Gm, 10 Refills, Maintenance, 11/06/19 13:39:00 EDT, Cream, [facility], 1 application Topically 3 times a day,Instr:avoid contact with face and... Start Date: 11/06/19 Status: Ordered cetirizine 10 mg oral tablet 1 tablet, By Mouth, Daily, # 30 tablet, 5 Refills, [facility], 163.4, cm, 02/25/21 13:06:00 EST, Height [...] 0 Refills, Maintenance, 07/15/21 15:06:00 EDT, Gel, [facility], Partial fill upon patient request if [...] Gm, 5 Refills, Maintenance, 05/26/21 13:59:00 EDT, [facility], 163.4, cm, 02/25/21 13:06:00 EST, Height Start Date: 05/26/21 Status: Ordered fluticasone 50 mcg/inh nasal spray See Instructions, USE 1 SPRAY IN EACH NOSTRIL TWICE A DAY, # 16 Gm, 5 Refills, Maintenance, 05/26/21 13:59:00 EDT, [facility], 30, USE 1 SPRAY IN EACH NOSTRIL TWICE A DAY, 163.4, cm, 02/25/21 13:06:00 EST, Height Start Date: 05/26/21 Status: Ordered hydroCHLOROthiazide 12.5 mg oral capsule 1 capsule, By Mouth, Daily, # 30 capsule, 5 Refills, [facility], 163.4, cm, 02/25/21 13:06:00 EST, Height Start Date: 06/09/21 Status: Ordered hydrocortisone 2.5% topical lotion 1 application, Topically, 2 times a day, # 59 mL, 0 Refills, Maintenance, 05/17/19 17:11:00 EDT, Lotion, [facility]/pharmacy #[id number], 1 application Topically 2 times a day, 163.4, cm, 05/16/19 10:53:00 EDT, Height, 166.9, kg, 11/21/17 2:28:00 EDT, Dry Weight Start Date: 05/17/19 Status: Ordered lisinopril 20 mg oral tablet See Instructions, TAKE 1 TABLET BY MOUTH EVERY DAY, # 90 tablet, Refills 1, Instructions Replace Required Details, Route to Pharmacy Electronically, [facility], 163.4, cm, 02/25/21 13:06:00EST, Height Start [...] Gm, Refills 5, Route to Pharmacy Electronically, NCPDP_[id number], [facility], 163.4, cm, 02/25/21 13:06:00 EST, Height Start Date: 03/03/21 Status: Ordered Slow Fe (as elemental iron) 45 mg oral tablet, extended release 1 tablet = 45 mg, By Mouth, Daily, # 30 tablet, 5 Refills, Maintenance, 12/18/20 10:42:00 EDT, ER Tablet, [facility], Partial fill upon patient request if [...] 1 Refills, Maintenance, 02/19/19 19:13:45EST, ER Tablet, [facility], 163.4, cm, 02/19/19 19:02:31 EST, Height, [...]
--- OUTSIDE RECORDS SUMMARY | 2022-05-29 20:24 | XMS_ITS | Continuity of Care Document ---
Author Name Unknown Organization [facility] ter Address [address] [place] [id number]- Care Team Providers Care Csr Technician Name Role Phone Kevin Frazier MD Primary Care Physician [facility] Date[facility]s): 01/04/22 - 02/21/[address] [address]- Attending Physician: Carlito Cardenas MD Admitting Physician: Carlito Cardenas MD Referring Physician: Kevin Frazier MD Allergies, [...] n 1Result Comment: [12/27/2016] [facility] [id number] 2Admin Note: VIS from 10/11/14 given to parent Medications albuterol 0.083% inhalation solution 3 mL = 2.5 mg, Inhalation, Every 6 hours, PRN for wheezing, # 100 each, 1 Refills, Maintenance, 08/05/21 15:44:00 EDT, Solution, [facility], 163.4, cm, 08/05/21 14:34:00 EDT, Height Start Date: 08/05/21 Status: Ordered BuPROPion (Eqv-Wellbutrin SR) 150 mg/12 hours oral tablet, extended release TAKE 1 TABLET BY MOUTH TWICE A DAY Start Date: 12/30/21 Status: Ordered cetirizine 10 mg oral tablet 1 tablet, By Mouth, Daily, # 30 tablet, 5 Refills, [facility], 163.4, cm, 08/05/21 14:34:00 EDT, Height Start Date: 08/25/21 Status: Ordered clindamycin 1% topical gel 1 application, Topically, 2 times a day, # 30 Gm, 0 Refills, Maintenance, 01/27/22 9:20:00 [facility] request if the prescription is for a schedule II opioid drug. Refills- contact PCP, 1 application Topi... Start Date: 01/27/22 Status: Ordered diclofenac 1% topical gel 1 application, Topically, 4 times a day, PRN Pain , Moderate, apply to wrists as needed, # 100 Gm, 0 Refills, Maintenance, 07/15/21 15:06:00 EDT, Gel, [facility], Partial fill upon patient request if the prescription is for a schedule II opi... Start Date: 07/15/21 Status: Ordered EpiPen 2-Mir 0.3 mg injectable kit = 0.3 mg, Intramuscular, Once, may repeat if necessary, # 1 each, 0 Refills, Soft Stop, 09/25/21 14:43:00 EDT, [facility], Partial fill upon patient request if the prescription is for a schedule II opioid drug., 163.4, cm, 09/24/21 15:28:00... Start Date: 09/25/21 Status: Ordered famotidine 20 mg oral tablet 20 mg, 1, tablet, By Mouth, 2 times a day, for nausea, heartburn., # 60 tablet, Refills 0, Tot. Refills 0, Maintenance, 10/13/20 16:36:00 EDT, Route to Pharmacy Electronically, [facility], Partial fill upon patient request if the prescriptio... Start Date: 10/13/20 Status: Ordered Flovent HFA 110 mcg/inh inhalation aerosol 2 puffs, Inhalation, 2 times a day, AND THROAT OUT AFTER USE., # 12 Gm, 5 Refills, [facility], 163.4, cm, 10/14/21 8:28:00 EDT, Height Start Date: 10/26/21 Status: Ordered fluticasone 50 mcg/inh nasal spray See Instructions, USE 1 SPRAY IN EACH NOSTRIL TWICE A DAY, # 16 Gm, 5 Refills, [facility], 30, USE 1 SPRAY IN EACH NOSTRIL TWICE A DAY, 163.4, cm, 10/14/21 8:28:00 EDT, Height Start Date: 10/26/21 Status: Ordered hydroCHLOROthiazide 12.5 mg oral capsule 1 capsule, By Mouth, Daily, # 30 capsule, 2 Refills, Maintenance, 12/10/21 12:09:00 EDT, [facility], 163.4, cm, 12/02/21 16:27:00 EDT, Height [...] tablet, Refills 1, Route to Pharmacy Electronically, [facility], 163.4, cm, 09/24/21 15:28:00 EDT, Height Start Date: 09/24/21 Status: Ordered medroxyPROGESTERone 10 mg oral tablet 10 mg, 1, tablet, By Mouth, Daily, # 10 tablet, Refills 0, Tot. Refills 0, Maintenance, 02/11/21 11:20:00 EST, Route to Pharmacy Electronically, [facility], Partial fill upon patient request if the prescription is for a schedule II opioid drMariana. Start Date: 04/17/20 Status: Ordered metFORMIN 500 mg oral tablet 1 tablet = 500 mg, By Mouth, Daily, with meals, # 90 tablet, 0 Refills, Maintenance, 01/27/22 9:19:00 EST, Tablet, [facility], Partial fill upon patient request if the prescription is for aschedule II opioid drug. Refills-contact PCP, 163.4... Start Date: 01/27/22 Status: Ordered NIFEdipine 30 mg oral tablet, extended release 30 mg, 1, tablet, By Mouth, Daily, # 30 tablet, Refills 2, Tot. Refills 2, Maintenance, 12/07/21 15:13:00 EDT, Route to Pharmacy Electronically, [facility], Duplicate Rx. Original sent 12/01/21. Re-sending per pharmacy request, 163.4, cm, ... Start Date: 12/07/21 Stop Date: 03/07/22 Status: Ordered ProAir HFA 90 mcg/inh inhalation aerosol with adapter 2, puffs, Inhalation, Every 4 hours, PRN, # 8.5 Gm, Refills 5, Route to Pharmacy Electronically, [id number]_[id number], [facility], 163.4, cm, 07/15/21 13:31:00 EDT, Height Start Date: 07/16/21 Status: Ordered sertraline 100 mg oral tablet TAKE 1&1/2 TABLET BY MOUTH ONCE A DAY Start Date: 12/30/21 Status: Ordered Slow Fe (as elemental iron) 45 mg oral tablet, extended release 1 tablet = 45 mg, By Mouth, Daily, # 30 tablet, 5 Refills, Maintenance, 12/18/20 10:42:00 EDT, ER Tablet, [facility], Partial fill upon patient [...] Care Physician Member Role: PCP Address: Address: [address] [place] [address]- Care Team Related Persons Name: KARI AGUERO Address: home [address] [place] [address]
--- OUTSIDE RECORDS SUMMARY | 2022-05-29 20:24 | XMS_ITS | Continuity of Care Document ---
Author Name Unknown Organization [facility] Address [address] [place] [address]- Care Team Providers Care Joinery Setter Out Name Role Phone Freddie ABBOTT, Kevin Yusuf Primary Care Physician [facility]): 11/[facility] - 12/22/19 [facility] [address] [place] [address]- [facility] Allergies, Adverse Reactions, Alerts Substance Reaction [...] n 1Result Comment: [12/27/2016] [facility] [id number] 2Admin Note: VIS from 10/11/14 given to [...] 0 Refills, Maintenance, 11/29/19 14:02:00 EDT, Tablet, [facility], 163.4, cm, 11/06/19 13:10:00 [...] 16 grams/day/single joint of lower extremities. label kiswahili, # 100 Gm, 4 Refills, Maintenance, 04/18/19 15:51:00 EST, Gel, [facility], 163.4, cm, 04/18/19 15:38:00 EST, H... Start Date: 04/18/19 Status: Ordered fexofenadine 60 mg oral tablet 1 tablet = 60 mg, By Mouth, 2 times a day, stop cetirizine please, # 60 tablet, 2 Refills, Maintenance, 08/01/19 9:01:00 EDT, [facility], 163.4, cm, 05/16/19 10:53:00 EDT, Height, 166.9, kg, 11/21/17 2:28:00 EDT, Dry Weight Start Date: 08/01/19 Status: Ordered Flonase 50 mcg/inh nasal spray 1 sprays, Nares, Both, 2 times a day, # 16 Gm, 3 Refills, Maintenance, 07/10/19 10:02:00 EDT, [place], [facility], 1 sprays Nares, Both 2 times a day, 163.4, cm, 05/16/19 10:53:00 EDT, Height, 166.9, kg, 11/21/17 2:28:00 EDT, Dry Weight Start Date: 07/10/19 Status: Ordered hydrocortisone 1% topical cream 1 application, Topically, 2 times a day, # 30 Gm, 0 Refills, Acute 01/12/20 9:24:00 EST, 12/12/19 9:24:00 EDT, Cream, [facility], 1 application Topically 2 times a day, 163.4, cm, 11/06/19 13:10:00 EDT, Height Start Date: 12/12/19 Stop Date: 01/12/20 Status: Ordered hydrocortisone 2.5% topical lotion 1 application, Topically, 2 times a day, # 59 mL, 0 Refills, Maintenance, 05/17/19 17:11:00 EDT, Lotion, [facility]/pharmacy #[id number], 1 application Topically 2 times a day, 163.4, cm, 05/16/19 10:53:00 EDT, Height, 166.9, kg, 11/21/17 2:28:00 EDT, Dry Weight Start Date: 05/17/19 Status: Ordered lisinopril 20 mg oral tablet 20 mg, 1, tablet, By Mouth, Daily, # 90 tablet, Refills 3, Tot. Refills 3, Maintenance, 11/22/19 18:01:00 EDT, Route to Pharmacy Electronically, [facility], 163.4, cm, 11/06/19 13:10:00 EDT, Height, Dry Weight Start Date: 11/22/19 Stop Date: 11/16/20 Status: Ordered meloxicam 7.5 mg oral tablet 1 tablet = 7.5 mg, By Mouth, Daily, take with food please., # 30 tablet, 0 Refills, Maintenance, 12/12/19 9:11:00 EDT, Tablet, [facility], 163.4, cm, 11/06/19 13:10:00 EDT, Height, Dry Weight Start Date: 12/12/19 Status: Ordered Naphcon-A 0.025%-0.3% ophthalmic solution 1 drops, Eyes, Both, 4 times a day, # 15 mL, 1 Refills, Maintenance, 07/10/19 10:02:00 EDT, Solution, [facility], 1 drops Eyes, Both 4 times [...] 18:22:00 EDT, Aerosol, Route to Pharmacy Electronically, NCPDP_[id number], [facility], 163.4, cm, 11/06/19 13:10:00 EDT, Height, Dry Weight Start Date: 11/21/19 Status: Ordered Tylenol 8 Hour 650 mg oral tablet, extended release 1 tablet = 650 mg, By Mouth, Every 8 hours, # 100 tablet, 1 Refills, Maintenance, 02/19/19 19:13:45EST, ER Tablet, [facility], 163.4, cm, 02/19/19 19:02:31 EST, Height, [...]
--- OUTSIDE RECORDS SUMMARY | 2022-05-29 20:24 | XMS_ITS | Continuity of Care Document ---
Author Name Unknown Organization [facility] Address [address] [place] [address]- Care Team Providers Care Financial Management Name Role Phone Freddie ABBOTT, Kevin Yusuf Primary Care Physician [phone] [facility]counter [facility] Date[facility]s): 05/20/21 - 06/19/[address] [address]- Allergies, Adverse Reactions, Alerts No Known Allergies [...] 08/07/08 Give n 1Result Comment: [12/27/2016] [facility] [id number] 2Admin Note: VIS from 10/11/14 given to parent Medications albuterol 0.083% inhalation solution 3 mL = 2.5 mg, Inhalation, Every 6 hours, PRN for wheezing, # 60 each, 0 Refills, Maintenance, 11/22/19 11:06:00 EDT, Solution, [facility], 163.4, cm, 11/06/19 13:10:00 EDT, Height Start Date: 11/22/19 Status: Ordered capsaicin 0.025% topical cream 1 application, Topically, 3 times a day, avoid contact with face and eyes to affected area, # 45 Gm, 10 Refills, Maintenance, 11/06/19 13:39:00 EDT, Cream, [facility], 1 application Topically 3 times a day,Instr:avoid contact with face and... Start Date: 11/06/19 Status: Ordered cetirizine 10 mg oral tablet 1 tablet, By Mouth, Daily, # 30 tablet, 5 Refills, [facility], 163.4, cm, 02/25/21 13:06:00 EST, Height Start Date: 03/03/21 Status: Ordered diclofenac 1% topical gel 1 application, Topically, 4 times a day, PRN for pain, not to exceed 16 grams/day/single joint of lower extremities. label german, # 100 Gm, 4 Refills, Maintenance, 04/18/19 15:51:00 EST, Gel, [facility], 163.4, cm, 04/18/19 15:38:00 EST, H... [...] Gm, 5 Refills, Maintenance, 05/26/21 13:59:00 EDT, [facility], 163.4, cm, 02/25/21 13:06:00 EST, Height Start Date: 05/26/21 Status: Ordered fluticasone 50 mcg/inh nasal spray See Instructions, USE 1 SPRAY IN EACH NOSTRIL TWICE A DAY, # 16 Gm, 5 Refills, Maintenance, 05/26/21 13:59:00 EDT, [facility], 30, USE 1 SPRAY IN EACH NOSTRIL TWICE A DAY, 163.4, cm, 02/25/21 13:06:00 EST, Height Start Date: 05/26/21 Status: Ordered hydroCHLOROthiazide 12.5 mg oral capsule 1 capsule, By Mouth, Daily, # 30 capsule, 5 Refills, [facility], 163.4, cm, 02/25/21 13:06:00 EST, Height Start Date: 06/09/21 Status: Ordered hydrocortisone 2.5% topical lotion 1 application, Topically, 2 times a day, # 59 mL, 0 Refills, Maintenance, 05/17/19 17:11:00 EDT, Lotion, [facility]/pharmacy #[id number], 1 application Topically 2 times a day, 163.4, cm, 05/16/19 10:53:00 EDT, Height, 166.9, kg, 11/21/17 2:28:00 EDT, Dry Weight Start Date: 05/17/19 Status: Ordered lisinopril 20 mg oral tablet See Instructions, TAKE 1 TABLET BY MOUTH EVERY DAY, # 90 tablet, Refills 1, Instructions Replace Required Details, Route to Pharmacy Electronically, [facility], 163.4, cm, 02/25/21 13:06:00EST, Height Start Date: 03/31/21 Status: Ordered medroxyPROGESTERone 10 mg oral tablet 10 mg, 1, tablet, By Mouth, Daily, # 10 tablet, Refills 0, Tot. Refills 0, Maintenance, 04/17/20 11:20:00 EST, Route to Pharmacy Electronically, [facility], Partial fill upon patient request if [...] Gm, Refills 5, Route to Pharmacy Electronically, NCPDP_[id number], [facility], 163.4, cm, 02/25/21 13:06:00 EST, Height Start Date: 03/03/21 Status: Ordered Slow Fe (as elemental iron) 45 mg oral tablet, extended release 1 tablet = 45 mg, By Mouth, Daily, # 30 tablet, 5 Refills, Maintenance, 12/18/20 10:42:00 EDT, ER Tablet, [facility], Partial fill upon patient request if [...] 1 Refills, Maintenance, 02/19/19 19:13:45EST, ER Tablet, [facility], 163.4, cm, 02/19/19 19:02:31 EST, Height, [...]
--- OUTSIDE RECORDS SUMMARY | 2022-05-29 20:24 | XMS_ITS | Continuity of Care Document ---
Author Name Unknown Organization [facility] Address [address] [place] [id number]- Care Team Providers Care Home Health Administrator Name Role Phone Freddie ABBOTT, Kevin Yusuf Primary Care Physician [facility]): 09[facility]20 - 10/03/20 [facility] [address] [place] [address]- Attending Physician: Nasima Coffman Admitting Physician: Nasima [...] (oldterm) 08/07/08 Give n 1Result Comment: [12/27/2016] [facility] [id number] 2Admin Note: VIS from 10/11/14 given to parent Medications albuterol 0.083% inhalation solution 3 mL = 2.5 mg, Inhalation, Every 6 hours, PRN for wheezing, # 60 each, 0 Refills, Maintenance, 11/22/19 11:06:00 EDT, Solution, [facility], 163.4, cm, 11/06/19 13:10:00 EDT, Height Start Date: 11/22/19 Status: Ordered Azithromycin 3 Day Dose Pack 500 mg oral tablet 1 tablet = 500 mg, By Mouth, Daily, # 3 tablet, 0 Refills, Maintenance, 11/29/19 14:02:00 EDT, Tablet, [facility], 163.4, cm, 11/06/19 13:10:00 EDT, Height [...] 5 Refills, Maintenance, 07/24/20 11:12:00 EDT, Tablet, [facility], Label in Arabic., 163.4, cm, 11/06/19 13:10:00 EDT, Height Start Date: 07/24/20 Status: Ordered diclofenac 1% topical gel 1 application, Topically, 4 times a day, PRN for pain, not to exceed 16 grams/day/single joint of lower extremities. label tristanian, # 100 Gm, 4 Refills, Maintenance, 04/18/19 15:51:00 EST, Gel, [facility], 163.4, cm, 04/18/19 15:38:00 EST, H... Start Date: 04/18/19 Status: Ordered Flonase 50 mcg/inh nasal spray 1 sprays, Nares, Both, 2 times a day, # 16 Gm, 3 Refills, Maintenance, 07/24/20 11:12:00 EDT, [place], [facility], 1 sprays Nares, Both 2 times a day, 163.4, cm, 11/06/19 13:10:00 EDT, Height Start Date: 07/24/20 Status: Ordered Flovent HFA 110 mcg/inh inhalation aerosol 2 puffs, Inhalation, 2 times a day, use twice a day to prevent asthma symptoms. rinse mouth and throat after use, # 1 each, 2 Refills, Maintenance, 09/03/20 10:43:00 EDT, [facility], Partial fill upon patient request if the prescription is... Start Date: 09/03/20 Status: Ordered hydrocortisone 2.5% topical lotion 1 application, Topically, 2 times a day, # 59 mL, 0 Refills, Maintenance, 05/17/19 17:11:00 EDT, Lotion, [facility]/pharmacy #[id number], 1 application Topically 2 times a day, 163.4, cm, 05/16/19 10:53:00 EDT, Height, 166.9, kg, 11/21/17 2:28:00 EDT, Dry Weight Start Date: 05/17/19 Status: Ordered lisinopril 20 mg oral tablet 20 mg, 1, tablet, By Mouth, Daily, # 90 tablet, Refills 3, Tot. Refills 3, Maintenance, 11/22/19 18:01:00 EDT, Route to Pharmacy Electronically, [facility], 163.4, cm, 11/06/19 13:10:00 EDT, Height, [...] 0 Refills, Maintenance, 12/12/19 9:11:00 EDT, Tablet, [facility], 163.4, cm, 11/06/19 13:10:00 EDT, Height, Dry Weight Start Date: 12/12/19 Status: Ordered Naphcon-A 0.025%-0.3% ophthalmic solution 1 drops, Eyes, Both, 4 times a day, # 15 mL, 1 Refills, Maintenance, 09/03/20 10:42:00 EDT, Solution, [facility], 1 drops Eyes, Both 4 times [...] 0 Refills, Maintenance, 01/10/20 14:06:00 EST, ECCapsule, [facility], 163.4, cm, 11/06/19 13:10:00 EDT, Height Start Date: 01/10/20 Status: Ordered ProAir HFA 90 mcg/inh inhalation aerosol with adapter 2, puffs, Inhalation, Every 4 hours, PRN, # 8.5 Gm, Refills 5, Tot. Refills 5, Maintenance, 07/24/20 11:13:00 EDT, Aerosol, Route to Pharmacy Electronically, NCPDP_[id number], [facility], 163.4, cm, 11/06/19 13:10:00 EDT, Height [...] 1 Refills, Maintenance, 02/19/19 19:13:45EST, ER Tablet, [facility], 163.4, cm, 02/19/19 19:02:31 EST, Height, [...]
--- OUTSIDE RECORDS SUMMARY | 2022-05-29 20:24 | XMS_ITS | Continuity of Care Document ---
Author Name Unknown Organization [facility] Address [address] [place] [id number]- Care Team Providers Care Juke Box Servicer Name Role Phone Freddie ABBOTT, Kevin Yusuf Primary Care Physician [facility] - 06/26/[address] [address] Allergies, Adverse Reactions, Alerts No [...] n 1Result Comment: [12/27/2016] [facility] [id number] 2Admin Note: VIS from 10/11/14 given to parent Medications albuterol 0.083% inhalation solution 3 mL = 2.5 mg, Inhalation, Every 6 hours, PRN for wheezing, # 60 each, 0 Refills, Maintenance, 11/22/19 11:06:00 EDT, Solution, [facility], 163.4, cm, 11/06/19 13:10:00 EDT, Height Start Date: 11/22/19 Status: Ordered capsaicin 0.025% topical cream 1 application, Topically, 3 times a day, avoid contact with face and eyes to affected area, # 45 Gm, 10 Refills, Maintenance, 11/06/19 13:39:00 EDT, Cream, [facility], 1 application Topically 3 times a day,Instr:avoid contact with face and... Start Date: 11/06/19 Status: Ordered cetirizine 10 mg oral tablet 1 tablet, By Mouth, Daily, # 30 tablet, 5 Refills, [facility], 163.4, cm, 02/25/21 13:06:00 EST, Height Start Date: 03/03/21 Status: Ordered diclofenac 1% topical gel 1 application, Topically, 4 times a day, PRN for pain, not to exceed 16 grams/day/single joint of lower extremities. label iranian, # 100 Gm, 4 Refills, Maintenance, 04/18/19 15:51:00 EST, Gel, [facility], 163.4, cm, 04/18/19 15:38:00 EST, H... [...] Gm, 5 Refills, Maintenance, 05/26/21 13:59:00 EDT, [facility], 163.4, cm, 02/25/21 13:06:00 EST, Height Start Date: 05/26/21 Status: Ordered fluticasone 50 mcg/inh nasal spray See Instructions, USE 1 SPRAY IN EACH NOSTRIL TWICE A DAY, # 16 Gm, 5 Refills, Maintenance, 05/26/21 13:59:00 EDT, [facility], 30, USE 1 SPRAY IN EACH NOSTRIL TWICE A DAY, 163.4, cm, 02/25/21 13:06:00 EST, Height Start Date: 05/26/21 Status: Ordered hydroCHLOROthiazide 12.5 mg oral capsule 1 capsule, By Mouth, Daily, # 30 capsule, 5 Refills, [facility], 163.4, cm, 02/25/21 13:06:00 EST, Height Start Date: 06/09/21 Status: Ordered hydrocortisone 2.5% topical lotion 1 application, Topically, 2 times a day, # 59 mL, 0 Refills, Maintenance, 05/17/19 17:11:00 EDT, Lotion, [facility]/pharmacy #[id number], 1 application Topically 2 times a day, 163.4, cm, 05/16/19 10:53:00 EDT, Height, 166.9, kg, 11/21/17 2:28:00 EDT, Dry Weight Start Date: 05/17/19 Status: Ordered lisinopril 20 mg oral tablet See Instructions, TAKE 1 TABLET BY MOUTH EVERY DAY, # 90 tablet, Refills 1, Instructions Replace Required Details, Route to Pharmacy Electronically, [facility], 163.4, cm, 02/25/21 13:06:00EST, Height Start Date: 03/31/21 Status: Ordered medroxyPROGESTERone 10 mg oral tablet 10 mg, 1, tablet, By Mouth, Daily, # 10 tablet, Refills 0, Tot. Refills 0, Maintenance, 04/17/20 11:20:00 EST, Route to Pharmacy Electronically, [facility], Partial fill upon patient request if [...] Gm, Refills 5, Route to Pharmacy Electronically, NCPDP_[id number], [facility], 163.4, cm, 02/25/21 13:06:00 EST, Height Start Date: 03/03/21 Status: Ordered Slow Fe (as elemental iron) 45 mg oral tablet, extended release 1 tablet = 45 mg, By Mouth, Daily, # 30 tablet, 5 Refills, Maintenance, 12/18/20 10:42:00 EDT, ER Tablet, [facility], Partial fill upon patient request if [...] 1 Refills, Maintenance, 02/19/19 19:13:45EST, ER Tablet, [facility], 163.4, cm, 02/19/19 19:02:31 EST, Height, [...]
--- OUTSIDE RECORDS SUMMARY | 2022-05-29 20:24 | XMS_ITS | Continuity of Care Document ---
Author Name Unknown Organization [facility] ter Address [address] [place] [address]- Care Team Providers Care Cotton Expert Name Role Phone Freddie ABBOTT, Kevin Yusuf Primary Care Physician [phone] Encounter [facility] Date(s): 12/15/20 - 12/15/[address] [address]- Discharge Disposition: A-D/C Home Attending Physician: Janeth Luis MD Admitting Physician: Janeth Luis MD Referring Physician: Not on Staff, Referring MD Allergies, Adverse Reactions, Alerts Substance Reaction [...] 1Result Comment: [12/27/2016] [facility] [id number] 2Admin Note: VIS from 10/11/14 given to parent Medications albuterol 0.083% inhalation solution 3 mL = 2.5 mg, Inhalation, Every 6 hours, PRN for wheezing, # 60 each, 0 Refills, Maintenance, 11/22/19 11:06:00 EDT, Solution, [facility], 163.4, cm, 11/06/19 13:10:00 EDT, Height Start Date: 11/22/19 Status: Ordered capsaicin 0.025% topical cream 1 application, Topically, 3 times a day, avoid contact with face and eyes to affected area, # 45 Gm, 10 Refills, Maintenance, 11/06/19 13:39:00 EDT, Cream, [facility], 1 application Topically 3 times a day,Instr:avoid contact with face and... Start Date: 11/06/19 Status: Ordered cetirizine 10 mg oral tablet 1 tablet = 10 mg, By Mouth, Daily, # 30 tablet, 5 Refills, Maintenance, 07/24/20 11:12:00 EDT, Tablet, [facility], Label in Danish., 163.4, cm, 11/06/19 13:10:00 EDT, Height Start Date: 07/24/20 Status: Ordered diclofenac 1% topical gel 1 application, Topically, 4 times a day, PRN for pain, not to exceed 16 grams/day/single joint of lower extremities. label romansh, # 100 Gm, 4 Refills, Maintenance, 04/18/19 15:51:00 EST, Gel, [facility], 163.4, cm, 04/18/19 15:38:00 EST, [...] A DAY, # 16 Gm, 5 Refills, [facility], 30, USE 1 SPRAY IN EACH [...] capsule, 2 Refills, Maintenance, 11/17/20 9:16:00 EDT, [facility], Partial fill upon patient request if the prescription is for a schedule II opioid drug., 163.4, cm, 10/13/20 15:44:00 EDT, Height Start Date: 11/17/20 Status: Ordered lisinopril 20 mg oral tablet 20 mg, 1, tablet, By Mouth, Daily, # 90 tablet, Refills 1, Tot. Refills 1, Maintenance, 11/16/20 18:01:00 EDT, Route to Pharmacy Electronically, [facility], 163.4, cm, 09/03/20 10:55:00 EDT, Height Start Date: 11/16/20 Stop Date: 05/15/21 Status: Ordered medroxyPROGESTERone 10 mg oral tablet 10 mg, 1, tablet, By Mouth, Daily, # 10 tablet, Refills 0, Tot. Refills 0, Maintenance, 04/17/20 11:20:00 EST, Route to Pharmacy Electronically, [facility], Partial fill upon patient request if the prescription is for a schedule II opioid drCharmaine Start Date: 04/17/20 Status: Ordered meloxicam 7.5 mg oral tablet 1 tablet = 7.5 mg, By Mouth, Daily, take with food please., # 30 tablet, 0 Refills, Maintenance, 12/12/19 9:11:00 EDT, Tablet, [facility], 163.4, cm, 11/06/19 13:10:00 EDT, Height, Dry Weight Start Date: 12/12/19 Status: Ordered Naphcon-A 0.025%-0.3% ophthalmic solution 1 drops, Eyes, Both, 4 times a day, # 15 mL, 1 Refills, Maintenance, 09/03/20 10:42:00 EDT, Solution, [facility], 1 drops Eyes, Both 4 times [...] 0 Refills, Maintenance, 01/10/20 14:06:00 EST, ECCapsule, [facility], 163.4, cm, 11/06/19 13:10:00 EDT, Height Start Date: 01/10/20 Status: Ordered ProAir HFA 90 mcg/inh inhalation aerosol with adapter 2, puffs, Inhalation, Every 4 hours, PRN, # 8.5 Gm, Refills 5, Tot. 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 COMPARISON: Chest radiographs 11/25/2019, 05/24/2008. FINDINGS: LINES AND TUBES: None. LUNGS AND PLEURA: Clear lungs. Normal pulmonary vascularity. No pleural effusion. No pneumothorax. HEART, MEDIASTINUM AND TANNER: Heart is normal in size. Normal upper mediastinal and hilar contour. BONES AND SOFT TISSUES: No acute abnormality. IMPRESSION: No acute abnormality. I have personally reviewed the images and I agree with this report. WSN: [id number] Ordering Physician: Bhavik Marvin Dictated By: Magdi Torres MD Dictated Date/Time: 12/15/20 3:01 pm Reviewed By: Cain Chiu MD Signed By: Cain Chiu MD Signed Date/Time: 12/15/20 3:06 pm Transcribed By: CINDI Transcribed Date/Time: 12/15/20 2:49 pm Vital Signs Most recent to oldest [Reference Range]: 1 2 3 Oxygen Saturation [94-100 %] 99 % (12/15/20 5:06 PM) 100 % (12/15/20 1:05 PM) 99 % (12/15/20 12:46 PM) Pulse Rate [55-90 bpm] 84 bpm (12/15/20 5:06 PM) 92 bpm *H* (12/15/20 1:05 PM) 115 bpm *H* (12/15/20 12:46 PM) Blood Pressure [90-138/55-84 mm Hg] 135/81mm Hg (12/15/20 5:06 PM) 152/101mm Hg *H* (12/15/20 1:05 PM) Respiratory Rate [16-30 br/min] 18 br/min (12/15/20 5:06 PM) 18 br/min (12/15/20 1:05 PM) 18 br/min (12/15/20 12:46 PM) Temperature [96.8-100.4 DegF] 98.1 DegF (12/15/20 5:06 PM) 99.0 DegF (12/15/20 1:05 PM) Mode of Delivery (Oxygen) Room air (12/15/20 5:06 PM) Room air (12/15/20 1:05 PM) Blood pressure sites Arm, right (12/15/20 5:06 PM) Arm, left (12/15/20 1:05 PM) Temperature Route Oral (12/15/20 5:06 PM) Oral (12/15/20 1:05 PM) Social History Social History Type Response Smoking Status Never smoker; Tobacc o user in household: No entered on: 04/15/15 Sex
--- OUTSIDE RECORDS SUMMARY | 2022-05-29 20:24 | XMS_ITS | Continuity of Care Document ---
Author Name Unknown Organization [facility] Address [address] [place] [id number]- Care Team Providers Care Hand Cementer Name Role Phone Blessing Qiu MD Primary Care Physician [place] [facility] [place] - 05/13/[address] [address] Attending Physician: Kevin Frazier MD Admitting Physician: [...] (oldterm) 08/07/08 Give n 1Result Comment: [12/27/2016] [facility] [id number] 2Admin Note: VIS from 10/11/14 given to parent Medications albuterol 0.083% inhalation solution 3 mL = 2.5 mg, Inhalation, Every 6 hours, PRN for wheezing, # 60 each, 0 Refills, Maintenance, 11/22/19 11:06:00 EDT, Solution, [facility], 163.4, cm, 11/06/19 13:10:00 EDT, Height [...] lower extremities. label polish, # 100 Gm, 4 Refills, Maintenance, 04/18/19 15:51:00 EST, Gel, [facility], 163.4, cm, 04/18/19 15:38:00 EST, H... [...] A DAY, # 16 Gm, 5 Refills, [facility], 30, USE 1 SPRAY IN EACH [...] Replace Required Details, Route to Pharmacy Electronically, [facility], 163.4, cm, 02/25/21 13:06:00EST, Height Start [...] Gm, Refills 5, Route to Pharmacy Electronically, NCPDP_[id number], [facility], 163.4, cm, 02/25/21 13:06:00 EST, Height [...] 1 Refills, Maintenance, 02/19/19 19:13:45EST, ER Tablet, [facility], 163.4, cm, 02/19/19 19:02:31 EST, Height, 166.9, [...]
--- OUTSIDE RECORDS SUMMARY | 2022-05-29 20:24 | XMS_ITS | Continuity of Care Document ---
Author Name Unknown Organization [facility] Address [address] [place] [address]- Care Team Providers Care Human Resources Team Member Name Role Phone Freddie ABBOTT, Kevin Yusuf Primary Care Physician Encounter [facility] Date(s): 02/02/22 - 03/04/[address] [address]- Allergies, Adverse Reactions, Alerts Substance Reaction Severity [...] [facility] [id number] 2Admin Note: VIS from 10/11/14 given to parent Medications albuterol 0.083% inhalation solution 3 mL = 2.5 mg, Inhalation, Every 6 hours, PRN for wheezing, # 100 each, 1 Refills, Maintenance, 08/05/21 15:44:00 EDT, Solution, [facility], 163.4, cm, 08/05/21 14:34:00 EDT, Height Start Date: 08/05/21 Status: Ordered BuPROPion (Eqv-Wellbutrin SR) 150 mg/12 hours oral tablet, extended release TAKE 1 TABLET BY MOUTH TWICE A DAY Start Date: 12/30/21 Status: Ordered cetirizine 10 mg oral tablet 1 tablet, By Mouth, Daily, # 30 tablet, 5 Refills, [facility], 163.4, cm, 08/05/21 14:34:00 EDT, Height Start Date: 08/25/21 Status: Ordered clindamycin 1% topical gel 1 application, Topically, 2 times a day, # 30 Gm, 0 Refills, Maintenance, 01/27/22 9:20:00 EST, Gel, [facility], Partial fill upon patient request if the prescription is for a schedule II opioid drug. Refills- contact PCP, 1 application Topi... Start Date: 01/27/22 Status: Ordered diclofenac 1% topical gel 1 application, Topically, 4 times a day, PRN Pain , Moderate, apply to wrists as needed, # 100 Gm, 0 Refills, Maintenance, 07/15/21 15:06:00 [facility], [facility] upon patient request if the prescription is for a schedule II opi... Start Date: 07/15/21 Status: Ordered EpiPen 2-Mir 0.3 mg injectable kit = 0.3 mg, Intramuscular, Once, may repeat if necessary, # 1 each, 0 Refills, Soft Stop, 09/25/21 14:43:00 EDT, [facility], Partial fill upon [...] AFTER USE., # 12 Gm, 5 Refills, [facility], 163.4, cm, 10/14/21 8:28:00 EDT, Height Start Date: 10/26/21 Status: Ordered fluticasone 50 mcg/inh nasal spray See Instructions, USE 1 SPRAY IN EACH NOSTRIL TWICE A DAY, # 16 Gm, 5 Refills, [facility], 30, USE 1 SPRAY IN EACH NOSTRIL TWICE A DAY, 163.4, cm, 10/14/21 8:28:00 EDT, Height Start Date: 10/26/21 Status: Ordered hydroCHLOROthiazide 12.5 mg oral capsule 1 capsule, By Mouth, Daily, # 30 capsule, 2 Refills, Maintenance, 12/10/21 12:09:00 EDT, [facility], 163.4, cm, 12/02/21 16:27:00 EDT, Height [...] tablet, Refills 1, Route to Pharmacy Electronically, [facility], 163.4, cm, 09/24/21 15:28:00 EDT, Height [...] 0 Refills, Maintenance, 01/27/22 9:19:00 EST, Tablet, [facility], Partial fill upon patient request if the prescription is for aschedule II opioid drug. Refills-contact PCP, 163.4... Start Date: 01/27/22 Status: Ordered NIFEdipine 30 mg oral tablet, extended release 30 mg, 1, tablet, By Mouth, Daily, # 30 tablet, Refills 2, Tot. Refills 2, Maintenance, 12/07/21 15:13:00 EDT, Route to Pharmacy Electronically, [facility], Duplicate Rx. Original sent 12/01/21. Re-sending per pharmacy request, 163.4, cm, .. Start Date: 12/07/21 Stop Date: 03/07/22 Status: Ordered ProAir HFA 90 mcg/inh inhalation aerosol with adapter 2, puffs, Inhalation, Every 4 hours, PRN, # 8.5 Gm, Refills 5, Route to Pharmacy Electronically, NCPDP_[id number], [facility], 163.4, cm, 07/15/21 13:31:00 EDT, Height Start Date: 07/16/21 Status: Ordered sertraline 100 mg oral tablet TAKE 1&1/2 TABLET BY MOUTH ONCE A DAY Start Date: 12/30/21 Status: Ordered Slow Fe (as elemental iron) 45 mg oral tablet, extended release 1 tablet = 45 mg, By Mouth, Daily, # 30 tablet, 5 Refills, Maintenance, 12/18/20 10:42:00 EDT, ER Tablet, [facility], Partial fill upon patient request if [...] Physician Member Role: PCP Address: Address: [address] [place] [address]- Care Team Related Persons Name: KARI AGUERO Address: [place] [address]
--- OUTSIDE RECORDS SUMMARY | 2022-05-29 20:24 | XMS_ITS | Continuity of Care Document ---
Author Name Unknown Organization [facility] Address [address] [place] [address]- Care Team Providers Care Supervisor Properties Name Role Phone Freddie ABBOTT, Kevin Yusuf Primary Care Physician [phone] Encounter [facility] Date(s): 09/18/19 - 10/18/[address] [address]- [facility] Attending Physician: Nasima Coffman Admitting Physician: Nasima [...] (oldterm) 08/07/08 Give n 1Result Comment: [12/27/2016] [facility] [id number] 2Admin Note: VIS from 10/11/14 given to [...] 3 Refills, Maintenance, 07/10/19 10:02:00 EDT, Tablet, [facility], 163.4, cm, 05/16/19 10:53:00 EDT, Height, 166.9, kg, 11/21/17 2:28:00 EDT,Dry Weight Start Date: 07/10/19 Status: Ordered diclofenac 1% topical gel 1 application, Topically, 4 times a day, PRN for pain, not to exceed 16 grams/day/single joint of lower extremities. label palauan, # 100 Gm, 4 Refills, Maintenance, 04/18/19 15:51:00 EST, Gel, [facility], 163.4, cm, 04/18/19 15:38:00 EST, H... Start Date: 04/18/19 Status: Ordered famotidine 20 mg oral tablet 20 mg, 1, tablet, By Mouth, 2 times a day, for pain, nausea. avoid eating and drinking for 10 minutes after each dose, # 20 tablet, Refills 0, Tot. Refills 0, Maintenance, 02/19/19 19:12:13 EST, Route to Pharmacy Electronically, [facility],... Start Date: 02/19/19 Stop Date: 03/01/19 Status: Ordered fexofenadine 60 mg oral tablet 1 tablet = 60 mg, By Mouth, 2 times a day, stop cetirizine please, # 60 tablet, 2 Refills, Maintenance, 08/01/19 9:01:00 EDT, [facility], 163.4, cm, 05/16/19 10:53:00 EDT, Height, 166.9, kg, 11/21/17 2:28:00 EDT, Dry Weight Start Date: 08/01/19 Status: Ordered Flonase 50 mcg/inh nasal spray 1 sprays, Nares, Both, 2 times a day, # 16 Gm, 3 Refills, Maintenance, 07/10/19 10:02:00 EDT, [place], [facility], 1 sprays Nares, Both 2 times a day, 163.4, cm, 05/16/19 10:53:00 EDT, Height, 166.9, kg, 11/21/17 2:28:00 EDT, Dry Weight Start Date: 07/10/19 Status: Ordered hydrocortisone 2.5% topical lotion 1 application, Topically, 2 times a day, # 59 mL, 0 Refills, Maintenance, 05/17/19 17:11:00 EDT, Lotion, [facility]/pharmacy #[id number], 1 application Topically 2 times a day, 163.4, cm, 05/16/19 10:53:00 EDT, Height, 166.9, kg, 11/21/17 2:28:00 EDT, Dry Weight Start Date: 05/17/19 Status: Ordered lisinopril 20 mg oral tablet 20 mg, 1, tablet, By Mouth, Daily, # 30 tablet, Refills 11, Tot. Refills 11, Maintenance, 09/25/19 14:32:00 EDT, Route to Pharmacy Electronically, [facility], 163.4, cm, 08/13/19 14:08:00 EDT, Height, 166.9, kg, 11/21/17 2:28:00 EDT, Dry Weight Start Date: 09/25/19 Stop Date: 09/19/20 Status: Ordered Naphcon-A 0.025%-0.3% ophthalmic solution 1 drops, Eyes, Both, 4 times a day, # 15 mL, 1 Refills, Maintenance, 07/10/19 10:02:00 EDT, Solution, [facility], 1 drops Eyes, Both 4 times a day, 163.4, cm, 05/16/19 10:53:00 EDT, Height,166.9, kg, 11/21/17 2:28:00 EDT, Dry Weight Start Date: 07/10/19 Status: Ordered ProAir HFA 90 mcg/inh inhalation aerosol with adapter 2, puffs, Inhalation, Every 4 hours, PRN, # 8.5 Gm, Refills 6, Tot. Refills 6, Maintenance, 02/21/19 16:23:00 EST, Aerosol, Route to Pharmacy Electronically, [id number], [facility], 163.4, cm, 02/19/19 19:02:00 EST, Height, [...] 1 Refills, Maintenance, 02/19/19 19:13:45EST, ER Tablet, [facility], 163.4, cm, 02/19/19 19:02:31 EST, Height, [...]
--- OUTSIDE RECORDS SUMMARY | 2022-05-29 20:24 | XMS_ITS | Continuity of Care Document ---
Author Name Unknown Organization [facility] Address [address] [place] [address]- Care Team Providers Care Warehouse Foreman Name Role Phone Freddie ABBOTT, Kevin Yusuf Primary Care Physician [phone] [place] [facility] [place] Date(s): 06/26/19 - 07/26/[address] [address]- [facility] Attending Physician: Nasima Coffman Admitting [...] Give n 1Result Comment: [12/27/2016] [facility] [id number] 2Admin Note: VIS from 10/11/14 given to [...] 3 Refills, Maintenance, 07/10/19 10:02:00 EDT, Tablet, [facility], 163.4, cm, 05/16/19 10:53:00 EDT, Height, 166.9, kg, 11/21/17 2:28:00 EDT,Dry Weight Start Date: 07/10/19 Status: Ordered diclofenac 1% topical gel 1 application, Topically, 4 times a day, PRN for pain, not to exceed 16 grams/day/single joint of lower extremities. label albanian, # 100 Gm, 4 Refills, Maintenance, 04/18/19 15:51:00 EST, Gel, [facility], 163.4, cm, 04/18/19 15:38:00 EST, H... Start Date: 04/18/19 Status: Ordered famotidine 20 mg oral tablet 20 mg, 1, tablet, By Mouth, 2 times a day, for pain, nausea. avoid eating and drinking for 10 minutes after each dose, # 20 tablet, Refills 0, Tot. Refills 0, Maintenance, 02/19/19 19:12:13 EST, Route to Pharmacy Electronically, [facility],... Start Date: 02/19/19 Stop Date: 03/01/19 Status: Ordered Flonase 50 mcg/inh nasal spray 1 sprays, Nares, Both, 2 times a day, # 16 Gm, 3 Refills, Maintenance, 07/10/19 10:02:00 EDT, [place], [facility], 1 sprays Nares, Both 2 times a day, 163.4, cm, 05/16/19 10:53:00 EDT, Height, 166.9, kg, 11/21/17 2:28:00 EDT, Dry Weight Start Date: 07/10/19 Status: Ordered hydrocortisone 2.5% topical lotion 1 application, Topically, 2 times a day, # 59 mL, 0 Refills, Maintenance, 05/17/19 17:11:00 EDT, Lotion, [facility]/pharmacy #[id number], 1 application Topically 2 times a day, 163.4, cm, 05/16/19 10:53:00 EDT, Height, 166.9, kg, 11/21/17 2:28:00 EDT, Dry Weight Start Date: 05/17/19 Status: Ordered lisinopril 20 mg oral tablet 20 mg, 1, tablet, By Mouth, Daily, # 30 tablet, Refills 6, Tot. Refills 6, Maintenance, 01/18/19 10:21:15 EST, Route to Pharmacy Electronically, [id number], [id number] Start Date: 01/18/19 Stop Date: 08/16/19 Status: Ordered Naphcon-A 0.025%-0.3% ophthalmic solution 1 drops, Eyes, Both, 4 times a day, # 15 mL, 1 Refills, Maintenance, 07/10/19 10:02:00 EDT, Solution, [facility], 1 drops Eyes, Both 4 times a day, 163.4, cm, 05/16/19 10:53:00 EDT, Height,166.9, kg, 11/21/17 2:28:00 EDT, Dry Weight Start Date: 07/10/19 Status: Ordered ProAir HFA 90 mcg/inh inhalation aerosol with adapter 2, puffs, Inhalation, Every 4 hours, PRN, # 8.5 Gm, Refills 6, Tot. Refills 6, Maintenance, 02/21/19 16:23:00 EST, Aerosol, Route to Pharmacy Electronically, NCPDP_[id number], [facility], 163.4, cm, 02/19/19 19:02:00 EST, Height, [...] 1 Refills, Maintenance, 02/19/19 19:13:45EST, ER Tablet, [facility], 163.4, cm, 02/19/19 19:02:31 EST, Height, [...]
--- OUTSIDE RECORDS SUMMARY | 2022-05-29 20:24 | XMS_ITS | Continuity of Care Document ---
Author Name Unknown Organization [facility] Address [address] [place] [address]- Care Team Providers Care Blocklayer Name Role Phone Freddie ABBOTT, Kevin Yusuf Primary Care Physician [place] [facility] [place] 06/18/[place] - 08/20/[address] [address] Attending Physician: Not on Staff, Attending MD [...] Give n 1Result Comment: [12/27/2016] [facility] [id number] 2Admin Note: VIS from 10/11/14 given to parent Medications albuterol 0.083% inhalation solution 3 mL = 2.5 mg, Inhalation, Every 6 hours, PRN for wheezing, # 100 each, 1 Refills, Maintenance, 08/05/21 15:44:00 EDT, Solution, [facility], 163.4, cm, 08/05/21 14:34:00 EDT, Height Start Date: 08/05/21 Status: Ordered cetirizine 10 mg oral tablet 1 tablet, By Mouth, Daily, # 30 tablet, 5 Refills, [facility], 163.4, cm, 02/25/21 13:06:00 EST, Height [...] Gm, 0 Refills, Maintenance, 07/15/21 15:06:00 [facility] [...] Gm, 5 Refills, Maintenance, 05/26/21 13:59:00 EDT, [facility], 163.4, cm, 02/25/21 13:06:00 EST, Height Start Date: 05/26/21 Status: Ordered fluticasone 50 mcg/inh nasal spray See Instructions, USE 1 SPRAY IN EACH NOSTRIL TWICE A DAY, # 16 Gm, 5 Refills, Maintenance, 05/26/21 13:59:00 EDT, [facility], 30, USE 1 SPRAY IN EACH NOSTRIL TWICE A DAY, 163.4, cm, 02/25/21 13:06:00 EST, Height Start Date: 05/26/21 Status: Ordered hydroCHLOROthiazide 12.5 mg oral capsule 1 capsule, By Mouth, Daily, # 30 capsule, 5 Refills, [facility], 163.4, cm, 02/25/21 13:06:00 EST, Height Start Date: 06/09/21 Status: Ordered lisinopril 20 mg oral tablet See Instructions, TAKE 1 TABLET BY MOUTH EVERY DAY, # 90 tablet, Refills 1, Instructions Replace Required Details, Route to Pharmacy Electronically, [facility], 163.4, cm, 02/25/21 13:06:00EST, Height Start Date: [...] Gm, Refills 5, Route to Pharmacy Electronically, NCPDP_[id number], [facility], 163.4, cm, 07/15/21 13:31:00 EDT, Height [...]
--- OUTSIDE RECORDS SUMMARY | 2022-05-29 20:24 | XMS_ITS | Continuity of Care Document ---
Author Name Unknown Organization [facility] Address [address] [place] [address]- Care Team Providers Care Debt And Budget Counselor Name Role Phone Kevin Frazier MD Primary Care Physician [place] [facility] [place] 07/26/[address] [address]- [facility] Attending Physician: Kevin Frazier MD Admitting Physician: [...] 1Result Comment: [12/27/2016] [facility] [id number] 2Admin Note: VIS from 10/11/14 given to [...] 3 Refills, Maintenance, 07/10/19 10:02:00 EDT, Tablet, [facility], 163.4, cm, 05/16/19 10:53:00 EDT, Height, 166.9, kg, 11/21/17 2:28:00 EDT,Dry Weight Start Date: 07/10/19 Status: Ordered diclofenac 1% topical gel 1 application, Topically, 4 times a day, PRN for pain, not to exceed 16 grams/day/single joint of lower extremities. label hungarian, # 100 Gm, 4 Refills, Maintenance, 04/18/19 [...] 02/19/19 19:12:13 EST, Route to Pharmacy Electronically, [facility],... Start Date: 02/19/19 Stop Date: 03/01/19 Status: Ordered Flonase 50 mcg/inh nasal spray 1 sprays, Nares, Both, 2 times a day, # 16 Gm, 3 Refills, Maintenance, 07/10/19 10:02:00 EDT, [place], [facility], 1 sprays Nares, Both 2 times a day, 163.4, cm, 05/16/19 10:53:00 EDT, Height, 166.9, kg, 11/21/17 2:28:00 EDT, Dry Weight Start Date: 07/10/19 Status: Ordered hydrocortisone 2.5% topical lotion 1 application, Topically, 2 times a day, # 59 mL, 0 Refills, Maintenance, 05/17/19 17:11:00 EDT, Lotion, [id number], 1 application Topically 2 times a day, 163.4, cm, 05/16/19 10:53:00 EDT, Height, 166.9, kg, 11/21/17 2:28:00 EDT, Dry Weight Start Date: 05/17/19 Status: Ordered lisinopril 20 mg oral tablet 20 mg, 1, tablet, By Mouth, Daily, # 30 tablet, Refills 6, Tot. Refills 6, Maintenance, 01/18/19 10:21:15 EST, Route to Pharmacy Electronically, [id number], [facility]/pharmacy #[id number] Start Date: 01/18/19 Stop Date: 08/16/19 Status: Ordered Naphcon-A 0.025%-0.3% ophthalmic solution 1 drops, Eyes, Both, 4 times a day, # 15 mL, 1 Refills, Maintenance, 07/10/19 10:02:00 EDT, Solution, [facility], 1 drops Eyes, Both 4 times a day, 163.4, cm, 05/16/19 10:53:00 EDT, Height,166.9, kg, 11/21/17 2:28:00 EDT, Dry Weight Start Date: 07/10/19 Status: Ordered ProAir HFA 90 mcg/inh inhalation aerosol with adapter 2, puffs, Inhalation, Every 4 hours, PRN, # 8.5 Gm, Refills 6, Tot. Refills 6, Maintenance, 02/21/19 16:23:00 EST, Aerosol, Route to Pharmacy Electronically, NCPDP_[id number], [facility], 163.4, cm, 02/19/19 19:02:00 EST, Height, [...] 1 Refills, Maintenance, 02/19/19 19:13:45EST, ER Tablet, [facility], 163.4, cm, 02/19/19 19:02:31 EST, Height, [...]
--- OUTSIDE RECORDS SUMMARY | 2022-05-29 20:24 | XMS_ITS | Continuity of Care Document ---
Author Name Unknown Organization [facility] Address [address] [place] [address]- Care Team Providers Care Cooler Worker Name Role Phone Freddie ABBOTT, Kevin Yusuf Primary Care Physician [facility]): [facility] - 02/11/[address] [address]- Attending Physician: Buck Hancock Admitting Physician: Buck [...] [12/27/2016] [facility] [id number] 2Admin Note: VIS from 10/11/14 given to parent Medications albuterol 0.083% inhalation solution 3 mL = 2.5 mg, Inhalation, Every 6 hours, PRN for wheezing, # 100 each, 1 Refills, Maintenance, 08/05/21 15:44:00 EDT, Solution, [facility], 163.4, cm, 08/05/21 14:34:00 EDT, Height Start Date: 08/05/21 Status: Ordered BuPROPion (Eqv-Wellbutrin SR) 150 mg/12 hours oral tablet, extended release TAKE 1 TABLET BY MOUTH TWICE A DAY Start Date: 12/30/21 Status: Ordered cetirizine 10 mg oral tablet 1 tablet, By Mouth, Daily, # 30 tablet, 5 Refills, [facility], 163.4, cm, 08/05/21 14:34:00 EDT, Height Start Date: 08/25/21 Status: Ordered clindamycin 1% topical gel 1 application, Topically, 2 times a day, # 30 Gm, 0 Refills, Maintenance, 01/27/22 9:20:00 EST, Gel, [facility], Partial fill upon patient request if the prescription is for a schedule II opioid drug. Refills- contact PCP, 1 application Topi... Start Date: 01/27/22 Status: Ordered diclofenac 1% topical gel 1 application, Topically, 4 times a day, PRN Pain , Moderate, apply to wrists as needed, # 100 Gm, 0 Refills, Maintenance, 07/15/21 15:06:00 EDT, Gel, [facility], Partial fill upon patient request if the prescription is for a schedule II opi... Start Date: 07/15/21 Status: Ordered EpiPen 2-Mir 0.3 mg injectable kit = 0.3 mg, Intramuscular, Once, may repeat if necessary, # 1 each, 0 Refills, Soft Stop, 09/25/21 14:43:00 EDT, [facility], Partial fill upon patient request if [...] AFTER USE., # 12 Gm, 5 Refills, [facility], 163.4, cm, 10/14/21 8:28:00 EDT, Height Start Date: 10/26/21 Status: Ordered fluticasone 50 mcg/inh nasal spray See Instructions, USE 1 SPRAY IN EACH NOSTRIL TWICE A DAY, # 16 Gm, 5 Refills, [facility], 30, USE 1 SPRAY IN EACH NOSTRIL TWICE A DAY, 163.4, cm, 10/14/21 8:28:00 EDT, Height Start Date: 10/26/21 Status: Ordered hydroCHLOROthiazide 12.5 mg oral capsule 1 capsule, By Mouth, Daily, # 30 capsule, 2 Refills, Maintenance, 12/10/21 12:09:00 EDT, [facility], 163.4, cm, 12/02/21 16:27:00 EDT, Height [...] tablet, Refills 1, Route to Pharmacy Electronically, [facility], 163.4, cm, 09/24/21 15:28:00 EDT, Height Start Date: 09/24/21 Status: Ordered medroxyPROGESTERone 10 mg oral tablet 10 mg, 1, tablet, By Mouth, Daily, # 10 tablet, Refills 0, Tot. Refills 0, Maintenance, 04/17/20 11:20:00 EST, Route to Pharmacy Electronically, [facility], Partial fill upon patient request if the prescription is for a schedule II opioid drMariana. Start Date: 04/17/20 Status: Ordered metFORMIN 500 mg oral tablet 1 tablet = 500 mg, By Mouth, Daily, with meals, # 90 tablet, 0 Refills, Maintenance, 01/27/22 9:19:00 EST, Tablet, [facility], Partial fill upon patient request if the prescription is for aschedule II opioid drug. Refills-contact PCP, 163.4... Start Date: 01/27/22 Status: Ordered NIFEdipine 30 mg oral tablet, extended release 30 mg, 1, tablet, By Mouth, Daily, # 30 tablet, Refills 2, Tot. Refills 2, Maintenance, 12/07/21 15:13:00 EDT, Route to Pharmacy Electronically, [facility], Duplicate Rx. Original sent 12/01/21. Re-sending per pharmacy request, 163.4, cm, ... Start Date: 12/07/21 Stop Date: 03/07/22 Status: Ordered ProAir HFA 90 mcg/inh inhalation aerosol with adapter 2, puffs, Inhalation, Every 4 hours, PRN, # 8.5 Gm, Refills 5, Route to Pharmacy Electronically, [id number]_[id number], [facility], 163.4, cm, 07/15/21 13:31:00 EDT, Height Start Date: 07/16/21 Status: Ordered sertraline 100 mg oral tablet TAKE 1&1/2 TABLET BY MOUTH ONCE A DAY Start Date: 12/30/21 Status: Ordered Slow Fe (as elemental iron) 45 mg oral tablet, extended release 1 tablet = 45 mg, By Mouth, Daily, # 30 tablet, 5 Refills, Maintenance, 12/18/20 10:42:00 EDT, ER Tablet, [facility], Partial fill upon patient [...] Care Physician Member Role: PCP Address: Address: [address] [place] [address]- Care Team Related Persons Name: KARI AGUERO Address: home [address] [place] [address]
--- OUTSIDE RECORDS SUMMARY | 2022-05-29 20:24 | XMS_ITS | Continuity of Care Document ---
Author Name Unknown Organization [facility]3] Adult Medicine Address [address] [place] [address]- Care Team Providers Care Acid Pump Operator Name Role Phone Freddie ABBOTT, Kevin Yusuf Primary Care Physician [facility] 10[facility]20 - 11/12/20 [facility] Adult Medicine [address] [place] [address]- Allergies, Adverse Reactions, Alerts Substance Reaction Severity [...] 1Result Comment: [12/27/2016] [facility] [id number] 2Admin Note: VIS from 10/11/14 given to parent Medications albuterol 0.083% inhalation solution 3 mL = 2.5 mg, Inhalation, Every 6 hours, PRN for wheezing, # 60 each, 0 Refills, Maintenance, 11/22/19 11:06:00 EDT, Solution, [facility], 163.4, cm, 11/06/19 13:10:00 EDT, Height Start Date: 11/22/19 Status: Ordered capsaicin 0.025% topical cream 1 application, Topically, 3 times a day, avoid contact with face and eyes to affected area, # 45 Gm, 10 Refills, Maintenance, 11/06/19 13:39:00 EDT, Cream, [facility], 1 application Topically 3 times a day,Instr:avoid contact with face and... Start Date: 11/06/19 Status: Ordered cetirizine 10 mg oral tablet 1 tablet = 10 mg, By Mouth, Daily, # 30 tablet, 5 Refills, Maintenance, 07/24/20 11:12:00 EDT, Tablet, [facility], Label in [place]., 163.4, cm, 11/06/19 13:10:00 EDT, Height Start Date: 07/24/20 Status: Ordered diclofenac 1% topical gel 1 application, Topically, 4 times a day, PRN for pain, not to exceed 16 grams/day/single joint of lower extremities. label filipino, # 100 Gm, 4 Refills, Maintenance, 04/18/19 [...] Gm, 3 Refills, Maintenance, 07/24/20 11:12:00 EDT, [place], [facility], 1 sprays Nares, Both 2 times a day, 163.4, cm, 11/06/19 13:10:00 EDT, Height Start Date: 07/24/20 Status: Ordered Flovent HFA 110 mcg/inh inhalation aerosol 2 puffs, Inhalation, 2 times a day, use twice a day to prevent asthma symptoms. rinse mouth and throat after use, # 1 each, 2 Refills, Maintenance, 09/03/20 10:43:00 EDT, [facility], Partial fill upon patient request if the prescription is... Start Date: 09/03/20 Status: Ordered hydrocortisone 2.5% topical lotion 1 application, Topically, 2 times a day, # 59 mL, 0 Refills, Maintenance, 05/17/19 17:11:00 EDT, Lotion, [facility]/pharmacy #[id number], 1 application Topically [...] 11/22/19 18:01:00 EDT, Route to Pharmacy Electronically, [facility],163.4, cm, 11/06/19 13:10:00 EDT, Height, Dry Weight Start Date: 11/22/19 Stop Date: 11/16/20 Status: Ordered lisinopril 20 mg oral tablet 20 mg, 1, tablet, By Mouth, Daily, # 90 tablet, Refills 1, Tot. Refills 1, Maintenance, 11/16/20 18:01:00 EDT, Route to Pharmacy Electronically, [facility], 163.4, cm, 09/03/20 10:55:00 EDT, Height [...] 0 Refills, Maintenance, 12/12/19 9:11:00 EDT, Tablet, [facility], 163.4, cm, 11/06/19 13:10:00 EDT, Height, Dry Weight Start Date: 12/12/19 Status: Ordered Naphcon-A 0.025%-0.3% ophthalmic solution 1 drops, Eyes, Both, 4 times a day, # 15 mL, 1 Refills, Maintenance, 09/03/20 10:42:00 EDT, Solution, [facility], 1 drops Eyes, Both 4 times [...] 0 Refills, Maintenance, 01/10/20 14:06:00 EST, ECCapsule, [facility], 163.4, cm, 11/06/19 13:10:00 EDT, Height Start Date: 01/10/20 Status: Ordered ProAir HFA 90 mcg/inh inhalation aerosol with adapter 2, puffs, Inhalation, Every 4 hours, PRN, # 8.5 Gm, Refills 5, Tot. Refills 5, Maintenance, 07/24/20 11:13:00 EDT, Aerosol, Route to Pharmacy Electronically, NCPDP_[id number], [facility], 163.4, cm, 11/06/19 13:10:00 EDT, Height [...] 1 Refills, Maintenance, 02/19/19 19:13:45EST, ER Tablet, [facility], 163.4, cm, 02/19/19 19:02:31 EST, Height, [...]
--- OUTSIDE RECORDS SUMMARY | 2022-05-29 20:24 | XMS_ITS | Continuity of Care Document ---
Author Name Unknown Organization [facility] Address [address] [place] [address]- Care Team Providers Care Curriculum Development Specialist Name Role Phone Freddie ABBOTT, Kevin Yusuf Primary Care Physician [facility] - 08/21/19 [facility] [address] [address]- [facility] Attending Physician: Maximilian ABBOTT, Anjelica Salgado Admitting [...] (oldterm) 08/07/08 Give n 1Result Comment: [12/27/2016] [facility] [id number] 2Admin Note: VIS from 10/11/14 given to [...] 3 Refills, Maintenance, 07/10/19 10:02:00 EDT, Tablet, [facility], 163.4, cm, 05/16/19 10:53:00 EDT, Height, 166.9, kg, 11/21/17 2:28:00 EDT,Dry Weight Start Date: 07/10/19 Status: Ordered diclofenac 1% topical gel 1 application, Topically, 4 times a day, PRN for pain, not to exceed 16 grams/day/single joint of lower extremities. label libyan, # 100 Gm, 4 Refills, Maintenance, 04/18/19 15:51:00 EST, Gel, [facility], 163.4, cm, 04/18/19 15:38:00 EST, H... Start Date: 04/18/19 Status: Ordered famotidine 20 mg oral tablet 20 mg, 1, tablet, By Mouth, 2 times a day, for pain, nausea. avoid eating and drinking for 10 minutes after each dose, # 20 tablet, Refills 0, Tot. Refills 0, Maintenance, 02/19/19 19:12:13 EST, Route to Pharmacy Electronically, [facility],... Start Date: 02/19/19 Stop Date: 03/01/19 Status: Ordered fexofenadine 60 mg oral tablet 1 tablet = 60 mg, By Mouth, 2 times a day, stop cetirizine please, # 60 tablet, 2 Refills, Maintenance, 08/01/19 9:01:00 EDT, [facility], 163.4, cm, 05/16/19 10:53:00 EDT, Height, 166.9, kg, 11/21/17 2:28:00 EDT, Dry Weight Start Date: 08/01/19 Status: Ordered Flonase 50 mcg/inh nasal spray 1 sprays, Nares, Both, 2 times a day, # 16 Gm, 3 Refills, Maintenance, 07/10/19 10:02:00 EDT, [place], [facility], 1 sprays Nares, Both 2 times a day, 163.4, cm, 05/16/19 10:53:00 EDT, Height, 166.9, kg, 11/21/17 2:28:00 EDT, Dry Weight Start Date: 07/10/19 Status: Ordered hydrocortisone 2.5% topical lotion 1 application, Topically, 2 times a day, # 59 mL, 0 Refills, Maintenance, 05/17/19 17:11:00 EDT, [id number] 1 application Topically 2 times a day, 163.4, cm, 05/16/19 10:53:00 EDT, Height, 166.9, kg, 11/21/17 2:28:00 EDT, Dry Weight Start Date: 05/17/19 Status: Ordered lisinopril 20 mg oral tablet 20 mg, 1, tablet, By Mouth, Daily, # 30 tablet, Refills 6, Tot. Refills 6, Maintenance, 01/18/19 10:21:15 EST, Route to Pharmacy Electronically, [id number], [id number] Start Date: 01/18/19 Stop Date: 08/16/19 Status: Ordered Naphcon-A 0.025%-0.3% ophthalmic solution 1 drops, Eyes, Both, 4 times a day, # 15 mL, 1 Refills, Maintenance, 07/10/19 10:02:00 EDT, Solution, [facility], 1 drops Eyes, Both 4 times a day, 163.4, cm, 05/16/19 10:53:00 EDT, Height,166.9, kg, 11/21/17 2:28:00 EDT, Dry Weight Start Date: 07/10/19 Status: Ordered ProAir HFA 90 mcg/inh inhalation aerosol with adapter 2, puffs, Inhalation, Every 4 hours, PRN, # 8.5 Gm, Refills 6, Tot. Refills 6, Maintenance, 02/21/19 16:23:00 EST, Aerosol, Route to Pharmacy Electronically, NCPDP_[id number], [facility], 163.4, cm, 02/19/19 19:02:00 EST, Height, [...] Refills, Maintenance, 02/19/19 19:13:45EST, ER Tablet, [facility], 163.4, cm, 02/19/19 19:02:31 EST, Height, [...]
--- OUTSIDE RECORDS SUMMARY | 2022-05-29 20:24 | XMS_ITS | Continuity of Care Document ---
Author Name Unknown Organization [facility] Address [address] [place] [address] [address] [place] [address]- Care Team Providers Care Turfgrass Management Professor Name Role Phone Freddie ABBOTT, Kevin Yusuf Primary Care Physician [facility]19 - 05/27/19 [facility] [address] [place] [address]- [facility] Attending Physician: Mika Lockett Referring Physician: Not on Staff, Referring MD [...] Give n 1Result Comment: [12/27/2016] [facility] [id number] 2Admin Note: VIS from 10/11/14 given to [...] 16 grams/day/single joint of lower extremities. label cameroonian, # 100 Gm, 4 Refills, Maintenance, 04/18/19 15:51:00 EST, Gel, [facility], 163.4, cm, 04/18/19 15:38:00 EST, H... Start Date: 04/18/19 Status: Ordered famotidine 20 mg oral tablet 20 mg, 1, tablet, By Mouth, 2 times a day, for pain, nausea. avoid eating and drinking for 10 minutes after each dose, # 20 tablet, Refills 0, Tot. Refills 0, Maintenance, 02/19/19 19:12:13 EST, Route to Pharmacy Electronically, [facility],... Start Date: 02/19/19 Stop Date: 03/01/19 Status: Ordered Flonase 50 mcg/inh nasal spray 1 sprays, Nares, Both, 2 times a day, # 16 Gm, 1 Refills, Maintenance, 07/19/18 10:29:32 EDT, [place], 1 sprays Nares, Both 2 times a day Start Date: 07/19/18 Status: Ordered hydrocortisone 2.5% topical lotion 1 application, Topically, 2 times a day, # 59 mL, 0 Refills, Maintenance, 05/17/19 17:11:00 EDT, Lotion, [facility]/pharmacy #[id number], 1 application Topically 2 times a day, 163.4, cm, 05/16/19 10:53:00 EDT, Height, 166.9, kg, 11/21/17 2:28:00 EDT, Dry Weight Start Date: 05/17/19 Status: Ordered lisinopril 20 mg oral tablet 20 mg, 1, tablet, By Mouth, Daily, # 30 tablet, Refills 6, Tot. Refills 6, Maintenance, 01/18/19 10:21:15 EST, Route to Pharmacy Electronically, [id number], [facility]/pharmacy #[id number] Start Date: 01/18/19 Stop Date: 08/16/19 Status: Ordered ProAir HFA 90 mcg/inh inhalation aerosol with adapter 2, puffs, Inhalation, Every 4 hours, PRN, # 8.5 Gm, Refills 6, Tot. Refills 6, Maintenance, 02/21/19 16:23:00 EST, Aerosol, Route to Pharmacy Electronically, NCPDP_[id number], [facility], 163.4, cm, 02/19/19 19:02:00 EST, Height, [...] 1 Refills, Maintenance, 02/19/19 19:13:45EST, ER Tablet, [facility], 163.4, cm, 02/19/19 19:02:31 EST, Height, [...]
--- OUTSIDE RECORDS SUMMARY | 2022-05-29 20:24 | XMS_ITS | Continuity of Care Document ---
Author Name Unknown Organization [facility] Address [address] [place] [address]- Care Team Providers Care Hand Former Name Role Phone Freddie ABBOTT, Kevin Yusuf Primary Care Physician [facility] 12[facility]07[facility]21 - 01/06/22 [facility] [address] [place] [address]- Allergies, Adverse Reactions, Alerts No Known Allergies [...] 1Result Comment: [12/27/2016] [facility] [id number] 2Admin Note: VIS from 10/11/14 given to parent Medications albuterol 0.083% inhalation solution 3 mL = 2.5 mg, Inhalation, Every 6 hours, PRN for wheezing, # 100 each, 1 Refills, Maintenance, 08/05/21 15:44:00 EDT, Solution, [facility], 163.4, cm, 08/05/21 14:34:00 EDT, Height Start Date: 08/05/21 Status: Ordered BuPROPion (Eqv-Wellbutrin SR) 150 mg/12 hours oral tablet, extended release TAKE 1 TABLET BY MOUTH TWICE A DAY Start Date: 12/30/21 Status: Ordered cetirizine 10 mg oral tablet 1 tablet, By Mouth, Daily, # 30 tablet, 5 Refills, [facility], 163.4, cm, 08/05/21 14:34:00 EDT, Height Start Date: 08/25/21 Status: Ordered diclofenac 1% topical gel 1 application, Topically, 4 times a day, PRN Pain , Moderate, apply to wrists as needed, # 100 Gm, 0 Refills, Maintenance, 07/15/21 15:06:00 EDT, Gel, [facility], Partial fill upon patient request if the prescription is for a schedule II opi... Start Date: 07/15/21 Status: Ordered EpiPen 2-Mir 0.3 mg injectable kit = 0.3 mg, Intramuscular, Once, may repeat if necessary, # 1 each, 0 Refills, Soft Stop, 09/25/21 14:43:00 EDT, [facility], Partial fill upon patient request if [...] AFTER USE., # 12 Gm, 5 Refills, [facility], 163.4, cm, 10/14/21 8:28:00 EDT, Height Start Date: 10/26/21 Status: Ordered fluticasone 50 mcg/inh nasal spray See Instructions, USE 1 SPRAY IN EACH NOSTRIL TWICE A DAY, # 16 Gm, 5 Refills, [facility], 30, USE 1 SPRAY IN EACH NOSTRIL TWICE A DAY, 163.4, cm, 10/14/21 8:28:00 EDT, Height Start Date: 10/26/21 Status: Ordered hydroCHLOROthiazide 12.5 mg oral capsule 1 capsule, By Mouth, Daily, # 30 capsule, 2 Refills, Maintenance, 12/10/21 12:09:00 EDT, [facility], 163.4, cm, 12/02/21 16:27:00 EDT, Height Start Date: 12/10/21 Status: Ordered lisinopril 20 mg oral tablet 1, tablet, By Mouth, Daily, # 90 tablet, Refills 1, Route to Pharmacy Electronically, [facility], 163.4, cm, 09/24/21 15:28:00 EDT, Height [...] 12/07/21 15:13:00 EDT, Route to Pharmacy Electronically, [facility], Duplicate Rx. Original sent 12/01/21. Re-sending per pharmacy request, 163.4, cm, .. Start Date: 12/07/21 Stop Date: 03/07/22 Status: Ordered ProAir HFA 90 mcg/inh inhalation aerosol with adapter 2, puffs, Inhalation, Every 4 hours, PRN, # 8.5 Gm, Refills 5, Route to Pharmacy Electronically, NCPDP_[id number], [facility], 163.4, cm, 07/15/21 13:31:00 EDT, Height Start Date: 07/16/21 Status: Ordered sertraline 100 mg oral tablet TAKE 1&1/2 TABLET BY MOUTH ONCE A DAY Start Date: 12/30/21 Status: Ordered Slow Fe (as elemental iron) 45 mg oral tablet, extended release 1 tablet = 45 mg, By Mouth, Daily, # 30 tablet, 5 Refills, Maintenance, 12/18/20 10:42:00 EDT, ER Tablet, [facility], Partial fill upon patient request if [...] Personnel Name: Kevin Frazier MD Address: Address: [address] [place] [address]
--- OUTSIDE RECORDS SUMMARY | 2022-05-29 20:24 | XMS_ITS | Continuity of Care Document ---
Author Name Unknown Organization [facility] Address [address] [place] [address]- Care Team Providers Care Artist Blacksmith Name Role Phone Freddie ABBOTT, Kevin Yusuf Primary Care Physician [facility]): [facility] - 03/27/21 [facility] [address] [place], [place] [address] Encounter Diagnosis Headache(Discharge Diagnosis) - 02/25/21 Allergies, Adverse Reactions, Alerts No Known Allergies [...] 1Result Comment: [12/27/2016] [facility] [id number] 2Admin Note: VIS from 10/11/14 given to parent Medications albuterol 0.083% inhalation solution 3 mL = 2.5 mg, Inhalation, Every 6 hours, PRN for wheezing, # 60 each, 0 Refills, Maintenance, 11/22/19 11:06:00 EDT, Solution, [facility], 163.4, cm, 11/06/19 13:10:00 EDT, Height Start Date: 11/22/19 Status: Ordered capsaicin 0.025% topical cream 1 application, Topically, 3 times a day, avoid contact with face and eyes to affected area, # 45 Gm, 10 Refills, Maintenance, 11/06/19 13:39:00 EDT, Cream, [facility], 1 application Topically 3 times a day,Instr:avoid contact with face and... Start Date: 11/06/19 Status: Ordered cetirizine 10 mg oral tablet 1 tablet, By Mouth, Daily, # 30 tablet, 5 Refills, [facility], 163.4, cm, 02/25/21 13:06:00 EST, Height Start Date: 03/03/21 Status: Ordered diclofenac 1% topical gel 1 application, Topically, 4 times a day, PRN for pain, not to exceed 16 grams/day/single joint of lower extremities. label bengali, # 100 Gm, 4 Refills, Maintenance, 04/18/19 15:51:00 EST, Gel, [facility], 163.4, cm, 04/18/19 15:38:00 EST, H... [...] each, 5 Refills, Maintenance, 12/12/20 16:28:00 EDT, [facility], Partial fill upon patient request if the prescription is... Start Date: 12/12/20 Status: Ordered fluticasone 50 mcg/inh nasal spray See Instructions, USE 1 SPRAY IN EACH NOSTRIL TWICE A DAY, # 16 Gm, 5 Refills, [facility], 30, USE 1 SPRAY IN EACH NOSTRIL TWICE A DAY, 163.4, cm, 10/13/20 15:44:00 EDT, Height Start Date: 12/12/20 Status: Ordered hydroCHLOROthiazide 12.5 mg oral capsule 1 capsule = 12.5 mg, By Mouth, Daily, # 30 capsule, 5 Refills, Maintenance, 12/18/20 10:41:00 EDT, Capsule, [facility], Partial fill upon patient request if the prescription is for a schedule II opioid drug., 163.4, cm, 12/18/20 10:36:00 EDT... Start Date: 12/18/20 Status: Ordered hydrocortisone 2.5% topical lotion 1 application, Topically, 2 times a day, # 59 mL, 0 Refills, Maintenance, 05/17/19 17:11:00 EDT, Lotion, [facility]/pharmacy #[id number], 1 application Topically 2 times a day, 163.4, cm, 05/16/19 10:53:00 EDT, Height, 166.9, kg, 11/21/17 2:28:00 EDT, Dry Weight Start Date: 05/17/19 Status: Ordered lisinopril 20 mg oral tablet 20 mg, 1, tablet, By Mouth, Daily, # 90 tablet, Refills 1, Tot. 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
--- OUTSIDE RECORDS SUMMARY | 2022-05-29 20:25 | XMS_ITS | Continuity of Care Document ---
Author Name Unknown Organization [facility] Address [address] [place] [address]- Care Team Providers Care Flower Picker Name Role Phone Freddie ABBOTT, Kevin Yusuf Primary Care Physician [facility] - 12/21/19 [facility] [address] [place] [id number]- [facility] Allergies, Adverse Reactions, Alerts Substance Reaction [...] [12/27/2016] [facility] [id number] 2Admin Note: VIS from 10/11/14 given to parent Medications albuterol 0.083% inhalation solution 3 mL = 2.5 mg, Inhalation, Every 6 hours, PRN for wheezing, # 60 each, 0 Refills, Maintenance, 11/22/19 11:06:00 EDT, Solution, [facility], 163.4, cm, 11/06/19 13:10:00 EDT, Height Start Date: 11/22/19 Status: Ordered Azithromycin 3 Day Dose Pack 500 mg oral tablet 1 tablet = 500 mg, By Mouth, Daily, # 3 tablet, 0 Refills, Maintenance, 11/29/19 14:02:00 EDT, Tablet, [facility], 163.4, cm, 11/06/19 13:10:00 EDT, Height Start Date: 11/29/19 Status: Ordered capsaicin 0.025% topical cream 1 application, Topically, 3 times a day, avoid contact with face and eyes to affected area, # 45 Gm, 10 Refills, Maintenance, 11/06/19 13:39:00 EDT, Cream, [facility], 1 application Topically 3 times a day,Instr:avoid contact with face and... Start Date: 11/06/19 Status: Ordered diclofenac 1% topical gel 1 application, Topically, 4 times a day, PRN for pain, not to exceed 16 grams/day/single joint of lower extremities. label luxembourgish, # 100 Gm, 4 Refills, Maintenance, 04/18/19 15:51:00 EST, Gel, [facility], 163.4, cm, 04/18/19 15:38:00 EST, H... Start Date: 04/18/19 Status: Ordered fexofenadine 60 mg oral tablet 1 tablet = 60 mg, By Mouth, 2 times a day, stop cetirizine please, # 60 tablet, 2 Refills, Maintenance, 08/01/19 9:01:00 EDT, [facility], 163.4, cm, 05/16/19 10:53:00 EDT, Height, 166.9, kg, 11/21/17 2:28:00 EDT, Dry Weight Start Date: 08/01/19 Status: Ordered Flonase 50 mcg/inh nasal spray 1 sprays, Nares, Both, 2 times a day, # 16 Gm, 3 Refills, Maintenance, 07/10/19 10:02:00 EDT, [place], [facility], 1 sprays Nares, Both 2 times a day, 163.4, cm, 05/16/19 10:53:00 EDT, Height, 166.9, kg, 11/21/17 2:28:00 EDT, Dry Weight Start Date: 07/10/19 Status: Ordered hydrocortisone 1% topical cream 1 application, Topically, 2 times a day, # 30 Gm, 0 Refills, Acute 01/12/20 9:24:00 EST, 12/12/19 9:24:00 EDT, Cream, [facility], 1 application Topically 2 times a [...] 11/22/19 18:01:00 EDT, Route to Pharmacy Electronically, [facility], 163.4, cm, 11/06/19 13:10:00 EDT, Height, Dry Weight Start Date: 11/22/19 Stop Date: 11/16/20 Status: Ordered meloxicam 7.5 mg oral tablet 1 tablet = 7.5 mg, By Mouth, Daily, take with food please., # 30 tablet, 0 Refills, Maintenance, 12/12/19 9:11:00 EDT, Tablet, [facility], 163.4, cm, 11/06/19 13:10:00 EDT, Height, Dry Weight Start Date: 12/12/19 Status: Ordered Naphcon-A 0.025%-0.3% ophthalmic solution 1 drops, Eyes, Both, 4 times a day, # 15 mL, 1 Refills, Maintenance, 07/10/19 10:02:00 EDT, Solution, [facility], 1 drops Eyes, Both 4 times [...] 18:22:00 EDT, Aerosol, Route to Pharmacy Electronically, NCPDP_[id number], [facility], 163.4, cm, 11/06/19 13:10:00 EDT, Height, Dry Weight Start Date: 11/21/19 Status: Ordered Tylenol 8 Hour 650 mg oral tablet, extended release 1 tablet = 650 mg, By Mouth, Every 8 hours, # 100 tablet, 1 Refills, Maintenance, 02/19/19 19:13:45EST, ER Tablet, [facility], 163.4, cm, 02/19/19 19:02:31 EST, Height, [...]
--- OUTSIDE RECORDS SUMMARY | 2022-05-29 20:25 | XMS_ITS | Continuity of Care Document ---
Author Name Unknown Organization [facility] Address [address] [place] [address]- Care Team Providers Care Steel Box Toe Inserter Name Role Phone Freddie ABBOTT, Kevin Yusuf Primary Care Physician [facility]20 - 12/21/20 [facility] [address], [place] [address] Allergies, Adverse Reactions, Alerts Substance Reaction [...] (oldterm) 08/07/08 Give n 1Result Comment: [12/27/2016] [facility] [id number] 2Admin Note: VIS from 10/11/14 given to parent Medications albuterol 0.083% inhalation solution 3 mL = 2.5 mg, Inhalation, Every 6 hours, PRN for wheezing, # 60 each, 0 Refills, Maintenance, 11/22/19 11:06:00 EDT, Solution, [facility], 163.4, cm, 11/06/19 13:10:00 EDT, Height Start Date: 11/22/19 Status: Ordered capsaicin 0.025% topical cream 1 application, Topically, 3 times a day, avoid contact with face and eyes to affected area, # 45 Gm, 10 Refills, Maintenance, 11/06/19 13:39:00 EDT, Cream, [facility], 1 application Topically 3 times a day,Instr:avoid contact with face and... Start Date: 11/06/19 Status: Ordered cetirizine 10 mg oral tablet 1 tablet = 10 mg, By Mouth, Daily, # 30 tablet, 5 Refills, Maintenance, 07/24/20 11:12:00 EDT, Tablet, [facility], Label in Central African., 163.4, cm, 11/06/19 13:10:00 EDT, Height Start Date: 07/24/20 Status: Ordered diclofenac 1% topical gel 1 application, Topically, 4 times a day, PRN for pain, not to exceed 16 grams/day/single joint of lower extremities. label yemeni, # 100 Gm, 4 Refills, Maintenance, 04/18/19 15:51:00 EST, Gel, [facility], 163.4, cm, 04/18/19 15:38:00 EST, H... [...] A DAY, # 16 Gm, 5 Refills, [facility], 30, USE 1 SPRAY IN EACH [...] 11/16/20 18:01:00 EDT, Route to Pharmacy Electronically, [facility], 163.4, cm, 09/03/20 10:55:00 EDT, Height Start Date: 11/16/20 Stop Date: 05/15/21 Status: Ordered medroxyPROGESTERone 10 mg oral tablet 10 mg, 1, tablet, By Mouth, Daily, # 10 tablet, Refills 0, Tot. Refills 0, Maintenance, 04/17/20 11:20:00 EST, Route to Pharmacy Electronically, [facility], Partial fill upon patient request if [...] 11:13:00 EDT, Aerosol, Route to Pharmacy Electronically, NCPDP_[id number], [facility], 163.4, cm, 11/06/19 13:10:00 EDT, Height [...] 1 Refills, Maintenance, 02/19/19 19:13:45EST, ER Tablet, [facility], 163.4, cm, 02/19/19 19:02:31 EST, Height, [...]
--- OUTSIDE RECORDS SUMMARY | 2022-05-29 20:25 | XMS_ITS | Continuity of Care Document ---
Author Name Unknown Organization [facility] Address [address] [place] [address]- Care Team Providers Care Architectural Designer Name Role Phone Freddie ABBOTT, Kevin Yusuf Primary Care Physician [phone] [facility] 07[facility]23[facility]21 - 08/22/21 [facility] [address] [place], [place] [address] Allergies, Adverse Reactions, Alerts No [...] Comment: [12/27/2016] [facility] [id number] 2Admin Note: VIS from 10/11/14 given to parent Medications albuterol 0.083% inhalation solution 3 mL = 2.5 mg, Inhalation, Every 6 hours, PRN for wheezing, # 100 each, 1 Refills, Maintenance, 08/05/21 15:44:00 EDT, Solution, [facility], 163.4, cm, 08/05/21 14:34:00 EDT, Height Start Date: 08/05/21 Status: Ordered cetirizine 10 mg oral tablet 1 tablet, By Mouth, Daily, # 30 tablet, 5 Refills, [facility], 163.4, cm, 02/25/21 13:06:00 EST, Height [...] Gm, 5 Refills, Maintenance, 05/26/21 13:59:00 EDT, [facility], 163.4, cm, 02/25/21 13:06:00 EST, Height Start Date: 05/26/21 Status: Ordered fluticasone 50 mcg/inh nasal spray See Instructions, USE 1 SPRAY IN EACH NOSTRIL TWICE A DAY, # 16 Gm, 5 Refills, Maintenance, 05/26/21 13:59:00 EDT, [facility], 30, USE 1 SPRAY IN EACH NOSTRIL TWICE A DAY, 163.4, cm, 02/25/21 13:06:00 EST, Height Start Date: 05/26/21 Status: Ordered hydroCHLOROthiazide 12.5 mg oral capsule 1 capsule, By Mouth, Daily, # 30 capsule, 5 Refills, [facility], 163.4, cm, 02/25/21 13:06:00 EST, Height [...] Gm, Refills 5, Route to Pharmacy Electronically, NCPDP_[id number], [facility], 163.4, cm, 07/15/21 13:31:00 [...]
--- OUTSIDE RECORDS SUMMARY | 2022-05-29 20:25 | XMS_ITS | Continuity of Care Document ---
Author Name Unknown Organization [facility] Address [address] [place] [address]- Care Team Providers Care Catheter Builder Name Role Phone Freddie ABBOTT, Kevin Yusuf Primary Care Physician [facility]): 08[facility] - 08/31/19 [facility] [address] [place] [address]- [facility] Attending Physician: Nasima Coffman Admitting Physician: AdmNasima [...] Comment: [12/27/2016] [facility] [id number] 2Admin Note: VIS from 10/11/14 given to [...] 3 Refills, Maintenance, 07/10/19 10:02:00 EDT, Tablet, [facility], 163.4, cm, 05/16/19 10:53:00 EDT, Height, 166.9, kg, 11/21/17 2:28:00 EDT,Dry Weight Start Date: 07/10/19 Status: Ordered diclofenac 1% topical gel 1 application, Topically, 4 times a day, PRN for pain, not to exceed 16 grams/day/single joint of lower extremities. label ugandan, # 100 Gm, 4 Refills, Maintenance, 04/18/19 [...] 02/19/19 19:12:13 EST, Route to Pharmacy Electronically, [facility],... Start Date: 02/19/19 Stop Date: 03/01/19 Status: Ordered fexofenadine 60 mg oral tablet 1 tablet = 60 mg, By Mouth, 2 times a day, stop cetirizine please, # 60 tablet, 2 Refills, Maintenance, 08/01/19 9:01:00 EDT, [facility], 163.4, cm, 05/16/19 10:53:00 EDT, Height, 166.9, kg, 11/21/17 2:28:00 EDT, Dry Weight Start Date: 08/01/19 Status: Ordered Flonase 50 mcg/inh nasal spray 1 sprays, Nares, Both, 2 times a day, # 16 Gm, 3 Refills, Maintenance, 07/10/19 10:02:00 EDT, [place], [facility], 1 sprays Nares, Both 2 times a day, 163.4, cm, 05/16/19 10:53:00 EDT, Height, 166.9, kg, 11/21/17 2:28:00 EDT, Dry Weight Start Date: 07/10/19 Status: Ordered hydrocortisone 2.5% topical lotion 1 application, Topically, 2 times a day, # 59 mL, 0 Refills, Maintenance, 05/17/19 17:11:00 EDT, [id number] 1 application Topically 2 times a day, 163.4, cm, 05/16/19 10:53:00 EDT, Height, 166.9, kg, 11/21/17 2:28:00 EDT, Dry Weight Start Date: 05/17/19 Status: Ordered lisinopril 20 mg oral tablet 20 mg, 1, tablet, By Mouth, Daily, # 30 tablet, Refills 6, Tot. Refills 6, Maintenance, 01/18/19 10:21:15 EST, Route to Pharmacy Electronically, [id number], [id number] Start Date: 01/18/19 Stop Date: 08/16/19 Status: Ordered Naphcon-A 0.025%-0.3% ophthalmic solution 1 drops, Eyes, Both, 4 times a day, # 15 mL, 1 Refills, Maintenance, 07/10/19 10:02:00 EDT, Solution, [facility], 1 drops Eyes, Both 4 times a day, 163.4, cm, 05/16/19 10:53:00 EDT, Height,166.9, kg, 11/21/17 2:28:00 EDT, Dry Weight Start Date: 07/10/19 Status: Ordered ProAir HFA 90 mcg/inh inhalation aerosol with adapter 2, puffs, Inhalation, Every 4 hours, PRN, # 8.5 Gm, Refills 6, Tot. Refills 6, Maintenance, 02/21/19 16:23:00 EST, Aerosol, Route to Pharmacy Electronically, NCPDP_[id number], [facility], 163.4, cm, 02/19/19 19:02:00 EST, Height, [...] 1 Refills, Maintenance, 02/19/19 19:13:45EST, ER Tablet, [facility], 163.4, cm, 02/19/19 19:02:31 EST, Height, [...]
--- OUTSIDE RECORDS SUMMARY | 2022-05-29 20:25 | XMS_ITS | Continuity of Care Document ---
Author Name Unknown Organization [facility] Address [address] [place] [address]- Care Team Providers Care Prior Authorization Nurse Name Role Phone Kevin Frazier MD Primary Care Physician [facility] 04[facility]30[facility]19 - 06/27/19 [facility] [address] [place] [address]- [facility] Attending Physician: Kevin Frazier MD Admitting Physician: [...] n 1Result Comment: [12/27/2016] [facility] [id number] 2Admin Note: VIS from 10/11/14 given to [...] lower extremities. label thai, # 100 Gm, 4 Refills, Maintenance, 04/18/19 15:51:00 EST, Gel, [facility], 163.4, cm, 04/18/19 15:38:00 EST, H... Start Date: 04/18/19 Status: Ordered famotidine 20 mg oral tablet 20 mg, 1, tablet, By Mouth, 2 times a day, for pain, nausea. avoid eating and drinking for 10 minutes after each dose, # 20 tablet, Refills 0, Tot. Refills 0, Maintenance, 02/19/19 19:12:13 EST, Route to Pharmacy Electronically, [facility],... Start Date: 02/19/19 Stop Date: 03/01/19 Status: Ordered Flonase 50 mcg/inh nasal spray 1 sprays, Nares, Both, 2 times a day, # 16 Gm, 1 Refills, Maintenance, 05/28/19 14:04:00 EDT, [id number] 1 sprays Nares, Both 2 [...] 01/18/19 10:21:15 EST, Route to Pharmacy Electronically, [id number], [facility]/pharmacy #[id number] Start Date: 01/18/19 Stop Date: 08/16/19 Status: Ordered ProAir HFA 90 mcg/inh inhalation aerosol with adapter 2, puffs, Inhalation, Every 4 hours, PRN, # 8.5 Gm, Refills 6, Tot. Refills 6, Maintenance, 02/21/19 16:23:00 EST, Aerosol, Route to Pharmacy Electronically, NCPDP_[id number], [facility], 163.4, cm, 02/19/19 19:02:00 EST, Height, [...] 1 Refills, Maintenance, 02/19/19 19:13:45EST, ER Tablet, [facility], 163.4, cm, 02/19/19 19:02:31 EST, Height, [...]
--- OUTSIDE RECORDS SUMMARY | 2022-05-29 20:25 | XMS_ITS | Continuity of Care Document ---
Author Name Unknown Organization [facility] Address [address] [place] [address]- Care Team Providers Care Tube Cutter Name Role Phone Kevin Frazier MD Primary Care Physician [facility]): 11/25/20 - 12/25/20 [facility] [address] [place] [address]- Allergies, Adverse Reactions, Alerts Substance Reaction Severity [...] 08/07/08 Give n 1Result Comment: [12/27/2016] [facility] [id number] 2Admin Note: VIS from 10/11/14 given to parent Medications albuterol 0.083% inhalation solution 3 mL = 2.5 mg, Inhalation, Every 6 hours, PRN for wheezing, # 60 each, 0 Refills, Maintenance, 11/22/19 11:06:00 EDT, Solution, [facility], 163.4, cm, 11/06/19 13:10:00 EDT, Height Start Date: 11/22/19 Status: Ordered capsaicin 0.025% topical cream 1 application, Topically, 3 times a day, avoid contact with face and eyes to affected area, # 45 Gm, 10 Refills, Maintenance, 11/06/19 13:39:00 EDT, Cream, [facility], 1 application Topically 3 times a day,Instr:avoid contact with face and... Start Date: 11/06/19 Status: Ordered cetirizine 10 mg oral tablet 1 tablet = 10 mg, By Mouth, Daily, # 30 tablet, 5 Refills, Maintenance, 07/24/20 11:12:00 EDT, Tablet, [facility], Label in Indian., 163.4, cm, 11/06/19 13:10:00 EDT, Height Start Date: 07/24/20 Status: Ordered diclofenac 1% topical gel 1 application, Topically, 4 times a day, PRN for pain, not to exceed 16 grams/day/single joint of lower extremities. label burmese, # 100 Gm, 4 Refills, Maintenance, 04/18/19 15:51:00 EST, Gel, [facility], 163.4, cm, 04/18/19 15:38:00 EST, H... [...] 5 Refills, Maintenance, 12/12/20 16:28:00 EDT, [facility], Partial fill upon patient request if the prescription is... Start Date: 12/12/20 Status: Ordered fluticasone 50 mcg/inh nasal spray See Instructions, USE 1 SPRAY IN EACH NOSTRIL TWICE A DAY, # 16 Gm, 5 Refills, [facility], 30, USE 1 SPRAY IN EACH NOSTRIL TWICE A DAY, 163.4, cm, 10/13/20 15:44:00 EDT, Height Start Date: 12/12/20 Status: Ordered hydroCHLOROthiazide 12.5 mg oral capsule 1 capsule = 12.5 mg, By Mouth, Daily, # 30 capsule, 5 Refills, Maintenance, 12/18/20 10:41:00 EDT, Capsule, [facility], Partial fill upon patient request if [...] 11/16/20 18:01:00 EDT, Route to Pharmacy Electronically, [facility], 163.4, cm, 09/03/20 10:55:00 EDT, Height [...] 11:13:00 EDT, Aerosol, Route to Pharmacy Electronically, NCPDP_[id number], [facility], 163.4, cm, 11/06/19 13:10:00 EDT, Height [...] 1 Refills, Maintenance, 02/19/19 19:13:45EST, ER Tablet, [facility], 163.4, cm, 02/19/19 19:02:31 EST, Height, 166.9, kg, 182:28:34 EDT, Dry Weight Start Date: 02/19/19 Status: Ordered Problem List Condition Effective Dates Status Health Status Inform ant Asthma(Confirmed) Active 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
--- OUTSIDE RECORDS SUMMARY | 2022-05-29 20:25 | XMS_ITS | Continuity of Care Document ---
Author Name Unknown Organization [facility] ter Address [address] [place] [address]- Care Team Providers Care Backpackers Manager Name Role Phone Kevin Frazier MD Primary Care Physician [facility] 02[facility]25[facility]22 - 03/28/[address] [address] Attending Physician: Kevin Frazier MD Admitting [...] 08/07/08 Give n 1Result Comment: [12/27/2016] [facility] [id number] 2Admin Note: VIS from 10/11/14 given to parent Medications albuterol 0.083% inhalation solution 3 mL = 2.5 mg, Inhalation, Every 6 hours, PRN for wheezing, # 100 each, 1 Refills, Maintenance, 08/05/21 15:44:00 EDT, Solution, [facility], 163.4, cm, 08/05/21 14:34:00 EDT, Height Start Date: 08/05/21 Status: Ordered BuPROPion (Eqv-Wellbutrin SR) 150 mg/12 hours oral tablet, extended release TAKE 1 TABLET BY MOUTH TWICE A DAY Start Date: 12/30/21 Status: Ordered cetirizine 10 mg oral tablet 1 tablet, By Mouth, Daily, # 30 tablet, 4 Refills, Maintenance, 03/19/22 10:24:00 EST, [facility], 163.4, cm, 01/27/22 8:47:00 EST, Height Start Date: 03/19/22 Status: Ordered clindamycin 1% topical gel 1 application, Topically, 2 times a day, # 30 Gm, 0 Refills, Maintenance, 01/27/22 9:20:00 EST, Gel, [facility], Partial fill upon patient request if the prescription is for a schedule II opioid drug. Refills- contact PCP, 1 application Topi... Start Date: 01/27/22 Status: Ordered diclofenac 1% topical gel 1 application, Topically, 4 times a day, PRN Pain , Moderate, apply to wrists as needed, # 100 Gm, 0 Refills, Maintenance, 07/15/21 15:06:00 EDT, Gel, [facility], Partial fill upon patient request if the prescription is for a schedule II opi... Start Date: 07/15/21 Status: Ordered EpiPen 2-Mir 0.3 mg injectable kit = 0.3 mg, Intramuscular, Once, may repeat if necessary, # 1 each, 0 Refills, Soft Stop, 09/25/21 14:43:00 EDT, [facility], Partial fill upon patient request if [...] AFTER USE., # 12 Gm, 5 Refills, [facility], 163.4, cm, 10/14/21 8:28:00 EDT, Height Start Date: 10/26/21 Status: Ordered fluticasone 50 mcg/inh nasal spray See Instructions, USE 1 SPRAY IN EACH NOSTRIL TWICE A DAY, # 16 Gm, 5 Refills, [facility], 30, USE 1 SPRAY IN EACH NOSTRIL TWICE A DAY, 163.4, cm, 10/14/21 8:28:00 EDT, Height Start Date: 10/26/21 Status: Ordered hydroCHLOROthiazide 12.5 mg oral capsule 1 capsule, By Mouth, Daily, # 30 capsule, 2 Refills, Maintenance, 12/10/21 12:09:00 EDT, [facility], 163.4, cm, 12/02/21 16:27:00 EDT, Height [...] tablet, Refills 1, Route to Pharmacy Electronically, [facility], 163.4, cm, 09/24/21 15:28:00 EDT, Height Start Date: 09/24/21 Status: Ordered medroxyPROGESTERone 10 mg oral tablet 10 mg, 1, tablet, By Mouth, Daily, # 10 tablet, Refills 0, Tot. Refills 0, Maintenance, 04/17/20 11:20:00 EST, Route to Pharmacy Electronically, [facility], Partial fill upon patient request if the prescription is for a schedule II opioid drTho.. Start Date: 04/17/20 Status: Ordered metFORMIN 500 mg oral tablet 1 tablet = 500 mg, By Mouth, Daily, with meals, # 90 tablet, 0 Refills, Maintenance, 01/27/22 9:19:00 EST, Tablet, [facility], Partial fill upon patient request if the prescription is for aschedule II opioid drug. Refills-contact PCP, 163.4... Start Date: 01/27/22 Status: Ordered NIFEdipine 30 mg oral tablet, extended release 30 mg, 1, tablet, By Mouth, Daily, # 30 tablet, Refills 2, Tot. Refills 2, Maintenance, 12/07/21 15:13:00 EDT, Route to Pharmacy Electronically, [facility], Duplicate Rx. Original sent 12/01/21. Re-sending per pharmacy request, 163.4, cm, ... Start Date: 12/07/21 Stop Date: 03/07/22 Status: Ordered omeprazole 40 mg oral enteric coated capsule 1 capsule = 40 mg, By Mouth, Daily, before meal, # 30 capsule, 1 Refills, Maintenance, 03/24/22 17:31:00 EST, EC Capsule, [facility], Partial fill upon patient request if the prescription is for a schedule II opioid drug., 163.4, cm, ... Start Date: 03/24/22 Status: Ordered ProAir HFA 90 mcg/inh inhalation aerosol with adapter 2, puffs, Inhalation, Every 4 hours, PRN, # 8.5 Gm, Refills 5, Route to Pharmacy Electronically, NCPDP_[id number], [facility], 163.4, cm, 07/15/21 13:31:00 EDT, Height Start Date: 07/16/21 Status: Ordered sertraline 100 mg oral tablet TAKE 1&1/2 TABLET BY MOUTH ONCE A DAY Start Date: 12/30/21 Status: Ordered Slow Fe (as elemental iron) 45 mg oral tablet, extended release 1 tablet = 45 mg, By Mouth, Daily, # 30 tablet, 5 Refills, Maintenance, 12/18/20 10:42:00 EDT, ER Tablet, [facility], Partial fill upon patient request if [...] Physician Member Role: PCP Address: Address: [address] [place] [address]- Care Team Related Persons Name: KARI AGUERO Address: [place] [address]
--- OUTSIDE RECORDS SUMMARY | 2022-05-29 20:25 | XMS_ITS | Continuity of Care Document ---
Author Name Unknown Organization [facility] Address [address] [place] [phone]- Care Team Providers Care Field Professional Name Role Phone Freddie ABBOTT, Kevin Yusuf Primary Care Physician [phone] [facility]21 - 02/21/21 [facility] [address] [place] [address]- Allergies, Adverse Reactions, Alerts Substance Reaction Severity [...] 1Result Comment: [12/27/2016] [facility] [id number] 2Admin Note: VIS from 10/11/14 given to parent Medications albuterol 0.083% inhalation solution 3 mL = 2.5 mg, Inhalation, Every 6 hours, PRN for wheezing, # 60 each, 0 Refills, Maintenance, 11/22/19 11:06:00 EDT, Solution, [facility], 163.4, cm, 11/06/19 13:10:00 EDT, Height Start Date: 11/22/19 Status: Ordered capsaicin 0.025% topical cream 1 application, Topically, 3 times a day, avoid contact with face and eyes to affected area, # 45 Gm, 10 Refills, Maintenance, 11/06/19 13:39:00 EDT, Cream, [facility], 1 application Topically 3 times a day,Instr:avoid contact with face and... Start Date: 11/06/19 Status: Ordered cetirizine 10 mg oral tablet 1 tablet = 10 mg, By Mouth, Daily, # 30 tablet, 5 Refills, Maintenance, 07/24/20 11:12:00 EDT, Tablet, [facility], Label in Kyrgyz., 163.4, cm, 11/06/19 13:10:00 EDT, Height Start Date: 07/24/20 Status: Ordered diclofenac 1% topical gel 1 application, Topically, 4 times a day, PRN for pain, not to exceed 16 grams/day/single joint of lower extremities. label lao, # 100 Gm, 4 Refills, Maintenance, 04/18/19 15:51:00 EST, Gel, [facility], 163.4, cm, 04/18/19 15:38:00 EST, H... Start Date: 04/18/19 Status: Ordered diclofenac 1% topical gel 1 application, Topically, 4 times a day, # 100 Gm, 0 Refills, Maintenance, 12/18/20 10:39:00 EDT, Gel, [facility], Partial fill upon patient request [...] A DAY, # 16 Gm, 5 Refills, [facility], 30, USE 1 SPRAY IN EACH NOSTRIL TWICE A DAY, 163.4, cm, 10/13/20 15:44:00 EDT, Height Start Date: 12/12/20 Status: Ordered hydroCHLOROthiazide 12.5 mg oral capsule 1 capsule = 12.5 mg, By Mouth, Daily, # 30 capsule, 5 Refills, Maintenance, 12/18/20 10:41:00 EDT, Capsule, [facility], Partial fill upon patient request if the prescription is for a schedule II opioid drug., 163.4, cm, 12/18/20 10:36:00 EDT... Start Date: 12/18/20 Status: Ordered hydrocortisone 2.5% topical lotion 1 application, Topically, 2 times a day, # 59 mL, 0 Refills, Maintenance, 05/17/19 17:11:00 EDT, Lotion, [facility]/pharmacy #[id number], 1 application Topically 2 times a day, 163.4, cm, 05/16/19 10:53:00 EDT, Height, 166.9, kg, 11/21/17 2:28:00 EDT, Dry Weight Start Date: 05/17/19 Status: Ordered lisinopril 20 mg oral tablet 20 mg, 1, tablet, By Mouth, Daily, # 90 tablet, Refills 1, Tot. Refills 1, Maintenance, 11/16/20 18:01:00 EDT, Route to Pharmacy Electronically, [facility], 163.4, cm, 09/03/20 10:55:00 EDT, Height [...] 11:13:00 EDT, Aerosol, Route to Pharmacy Electronically, [id number]_[id number], [facility], 163.4, cm, 11/06/19 13:10:00 EDT, Height Start Date: 07/24/20 Status: Ordered Slow Fe (as elemental iron) 45 mg oral tablet, extended release 1 tablet = 45 mg, By Mouth, Daily, # 30 tablet, 5 Refills, Maintenance, 12/18/20 10:42:00 EDT, ER Tablet, [facility], Partial fill upon patient request [...]
--- OUTSIDE RECORDS SUMMARY | 2022-05-29 20:25 | XMS_ITS | Continuity of Care Document ---
Author Name Unknown Organization [facility] Address [address] [place] [phone]- Care Team Providers Care Safekeeping Clerk Name Role Phone Kevin Frazier MD Primary Care Physician [phone] [facility]s): 07/10/19 - 07/17/19 [facility] [address] [place] [phone]- [place] States Encounter Diagnosis Allergic rhinitis, seasonal(Discharge Diagnosis) - 07/10/19 Attending Physician: Kevin Frazier MD Allergies, Adverse Reactions, [...] Comment: [12/27/2016] [facility] [id number] 2Admin Note: VIS from 10/11/14 given to [...] 3 Refills, Maintenance, 07/10/19 10:02:00 EDT, Tablet, [facility], 163.4, cm, 05/16/19 10:53:00 EDT, Height, 166.9, kg, 11/21/17 2:28:00 EDT,Dry Weight Start Date: 07/10/19 Status: Ordered diclofenac 1% topical gel 1 application, Topically, 4 times a day, PRN for pain, not to exceed 16 grams/day/single joint of lower extremities. label puerto rican, # 100 Gm, 4 Refills, Maintenance, 04/18/19 [...] 02/19/19 19:12:13 EST, Route to Pharmacy Electronically, [facility],... Start Date: 02/19/19 Stop Date: 03/01/19 Status: Ordered Flonase 50 mcg/inh nasal spray 1 sprays, Nares, Both, 2 times a day, # 16 Gm, 3 Refills, Maintenance, 07/10/19 10:02:00 EDT, [place], [facility], 1 sprays Nares, Both 2 times a day, 163.4, cm, 05/16/19 10:53:00 EDT, Height, 166.9, kg, 11/21/17 2:28:00 EDT, Dry Weight Start Date: 07/10/19 Status: Ordered hydrocortisone 2.5% topical lotion 1 application, Topically, 2 times a day, # 59 mL, 0 Refills, Maintenance, 05/17/19 17:11:00 EDT, Lotion, [id number], 1 application Topically 2 times a day, 163.4, cm, 05/16/19 10:53:00 EDT, Height, 166.9, kg, 11/21/17 2:28:00 EDT, Dry Weight Start Date: 05/17/19 Status: Ordered lisinopril 20 mg oral tablet 20 mg, 1, tablet, By Mouth, Daily, # 30 tablet, Refills 6, Tot. Refills 6, Maintenance, 01/18/19 10:21:15 EST, Route to Pharmacy Electronically, [id number], [id number] Start Date: 01/18/19 Stop Date: 08/16/19 Status: Ordered Naphcon-A 0.025%-0.3% ophthalmic solution 1 drops, Eyes, Both, 4 times a day, # 15 mL, 1 Refills, Maintenance, 07/10/19 10:02:00 EDT, Solution, [facility], 1 drops Eyes, Both 4 times a day, 163.4, cm, 05/16/19 10:53:00 EDT, Height,166.9, kg, 11/21/17 2:28:00 EDT, Dry Weight Start Date: 07/10/19 Status: Ordered ProAir HFA 90 mcg/inh inhalation aerosol with adapter 2, puffs, Inhalation, Every 4 hours, PRN, # 8.5 Gm, Refills 6, Tot. 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
--- OUTSIDE RECORDS SUMMARY | 2022-05-29 20:25 | XMS_ITS | Continuity of Care Document ---
Author Name Unknown Organization [facility] Address [address] [place] [address]- Care Team Providers Care Marine Engine Machinist Name Role Phone Freddie ABBOTT, Kevin Yusuf Primary Care Physician [facility]): 12/05/19 - 01/04/20 [facility] [address] [place] [phone]- [facility] Allergies, Adverse Reactions, Alerts Substance Reaction [...] [facility] [id number] 2Admin Note: VIS from 10/11/14 given to [...] 16 grams/day/single joint of lower extremities. label croatian, # 100 Gm, 4 Refills, Maintenance, 04/18/19 15:51:00 EST, Gel, [facility], 163.4, cm, 04/18/19 15:38:00 EST, H... Start Date: 04/18/19 Status: Ordered fexofenadine 60 mg oral tablet 1 tablet = 60 mg, By Mouth, 2 times a day, stop cetirizine please, # 60 tablet, 2 Refills, Maintenance, 08/01/19 9:01:00 EDT, [facility], 163.4, cm, 05/16/19 10:53:00 EDT, Height, 166.9, kg, 11/21/17 2:28:00 EDT, Dry Weight Start Date: 08/01/19 Status: Ordered Flonase 50 mcg/inh nasal spray 1 sprays, Nares, Both, 2 times a day, # 16 Gm, 3 Refills, Maintenance, 07/10/19 10:02:00 EDT, [place], [facility], 1 sprays Nares, Both 2 times a day, 163.4, cm, 05/16/19 10:53:00 EDT, Height, 166.9, kg, 11/21/17 2:28:00 EDT, Dry Weight Start Date: 07/10/19 Status: Ordered hydrocortisone 1% topical cream 1 application, Topically, 2 times a day, # 30 Gm, 0 Refills, Acute 01/12/20 9:24:00 EST, 12/12/19 9:24:00 EDT, Cream, [facility], 1 application Topically 2 times a day, 163.4, cm, 11/06/19 13:10:00 EDT, Height Start Date: 12/12/19 Stop Date: 01/12/20 Status: Ordered hydrocortisone 2.5% topical lotion 1 application, Topically, 2 times a day, # 59 mL, 0 Refills, Maintenance, 05/17/19 17:11:00 EDT, Lotion, [facility]/pharmacy #[id number], 1 application Topically 2 times a [...] 1 Refills, Maintenance, 07/10/19 10:02:00 EDT, Solution, [facility], 1 drops Eyes, Both 4 times [...] 18:22:00 EDT, Aerosol, Route to Pharmacy Electronically, NCPDP_[id number], [facility], 163.4, cm, 11/06/19 13:10:00 EDT, Height, [...] 1 Refills, Maintenance, 02/19/19 19:13:45EST, ER Tablet, [facility], 163.4, cm, 02/19/19 19:02:31 EST, Height, [...]
--- OUTSIDE RECORDS SUMMARY | 2022-05-29 20:25 | XMS_ITS | Continuity of Care Document ---
Author Name Unknown Organization [facility] Address [address] [place] [address]- Care Team Providers Care Materials Supervisor Name Role Phone Kevin Frazier MD Primary Care Physician [phone] [facility]s): 12/12/20 - 01/11/21 [facility] [address] [place] [phone]- Allergies, Adverse Reactions, Alerts Substance Reaction Severity [...] Comment: [12/27/2016] [facility] [id number] 2Admin Note: VIS from 10/11/14 given to parent Medications albuterol 0.083% inhalation solution 3 mL = 2.5 mg, Inhalation, Every 6 hours, PRN for wheezing, # 60 each, 0 Refills, Maintenance, 11/22/19 11:06:00 EDT, Solution, [facility], 163.4, cm, 11/06/19 13:10:00 EDT, Height Start Date: 11/22/19 Status: Ordered capsaicin 0.025% topical cream 1 application, Topically, 3 times a day, avoid contact with face and eyes to affected area, # 45 Gm, 10 Refills, Maintenance, 11/06/19 13:39:00 EDT, Cream, [facility], 1 application Topically 3 times a day,Instr:avoid contact with face and... Start Date: 11/06/19 Status: Ordered cetirizine 10 mg oral tablet 1 tablet = 10 mg, By Mouth, Daily, # 30 tablet, 5 Refills, Maintenance, 07/24/20 11:12:00 EDT, Tablet, [facility], Label in Nigerien., 163.4, cm, 11/06/19 13:10:00 EDT, Height Start Date: 07/24/20 Status: Ordered diclofenac 1% topical gel 1 application, Topically, 4 times a day, PRN for pain, not to exceed 16 grams/day/single joint of lower extremities. label lie[place] citizen, # 100 Gm, 4 Refills, Maintenance, 04/18/19 15:51:00 EST, Gel, [facility], 163.4, cm, 04/18/19 15:38:00 EST, H... [...] A DAY, # 16 Gm, 5 Refills, [facility], 30, USE 1 SPRAY IN EACH NOSTRIL TWICE A DAY, 163.4, cm, 10/13/20 15:44:00 EDT, Height Start Date: 12/12/20 Status: Ordered hydroCHLOROthiazide 12.5 mg oral capsule 1 capsule = 12.5 mg, By Mouth, Daily, # 30 capsule, 5 Refills, Maintenance, 12/18/20 10:41:00 EDT, Capsule, [facility], Partial fill upon patient request if the prescription is for a schedule II opioid drug., 163.4, cm, 12/18/20 10:36:00 EDT... Start Date: 12/18/20 Status: Ordered hydrocortisone 2.5% topical lotion 1 application, Topically, 2 times a day, # 59 mL, 0 Refills, Maintenance, 05/17/19 17:11:00 EDT, Lotion, [facility]/pharmacy #[id number], 1 application Topically 2 times a day, 163.4, cm, 05/16/19 10:53:00 EDT, Height, 166.9, kg, 11/21/17 2:28:00 EDT, Dry Weight Start Date: 05/17/19 Status: Ordered lisinopril 20 mg oral tablet 20 mg, 1, tablet, By Mouth, Daily, # 90 tablet, Refills 1, Tot. Refills 1, Maintenance, 11/16/20 18:01:00 EDT, Route to Pharmacy Electronically, [facility], 163.4, cm, 09/03/20 10:55:00 EDT, Height [...] 11:13:00 EDT, Aerosol, Route to Pharmacy Electronically, NCPDP_[id number], [facility], 163.4, cm, 11/06/19 13:10:00 EDT, Height [...] 1 Refills, Maintenance, 02/19/19 19:13:45EST, ER Tablet, [facility], 163.4, cm, 02/19/19 19:02:31 EST, Height, 166.9, kg, 182:28:34 EDT, Dry Weight Start Date: 02/19/19 Status: Ordered Problem List Condition Effective Dates Status Health Status Inform ant Asthma(Confirmed) Active Duplication of ureter ([employer] cting system R)(Confirmed) Active Glaucoma suspected 2017(Confirmed) Active Hypertension(Confirmed) Active Irregular menses(Confirmed) Active Keratoconus(Confirmed) Active Morbid Obesity BMI of 67(Confirmed) Active Obstructive sleep apnea(Confirmed) Active Social History Social History Type Response Smoking Status Never smoker; Tobacc o user in household: No entered on: 04/15/15 Sex
--- OUTSIDE RECORDS SUMMARY | 2022-05-29 20:25 | XMS_ITS | Continuity of Care Document ---
Author Name Unknown Organization [facility] Address [address] [place] [address]- Care Team Providers Care Forestry Technician Name Role Phone Lazarus ABBOTT, Blessing Primary Care Physician [facility]s): 04[facility]/21 - 05/06/21 [facility] [address] [place] [address]- Attending Physician: Nasima Coffman Admitting Physician: Nasima [...] 1Result Comment: [12/27/2016] [facility] [id number] 2Admin Note: VIS from 10/11/14 given to parent Medications albuterol 0.083% inhalation solution 3 mL = 2.5 mg, Inhalation, Every 6 hours, PRN for wheezing, # 60 each, 0 Refills, Maintenance, 11/22/19 11:06:00 EDT, Solution, [facility], 163.4, cm, 11/06/19 13:10:00 EDT, Height [...] Mouth, Daily, # 30 tablet, 5 Refills, [facility], 163.4, cm, 02/25/21 13:06:00 EST, Height Start Date: 03/03/21 Status: Ordered diclofenac 1% topical gel 1 application, Topically, 4 times a day, PRN for pain, not to exceed 16 grams/day/single joint of lower extremities. label pashto, # 100 Gm, 4 Refills, Maintenance, 04/18/19 15:51:00 EST, Gel, [facility], 163.4, cm, 04/18/19 15:38:00 EST, H... [...] A DAY, # 16 Gm, 5 Refills, [facility], 30, USE 1 SPRAY IN EACH NOSTRIL TWICE A DAY, 163.4, cm, 10/13/20 15:44:00 EDT, Height Start Date: 12/12/20 Status: Ordered hydroCHLOROthiazide 12.5 mg oral capsule 1 capsule = 12.5 mg, By Mouth, Daily, # 30 capsule, 5 Refills, Maintenance, 12/18/20 10:41:00 EDT, Capsule, [facility], Partial fill upon patient request if [...] Replace Required Details, Route to Pharmacy Electronically, [facility], 163.4, cm, 02/25/21 13:06:00EST, Height Start Date: 03/31/21 Status: Ordered medroxyPROGESTERone 10 mg oral tablet 10 mg, 1, tablet, By Mouth, Daily, # 10 tablet, Refills 0, Tot. Refills 0, Maintenance, 04/17/20 11:20:00 EST, Route to Pharmacy Electronically, [facility], Partial fill upon patient request if [...] Gm, Refills 5, Route to Pharmacy Electronically, NCPDP_[id number], [facility], 163.4, cm, 02/25/21 13:06:00 EST, Height [...] 1 Refills, Maintenance, 02/19/19 19:13:45EST, ER Tablet, [facility], 163.4, cm, 02/19/19 19:02:31 EST, Height, [...]
--- OUTSIDE RECORDS SUMMARY | 2022-05-29 20:25 | XMS_ITS | Continuity of Care Document ---
Author Name Unknown Organization [facility] Address [address] [place] [address]- Care Team Providers Care Kiln Burner Name Role Phone Freddie ABBOTT, Kevin Yusuf Primary Care Physician Encounter [facility] Date(s): 07/21/21 - 08/20/[address] [address]- Attending Physician: Nasima Coffman Admitting Physician: AdmNasima [...] n 1Result Comment: [12/27/2016] [facility] [id number] 2Admin Note: VIS from 10/11/14 given to parent Medications albuterol 0.083% inhalation solution 3 mL = 2.5 mg, Inhalation, Every 6 hours, PRN for wheezing, # 100 each, 1 Refills, Maintenance, 08/05/21 15:44:00 EDT, Solution, [facility], 163.4, cm, 08/05/21 14:34:00 EDT, Height Start Date: 08/05/21 Status: Ordered cetirizine 10 mg oral tablet 1 tablet, By Mouth, Daily, # 30 tablet, 5 Refills, [facility], 163.4, cm, 02/25/21 13:06:00 EST, Height [...] Gm, 0 Refills, Maintenance, 07/15/21 15:06:00 [facility] [...] Gm, 5 Refills, Maintenance, 05/26/21 13:59:00 EDT, [facility], 163.4, cm, 02/25/21 13:06:00 EST, Height Start Date: 05/26/21 Status: Ordered fluticasone 50 mcg/inh nasal spray See Instructions, USE 1 SPRAY IN EACH NOSTRIL TWICE A DAY, # 16 Gm, 5 Refills, Maintenance, 05/26/21 13:59:00 EDT, [facility], 30, USE 1 SPRAY IN EACH NOSTRIL TWICE A DAY, 163.4, cm, 02/25/21 13:06:00 EST, Height Start Date: 05/26/21 Status: Ordered hydroCHLOROthiazide 12.5 mg oral capsule 1 capsule, By Mouth, Daily, # 30 capsule, 5 Refills, [facility], 163.4, cm, 02/25/21 13:06:00 EST, Height Start Date: 06/09/21 Status: Ordered lisinopril 20 mg oral tablet See Instructions, TAKE 1 TABLET BY MOUTH EVERY DAY, # 90 tablet, Refills 1, Instructions Replace Required Details, Route to Pharmacy Electronically, [facility], 163.4, cm, 02/25/21 13:06:00EST, Height Start [...] Gm, Refills 5, Route to Pharmacy Electronically, NCPDP_[id number], [facility], 163.4, cm, 07/15/21 13:31:00 EDT, Height [...]
--- OUTSIDE RECORDS SUMMARY | 2022-05-29 20:25 | XMS_ITS | Continuity of Care Document ---
Author Name Unknown Organization [facility] Address [address] [place] [address]- Care Team Providers Care Chucking And Sawing Machine Operator Name Role Phone Freddie ABBOTT, Kevin Yusuf Primary Care Physician [facility] 06[facility]09[facility] - 07/09/20 [facility] [address] [place] [phone]- Allergies, Adverse Reactions, Alerts Substance Reaction Severity [...] n 1Result Comment: [12/27/2016] [facility] [id number] 2Admin Note: VIS from 10/11/14 given to [...] tablet, 2 Refills, Maintenance, 08/01/19 9:01:00 EDT, [facility], 163.4, cm, 05/16/19 10:53:00 EDT, Height, 166.9, kg, 11/21/17 2:28:00 EDT, Dry Weight Start Date: 08/01/19 Status: Ordered Flonase 50 mcg/inh nasal spray 1 sprays, Nares, Both, 2 times a day, # 16 Gm, 3 Refills, Maintenance, 07/10/19 10:02:00 EDT, [place], [facility], 1 sprays Nares, Both 2 times a day, 163.4, cm, 05/16/19 10:53:00 EDT, Height, 166.9, kg, 11/21/17 2:28:00 EDT, Dry Weight Start Date: 07/10/19 Status: Ordered hydrocortisone 2.5% topical lotion 1 application, Topically, 2 times a day, # 59 mL, 0 Refills, Maintenance, 05/17/19 17:11:00 EDT, Lotion, [facility]/pharmacy #[id number], 1 application Topically 2 [...] 04/17/20 11:20:00 EST, Route to Pharmacy Electronically, [facility], Partial fill upon patient request [...] Refills, Maintenance, 07/10/19 10:02:00 EDT, Solution, [facility], 1 drops Eyes, Both 4 times [...] 0 Refills, Maintenance, 01/10/20 14:06:00 EST, ECCapsule, [facility], 163.4, cm, 11/06/19 13:10:00 EDT, Height Start Date: 01/10/20 Status: Ordered ProAir HFA 90 mcg/inh inhalation aerosol with adapter 2, puffs, Inhalation, Every 4 hours, PRN, # 8.5 Gm, Refills 6, Tot. Refills 6, Maintenance, 11/21/19 18:22:00 EDT, Aerosol, Route to Pharmacy Electronically, NCPDP_[id number], [facility], 163.4, cm, 11/06/19 13:10:00 EDT, Height, [...] Refills, Maintenance, 02/19/19 19:13:45EST, ER Tablet, [facility], 163.4, cm, 02/19/19 19:02:31 EST, Height, [...]
--- OUTSIDE RECORDS SUMMARY | 2022-05-29 20:25 | XMS_ITS | Continuity of Care Document ---
Author Name Unknown Organization [facility] Address [address] [place] [address]- Care Team Providers Care Slitter And Cutter Operator Name Role Phone Freddie ABBOTT, Kevin Yusuf Primary Care Physician [phone] [facility] 08[facility]05[facility]20 - 09/04/20 [facility] [address] [place] [address]- Allergies, Adverse Reactions, Alerts Substance Reaction Severity [...] Give n 1Result Comment: [12/27/2016] [facility] [id number] 2Admin Note: VIS from 10/11/14 given to [...] 5 Refills, Maintenance, 07/24/20 11:12:00 EDT, Tablet, [facility], Label in Egyptian., 163.4, cm, 11/06/19 13:10:00 EDT, Height Start Date: 07/24/20 Status: Ordered diclofenac 1% topical gel 1 application, Topically, 4 times a day, PRN for pain, not to exceed 16 grams/day/single joint of lower extremities. label ethiopian, # 100 Gm, 4 Refills, Maintenance, 04/18/19 15:51:00 EST, Gel, [facility], 163.4, cm, 04/18/19 15:38:00 EST, H... Start Date: 04/18/19 Status: Ordered Flonase 50 mcg/inh nasal spray 1 sprays, Nares, Both, 2 times a day, # 16 Gm, 3 Refills, Maintenance, 07/24/20 11:12:00 EDT, [place], [facility], 1 sprays Nares, Both 2 times a day, 163.4, cm, 11/06/19 13:10:00 EDT, Height Start Date: 07/24/20 Status: Ordered Flovent HFA 110 mcg/inh inhalation aerosol 2 puffs, Inhalation, 2 times a day, use twice a day to prevent asthma symptoms. rinse mouth and throat after use, # 1 each, 2 Refills, Maintenance, 09/03/20 10:43:00 EDT, [facility], Partial fill upon patient request if the prescription is... Start Date: 09/03/20 Status: Ordered hydrocortisone 2.5% topical lotion 1 application, Topically, 2 times a day, # 59 mL, 0 Refills, Maintenance, 05/17/19 17:11:00 EDT, Lotion, [facility]/pharmacy #[id number], 1 application Topically 2 times a day, 163.4, cm, 05/16/19 10:53:00 EDT, Height, 166.9, kg, 11/21/17 2:28:00 EDT, Dry Weight Start Date: 05/17/19 Status: Ordered lisinopril 20 mg oral tablet 20 mg, 1, tablet, By Mouth, Daily, # 90 tablet, Refills 3, Tot. Refills 3, Maintenance, 11/22/19 18:01:00 EDT, Route to Pharmacy Electronically, [facility], 163.4, cm, 11/06/19 13:10:00 EDT, Height, [...] 1 Refills, Maintenance, 09/03/20 10:42:00 EDT, Solution, [facility], 1 drops Eyes, Both 4 times [...] 0 Refills, Maintenance, 01/10/20 14:06:00 EST, ECCapsule, [facility], 163.4, cm, 11/06/19 13:10:00 EDT, Height Start Date: 01/10/20 Status: Ordered ProAir HFA 90 mcg/inh inhalation aerosol with adapter 2, puffs, Inhalation, Every 4 hours, PRN, # 8.5 Gm, Refills 5, Tot. Refills 5, Maintenance, 07/24/20 11:13:00 EDT, Aerosol, Route to Pharmacy Electronically, NCPDP_[id number], [facility], 163.4, cm, 11/06/19 13:10:00 EDT, Height [...] 1 Refills, Maintenance, 02/19/19 19:13:45EST, ER Tablet, [facility], 163.4, cm, 02/19/19 19:02:31 EST, Height, [...]
[2022-05-29 20:31] LABS: COVID-19 Test Negative (Negative); IDNOW Serial# 08D9AD1C
[2022-05-29 20:32] LABS: Alanine Aminotransferase 32 U/L (0-31); Albumin Level 4.3 g/dL (3.5-5.0); Alkaline Phosphatase 87 U/L (39-117); Anion Gap 14 (12-20); Aspartate Amino Transferase 21 U/L (5-31); Bilirubin Direct 0.3 mg/dL (0.0-0.5); Bilirubin Total 1.1 mg/dL (0.0-1.0); Blood Urea Nitrogen 12 mg/dL (9-16); Calcium 9.3 mg/dL (8.4-10.2); Carbon Dioxide 27 mmol/L (22-29); Chloride 105 mmol/L (96-108); Creatinine Clr Calc Pharmacy 241.4; Estimated Glomerular Filt Rate > 60; Glucose Random 87 mg/dL (60-115); Potassium 4.3 mmol/L (3.3-5.1); Sodium 142 mmol/L (135-145); Total Protein 7.2 g/dL (6.5-8.0)
[2022-05-29 20:44] LABS: Troponin-I High Sensitivity < 3.5 ng/L (<3.5-17.0)
--- NOTE | 2022-05-29 22:32 | MHC.EDTECH ---
Patient EKG was done but not documented
[2022-05-29 22:46] VITALS: BP 140/81; PULSE 85; RESP 16; O2SAT 99
[2022-05-29] MEDS: dexAMETHasone sod phosphate 4 MG/ML VIAL IVPUSH (23:05)
[2022-05-29] MEDS: Ketorolac Tromethamine 60 MG/2 ML VIAL IM (23:06)
[2022-05-29] MEDS: Lidocaine HCl Viscous 2 % 15 ML SOLUTION MUCOUS MEM (23:06)
[2022-05-29] MEDS: Metoclopramide HCl 10 MG TABLET PO (23:06)
== END 2022-05-29 23:37 | disposition home or self-care (01) ==
PROVIDERS: Physician Assistant; Emergency Provider Emergency Medicine
DX: I10 Essential (primary) hypertension (principal); R51.9 Headache, unspecified; J02.9 Acute pharyngitis, unspecified; Z20.822 Contact with and (suspected) exposure to COVID-19; E66.01 Morbid (severe) obesity due to excess calories; Z68.45 Body mass index [BMI] 70 or greater, adult; Z79.899 Other long term (current) drug therapy
CPT/HCPCS: 36415; 70450; 71045; 80048; 80076; 84484; 85025; 85610; 87635; 93005; 96372; 96374; 99284; J1100; J1885

== ENCOUNTER 2023-06-02 22:17 | Emergency (ER) | payer OTHER, SELFPAY ==
[2023-06-02 22:20] VITALS: BP 182/92; PULSE 105; RESP 20; TEMP 37.4; O2SAT 100; BMI 83.7
[2023-06-02 22:49] LABS: MANUAL DIFF FLAG NO
[2023-06-02 22:50] LABS: Basophils Percent Auto 0.7 % (0-2); Eosinophils Absolute Auto 0.3 X10*3/uL (0.0-0.4); Eosinophils Percent Auto 4.9 % (0-4); Hematocrit 40.1 % (37.0-47.0); Hemoglobin 12.8 g/dl (12.0-16.0); Imm Gran Abs Auto 0.06 X10*3/uL (0.00-0.03); Imm Gran Pct Auto 1.1 % (0.0-0.4); Lymphocytes Absolute Auto 1.6 X10*3/uL (1.2-4.9); Lymphocytes Percent Auto 28.3 % (20-40); Mean Corpuscular HGB Conc 31.9 g/dl (31.0-35.0); Mean Corpuscular Hemoglobin 25.4 pg (27.0-33.0); Mean Corpuscular Volume 79.6 fL (80.0-98.0); Mean Platelet Volume 10.8 fL (9.4-12.3); Monocytes Absolute Auto 0.5 X10*3/uL (0.1-1.2); Neutrophils Absolute Auto 3.2 x10*3/uL (2.0-8.3); Platelet Count 264 X10*3/uL (160-400); Red Blood Count 5.04 X10*6/uL (4.20-5.50); Red Cell Distribution Width 14.4 % (11.0-16.0); White Blood Count 5.7 X10*3/uL (4.8-10.8)
[2023-06-02 23:06] LABS: Alanine Aminotransferase 34 U/L (0-31); Albumin Level 4.6 g/dL (3.5-5.0); Alkaline Phosphatase 97 U/L (39-117); Anion Gap 18 (12-20); Aspartate Amino Transferase 24 U/L (5-31); Bilirubin Total 0.9 mg/dL (0.0-1.0); Blood Urea Nitrogen 17 mg/dL (9-16); Calcium 9.3 mg/dL (8.4-10.2); Carbon Dioxide 24 mmol/L (22-29); Chloride 105 mmol/L (96-108); Creatinine Clr Calc Pharmacy 198.5; Estimated Glomerular Filt Rate > 60; Glucose Random 111 mg/dL (60-115); Potassium 3.9 mmol/L (3.3-5.1); Sodium 143 mmol/L (135-145); Total Protein 8.2 g/dL (6.5-8.0)
[2023-06-02 23:26] LABS: Influenza A PCR NEGATIVE (Negative); Influenza B PCR NEGATIVE (Negative); Resp Syncy Virus RNA Qual PCR NEGATIVE (Negative); SARS COV2 PCR INHOUSE NEGATIVE (Negative)
[2023-06-03 02:24] VITALS: BP 153/78; PULSE 87
== END 2023-06-03 04:40 | disposition left against medical advice (07) ==
LOC: HO.ED 06-03 04:25
PROVIDERS: Emergency Provider Emergency Medicine
DX: R51.9 Headache, unspecified (principal); Z03.818 Encounter for observation for suspected exposure to other biological agents ruled out
CPT/HCPCS: 0241U; 80053; 85025; 99281; 99283

== ENCOUNTER 2023-07-12 19:29 | Emergency (ER) | payer OTHER, SELFPAY ==
--- NOTE | ~2023-07-12 | CT_ITS ---
EXAMINATION: CT HEAD WITHOUT CONTRAST CLINICAL INFORMATION: Headache and vomiting. COMPARISON: CT head dated 05/29/2022. TECHNIQUE: Contiguous axial imaging was performed from the skull base to vertex without intravenous administration of contrast. This CT examination was performed using dose optimization techniques as appropriate, variously including the following: *Automated exposure control *Adjustment of mA and/or kV according to patient size (this includes techniques or standardized protocols for targeted exams where dose is matched to indication/reason for exam; i.e. extremities or head) *Use of iterative reconstruction technique DLP: Tendinitis. mGy-cm FINDINGS: There is no acute intracranial hemorrhage or evidence of territorial infarction. No abnormal mass effect or midline shift is seen. Walsh to white matter differentiation is well preserved. There is no abnormal attenuation within the brain parenchyma. The ventricles are normal in size. No extra-axial fluid collections are identified. The calvarium and scalp soft tissues are normal. The middle ear cavity and mastoid air cells are clear. A large mucus retention cyst is seen within the right maxillary sinus. CT/CT head/brain wo IV con IMPRESSION: 1. No acute intracranial pathology. 2. A large mucus retention cyst is seen within the right maxillary sinus.
[2023-07-12 19:35] VITALS: BP 150/98; PULSE 93; O2SAT 99
[2023-07-12 19:55] VITALS: BP 151/85; PULSE 86; RESP 20; TEMP 37.2; O2SAT 99; BMI 79.0
--- NOTE | 2023-07-12 19:55 | ED.HA ---
HPI - Headache General Chief Complaint: Headache Stated Complaint: HEADACHE X4DAYS,N/V,LEG NUMBNESS Time Seen by Provider: 07/13/23 00:16 Source: patient Mode of arrival: ambulatory History of Present Illness HPI Narrative: 28-year-old female with history of hypertension and recent medication changes reports headache for 4 days with associated nausea, vomiting and reports leg numbness. She denies any fevers or chills or diarrhea. Related Data Home Medications ?Medication ?Instructions ?Recorded ?Confirmed albuterol sulfate 90 mcg/actuation 2 puff inhalation Q6H PRN 07/10/20 aerosol inhaler lisinopril 10 mg tablet 10 mg PO DAILY 07/10/20 Previous Rx's ?Medication ?Instructions ?Recorded fluconazole 150 mg tablet 150 mg PO ONCE PRN personal 1 day 07/10/20 (Diflucan) #1 tab amoxicillin 500 mg capsule 500 mg PO Q8H 5 days #15 caps 07/11/20 diphenhydramine HCl 25 mg capsule 50 mg (2 x 25 mg) PO Q6H PRN Take 12/13/20 (Benadryl) with Reglan (metoclopramide) #30 caps metoclopramide HCl 10 mg tablet 10 mg PO Q6H PRN Headache, nausea, 12/13/20 (Reglan) vomiting #14 tabs ketorolac 10 mg tablet 10 mg PO .B.i.d. PRN pain #10 tabs 05/29/22 metoclopramide HCl 10 mg tablet 10 mg PO .B.i.d. PRN nausea and 05/29/22 (Reglan) vomiting #10 tabs ondansetron 4 mg disintegrating 4 mg PO Q8H PRN nausea and 07/13/23 tablet vomiting 4 days #10 tabs Allergies Allergy/AdvReac Type Severity Reaction Status Date / Time No Known Allergies Allergy Verified 07/12/23 19:57 [No Known Allergies*] Review of Systems Review of Systems: Pertinent positives and negatives as stated in HPI PMFSH Past Medical History Source: nursing notes reviewed Medical History Morbid obesity with BMI of 70 and over, adult Asthma HTN (hypertension) Family History Family History Maternal Aunt Cancer Maternal Grandmother Cancer Mother HTN (hypertension) Asthma Social History Social History Alcohol intake: former Smoked in Last 30 Days: No Use of substances other than those prescribed or required for medical reasons: No Advance Directives: No Advance Directives Information Provided: No Do you have a plan to hurt others: No Plan Patient : No Gender identity: Female Physical Exam Vital Signs: Vital Signs: Last Vital Signs Temp 97.9 F 07/13/23 01:18 Pulse 80 07/13/23 01:18 Resp 14 07/13/23 01:18 BP 149/69 H 07/13/23 01:18 Pulse Ox 97 07/13/23 01:18 O2 Del Method Room Air 07/13/23 01:18 BMI result Body Mass Index 85.2 VITAL SIGNS: Reviewed. GENERAL: Elevated BMI Well developed, well nourished, in no acute distress. HEAD: Normocephalic/atraumatic EYES: PERRLA, EOMI EARS: Ext canals without abnormality, TMs non-bulging and non-erythematous NOSE: Nares patent bilateral OROPHARYNX: no oral lesions noted, posterior pharynx clear and non-erythematous without noted tonsillar enlargement/erythema/exudates NECK: Supple, no adenopathy LUNGS: Normal breath sounds. No adventitious sounds or accessory muscle use. SpO2<99> CARDIOVASCULAR: Regular rate and rhythm without noted murmurs, no JVD or lower extremity edema. ABDOMEN: Soft, non-tender, non-distended with bowel sounds. MUSCULOSKELETAL: No tenderness, deformities, or effusions noted on gross inspection. EXTREMITIES: No cyanosis, clubbing or edema. SKIN: Inspection of the skin reveals no rashes NEUROLOGIC: Alert and oriented x 4. Strength and sensation to light touch were grossly intact x 4, no facial asymmetry, no pronator drift, cranial nerves 2-12 are grossly intact. Course Course Course Narrative: This is a Rapid Medical Examination (RME) performed by Malik Escobar PA-C in triage. Full HPI, ROS, assessment and treatment plan per primary provider in the Main ED. 28 yo female with history of morbid obesity, HTN on lisinopril, hydralazine, nifedipine who presents to the ER for evaluation of headache for 4 days associated with high BP 170-190 at home. associated symptoms include N/V and chest pain. Plan: labs, EKG, CT head Medications Administered Discontinued Medications Generic Name Dose Route Start Last Admin Trade Name Holli PRN Reason Stop Dose Admin Acetaminophen 975 mg 07/13/23 00:29 07/13/23 00:38 Acetaminophen 325 Mg Tablet PO 07/13/23 00:30 975 mg ONCE ONE Administration Ibuprofen 400 mg 07/13/23 00:29 07/13/23 00:38 Ibuprofen 400 Mg Tablet PO 07/13/23 00:30 400 mg ONCE ONE Administration Ondansetron HCl 4 mg 07/13/23 00:56 07/13/23 01:15 Ondansetron Odt 4 Mg Tab.Rapdis TRANSLINGU 07/13/23 00:57 4 mg ONCE ONE Administration Medical Decision Making Medical Decision Making [facility] Narrative: 28-year-old female with history and clinical presentation, DDX: Symptoms may be medication related, sinus infection, no focal findings, possible urinary tract infection I reviewed all investigations and hematologic indices are negative for leukocytosis/anemia/thrombocytopenia. Chemistry indices are negative for ADELA/electrolyte or liver enzyme derangements, high sensitivity troponin is undetectable. Urinalysis is a contaminated sample and will not empirically treat for urinary tract infection at this time, patient instructed to follow-up with primary care doctor. CT of the head negative for acute intracranial pathology, however there was a finding of a large mucous retention cyst within the right maxillary sinus Patient provided with Zofran and combination analgesics, discussed the results with her at bedside she understands she will be provided with a referral to follow-up with ENT for further evaluation. Differential Diagnosis Differential Diagnoses: The differential diagnosis associated with the presentation includes Please see the discussion above Admission/Observation Consideration of admission/observation: Escalation of care including admission/observation considered Please see the discussion above Lab Data [facility] Lab Attestation statement: I reviewed the patient's lab results. Please see the discussion above 07/12/23 20:52 07/12/23 20:52 Labs: Lab Results 07/12/23 Range/Units 20:52 WBC 8.1 (4.8-10.8) X10*3/uL RBC 5.06 (4.20-5.50) X10*6/uL Hgb 13.0 (12.0-16.0) g/dl Hct 41.1 (37.0-47.0) % MCV 81.2 (80.0-98.0) fL MCH 25.7 L (27.0-33.0) pg MCHC 31.6 (31.0-35.0) g/dl RDW 14.3 (11.0-16.0) % Plt Count 235 (160-400) X10*3/uL MPV 10.8 (9.4-12.3) fL Immature Gran % (Auto) 0.6 H (0.0-0.4) % Neut % (Auto) 78.6 H (45-73) % Lymph % (Auto) 14.3 L (20-40) % [place] % (Auto) 5.1 (2-11) % Eos % (Auto) 0.9 (0-4) % Baso % (Auto) 0.5 (0-2) % Lymph # (Auto) 1.2 (1.2-4.9) X10*3/uL [place] # (Auto) 0.4 (0.1-1.2) X10*3/uL Eos # (Auto) 0.1 (0.0-0.4) X10*3/uL Baso # (Auto) 0.0 (0.0-0.2) X10*3/uL Abs Immat Gran (auto) 0.05 H (0.00-0.03) X10*3/uL Absolute Neuts (auto) 6.4 (2.0-8.3) x10*3/uL Absolute Nucleated RBC 0.000 (0.0-0.012) X10*3/uL Nucleated RBC % (auto) 0.0 (0.0-0.2) /100WBC Sodium 142 (135-145) mmol/L Potassium 3.9 (3.3-5.1) mmol/L Chloride 106 (96-108) mmol/L Carbon Dioxide 24 (22-29) mmol/L Anion Gap 16 (12-20) BUN 15 (9-16) mg/dL Creatinine 0.67 (0.5-1.4) mg/dL Estim Creat Clear Calc 246.8 Estimated GFR > 60 Random Glucose 107 (60-115) mg/dL Calcium 9.8 (8.4-10.2) mg/dL Magnesium 2.0 (1.6-2.6) mg/dL Total Bilirubin 0.8 (0.0-1.0) mg/dL Direct Bilirubin 0.3 (0.0-0.5) mg/dL AST 29 (5-31) U/L ALT 41 H (0-31) U/L Alkaline Phosphatase 86 (39-117) U/L Troponin I High Sens < 2.7 (<3.5-17.0) ng/L Total Protein 8.3 H (6.5-8.0) g/dL Albumin 4.7 (3.5-5.0) g/dL Independent Interpretation I performed an independent interpretation of an: EKG Interpretation: Normal sinus rhythm, HR-88, no STEMI, AK/QRS/QTC are within normal limits. Radiology Impression Discussion of test interpretation with radiology: I have reviewed the radiologist's reading. Radiologist Impression: Please see the discussion above External Record Review External record reviewed: Outpatient record, Prior outpatient labs and Prior outpatient radiology Chronic Conditions Patient?s care impacted by: Hypertension Critical Care Time Critical Care Time Critical Care Time: Yes Total Critical Care Time: 45 Attestation: I personally attest to this time spent taking care of the patient. Discharge Plan Discharge Clinical Impression: Mucous retention cyst of maxillary sinus, Headache Patient Disposition: Home, Self-Care Instructions: Cyst (ED), General Headache (ED) Additional Instructions: 1. Resume all home medications as prescribed 2. Prescription for nausea medication is been sent to your pharmacy. 3. Please follow-up with your primary care doctor at your earliest convenience for re-evaluation of your high blood pressure medication as well. 4. A referral has been provided to you for further evaluation of the mucous retention cyst in your maxillary sinus. Return to the ER for any worsening symptoms. Prescriptions: New ondansetron 4 mg tablet,disintegrating 4 mg PO Q8H PRN (Reason: nausea and vomiting) 4 Days Qty: 10 0RF No Action amoxicillin 500 mg capsule 500 mg PO Q8H 5 Days Qty: 15 0RF Rx Instructions: complete all medication metoclopramide HCl [Reglan] 10 mg tablet 10 mg PO Q6H PRN (Reason: Headache, nausea, vomiting) Qty: 14 0RF diphenhydramine HCl [Benadryl] 25 mg capsule 50 mg PO Q6H PRN (Reason: Take with Reglan (metoclopramide)) Qty: 30 0RF ketorolac 10 mg tablet 10 mg PO .B.i.d. PRN (Reason: pain) Qty: 10 0RF Rx Instructions: Do not take this medication with NSAIDs, only Tylenol if needed metoclopramide HCl [Reglan] 10 mg tablet 10 mg PO .B.i.d. PRN (Reason: nausea and vomiting) Qty: 10 0RF Rx Instructions: Take together with ketorolac p.r.n. severe headache lisinopril 10 mg tablet 10 mg PO DAILY albuterol sulfate 90 mcg/actuation HFA aerosol inhaler 2 puff inhalation Q6H PRN fluconazole [Diflucan] 150 mg tablet 150 mg PO ONCE PRN (Reason: personal) 1 Days Qty: 1 1RF Referrals: Desean Dudley [Physician] - Interventions: ED Discharge Assessment Last Done: 07/13/23 01:18 Discharge Date/Time: 07/13/23 01:19 Print Language: Namibian
--- NOTE | 2023-07-12 20:01 | ECG_ITS ---
Test Reason : DIZZINESS Blood Pressure : / mmHG Vent. Rate : 088 BPM Atrial Rate : 088 BPM P-R Int : 206 ms QRS Dur : 082 ms QT Int : 408 ms P-R-T Axes : 042 033 036 degrees QTc Int : 493 ms Normal sinus rhythm Possible Left atrial enlargement Prolonged QT Abnormal ECG When compared with ECG of 29-MAY-2022 19:52, No significant change was found Referred By: Jocelyn Escobar Electronically Signed By:Werner Swain
[2023-07-12 21:07] VITALS: BMI 85.2
[2023-07-12 21:07] LABS: MANUAL DIFF FLAG NO
[2023-07-12 21:11] LABS: Basophils Percent Auto 0.5 % (0-2); Eosinophils Absolute Auto 0.1 X10*3/uL (0.0-0.4); Eosinophils Percent Auto 0.9 % (0-4); Hematocrit 41.1 % (37.0-47.0); Imm Gran Abs Auto 0.05 X10*3/uL (0.00-0.03); Imm Gran Pct Auto 0.6 % (0.0-0.4); Lymphocytes Absolute Auto 1.2 X10*3/uL (1.2-4.9); Lymphocytes Percent Auto 14.3 % (20-40); Mean Corpuscular HGB Conc 31.6 g/dl (31.0-35.0); Mean Corpuscular Hemoglobin 25.7 pg (27.0-33.0); Mean Corpuscular Volume 81.2 fL (80.0-98.0); Mean Platelet Volume 10.8 fL (9.4-12.3); Monocytes Absolute Auto 0.4 X10*3/uL (0.1-1.2); Monocytes Percent Auto 5.1 % (2-11); Neutrophils Absolute Auto 6.4 x10*3/uL (2.0-8.3); Neutrophils Percent Auto 78.6 % (45-73); Platelet Count 235 X10*3/uL (160-400); Red Blood Count 5.06 X10*6/uL (4.20-5.50); Red Cell Distribution Width 14.3 % (11.0-16.0); White Blood Count 8.1 X10*3/uL (4.8-10.8)
[2023-07-12 21:30] LABS: Alanine Aminotransferase 41 U/L (0-31); Albumin Level 4.7 g/dL (3.5-5.0); Alkaline Phosphatase 86 U/L (39-117); Anion Gap 16 (12-20); Aspartate Amino Transferase 29 U/L (5-31); Bilirubin Direct 0.3 mg/dL (0.0-0.5); Bilirubin Total 0.8 mg/dL (0.0-1.0); Blood Urea Nitrogen 15 mg/dL (9-16); Calcium 9.8 mg/dL (8.4-10.2); Carbon Dioxide 24 mmol/L (22-29); Chloride 106 mmol/L (96-108); Creatinine Clr Calc Pharmacy 246.8; Estimated Glomerular Filt Rate > 60; Glucose Random 107 mg/dL (60-115); Potassium 3.9 mmol/L (3.3-5.1); Sodium 142 mmol/L (135-145); Total Protein 8.3 g/dL (6.5-8.0)
[2023-07-12 21:31] LABS: Troponin-I High Sensitivity < 2.7 ng/L (<3.5-17.0)
[2023-07-13] MEDS: Ibuprofen 400 MG TABLET PO (00:38)
[2023-07-13] MEDS: Acetaminophen 325 MG TABLET 975 MG PO (00:38)
[2023-07-13 01:14] VITALS: BP 149/69; PULSE 80; RESP 14; TEMP 36.6; O2SAT 97
[2023-07-13] MEDS: Ondansetron ODT 4 MG TAB.RAPDIS TRANSLINGU (01:15)
[2023-07-13 01:18] VITALS: BP 149/69; PULSE 80; RESP 14; TEMP 36.6; O2SAT 97
== END 2023-07-13 01:19 | disposition home or self-care (01) ==
PROVIDERS: Physician Assistant; Emergency Provider Student in an Organized Health Care Education/Training Program
DX: R51.9 Headache, unspecified (principal); J34.1 Cyst and mucocele of nose and nasal sinus; I10 Essential (primary) hypertension; Z79.899 Other long term (current) drug therapy
CPT/HCPCS: 36415; 70450; 80048; 80076; 83735; 84484; 85025; 93005; 99284; 99285

== ENCOUNTER → 2023-07-12 20:01 | Outpatient (BNV) | payer OTHER, SELFPAY | PROVIDERS: Emergency Provider Student in an Organized Health Care Education/Training Program; Visit Provider Internal Medicine Cardiovascular Disease | DX: I45.81 Long QT syndrome (principal) | CPT/HCPCS: 93010 ==

== ENCOUNTER 2023-07-19 10:05 | Emergency (ER) | payer OTHER, SELFPAY ==
--- NOTE | 2023-07-19 | ECG_ITS ---
Test Reason : cp Blood Pressure : / mmHG Vent. Rate : 100 BPM Atrial Rate : 100 BPM P-R Int : 170 ms QRS Dur : 076 ms QT Int : 366 ms P-R-T Axes : 042 024 022 degrees QTc Int : 472 ms Normal sinus rhythm Normal ECG When compared with ECG of 12-JUL-2023 20:56, No significant change was found Referred By: Generic ED Physician Electronically Signed By:RADHA KENT MD
--- NOTE | ~2023-07-19 | XR_ITS ---
EXAMINATION: XR CHEST CLINICAL INFORMATION: Chest pain COMPARISON: Chest 05/29/2022 TECHNIQUE: 2 views of the chest were obtained. 11:04 AM FINDINGS: No significant abnormality is noted involving the heart, lungs, mediastinum, bony thorax or soft tissues. XR/XR chest 2V IMPRESSION: No acute cardiopulmonary disease.
[2023-07-19 10:39] VITALS: BP 151/83; PULSE 76; RESP 18; TEMP 36.2; O2SAT 98; BMI 85.0
[2023-07-19 10:53] LABS: MANUAL DIFF FLAG NO
[2023-07-19 10:58] LABS: Basophils Absolute Auto 0.1 X10*3/uL (0.0-0.2); Basophils Percent Auto 1.1 % (0-2); Eosinophils Absolute Auto 0.3 X10*3/uL (0.0-0.4); Eosinophils Percent Auto 4.5 % (0-4); Hematocrit 42.6 % (37.0-47.0); Hemoglobin 13.2 g/dl (12.0-16.0); Imm Gran Abs Auto 0.03 X10*3/uL (0.00-0.03); Imm Gran Pct Auto 0.5 % (0.0-0.4); Lymphocytes Absolute Auto 2.3 X10*3/uL (1.2-4.9); Lymphocytes Percent Auto 41.4 % (20-40); Mean Corpuscular Hemoglobin 25.7 pg (27.0-33.0); Mean Platelet Volume 10.9 fL (9.4-12.3); Monocytes Absolute Auto 0.5 X10*3/uL (0.1-1.2); Monocytes Percent Auto 8.3 % (2-11); Neutrophils Absolute Auto 2.4 x10*3/uL (2.0-8.3); Neutrophils Percent Auto 44.2 % (45-73); Platelet Count 231 X10*3/uL (160-400); Red Blood Count 5.13 X10*6/uL (4.20-5.50); Red Cell Distribution Width 14.5 % (11.0-16.0); White Blood Count 5.5 X10*3/uL (4.8-10.8)
[2023-07-19 11:15] LABS: Alanine Aminotransferase 42 U/L (0-31); Albumin Level 4.7 g/dL (3.5-5.0); Alkaline Phosphatase 87 U/L (39-117); Anion Gap 14 (12-20); Aspartate Amino Transferase 30 U/L (5-31); Bilirubin Total 1.1 mg/dL (0.0-1.0); Blood Urea Nitrogen 20 mg/dL (9-16); Calcium 9.9 mg/dL (8.4-10.2); Carbon Dioxide 24 mmol/L (22-29); Chloride 107 mmol/L (96-108); Creatinine Clr Calc Pharmacy 242.8; Estimated Glomerular Filt Rate > 60; Glucose Random 97 mg/dL (60-115); Potassium 4.4 mmol/L (3.3-5.1); Sodium 141 mmol/L (135-145)
[2023-07-19 11:32] LABS: Troponin-I High Sensitivity < 2.7 ng/L (<3.5-17.0)
--- NOTE | 2023-07-19 14:27 | PC.NURSE ---
Pt presents to ED from home reports substernal chest pain radiating to left arm since yesterday. Describes as sharp and pressure, worsens with movement and breathing, 10/14. Also reports headache starting today while in waiting room, aching 08/14. Denies any fever, cough, vomiting, diarrhea, cough, recent falls or illnesses. + nausea. Alert and oriented, breathing even and unlabored, skin warm and dry.
[2023-07-19 14:57] VITALS: BP 148/73; PULSE 82; RESP 18; TEMP 36.6; O2SAT 97
--- NOTE | 2023-07-19 14:57 | PC.NURSE ---
Pt on bedside front desk monitor, NSR. VSS.
--- NOTE | 2023-07-19 15:20 | ED_ITS ---
HPI - Chest Pain General Chief Complaint: Chest Pain Stated Complaint: Chest Pain Numbness L Side Time Seen by Provider: 07/19/23 15:20 History of Present Illness HPI narrative: The patient is a 28-year-old female who says that she has been having pain in her left upper chest since yesterday. She says she thinks she 1st noticed it yesterday afternoon. She notices the pain most when she lifts her left arm above her head. The patient says that she takes a very deep breath the pain is also somewhat exacerbated. She says that she only 1st noticed this while she was sitting in the waiting room today. She is also developed a headache while waiting in the waiting room today. She has had no fever, sweats, chills. No cough or sputum. No nausea or vomiting. The patient says that she would done some cleaning of her home over the previous 2 days but she does not remember any particular heavy lifting which could have injured her chest. She has no symptoms in her legs. She has no history of blood clots. She has not on oral contraceptives or any other hormonal therapy. She is a nonsmoker. Related Data Home Medications ?Medication ?Instructions ?Recorded ?Confirmed albuterol sulfate 90 mcg/actuation 2 puff inhalation Q6H PRN 07/10/20 aerosol inhaler lisinopril 10 mg tablet 10 mg PO DAILY 07/10/20 Previous Rx's ?Medication ?Instructions ?Recorded fluconazole 150 mg tablet 150 mg PO ONCE PRN personal 1 day 07/10/20 (Diflucan) #1 tab amoxicillin 500 mg capsule 500 mg PO Q8H 5 days #15 caps 07/11/20 diphenhydramine HCl 25 mg capsule 50 mg (2 x 25 mg) PO Q6H PRN Take 12/13/20 (Benadryl) with Reglan (metoclopramide) #30 caps metoclopramide HCl 10 mg tablet 10 mg PO Q6H PRN Headache, nausea, 12/13/20 (Reglan) vomiting #14 tabs ketorolac 10 mg tablet 10 mg PO .B.i.d. PRN pain #10 tabs 05/29/22 metoclopramide HCl 10 mg tablet 10 mg PO .B.i.d. PRN nausea and 05/29/22 (Reglan) vomiting #10 tabs ondansetron 4 mg disintegrating 4 mg PO Q8H PRN nausea and 07/13/23 tablet vomiting 4 days #10 tabs ibuprofen 600 mg tablet 600 mg PO Q6H PRN pain #14 tabs 07/19/23 Allergies Allergy/AdvReac Type Severity Reaction Status Date / Time No Known Allergies Allergy Verified 07/19/23 10:42 [No Known Allergies*] Review of Systems 2 Review of Systems: Yes all other systems are reviewed and are negative [facility] Past Medical History Medical History Morbid obesity with BMI of 70 and over, adult Asthma HTN (hypertension) Family History Family History Maternal Aunt Cancer Maternal Grandmother Cancer Mother HTN (hypertension) Asthma Social History Social History Alcohol intake: former Smoked in Last 30 Days: No Use of substances other than those prescribed or required for medical reasons: No Advance Directives: No Advance Directives Information Provided: No Do you have a plan to hurt others: No Plan Gender identity: Female Physical Exam 2 Vital Signs: Vital Signs: Last Vital Signs Temp 98 F 07/19/23 16:03 Pulse 82 07/19/23 16:03 Resp 18 07/19/23 16:03 BP 148/73 H 07/19/23 16:03 Pulse Ox 98 07/19/23 16:03 O2 Del Method Room Air 07/19/23 16:03 BMI result Body Mass Index 85.0 Const: Other: The patient is a 28-year-old woman with a BMI of 85. She does not appear in distress. She is pleasant and cooperative. HEENT: Other: Face is symmetrical. Mucous membranes moist Eyes: Other: Pupils are round equal, conjunctivae are clear Neck: Other: No JVD Chest: Other: There is distinct chest wall tenderness in the left anterior chest near the costal margin. Palpation causes the patient to wince and palpation seems to reproduce the patient's pain. Resp: Effort & Inspection: normal respiratory effort Auscultation: clear to auscultation bilaterally Cardio: Rate: regular rate Rhythm: regular rhythm Heart sounds: S1 normal heart sound present and S2 normal heart sound present GI: Other: Abdomen is soft and nontender Skin: Other: Skin is dry and unremarkable Neuro: Other: The patient is awake and alert with a normal mental status. Cranial nerves are grossly intact. She moves her extremities normally and symmetrically. She has a steady gait. Grossly neurologically intact. Extrem: Other: The patient has large calves but there is no asymmetry or tenderness. Medications Administered Discontinued Medications Generic Name Dose Route Start Last Admin Trade Name Holli PRN Reason Stop Dose Admin Acetaminophen 975 mg 07/19/23 15:33 07/19/23 15:50 Acetaminophen 325 Mg Tablet PO 07/19/23 15:34 975 mg ONCE ONE Administration Ketorolac Tromethamine 30 mg 07/19/23 15:29 07/19/23 15:50 Ketorolac Tromethamine 30 Mg/Ml Vial IM 07/19/23 15:30 30 mg ONCE ONE Administration Medical Decision Making Medical Decision Making [facility] Narrative: The patient is a 28-year-old female who was here with left-sided chest pain that seems very much to be chest wall pain. The pain is reproducible with palpation. Her vital signs are unremarkable. She is PERC negative. Clinically I think chest wall pain is the most likely explanation for the patient's pain and I think further diagnostic maneuvers might be more misleading then helpful. She will be treated with ketorolac and will be discharged with a prescription for ibuprofen. She should return if worse. Lab Data 07/19/23 10:48 07/19/23 10:48 Labs: Lab Results 07/19/23 Range/Units 10:48 WBC 5.5 (4.8-10.8) X10*3/uL RBC 5.13 (4.20-5.50) X10*6/uL Hgb 13.2 (12.0-16.0) g/dl Hct 42.6 (37.0-47.0) % MCV 83.0 (80.0-98.0) fL MCH 25.7 L (27.0-33.0) pg MCHC 31.0 (31.0-35.0) g/dl RDW 14.5 (11.0-16.0) % Plt Count 231 (160-400) X10*3/uL MPV 10.9 (9.4-12.3) fL Immature Gran % (Auto) 0.5 H (0.0-0.4) % Neut % (Auto) 44.2 L (45-73) % Lymph % (Auto) 41.4 H (20-40) % [place] % (Auto) 8.3 (2-11) % Eos % (Auto) 4.5 H (0-4) % Baso % (Auto) 1.1 (0-2) % Lymph # (Auto) 2.3 (1.2-4.9) X10*3/uL [place] # (Auto) 0.5 (0.1-1.2) X10*3/uL Eos # (Auto) 0.3 (0.0-0.4) X10*3/uL Baso # (Auto) 0.1 (0.0-0.2) X10*3/uL Abs Immat Gran (auto) 0.03 (0.00-0.03) X10*3/uL Absolute Neuts (auto) 2.4 (2.0-8.3) x10*3/uL Absolute Nucleated RBC 0.000 (0.0-0.012) X10*3/uL Nucleated RBC % (auto) 0.0 (0.0-0.2) /100WBC Sodium 141 (135-145) mmol/L Potassium 4.4 (3.3-5.1) mmol/L Chloride 107 (96-108) mmol/L Carbon Dioxide 24 (22-29) mmol/L Anion Gap 14 (12-20) BUN 20 H (9-16) mg/dL Creatinine 0.68 (0.5-1.4) mg/dL Estim Creat Clear Calc 242.8 Estimated GFR > 60 Random Glucose 97 (60-115) mg/dL Calcium 9.9 (8.4-10.2) mg/dL Total Bilirubin 1.1 H (0.0-1.0) mg/dL AST 30 (5-31) U/L ALT 42 H (0-31) U/L Alkaline Phosphatase 87 (39-117) U/L Troponin I High Sens < 2.7 (<3.5-17.0) ng/L Total Protein 8.0 (6.5-8.0) g/dL Albumin 4.7 (3.5-5.0) g/dL Beta HCG, Quant < 2 mIU/mL Independent Interpretation I performed an independent interpretation of an: EKG Interpretation: EKG at 10:07 shows normal sinus rhythm at 100 beats per minute. No definite acute ischemic changes. Discharge Plan Discharge Clinical Impression: Acute chest wall pain Patient Disposition: Home, Self-Care Additional Instructions: I think that the pain you are experiencing in your left chest is most likely coming from the muscles, bones, or cartilage of your chest wall. We often called this chest wall pain. Sometimes this is called costochondritis. Your physical exam and your blood testing seem reassuring and consistent with chest wall pain. You may use ibuprofen and acetaminophen as needed for pain. I have sent a prescription for ibuprofen to your pharmacy. For acetaminophen (Tylenol) you may take 2 extra-strength tablets up to 3 times a day as needed for pain. Please plan on following up with your regular doctor's office next week to discuss this further. Return to the emergency room if you are feeling significantly worse, especially if you are more short of breath. Prescriptions: New ibuprofen 600 mg tablet 600 mg PO Q6H PRN (Reason: pain) Qty: 14 0RF No Action amoxicillin 500 mg capsule 500 mg PO Q8H 5 Days Qty: 15 0RF Rx Instructions: complete all medication metoclopramide HCl [Reglan] 10 mg tablet 10 mg PO Q6H PRN (Reason: Headache, nausea, vomiting) Qty: 14 0RF diphenhydramine HCl [Benadryl] 25 mg capsule 50 mg PO Q6H PRN (Reason: Take with Reglan (metoclopramide)) Qty: 30 0RF ondansetron 4 mg tablet,disintegrating 4 mg PO Q8H PRN (Reason: nausea and vomiting) 4 Days Qty: 10 0RF ketorolac 10 mg tablet 10 mg PO .B.i.d. PRN (Reason: pain) Qty: 10 0RF Rx Instructions: Do not take this medication with NSAIDs, only Tylenol if needed metoclopramide HCl [Reglan] 10 mg tablet 10 mg PO .B.i.d. PRN (Reason: nausea and vomiting) Qty: 10 0RF Rx Instructions: Take together with ketorolac p.r.n. severe headache lisinopril 10 mg tablet 10 mg PO DAILY albuterol sulfate 90 mcg/actuation HFA aerosol inhaler 2 puff inhalation Q6H PRN fluconazole [Diflucan] 150 mg tablet 150 mg PO ONCE PRN (Reason: personal) 1 Days Qty: 1 1RF Referrals: [facility] [Provider Group] (Chest wall pain) Interventions: LWBS Worksheet Last Done: 07/19/23 13:07 ED Discharge Assessment Last Done: 07/19/23 16:03 Discharge Date/Time: 07/19/23 16:03 Print Language: Croatian
[2023-07-19] MEDS: Acetaminophen 325 MG TABLET 975 MG PO (15:50)
[2023-07-19] MEDS: Ketorolac Tromethamine 30 MG/ML VIAL IM (15:50)
--- NOTE | 2023-07-19 15:54 | PC.NURSE ---
pt medicated per may for 10/14 pain
[2023-07-19 16:01] LABS: HCG Quantitative < 2 mIU/mL
[2023-07-19 16:03] VITALS: BP 148/73; PULSE 82; RESP 18; TEMP 36.6; O2SAT 98
== END 2023-07-19 16:03 | disposition home or self-care (01) ==
PROVIDERS: Emergency Medicine; Emergency Provider Emergency Medicine
DX: R07.89 Other chest pain (principal); I10 Essential (primary) hypertension; J45.909 Unspecified asthma, uncomplicated; E66.01 Morbid (severe) obesity due to excess calories; Z68.45 Body mass index [BMI] 70 or greater, adult; Z79.899 Other long term (current) drug therapy
CPT/HCPCS: 36415; 71046; 80053; 84484; 84702; 85025; 93005; 96372; 99284; 99285; J1885

== ENCOUNTER → 2023-07-19 10:07 | Outpatient (BNV) | payer OTHER, SELFPAY | PROVIDERS: Emergency Provider Emergency Medicine; Visit Provider Internal Medicine Cardiovascular Disease | DX: R07.9 Chest pain, unspecified (principal) | CPT/HCPCS: 93010 ==